=== PATIENT | female | born 1930 | race Caucasian/White ===

== ENCOUNTER 2018-09-28 07:40 | Inpatient (IN) | payer MEDICARE, BC ==
[~2018-09-28] VITALS: Ht 167.6 cm; Wt 51.9 kg
[2018-09-28] VITALS (9 sets, daily range): BP systolic 104–143; BP diastolic 53–68
[2018-09-28] MEDS ORDERED: NALOXONE INJ 0.4 MG/1 ML VIAL (J2310) As Ordered ONE (07:44)
[2018-09-28] MEDS ORDERED: NALOXONE INJ 0.4 MG/1 ML VIAL (J2310) IV STA (07:45)
[2018-09-28] MEDS ORDERED: NS 500 ML IV ONE (08:00)
[2018-09-28] MEDS ORDERED: ATEN25TA PO (08:06)
[2018-09-28 08:34] LABS: BASO % 0.1 % (0.0-1.0); HEMATOCRIT 30.7 % (36.0-47.0); HEMOGLOBIN 10.1 g/dl (12.0-15.5); LYMPH # 0.9 10^3/uL (1.5-4.5); LYMPH % 5.8 % (24.0-44.0); MEAN CORPUSCULAR HGB CONC 32.9 g/dl (32.0-36.5); MEAN CORPUSCULAR VOLUME 88.2 fl (80.0-96.0); MONO # 0.9 10^3/uL (0.0-0.8); MONO % 5.6 % (0.0-5.0); NEUTROPHILS # 13.5 10^3/uL (1.8-7.7); PLATELET COUNT, AUTOMATED 253 10^3/uL (150-450); RED BLOOD COUNT 3.48 10^6/uL (4.00-5.40); WHITE BLOOD COUNT 15.3 10^3/uL (4.0-10.0)
[2018-09-28 08:47] LABS: INR 1.01; PARTIAL THROMBOPLASTIN TIME 32.5 SECONDS (25.4-37.6); PROTHROMBIN TIME 13.4 SECONDS (12.1-14.4)
[2018-09-28 09:02] LABS: BLOOD UREA NITROGEN 14 MG/DL (7-18); CALCIUM LEVEL 8.8 MG/DL (8.8-10.2); CARBON DIOXIDE LEVEL 25 MEQ/L (21-32); CHLORIDE LEVEL 105 MEQ/L (98-107); CPK CREATINE PHOSPHOKINASE 506 U/L (26-192); CREATININE FOR GFR 0.68 MG/DL (0.55-1.30); GLOMERULAR FILTRATION RATE > 60.0 (>32); GLUCOSE, FASTING 151 MG/DL (70-100); MB/CK RELATIVE INDEX 0.83 (< OR =4); POTASSIUM SERUM 3.8 MEQ/L (3.5-5.1); SODIUM LEVEL 139 MEQ/L (136-145); TROPONIN I < 0.02 NG/ML (< 0.10)
[2018-09-28] MEDS ORDERED: DORZ2SOL5 OU (09:22)
[2018-09-28] MEDS ORDERED: ALEV220T22 PO (09:22)
[2018-09-28] MEDS ORDERED: DIPH25CA PO (09:22)
[2018-09-28] MEDS ORDERED: EPIN1DRO OU (09:22)
[2018-09-28] MEDS ORDERED: ADVI200T26 PO (09:22)
[2018-09-28] MEDS ORDERED: ASPI1TAB PO (09:22)
--- NOTE | 2018-09-28 09:37 | REP ---
Pelvis right hip: Three views. History: Trauma. Findings: There is a comminuted intertrochanteric fracture of the right hip in varus with some override. Vascular calcification and diffuse osteoporosis are noted. No pelvic fracture is appreciated. No sacral fracture is seen. There are degenerative changes in the lumbosacral junction. A vaginal pessary appears to be present and there is moderate stool. Impression: Comminuted intertrochanteric fracture of the right hip with override and varus deformity. Osteoporosis. Electronically Signed by Chidi Hernandez MD 09/28/2018 08:36 A
--- NOTE | 2018-09-28 09:37 | REP ---
Chest x-ray: Single view. History: Preop. Comparison chest x-ray October 22, 2009. Findings: EKG monitoring electrodes overlie the chest. Lungs are hyperinflated but clear. Pleural angles are sharp. Heart is not felt to be enlarged and is unchanged. The aorta is calcific and somewhat tortuous. There is diffuse osteopenia. Impression: No acute disease. Electronically Signed by Chidi Hernandez MD 09/28/2018 08:36 A
--- NOTE | 2018-09-28 09:42 | REP ---
Right femur: Two views. History: Request of orthopedic surgeon. Trauma. Right hip radiographs demonstrate an intertrochanteric fracture. Findings: AP and lateral views of the mid and distal femur show no additional fracture. There is diffuse osteoporosis. Medial knee compartment osteoarthritis is seen. Vascular calcification is noted. The lateral radiograph is somewhat overexposed which precludes visualization of the anterior surface of the patella and tibia on the lateral radiograph. Impression: No additional fracture seen. Electronically Signed by Chidi Hernandez MD 09/28/2018 09:22 A
[2018-09-28] MEDS ORDERED: ONDANSETRON 4MG/2ML VIAL (J2405) IV PRN (09:45)
[2018-09-28] MEDS ORDERED: BISACODYL 10 MG SUPP PR PRN (09:45)
--- NOTE | 2018-09-28 10:05 | REP ---
Emergency noncontrast brain CT: History: Trauma. Findings: Preliminary digital marina porter radiograph is unremarkable. Bone window settings demonstrate an intact bony calvarium. There is moderate vascular calcification in the distal vertebral and carotid arteries. Visualized paranasal sinuses are clear. No skull fracture is seen. No significant scalp hematoma is appreciated. On soft tissue window settings, there is moderate diffuse cerebral atrophy. Periventricular white matter changes are seen consistent with small vessel microvascular changes. There is no evidence of intracranial hemorrhage. No extra-axial fluid collection is seen. No mass, edema, acute infarction or midline shift is observed. Physiologic calcification is noted in the basal ganglia. Impression: Diffuse atrophy, small vessel changes, vascular calcification. No acute intracranial abnormality. Electronically Signed by Chidi Hernandez MD 09/28/2018 12:26 P
--- NOTE | 2018-09-28 11:15 | REP ---
CT right hip without contrast: History: Rule out lytic lesion. Right hip fracture. Findings: A comminuted intertrochanteric fracture is seen as noted radiographically. Alignment is improved. The edge of the fracture at the base of the femoral neck on the right shows a sclerotic margin and a portion of the fracture line on the femoral shaft side shows sclerosis as well. There is a mottled pattern of increased density in the medullary canal at the edge of the fracture in the proximal femoral fragment. These findings suggest a mixed density partially sclerotic intertrochanteric lesion. Most of the lesion appears to be within the diastatic comminuted fracture fragments. Its proximal margin is visible in the medullary canal of the femoral shaft fragment and matrix from the lesion is seen across the diastatic fracture line. There is some of the lesion extending into the comminuted greater trochanter. However, the lesion does not appear to have eroded through or remodeled the cortical margin of the femur at any level. These features render it difficult to evaluate but benign lesion such as fibrous dysplasia is a possibility as is a mixed lytic and sclerotic hematogenous metastasis such as from breast primary. Impression: Comminuted intertrochanteric fracture through a mixed density somewhat sclerotic intertrochanteric medullary cavity lesion. The lesion is difficult to characterize. Fibrous dysplasia and mixed lytic and sclerotic malignant lesions are possibilities. There does not appear to have been cortical erosion. Electronically Signed by Chidi Hernandez MD 09/28/2018 12:30 P
[2018-09-28] MEDS: D5W/0.45% SODIUM CHLORIDE 1,000 ML IV SCH ×2 (11:28→21:15)
[2018-09-28] MEDS ORDERED: DEXTROSE 50% 50 ML SYRINGE IV PRN ×2 (11:30→12:15)
[2018-09-28] MEDS ORDERED: GLUCAGON FOR INJ 1 MG VIAL (J1610) SC PRN ×2 (11:30→12:15)
[2018-09-28] MEDS ORDERED: GLUCOSE 4 GM CHEW TABLET PO PRN ×2 (11:30→12:15)
--- NOTE | 2018-09-28 11:39 | CR ---
DATE OF CONSULTATION: 09/28/2018 PROVIDER REQUESTING CONSULTATION: Dr. Curry Cooley PROVIDER CONSULTED: Dr. Esau Stratton, [facility] CHIEF COMPLAINT: Right hip pain status post fall. HISTORY: The patient is an 87-year-old female with advanced dementia, presenting to the emergency room via EMS status post fall. The patient was last known well on 09/27/2018 at 1900 hours. She was found this morning on the ground with her right leg internally rotated. When EMS arrived, she was alert, complaining of right hip pain. Morphine and Zofran were administered. Upon arrival to the emergency room the patient was lethargic and not responsive to sternal rub, so she was given Narcan and immediately became responsive and able to answer questions. She was quite confused at baseline. The patient was unable to recall the circumstances surrounding the fall. Last oral intake is unknown but was prior to 0700 hours this morning. At the emergency room, the patient had x-rays and CT scan notable for a closed comminuted overriding intertrochanteric femur fracture on the right. [facility] was consulted. CHRONIC MEDICAL CONDITIONS: The patient is a poor historian, however she does have history of dementia, hypertension, allergies. CURRENT MEDICATIONS: - atenolol 25 mg daily - aspirin 81 mg daily - Aleve 220 mg every morning - Advil 400 mg every evening - Benadryl 25 mg daily as needed - dorzolamide/timolol eye drops - epinastine eye drops ALLERGIES: There are no known drug allergies. PREVIOUS SURGICAL HISTORY: Unknown. SOCIAL HISTORY: No current tobacco or alcohol use. REVIEW OF SYSTEMS: The patient denies fevers, chills, vomiting or diarrhea. No chest pain, shortness of breath or headaches. PHYSICAL EXAMINATION: GENERAL: The patient does appear to be resting comfortably in exam room. She is a poor historian due to her dementia. Right lower extremity is in an internally rotated position. VITAL SIGNS: Blood pressure 135/53, heart rate 64, temperature 97.3, pulse oximetry 100%, respirations 16. NECK: Supple without lymphadenopathy. CARDIOVASCULAR: Radial and dorsalis pedis pulses are 1+ and equal bilaterally. PULMONARY: Breathing is regular and nonlabored. ABDOMEN: Soft, nontender to palpation. MUSCULOSKELETAL: Inspection of the right hip reveals no gross abnormalities with the exception of a slightly internally rotated position. There is tenderness to palpation at the lateral hip and groin. Extremity is warm and well perfused. Her skin at the hip is intact; however, she does have a small abrasion to the great toe at the medial metatarsal phalangeal joint that appears benign. Bilateral lower extremity sensation is intact. The patient is able to move all of her toes bilaterally without difficulty. IMAGING STUDIES: Right hip AP lateral to include pelvis revealed a comminuted intertrochanteric fracture of the right hip with override and varus deformity. Osteoporosis. CT scan reveals the same. IMPRESSION: Comminuted intertrochanteric femur fracture on the right with override and varus deformity in a patient with advanced dementia. PLAN: Patient is pending medical clearance at this time. Pending medical clearance, the patient will remain nothing by mouth. [facility] international accounting manager provider will be in to evaluate the patient to discuss surgical versus nonsurgical options pending clearance. Please see medical record for additional details. WILLD
[2018-09-28] MEDS ORDERED: MORPHINE 4 MG/ML 1ML VIAL/SYRINGE (J2270) IV PRN (12:15)
--- NOTE | 2018-09-28 12:24 | HPEPDOC ---
[facility] Medical History & Physical Date of Admission Sep 28, 2018 Primary Care Physician: Latoya Mendoza Attending Physician: YUNI TERRELL MD History and Physical CHIEF COMPLAINT: Fall , right hip fracture HISTORY OF PRESENT ILLNESS: 87 year old DO NOT RESUSCITATE, DO NOT INTUBATE, female with chronic Dementia, who lives at home with her grandson and usually walks with a walker, and has been increasing demented unable to perform ADLs without assistance sustained a fall at home without prodromal symptoms of chest pain, pressure,tightness, dizziness, lightheadedness, nausea, vomiting, diaphoresis of sense of impending doom, without any past medical history of coronary artery disease, UT, CHF, arrhythmias, or CVA. In the Emergency room, she was found to have a closed intertrochanteric fracture of the right hip. CT extremity 09/28/18: mixed lytic lesions from possible malignancy and osteoporosis. Orthopedic surgery, Dr. Stratton, has been consulted by both Dr. Ruslan Cooley, ER physician, and Hospitalist, Dr. Terrell for management. According to the grandson, pt has been in her usual state of health without fever, chills, diarrhea, headache, constipation, dysuria, urgency, frequency and often suffers from chronic back pain and vertigo. Her fall was unwitnessed, and despite the patient saying that she did not hit her head, pt's daughter says, that the patient is an unreliable historian. She was found on the floor covered in urine and may have been there since last night. Per daughter, no prior history of malignancy. PAST MEDICAL HISTORY: Vertigo, Chronic Dementia, Chronic back pain, Hypertension, hypercholesterolemia, glaucoma PAST SURGICAL HISTORY: Cataract surgery b/l, teeth extraction, tonsillectomy, adenoidectomy, HOME MEDICATIONS: PLS SEE BELOW ALLERGY: Azithromycin hives SOCIAL HISTORY: refused colonoscopy in the past, 2014 category 2 benign breast nodules mammogram per Dr. Seay's office. lives with grandsonKirill. HCP are Radhika Mata, daughter and lives in [place], and Kirill, grandson. no ETOH, cig, drug use. retired FAMILY HISTORY: unknown REVIEW OF SYSTEMS: right hip pain, other tsang negative 12 points systems review. HOME MEDICATIONS: Please see below. PHYSICAL EXAMINATION: VITAL SIGNS:pls see below GENERAL APPEARANCE: AAOx1 person only. pleasantly confused HEENT: anicteric sclear, no jaundice. no respiratory distress. no facial asymmetry. no JVD no thyromegaly CARDIOVASCULAR: S1S2 RRR LUNGS: CTAB no wheezing, rales ABDOMEN: (+) bowel sounds soft NT ND no rebound or guarding MUSCULOSKELETAL: right hip tenderness. shortened right LE externally rotated. NEUROLOGIC: demented, disoriented to place and time. AAO x1 person only LABORATORY DATA: See below. IMAGING: See below 09/28/18 Hip XRay: Comminuted intertrochanteric fracture of the right hip with override and varus deformity. Osteoporosis. 09/28/18 CT Head: Diffuse atrophy, small vessel changes, vascular calcification. No acute intracranial abnormality. 09/28/18 CXR: no acute disease 09/28/18 CT Extremity: A comminuted intertrochanteric fracture is seen as noted radiographically. Alignment is improved. The edge of the fracture at the base of the femoral neck on the right shows a sclerotic margin and a portion of the fracture line on the femoral shaft side shows sclerosis as well. There is a mottled pattern of increased density in the medullary canal at the edge of the fracture in the proximal femoral fragment. These findings suggest a mixed density partially sclerotic intertrochanteric lesion. Most of the lesion appears to be within the diastatic comminuted fracture fragments. Its proximal margin is visible in the medullary canal of the femoral shaft fragment and matrix from the lesion is seen across the diastatic fracture line. There is some of the lesion extending into the comminuted greater trochanter. However, the lesion does not appear to have eroded through or remodeled the cortical margin of the femur at any level. These features render it difficult to evaluate but benign lesion such as fibrous dysplasia is a possibility as is a mixed lytic and sclerotic hematogenous metastasis such as from breast primary. ASSESSMENT AND PLAN: 87 year old DO NOT RESUSCITATE, DO NOT INTUBATE, female with chronic Dementia, who lives at home with her grandson and usually walks with a walker, and has been increasing demented unable to perform ADLs without assistance sustained a fall at home without prodromal symptoms of chest pain, pressure,tightness, dizziness, lightheadedness, nausea, vomiting, diaphoresis of sense of impending doom, without any past medical history of coronary artery disease, UT, CHF, arrhythmias, or CVA. In the Emergency room, she was found to have a closed intertrochanteric fracture of the right hip. CT extremity 09/28/18: mixed lytic lesions from possible malignancy and osteoporosis. Orthopedic surgery, Dr. Stratton, has been consulted by both Dr. Ruslan Cooley, ER physician, and Hospitalist, Dr. Terrell for management. According to the grandson, pt has been in her usual state of health without fever, chills, diarrhea, headache, constipation, dysuria, urgency, frequency and often suffers from chronic back pain and vertigo. Her fall was unwitnessed, and despite the patient saying that she did not hit her head, pt's daughter says, that the patient is an unreliable historian. She was found on the floor covered in urine and may have been there since last night. Per daughter, no prior history of malignancy. Preooperative medical clearance: pt is at intermediate risk of surgery, but has been optimized to proceed to surgery. Her ASA has been withheld, and she is continued on beta blockers with holding parameters. no prior history of CAD, UT, CHF, smoking, COPD, or QUINTIN. Fall at home: bedrest with macias for now until surgical repair. Pt lives with grandson and usually walks with a walker. Comminuted intertrochanteric fracture of the right hip with override and varus deformity, secondary to a fall at home and longstanding history of osteoporosis. npo for now, ivfluids, surgical consult for repair. consent obtained from HCF and daughter. hypoglycemic protocol and fingersticks q6hrs while NPO. Osteoporosis: postop vitamin D and calcium supplementation. Hypertension: controlled. on beta marianela with holding parameters Glaucoma: will resume home meds postop Hypercholesterolemia: not on meds Chronic Vertigo: pt has advanced dementia and could not provide history regarding her recent fall at home. Chronic advanced Dementia: worsening according to the family. has a grandson living with her . requires help with ADLs. Abnormal EKG: continue Telemetry. Lytic bone lesions: abnormal mammogram, refused colonoscopy in the past. Code status: DO NOT RESUSCITATE, DO NOT INTUBATE Diet: NPO D51/2NS while NPO with hypoglycemic protocol and fingersticks q6hrs. DVT Prophylaxis: compression stockings. Vital Signs Vital Signs Date Time Temp Pulse Resp B/P (MAP) Pulse Ox O2 Delivery O2 Flow Rate FiO2 09/28/18 11:00 98.1 70 20 140/65 (90) 95 Room Air Laboratory Data Labs 24H Laboratory Tests 2 09/28/18 08:20: Immature Granulocyte % (Auto) 0.5, White Blood Count 15.3H, Red Blood Count 3.48L, Hemoglobin 10.1L, Hematocrit 30.7L, Mean Corpuscular Volume 88.2, Mean Corpuscular Hemoglobin 29.0, Mean Corpuscular Hemoglobin Concent 32.9, Red Cell Distribution Width 13.6, Platelet Count 253, Neutrophils (%) (Auto) 88.0H, Lymphocytes (%) (Auto) 5.8L, Monocytes (%) (Auto) 5.6H, Eosinophils (%) (Auto) 0.0, Basophils (%) (Auto) 0.1, Neutrophils # (Auto) 13.5H, Lymphocytes # (Auto) 0.9L, Monocytes # (Auto) 0.9H, Eosinophils # (Auto) 0.0, Basophils # (Auto) 0.0, Nucleated Red Blood Cells % (auto) 0.0, Prothrombin Time 13.4, Prothromb Time International Ratio 1.01, Activated Partial Thromboplast Time 32.5, Urine Color YELLOW, Urine Appearance CLOUDYH, Urine pH 6.0, Urine Specific [place] 1.014, Urine Protein 1+H, Urine Glucose (UA) NEGATIVE, Urine Ketones TRACEH, Urine Blood 1+H, Urine Nitrite NEGATIVE, Urine Bilirubin NEGATIVE, Urine Urobilinogen 0.2, Urine Leukocyte Esterase TRACEH, Urine WBC (Auto) 6H, Urine RBC (Auto) 19H, Urine Hyaline Casts (Auto) 5, Urine Bacteria (Auto) NEGATIVE, Urine Squamous E pithelial Cells 2, Urine Amorphous Sediment SMALLH, Urine Mucus (Auto) SMALL, Urine Sperm (Auto) , Anion Gap 9, Glomerular Filtration Rate > 60.0, Blood Urea Nitrogen 14, Creatinine 0.68, Sodium Level 139, Potassium Level 3.8, Chloride Level 105, Carbon Dioxide Level 25, Calcium Level 8.8, Total Creatine Kinase 506H, Creatine Kinase MB 4.0H, Creatine Kinase MB Relative Index 0.83, Troponin I < 0.02 CBC/BMP Laboratory Tests 09/28/18 08:20 Red Blood Count 3.48 L, Mean Corpuscular Volume 88.2, Mean Corpuscular Hemoglobin 29.0, Mean Corpuscular Hemoglobin Concent 32.9, Red Cell Distribution Width 13.6, Neutrophils (%) (Auto) 88.0 H, Lymphocytes (%) (Auto) 5.8 L, Monocytes (%) (Auto) 5.6 H, Eosinophils (%) (Auto) 0.0, Basophils (%) (Auto) 0.1, Neutrophils # (Auto) 13.5 H, Lymphocytes # (Auto) 0.9 L, Monocytes # (Auto) 0.9 H, Eosinophils # (Auto) 0.0, Basophils # (Auto) 0.0, Calcium Level 8.8, Total Creatine Kinase 506 H Microbiology Microbiology 09/28/18 Urine Culture, Received Pending Home Medications Scheduled (Epinastine HCl) 0.05 % Brett, 1 DROP OU BID (Dorzolamide HCl/Timolol M 22.3-6.8 mg/ml) 1 Cirilo Cirilo, 1 CIRILO OU BID (Aleve Arthritis) 220 Mg Tab, 220 MG PO DAILY (Advil Pm 200-38 mg) 1 Tab Tab, 2 TAB PO QHS Aspirin (Aspirin 81) 81 Mg Tab, 81 MG PO DAILY Atenolol (Atenolol) 25 Mg Tab, 25 MG PO DAILY Diphenhydramine HCl (Diphenhydramine HCl) 25 Mg Cap, 25 MG PO DAILY Allergies Coded Allergies: No Known Allergies (Unverified , 09/28/18) YUNI TERRELL MD Sep 28, 2018 12:01
--- NOTE | 2018-09-28 13:21 | ECGEPIP ---
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
[2018-09-28] MEDS ORDERED: LIDOCAINE 1% MDV 20ML VIAL As Ordered ONE (15:32)
--- NOTE | 2018-09-28 17:08 | REP ---
CT-GUIDED LEFT HIP BONE BIOPSY The procedure was performed under the direct supervision of Dr. monge. Patient has a history of a mixed density, somewhat sclerotic intertrochanteric medullary cavity lesion seen on a previous CT scan performed earlier today. The risks and benefits of the procedure were explained and informed consent was obtained by the health care proxy. The right hip lesion was localized using CT guidance. The skin was prepped and draped in a sterile fashion. 1% lidocaine was used as a local anesthetic. Using CT guidance a 17/18 gauge coaxial needle biopsy system was inserted and advanced into the lesion. Eight core biopsy samples were obtained and sent to lab. The patient tolerated the procedure well and there were no immediate complications. Reviewed by HOUSTON Cordon 09/28/2018 04:53 P Electronically Signed by Usama Monge MD 09/28/2018 04:59 P
[2018-09-28] MEDS: ACETAMINOPHEN TAB 650MG DOSE (2X325MG) PO PRN (18:24)
[2018-09-28] MEDS: CARVedilol 3.125 MG TAB PO SCH (19:42)
[2018-09-28] MEDS: PERCOCET 5MG/325MG TAB PO PRN (19:45)
[2018-09-29] VITALS (10 sets, daily range): BP systolic 100–161; BP diastolic 53–78
[2018-09-29] MEDS: PERCOCET 5MG/325MG TAB PO PRN ×2 (03:49→12:43)
[2018-09-29 05:48] LABS: HEMATOCRIT 23.1 % (36.0-47.0); MEAN CORPUSCULAR HEMOGLOBIN 29.3 pg (27.0-33.0); MEAN CORPUSCULAR HGB CONC 32.9 g/dl (32.0-36.5); MEAN CORPUSCULAR VOLUME 89.2 fl (80.0-96.0); PLATELET COUNT, AUTOMATED 197 10^3/uL (150-450); RED BLOOD COUNT 2.59 10^6/uL (4.00-5.40); WHITE BLOOD COUNT 11.1 10^3/uL (4.0-10.0)
[2018-09-29 05:53] LABS: HEMOGLOBIN 7.6 g/dl (12.0-15.5)
[2018-09-29 06:19] LABS: BLOOD UREA NITROGEN 12 MG/DL (7-18); CALCIUM LEVEL 7.8 MG/DL (8.8-10.2); CARBON DIOXIDE LEVEL 26 MEQ/L (21-32); CHLORIDE LEVEL 106 MEQ/L (98-107); GLOMERULAR FILTRATION RATE > 60.0 (>32); GLUCOSE, FASTING 128 MG/DL (70-100); POTASSIUM SERUM 3.9 MEQ/L (3.5-5.1); SODIUM LEVEL 139 MEQ/L (136-145)
[2018-09-29] MEDS: D5W/0.45% SODIUM CHLORIDE 1,000 ML IV SCH (06:22)
[2018-09-29] MEDS ORDERED: ACETAMINOPHEN TAB 650MG DOSE (2X325MG) PO ONE (08:00)
[2018-09-29] MEDS ORDERED: ENOXAPARIN 30 MG/0.3 ML SYR (J1650) SC ONE (08:00)
[2018-09-29] MEDS: CARVedilol 3.125 MG TAB PO SCH ×2 (08:38→22:08)
[2018-09-29] MEDS: MIRALAX *UNIT DOSE* 17GM PACKET PO SCH (09:00)
[2018-09-29] MEDS: SENOKOT S TAB PO SCH ×2 (09:00→22:08)
[2018-09-29 12:19] LABS: HEMOGLOBIN 9.4 g/dl (12.0-15.5)
--- NOTE | 2018-09-29 14:34 | IPNPDOC ---
Date Seen The patient was seen on 09/29/18. Progress Note SUBJECTIVE: Pt continues to be restless and wanting to go home. s/p biopsy of right femur 09/28/18: awaiting results if lytic lesion due to metastatic cancer of unknown primary. Per Daughter, Radhika, HCP in [place], the paitent would not want prolonged hospitalization, and if the pathology report confirms malignancy, family requests: no surgery, discharge home with hospice and comfort measures only. If pt becomes agitated, low dose sedative per daughter's request, and 'NOT TO BE TIED DOWN." PHYSICAL EXAMINATION: VITAL SIGNS:pls see below GENERAL APPEARANCE: AAOx1 person only. pleasantly confused HEENT: anicteric sclear, no jaundice. no respiratory distress. no facial asymmetry. no JVD no thyromegaly CARDIOVASCULAR: S1S2 RRR LUNGS: CTAB no wheezing, rales ABDOMEN: (+) bowel sounds soft NT ND no rebound or guarding MUSCULOSKELETAL: right hip tenderness. shortened right LE externally rotated. hematoma along right thigh. NEUROLOGIC: demented, disoriented to place and time. AAO x1 person only LABORATORY DATA: See below. IMAGING: See below 09/28/18 Hip XRay: Comminuted intertrochanteric fracture of the right hip with override and varus deformity. Osteoporosis. 09/28/18 CT Head: Diffuse atrophy, small vessel changes, vascular calcification. No acute intracranial abnormality. 09/28/18 CXR: no acute disease 09/28/18 CT Extremity: A comminuted intertrochanteric fracture is seen as noted radiographically. Alignment is improved. The edge of the fracture at the base of the femoral neck on the right shows a sclerotic margin and a portion of the fracture line on the femoral shaft side shows sclerosis as well. There is a mottled pattern of increased density in the medullary canal at the edge of the fracture in the proximal femoral fragment. These findings suggest a mixed density partially sclerotic intertrochanteric lesion. Most of the lesion appears to be within the diastatic comminuted fracture fragments. Its proximal margin is visible in the medullary canal of the femoral shaft fragment and matrix from the lesion is seen across the diastatic fracture line. There is some of the lesion extending into the comminuted greater trochanter. However, the lesion does not appear to have eroded through or remodeled the cortical margin of the femur at any level. These features render it difficult to evaluate but benign lesion such as fibrous dysplasia is a possibility as is a mixed lytic and sclerotic hematogenous metastasis such as from breast primary. ASSESSMENT AND PLAN: 87 year old DO NOT RESUSCITATE, DO NOT INTUBATE, female with chronic Dementia, who lives at home with her grandson and usually walks with a walker, and has been increasing demented unable to perform ADLs without assistance sustained a fall at home without prodromal symptoms of chest pain, pressure,tightness, dizziness, lightheadedness, nausea, vomiting, diaphoresis of sense of impending doom, without any past medical history of coronary artery disease, [place], CHF, arrhythmias, or CVA. In the Emergency room, she was found to have a closed intertrochanteric fracture of the right hip. CT extremity 09/28/18: mixed lytic lesions from possible malignancy and osteoporo sis. Orthopedic surgery, Dr. Stratton, has been consulted by both Dr. Ruslan Cooley, ER physician, and Hospitalist, Dr. Terrell for management. According to the grandson, pt has been in her usual state of health without fever, chills, diarrhea, headache, constipation, dysuria, urgency, frequency and often suffers from chronic back pain and vertigo. Her fall was unwitnessed, and despite the patient saying that she did not hit her head, pt's daughter says, that the patient is an unreliable historian. She was found on the floor covered in urine and may have been there since last night. Per daughter, no prior history of malignancy. Preooperative medical clearance: pt is at intermediate risk of surgery, but has been optimized to proceed to surgery. Her ASA has been withheld, and she is co ntinued on beta blockers with holding parameters. no prior history of CAD, [place], CHF, smoking, COPD, or QUINTIN. Per family,should the pathology show metastasis, no surgery, but claim trainee and discharge home with 24/7 care. Fall at home: bedrest with macias for now until surgical repair. Pt lives with grandson and usually walks with a walker. Comminuted intertrochanteric fracture of the right hip with override and varus deformity, secondary to a fall at home and longstanding history of osteoporosis and possible lytic lesions from unknown primary malignancy. s/prit hip biopsy 09/28/18. Per family,should the pathology show metastasis, no surgery, but claim trainee and discharge home with 24/7 care. Right thigh Hematoma: secondary to right hip fracture s/p fall. no signs of compartment syndrome. s/p 1 unit rbc transfusion. Acute blood loss anemia: secondary to right thigh hematoma and longstanding history of LGI bleed refusing colonoscopy. s/p 1 unit rbc transfusion 09/29/18. Per daughter, pt has refused colonosocpy. bowel regimen. check stool for blood. Bone lytic lesions: s/pright hip biopsy 09/28/18. Per family,should the pathology show metastasis, no surgery, but claim trainee and discharge home with 24/7 care.abnormal mammogram, refused colonoscopy in the past. Osteoporosis: postop vitamin D and calcium supplementation. Hypertension: controlled. on beta marianela with holding parameters Glaucoma: will resume home meds postop Hypercholesterolemia: not on meds Chronic Vertigo: pt has advanced dementia and could not provide history regarding her recent fall at home. Chronic advanced Dementia: worsening according to the family. has a grandson living with her . requires help with ADLs. Abnormal EKG: continue Telemetry. Code status: DO NOT RESUSCITATE, DO NOT INTUBATE DVT Prophylaxis: compression stockings. VS, I&O, [facility] Vital Signs/I&O Vital Signs Date Time Temp Pulse Resp B/P (MAP) Pulse Ox O2 Delivery O2 Flow Rate FiO2 09/29/18 13:13 17 Room Air 09/29/18 11:00 99.3 81 115/57 (76) 97 I&O- Last 24 Hours up to 6 AM 09/29/18 06:00 Intake Total 1220 ml Output Total 675 ml Balance 545 ml Laboratory Data 24H LABS Laboratory Tests 2 09/29/18 05:20: Nucleated Red Blood Cells % (auto) 0.0, Anion Gap 7L, Glomerular Filtration Rate > 60.0, Blood Urea Nitrogen 12, Creatinine 0.70, Sodium Level 139, Potassium Level 3.9, Chloride Level 106, Carbon Dioxide Level 26, Calcium Level 7.8L CBC/BMP Laboratory Tests 09/29/18 05:20 Red Blood Count 2.59 L, Mean Corpuscular Volume 89.2, Mean Corpuscular Hemoglobin 29.3, Mean Corpuscular Hemoglobin Concent 32.9, Red Cell Distribution Width 14.0, Calcium Level 7.8 L 09/29/18 12:08 Microbiology Microbiology 09/28/18 Urine Culture, Received Pending YUNI TERRELL MD Sep 29, 2018 14:34
[2018-09-29] MEDS: HALOPERIDOL 0.25MG PER 1/2 TABLET PO PRN (16:29)
[2018-09-29 23:29] LABS: HEMATOCRIT 28.6 % (36.0-47.0); HEMOGLOBIN 9.7 g/dl (12.0-15.5)
[2018-09-30 06:00] VITALS: BP 131/66
[2018-09-30 06:20] LABS: HEMATOCRIT 27.8 % (36.0-47.0); HEMOGLOBIN 9.2 g/dl (12.0-15.5); MEAN CORPUSCULAR HEMOGLOBIN 28.8 pg (27.0-33.0); MEAN CORPUSCULAR HGB CONC 33.1 g/dl (32.0-36.5); MEAN CORPUSCULAR VOLUME 87.1 fl (80.0-96.0); PLATELET COUNT, AUTOMATED 202 10^3/uL (150-450); RED BLOOD COUNT 3.19 10^6/uL (4.00-5.40); WHITE BLOOD COUNT 11.7 10^3/uL (4.0-10.0)
[2018-09-30] MEDS: PERCOCET 5MG/325MG TAB PO PRN ×3 (06:20→20:23)
[2018-09-30 06:43] LABS: BLOOD UREA NITROGEN 10 MG/DL (7-18); CALCIUM LEVEL 8.1 MG/DL (8.8-10.2); CARBON DIOXIDE LEVEL 25 MEQ/L (21-32); CHLORIDE LEVEL 105 MEQ/L (98-107); CREATININE FOR GFR 0.59 MG/DL (0.55-1.30); GLOMERULAR FILTRATION RATE > 60.0 (>32); GLUCOSE, FASTING 102 MG/DL (70-100); POTASSIUM SERUM 3.8 MEQ/L (3.5-5.1); SODIUM LEVEL 137 MEQ/L (136-145)
[2018-09-30] MEDS: CARVedilol 3.125 MG TAB PO SCH ×2 (08:06→20:24)
[2018-09-30] MEDS: SENOKOT S TAB PO SCH ×2 (08:06→20:23)
[2018-09-30] MEDS: MIRALAX *UNIT DOSE* 17GM PACKET PO SCH (08:06)
[2018-09-30] MEDS: ACETAMINOPHEN TAB 650MG DOSE (2X325MG) PO PRN (08:09)
[2018-09-30] MEDS ORDERED: ENOXAPARIN 30 MG/0.3 ML SYR (J1650) SC SCH (09:00)
--- NOTE | 2018-09-30 09:47 | IPNPDOC ---
Date Seen The patient was seen on 09/30/18. Progress Note SUBJECTIVE: Pt's hematoma is expanding in the right thigh, but no signs of compartment syndrome. Ortho is aware and monitoring.Pt continues to be restless requiring a sitter and wanting to go home. s/p biopsy of right femur 09/28/18: awaiting results if lytic lesion due to metastatic cancer of unknown primary. Per Daughter, Radhika, HCP in [place], the paitent would not want prolonged hospitalization, and if the pathology report confirms malignancy, family requests: no surgery, discharge home with hospice and comfort measures only. If pt becomes agitated, low dose sedative per daughter's request, and 'NOT TO BE TIED DOWN." PHYSICAL EXAMINATION: VITAL SIGNS:pls see below GENERAL APPEARANCE: AAOx1 person only. pleasantly confused HEENT: anicteric sclear, no jaundice. no respiratory distress. no facial asymmetry. no JVD no thyromegaly CARDIOVASCULAR: S1S2 RRR LUNGS: CTAB no wheezing, rales ABDOMEN: (+) bowel sounds soft NT ND no rebound or guarding MUSCULOSKELETAL: right hip tenderness. shortened right LE externally rotated. hematoma along right thigh. NEUROLOGIC: demented, disoriented to place and time. AAO x1 person only LABORATORY DATA: See below. IMAGING: See below 09/28/18 Hip XRay: Comminuted intertrochanteric fracture of the right hip with override and varus deformity. Osteoporosis. 09/28/18 CT Head: Diffuse atrophy, small vessel changes, vascular calcification. No acute intracranial abnormality. 09/28/18 CXR: no acute disease 09/28/18 CT Extremity: A comminuted intertrochanteric fracture is seen as noted radiographically. Alignment is improved. The edge of the fracture at the base of the femoral neck on the right shows a sclerotic margin and a portion of the fracture line on the femoral shaft side shows sclerosis as well. There is a mottled pattern of increased density in the medullary canal at the edge of the fracture in the proximal femoral fragment. These findings suggest a mixed density partially sclerotic intertrochanteric lesion. Most of the lesion appears to be within the diastatic comminuted fracture fragments. Its proximal margin is visible in the medullary canal of the femoral shaft fragment and matrix from the lesion is seen across the diastatic fracture line. There is some of the lesion extending into the comminuted greater trochanter. However, the lesion does not appear to have eroded through or remodeled the cortical margin of the femur at any level. These features render it difficult to evaluate but benign lesion such as fibrous dysplasia is a possibility as is a mixed lytic and sclerotic hematogenous metastasis such as from breast primary. ASSESSMENT AND PLAN: 87 year old DO NOT RESUSCITATE, DO NOT INTUBATE, female with chronic Dementia, who lives at home with her grandson and usually walks with a walker, and has been increasing demented unable to perform ADLs without assistance sustained a fall at home without prodromal symptoms of chest pain, pressure,tightness, dizziness, lightheadedness, nausea, vomiting, diaphoresis of sense of impending doom, without any past medical history of co ronary artery disease, [place], CHF, arrhythmias, or CVA. In the Emergency room, she was found to have a closed intertrochanteric fracture of the right hip. CT extremity 09/28/18: mixed lytic lesions from possible malignancy and osteoporosis. Orthopedic surgery, Dr. Stratton, has been consulted by both Dr. Ruslan Cooley, ER physician, and Hospitalist, Dr. Terrell for management. According to the grandson, pt has been in her usual state of health without fever, chills, diarrhea, headache, constipation, dysuria, urgency, frequency and often suffers from chronic back pain and vertigo. Her fall was unwitnessed, and despite the patient saying that she did not hit her head, pt's daughter says, that the patient is an unreliable historian. She was found on the floor covered in urine and may have been there since last night. Per daughter, no prior history of malignancy. Preooperative medical clearance: pt is at intermediate risk of surgery, but has been optimized to proceed to surgery. Her ASA has been withheld, and she is continued on beta blockers with holding parameters. no prior history of CAD, [place], CHF, smoking, COPD, or QUINTIN. 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 Fall at home: bedrest with macias for now until surgical repair. Pt lives with grandson and usually walks with a walker. Comminuted intertrochanteric fracture of the right hip with override and varus deformity, secondary to a fall at home and longstanding history of osteoporosis and possible lytic lesions from unknown primary malignancy. s/pright hip biopsy 09/28/18. 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 Right thigh Hematoma: secondary to right hip fracture s/p fall. no signs of compartment syndrome. s/p 1 unit rbc transfusion. Acute blood loss anemia: secondary to right thigh hematoma and longstanding history of LGI bleed refusing colonoscopy. s/p 1 unit rbc transfusion 09/29/18. Per daughter, pt has refused colonosocpy. bowel regimen. check stool for blood. Bone lytic lesions: s/pright hip biopsy 09/28/18. 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 Osteoporosis: postop vitamin D and calcium supplementation. Hypertension: controlled. on beta marianela with holding parameters Glaucoma: will resume home meds postop Hypercholesterolemia: not on meds Chronic Vertigo: pt has advanced dementia and could not provide history regarding her recent fall at home. Chronic advanced Dementia: worsening according to the family. has a grandson living with her . requires help with ADLs. Abnormal EKG: continue Telemetry. Code status: DO NOT RESUSCITATE, DO NOT INTUBATE DVT Prophylaxis: compression stockings. VS, I&O, 24H, Fishbone Vital Signs/I&O Vital Signs Date Time Temp Pulse Resp B/P (MAP) Pulse Ox O2 Delivery O2 Flow Rate FiO2 09/29/18 22:08 91 157/79 09/29/18 22:00 99.2 20 96 Room Air I&O- Last 24 Hours up to 6 AM 09/30/18 06:00 Intake Total 1740 ml Output Total 800 ml Balance 940 ml Laboratory Data CBC/BMP Laboratory Tests 09/29/18 12:08 09/29/18 23:22 Microbiology Microbiology 09/28/18 Urine Culture - Final, Complete Staph.aureus Methicillin Resis YUNI TERRELL MD Sep 30, 2018 05:34
[2018-09-30 14:00] VITALS: BP 143/67
[2018-09-30 22:00] VITALS: BP 151/71
[2018-10-01] MEDS: PERCOCET 5MG/325MG TAB PO PRN ×5 (00:44→20:37)
[2018-10-01 06:00] VITALS: BP 167/83
[2018-10-01 06:09] LABS: MEAN CORPUSCULAR HEMOGLOBIN 29.3 pg (27.0-33.0); MEAN CORPUSCULAR HGB CONC 33.3 g/dl (32.0-36.5); MEAN CORPUSCULAR VOLUME 87.9 fl (80.0-96.0); PLATELET COUNT, AUTOMATED 201 10^3/uL (150-450); RED BLOOD COUNT 3.07 10^6/uL (4.00-5.40); WHITE BLOOD COUNT 11.5 10^3/uL (4.0-10.0)
[2018-10-01 06:33] LABS: BLOOD UREA NITROGEN 14 MG/DL (7-18); CALCIUM LEVEL 8.3 MG/DL (8.8-10.2); CARBON DIOXIDE LEVEL 25 MEQ/L (21-32); CHLORIDE LEVEL 104 MEQ/L (98-107); GLOMERULAR FILTRATION RATE > 60.0 (>32); GLUCOSE, FASTING 101 MG/DL (70-100); POTASSIUM SERUM 3.5 MEQ/L (3.5-5.1); SODIUM LEVEL 137 MEQ/L (136-145)
[2018-10-01] MEDS: SENOKOT S TAB PO SCH ×2 (08:18→20:35)
[2018-10-01] MEDS: MIRALAX *UNIT DOSE* 17GM PACKET PO SCH (08:18)
[2018-10-01] MEDS: CARVedilol 3.125 MG TAB PO SCH ×2 (08:18→20:36)
--- NOTE | 2018-10-01 09:11 | IPNPDOC ---
Date Seen The patient was seen on 10/01/18. Progress Note SUBJECTIVE: Per Dr. Burt, pathologists, a single lesion is unlikely to be a malignancy, but will have to wait until 10/02/18 for prelim report. Daughter Radhika from [place] is arriving today to further discuss her mother's care. Pt's hematoma is expanding in the right thigh, but no signs of compartment syndrome. Ortho is aware and monitoring.Pt continues to be restless requiring a sitter and wanting to go home. s/p biopsy of right femur 09/28/18: awaiting results if lytic lesion due to metastatic cancer of unknown primary. Per Daughter, Radhika, HCP in [place], the paitent would not want prolonged hospitalization, and if the pathology report confirms malignancy, family requests: no surgery, discharge home with hospice and comfort measures only. If pt becomes agitated, low dose sedative per daughter's request, and 'NOT TO BE TIED DOWN." PHYSICAL EXAMINATION: VITAL SIGNS:pls see below GENERAL APPEARANCE: AAOx1 person only. pleasantly confused HEENT: anicteric sclear, no jaundice. no respiratory distress. no facial asymmetry. no JVD no thyromegaly CARDIOVASCULAR: S1S2 RRR LUNGS: CTAB no wheezing, rales ABDOMEN: (+) bowel sounds soft NT ND no rebound or guarding MUSCULOSKELETAL: right hip tenderness. shortened right LE externally rotated. hematoma along right thigh. NEUROLOGIC: demented, disoriented to place and time. AAO x1 person only LABORATORY DATA: See below. IMAGING: See below 09/28/18 Hip XRay: Comminuted intertrochanteric fracture of the right hip with override and varus deformity. Osteoporosis. 09/28/18 CT Head: Diffuse atrophy, small vessel changes, vascular calcification. No acute intracranial abnormality. 09/28/18 CXR: no acute disease 09/28/18 CT Extremity: A comminuted intertrochanteric fracture is seen as noted radiographically. Alignment is improved. The edge of the fracture at the base of the femoral neck on the right shows a sclerotic margin and a portion of the fracture line on the femoral shaft side shows sclerosis as well. There is a mottled pattern of increased density in the medullary canal at the edge of the fracture in the proximal femoral fragment. These findings suggest a mixed density partially sclerotic intertrochanteric lesion. Most of the lesion appears to be within the diastatic comminuted fracture fragments. Its proximal margin is visible in the medullary canal of the femoral shaft fragment and matrix from the lesion is seen across the diastatic fracture line. There is some of the lesion extending into the comminuted greater trochanter. However, the lesion does not appear to have eroded through or remodeled the cortical margin of the femur at any level. These features render it difficult to evaluate but benign lesion such as fibrous dysplasia is a possibility as is a mixed lytic and sclerotic hematogenous metastasis such as from breast primary. ASSESSMENT AND PLAN: 87 year old DO NOT RESUSCITATE, DO NOT INTUBATE, female with chronic Dementia, who lives at home with her grandson and usually walks with a walker, and has been increasing demented unable to perform ADLs without assistance sustained a fall at home without prodromal symptoms of chest pain, pressure,tightness, dizziness, lightheadedness, nausea, vomiting, diaphoresis of sense of impending doom, without any past medical history of coronary artery disease, [place], CHF, arrhythmias, or CVA. In the Emergency room, she was found to have a closed intertrochanteric fracture of the right hip. CT extremity 09/28/18: mixed lytic lesions from possible malignancy and osteoporosis. Orthopedic surgery, Dr. Stratton, has been consulted by both Dr. Ruslan Cooley, ER physician, and Hospitalist, Dr. Terrell for management. A ccording to the grandson, pt has been in her usual state of health without fever, chills, diarrhea, headache, constipation, dysuria, urgency, frequency and often suffers from chronic back pain and vertigo. Her fall was unwitnessed, and despite the patient saying that she did not hit her head, pt's daughter says, that the patient is an unreliable historian. She was found on the floor covered in urine and may have been there since last night. Per daughter, no prior history of malignancy. Preooperative medical clearance: pt is at intermediate risk of surgery, but has been optimized to proceed to surgery. Her ASA has been withheld, and she is continued on beta blockers with holding parameters. no prior history of CAD, [place], CHF, smoking, COPD, or QUINTIN. 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 Fall at home: bedrest with macias for now until surgical repair. Pt lives with grandson and usually walks with a walker. Comminuted intertrochanteric fracture of the right hip with override and varus deformity, secondary to a fall at home and longstanding history of osteoporosis and possible lytic lesions from unknown primary malignancy. s/pright hip biopsy 09/28/18. 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 Right thigh Hematoma: secondary to right hip fracture s/p fall. no signs of compartment syndrome. s/p 1 unit rbc transfusion. Acute blood loss anemia: secondary to right thigh hematoma and longstanding history of LGI bleed refusing colonoscopy. s/p 1 unit rbc transfusion 09/29/18. Per daughter, pt has refused colonosocpy. bowel regimen. check stool for blood. Bone lytic lesions: s/pright hip biopsy 09/28/18. 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 Burt, pathologists, a single lesion is unlikely to be a malignancy, but will have to wait until 10/02/18 for prelim report. Daughter Radhika from [place] is arriving today to further discuss her mother's care. Osteoporosis: postop vitamin D and calcium supplementation. Hypertension: controlled. on beta marianela with holding parameters Glaucoma: will resume home meds postop Hypercholesterolemia: not on meds Chronic Vertigo: pt has advanced dementia and could not provide history regarding her recent fall at home. Chronic advanced Dementia: worsening according to the family. has a grandson living with her . requires help with ADLs. Abnormal EKG: continue Telemetry. Code status: DO NOT RESUSCITATE, DO NOT INTUBATE DVT Prophylaxis: compression stockings. VS, I&O, 24H, Fishbone Vital Signs/I&O Vital Signs Date Time Temp Pulse Resp B/P (MAP) Pulse Ox O2 Delivery O2 Flow Rate FiO2 10/01/18 06:15 15 10/01/18 06:00 99.5 73 167/83 (111) 96 Room Air I&O- Last 24 Hours up to 6 AM 10/01/18 05:59 Intake Total 580 ml Output Total 1700 ml Balance -1120 ml Laboratory Data 24H LABS Laboratory Tests 2 10/01/18 05:35: Nucleated Red Blood Cells % (auto) 0.0, Anion Gap 8, Glomerular Filtration Rate > 60.0, Blood Urea Nitrogen 14, Creatinine 0.50L, Sodium Level 137, Potassium Level 3.5, Chloride Level 104, Carbon Dioxide Level 25, Calcium Level 8.3L CBC/BMP Laboratory Tests 10/01/18 05:35 Red Blood Count 3.07 L, Mean Corpuscular Volume 87.9, Mean Corpuscular Hemoglo bin 29.3, Mean Corpuscular Hemoglobin Concent 33.3, Red Cell Distribution Width 13.9, Calcium Level 8.3 L Microbiology Microbiology 09/28/18 Urine Culture - Final, Complete Staph.aureus Methicillin Resis YUNI TERRELL MD Oct 01, 2018 08:05
[2018-10-01 14:00] VITALS: BP 136/65
[2018-10-01] MEDS: HALOPERIDOL 0.25MG PER 1/2 TABLET PO PRN (16:19)
[2018-10-01 22:00] VITALS: BP 143/69
[2018-10-02] MEDS: PERCOCET 5MG/325MG TAB PO PRN (01:15)
[2018-10-02 06:00] VITALS: BP 131/78
[2018-10-02] MEDS ORDERED: traMADol 50 MG TAB PO PRN (06:45)
[2018-10-02 06:56] LABS: HEMATOCRIT 30.7 % (36.0-47.0); HEMOGLOBIN 10.3 g/dl (12.0-15.5); MEAN CORPUSCULAR HEMOGLOBIN 29.1 pg (27.0-33.0); MEAN CORPUSCULAR HGB CONC 33.6 g/dl (32.0-36.5); MEAN CORPUSCULAR VOLUME 86.7 fl (80.0-96.0); PLATELET COUNT, AUTOMATED 300 10^3/uL (150-450); RED BLOOD COUNT 3.54 10^6/uL (4.00-5.40); WHITE BLOOD COUNT 14.9 10^3/uL (4.0-10.0)
[2018-10-02 07:24] LABS: BLOOD UREA NITROGEN 13 MG/DL (7-18); CALCIUM LEVEL 8.6 MG/DL (8.8-10.2); CARBON DIOXIDE LEVEL 26 MEQ/L (21-32); CHLORIDE LEVEL 101 MEQ/L (98-107); CREATININE FOR GFR 0.57 MG/DL (0.55-1.30); GLOMERULAR FILTRATION RATE > 60.0 (>32); GLUCOSE, FASTING 126 MG/DL (70-100); POTASSIUM SERUM 3.6 MEQ/L (3.5-5.1); SODIUM LEVEL 135 MEQ/L (136-145)
[2018-10-02] MEDS: SENOKOT S TAB PO SCH (08:53)
[2018-10-02] MEDS: MIRALAX *UNIT DOSE* 17GM PACKET PO SCH (08:54)
[2018-10-02] MEDS: HALOPERIDOL 0.25MG PER 1/2 TABLET PO PRN ×2 (08:56→17:33)
[2018-10-02] MEDS: CARVedilol 3.125 MG TAB PO SCH (08:59)
[2018-10-02 14:00] VITALS: BP 133/76
[2018-10-02] MEDS ORDERED: ceFAZolin 1GM INJ (J0690 PER 500MG) As Ordered ONE (19:02)
[2018-10-02] MEDS ORDERED: PROPOFOL 200 MG/20 ML VIAL As Ordered ONE (19:07)
[2018-10-02] MEDS ORDERED: dexameTHASONE 4 MG/ML 1ML VIAL (J1100) As Ordered ONE (19:07)
[2018-10-02] MEDS ORDERED: LIDOCAINE 2% INJ 100 MG/5 ML SDV (FOR ANES.) As Ordered ONE (19:07)
[2018-10-02] MEDS ORDERED: ONDANSETRON 4MG/2ML VIAL (J2405) As Ordered ONE (19:07)
[2018-10-02] MEDS ORDERED: fentaNYL 100 MCG/2 ML INJECTION (J3010) As Ordered ONE (19:08)
[2018-10-02] MEDS ORDERED: MIDAZOLAM INJ 2 MG/2 ML VIAL (J2250) As Ordered ONE (19:08)
[2018-10-02] MEDS ORDERED: ceFAZolin 2 GM/D5W 50 ML IV BAG (J0690 PER 500MG) As Ordered ONE (20:47)
[2018-10-02] MEDS ORDERED: PHENYLephrine HCL 500 MCG/5 ML (100MCG/ML) SYRINGE (J2370) As Ordered ONE (21:02)
[2018-10-02] MEDS ORDERED: ePHEDrine SULFATE 25 MG/5 ML(5MG/ML) SYRINGE As Ordered ONE (21:02)
[2018-10-02] MEDS ORDERED: PHENYLEPHRINE INJ 10MG/ML VIAL (J2370) As Ordered ONE (21:31)
[2018-10-02] MEDS ORDERED: LR 1,000 ML IV SCH (22:30)
[2018-10-02] MEDS ORDERED: PERCOCET 5MG/325MG TAB PO PRN (22:30)
[2018-10-02] MEDS ORDERED: ACETAMINOPHEN TAB 650MG DOSE (2X325MG) PO PRN (22:30)
[2018-10-02] MEDS ORDERED: HYDROMORPHONE HCL 0.5 MG/ 0.5 ML SYRINGE (J1170 PER 1) IV PRN (22:30)
[2018-10-02] MEDS ORDERED: ONDANSETRON 4MG/2ML VIAL (J2405) IV PRN (22:30)
[2018-10-02] MEDS ORDERED: fentaNYL 100 MCG/2 ML INJECTION (J3010) IV PRN (22:30)
[2018-10-02 23:45] VITALS: BP 118/68
[2018-10-03] VITALS (7 sets, daily range): BP systolic 105–125; BP diastolic 56–67
[2018-10-03] MEDS: SENOKOT S TAB PO SCH ×3 (00:02→22:59)
[2018-10-03] MEDS: CARVedilol 3.125 MG TAB PO SCH ×3 (00:03→22:59)
--- NOTE | 2018-10-03 00:21 | IPNPDOC ---
Text Note Date of Service The patient was seen on 10/02/18. NOTE SUBJECTIVE: Patient very restless all night tossing and turning in bed and t rying to climb out of bed. Pathology of bone biopsy was negative for malignancy. Patient is planned for surgery this PM around 5:30. Spoke with daughter Radhika about the biospy result. Patient calmed down later during the day after receiving haldol PHYSICAL EXAMINATION: VITAL SIGNS:pls see below GENERAL APPEARANCE: AAOx1 person only. pleasantly confused HEENT: anicteric sclear, no jaundice. no respiratory distress. no facial asymmetry. no JVD no thyromegaly CARDIOVASCULAR: S1S2 RRR, systolic murmur heard all over the chest best at the base of the heart LUNGS: CTAB no wheezing, rales ABDOMEN: (+) bowel sounds soft NT ND no rebound or guarding MUSCULOSKELETAL: right hip tenderness. shortened right LE externally rotated. hematoma along right thigh. NEUROLOGIC: demented, disoriented to place and time. AAO x1 person only LABORATORY DATA: See below. IMAGING: See below ASSESSMENT AND PLAN: 87 year old DO NOT RESUSCITATE, DO NOT INTUBATE, female with chronic Dementia, who lives at home with her grandson and usually walks with a walker, and has been increasing demented unable to perform ADLs without assistance sustained a fall at home without prodromal symptoms of chest pain, pressure,tightness, dizziness, lightheadedness, nausea, vomiting, diaphoresis of sense of impending doom, without any past medical history of coronary artery disease, [place], CHF, arrhythmias, or CVA. In the Emergency room, she was found to have a closed intertrochanteric fracture of the right hip. CT extremity 09/28/18: mixed lytic lesions from possible malignancy and osteoporosis. Orthopedic surgery, Dr. Stratton, has been consulted by both Dr. Ruslan Cooley, ER physician, and Hospitalist, Dr. Tovar for management. According to the grandson, pt has been in her usual state of health without f ever, chills, diarrhea, headache, constipation, dysuria, urgency, frequency and often suffers from chronic back pain and vertigo. Her fall was unwitnessed, and despite the patient saying that she did not hit her head, pt's daughter says, that the patient is an unreliable historian. She was found on the floor covered in urine and may have been there since last night. Per daughter, no prior history of malignancy. Comminuted intertrochanteric fracture of the right femur with override and varus deformity secondary to a fall at home and longstanding history of osteoporosis and possible lytic lesions from unknown primary malignancy. s/p right hip biopsy 09/28/18 was negative for malignancy. Right thigh Hematoma: secondary to right hip fracture s/p fall. no signs of compartment syndrome. s/p 1 unit rbc transfusion. Acute blood loss anemia: secondary to right thigh hematoma and longstanding history of LGI bleed refusing colonoscopy. s/p 1 unit rbc transfusion 09/29/18. Per daughter, pt has refused colonosocpy. bowel regimen. Bone lytic lesions: s/p right hip biopsy 09/28/18. neg biopsy Osteoporosis: postop vitamin D and calcium supplementation. Hypertension: controlled. on beta marianela with holding parameters Glaucoma: will resume home meds postop Hypercholesterolemia: not on meds Chronic Vertigo: pt has advanced dementia and could not provide history regarding her recent fall at home. Advanced Dementia: worsening according to the family. has a grandson living with her . requires help with ADLs. Code status: DO NOT RESUSCITATE, DO NOT INTUBATE DVT Prophylaxis: compression stockings. VS,Fishbone, I+O VS, Fishbone, I+O Laboratory Tests 10/02/18 06:40 Red Blood Count 3.54 L, Mean Corpuscular Volume 86.7, Mean Corpuscular Hemoglobin 29.1, Mean Corpuscular Hemoglobin Concent 33.6, Red Cell Distribution Width 13.5, Calcium Level 8.6 L Vital Signs Date Time Temp Pulse Resp B/P (MAP) Pulse Ox O2 Delivery O2 Flow Rate FiO2 10/02/18 09:26 18 Room Air 10/02/18 08:59 94 140/79 10/02/18 06:00 99.2 97 I&O- Last 24 Hours up to 6 AM 10/02/18 05:59 Intake Total 720 ml Output Total 1825 ml Balance -1105 ml SUJIT JONES MD Oct 02, 2018 14:21
[2018-10-03] MEDS: HALOPERIDOL 0.25MG PER 1/2 TABLET PO PRN (01:36)
[2018-10-03] MEDS: traMADol 50 MG TAB PO PRN ×4 (01:39→22:58)
[2018-10-03 06:18] LABS: HEMATOCRIT 26.4 % (36.0-47.0); HEMOGLOBIN 8.8 g/dl (12.0-15.5); MEAN CORPUSCULAR HEMOGLOBIN 28.9 pg (27.0-33.0); MEAN CORPUSCULAR HGB CONC 33.3 g/dl (32.0-36.5); MEAN CORPUSCULAR VOLUME 86.8 fl (80.0-96.0); PLATELET COUNT, AUTOMATED 284 10^3/uL (150-450); RED BLOOD COUNT 3.04 10^6/uL (4.00-5.40); WHITE BLOOD COUNT 10.1 10^3/uL (4.0-10.0)
[2018-10-03 06:49] LABS: BLOOD UREA NITROGEN 13 MG/DL (7-18); CALCIUM LEVEL 8.1 MG/DL (8.8-10.2); CARBON DIOXIDE LEVEL 26 MEQ/L (21-32); CHLORIDE LEVEL 102 MEQ/L (98-107); CREATININE FOR GFR 0.51 MG/DL (0.55-1.30); GLOMERULAR FILTRATION RATE > 60.0 (>32); GLUCOSE, FASTING 114 MG/DL (70-100); POTASSIUM SERUM 4.2 MEQ/L (3.5-5.1); SODIUM LEVEL 136 MEQ/L (136-145)
[2018-10-03] MEDS: MIRALAX *UNIT DOSE* 17GM PACKET PO SCH (08:23)
[2018-10-03] MEDS: ceFAZolin SOD 1 GM in D5W MINI-BAG PLUS 50 ML IV SCH ×2 (08:23→16:49)
--- NOTE | 2018-10-03 08:34 | REP ---
Right femur series: Three views. History: Open reduction internal fixation. Findings: Three views of the right femur demonstrate an internal medullary lyssa in place. The comminuted intertrochanteric fracture has been fixed in good alignment. A femoral neck pin is in place. Periarticular soft tissue swelling and emphysema is seen. Lateral skin felix are noted. Impression: Status post open reduction internal fixation right intertrochanteric femur fracture. Electronically Signed by Chidi Hernandez MD 10/03/2018 08:26 P
--- NOTE | 2018-10-03 09:26 | REP ---
Right hip: 14 views intraoperative: History: Status post ORIF. 3 minutes 2 seconds of fluoroscopy time is reported. Findings: A sequence of 14 last image hold fluoroscopically obtained intraprocedural spot radiographs document open reduction internal fixation of an intertrochanteric femur fracture. Electronically Signed by Chidi Hernandez MD 10/03/2018 08:28 P
--- NOTE | 2018-10-03 13:02 | RO ---
DATE OF PROCEDURE: 10/02/2018 PREOPERATIVE DIAGNOSIS: Right proximal femur fracture. POSTOPERATIVE DIAGNOSIS: Right proximal femur fracture. PROCEDURE PERFORMED: Right hip open reduction and cephalomedullary nail fixation. SURGEON: Thaddeus Castro DIRECTOR OF PHYSICIAN PRACTICES: Fernando Watson ANESTHESIA: Single shot spinal anesthesia. IMPLANTS USED: Synthes TFN advanced 11 mm x 360 mm nail with 95 mm helical blade and 2 distal interlocking screws measuring 40 mm and 46 mm in length. ANTIBIOTICS: 2 grams Ancef given within 1 hour of incision. ESTIMATED BLOOD LOSS: 200 mL. MATERIALS SENT TO LAB: None. COMPLICATIONS: None. INDICATIONS FOR PROCEDURE: Zoila Carter is an 87-year-old female who sustained a fall from standing height last week on Monday. She had what appeared to be a pathologic fracture of the femur. She underwent a bone biopsy which showed only findings consistent with the fracture and no evidence of malignancy or benign bone pathology. She was medically optimized by the internal medicine service and after biopsy results were finalized we proceeded to the operating room for closed versus open reduction internal fixation of the right proximal femur. The patient and family were counseled on the risks, benefits, indications, and alternatives of operative versus nonoperative management. She has a healthcare proxy that provided informed consent. I counseled the patient and family that I will be her operating surgeon. Her followup care will be conducted by [facility] and they expressed understanding of this arrangement. INTRAOPERATIVE FINDINGS: The patient had an unstable intertrochanteric femur fracture that was near anatomically reduced after fixation. DESCRIPTION OF OPERATION: The patient was positively identified in the preop holding where the surgical site was marked. She was then brought to the operating room where she was given single shot spinal anesthesia for intraoperative pain control. She was then positioned supine on the fracture table with all bony prominences appropriately padded. Sequential compression device (SCD) was placed on the nonoperative extremity for deep vein thrombosis (DVT) prophylaxis. I obtained provisional reduction using the fracture table. I was able to restore length and rotation, but there was some significant posterior sag of the distal fragment and flexion of the proximal fragment. After the patient was prepped and draped in the usual sterile fashion, a final time-out was performed. I made accessory lateral incision on the lateral aspect of the proximal femur and lateral femoral neck and introduced a bone hook and a periosteal elevator to elevate the sag obtain reduction of the calcar. After anatomic reduction was obtained, I then made a 3 cm incision about three fingerbreadths proximal and posterior to the tip of the greater trochanter. I dissected skin and subcutaneous tissue. I introduced the 3.2 mm guidewire and introduced it centered on the greater trochanter on the AP and lateral fluoroscopic imaging to an appropriate depth. Then while maintaining reduction, introduced the opening reamer, followed by placement of the ball-tip guidewire to the level of the superior pole of patella centered on AP and lateral fluoroscopic imaging of the knee. Then measured the depth of the nail and elected to place a 360 mm nail. I passed a 12.5 mm end cutting reamer one time, followed by placement of the nail to an appropriate depth. The accessory incision that was used for reduction was also suitable for introduction of the guide for the helical blade. The 3.2 mm guidewire for the helical blade was inserted centered on the femoral neck on AP and lateral fluoroscopic imaging. Then measured, reamed and placed the helical blade in standard fashion, all while maintaining anatomic reduction of the proximal femur. At this point, I then placed two distal interlocking screws using standard perfect [place] technique. After this was completed, I obtained final fluoroscopic images of the hip and knee confirming near anatomic reduction of the proximal femur and adequate placement of all hardware. The wounds were thoroughly irrigated with normal saline and closed in layers. The stab incisions for the distal locking screws were closed with felix. The proximal two incisions were closed with buried #2-0 Vicryl sutures in an interrupted fashion and felix for the skin. Sterile dressings were applied and this ended the procedure. I was present and scrubbed in for all critical portions of the case. POSTOPERATIVE PLAN: The patient will return to the hospital floor. She will be weightbearing as tolerated. She will undergo physical therapy and be discharged when criteria are met. QUITA
--- NOTE | 2018-10-03 14:13 | IPNPDOC ---
Text Note Date of Service The patient was seen on 10/03/18. NOTE SUBJECTIVE: Patient had OR yesterday , No issues over night . Has been calm this am . No complaints, Says had a banana for breakfast. PHYSICAL EXAMINATION: VITAL SIGNS:pls see below GENERAL APPEARANCE: AAOx1 person only. pleasantly confused HEENT: anicteric sclear, no jaundice. no respiratory distress. no facial asymmetry. no JVD no thyromegaly CARDIOVASCULAR: S1S2 RRR, systolic murmur heard all over the chest best at the base of the heart LUNGS: CTAB no wheezing, rales ABDOMEN: (+) bowel sounds soft NT ND no rebound or guarding MUSCULOSKELETAL: right hip tenderness. shortened right LE externally rotated. hematoma along right thigh. NEUROLOGIC: demented, disoriented to place and time. AAO x1 person only LABORATORY DATA: See below. IMAGING: See below ASSESSMENT AND PLAN: 87 year old DO NOT RESUSCITATE, DO NOT INTUBATE, female with chronic Dementia, who lives at home with her grandson and usually walks with a walker, and has been increasing demented unable to perform ADLs without assistance sustained a fall at home without prodromal symptoms of chest pain, pressure,tightness, dizziness, lightheadedness, nausea, vomiting, diaphoresis of sense of impending doom, without any past medical history of coronary artery disease, [place], CHF, arrhythmias, or CVA. In the Emergency room, she was found to have a closed intertrochanteric fracture of the right hip. CT extremity 09/28/18: mixed lytic lesions from possible malignancy and osteoporosis. Orthopedic surgery, Dr. Stratton, has been consulted by both Dr. Ruslan Cooley, ER physician, and Hospitalist, Dr. Tovar for management. According to the grandson, pt has been in her usual state of health without fever, chills, diarrhea, headache, constipation, dysuria, urgency, frequency and often suffers from chronic back pain and vertigo. Her fall was unwitnessed, and despite the patient saying that she did not hit her head, pt's daughter says, that the patient is an unreliable historian. She was found on the floor covered in urine and may have been there since last night. Per daughter, no prior history of malignancy. Comminuted intertrochanteric fracture of the right femur with override and varus deformity secondary to a fall at home and longstanding history of osteoporosis and possibl e lytic lesions from unknown primary malignancy. s/p right hip biopsy 09/28/18 was negative for malignancy. S/p ORIF on 10/02/18 Right thigh Hematoma: secondary to right hip fracture s/p fall. no signs of compartment syndrome. s/p 1 unit rbc transfusion. Acute blood loss anemia: secondary to right thigh hematoma and longstanding history of LGI bleed refusing colonoscopy. s/p 1 unit rbc transfusion 09/29/18. Per daughter, pt has refused colonoscopy. bowel regimen. Bone lytic lesions: s/p right hip biopsy 09/28/18. neg biopsy for malignancy. Osteoporosis: postop vitamin D and calcium supplementation. Hypertension: controlled. on beta marianela with holding parameters Glaucoma: will resume home meds postop Hypercholesterolemia: not on meds Chronic Vertigo: pt has advanced dementia and could not provide history regarding her recent fall at home. Advanced Dementia: worsening according to the family. has a grandson living with her . requires help with ADLs. Code status: DO NOT RESUSCITATE, DO NOT INTUBATE DVT Prophylaxis: compression stockings. VS,Fishbone, I+O VS, Fishbone, I+O Laboratory Tests 10/03/18 05:42 Red Blood Count 3.04 L, Mean Corpuscular Volume 86.8, Mean Corpuscular Hemoglobin 28.9, Mean Corpuscular Hemoglobin Concent 33.3, Red Cell Distribution Width 13.6, Calcium Level 8.1 L Vital Signs Date Time Temp Pulse Resp B/P (MAP) Pulse Ox O2 Delivery O2 Flow Rate FiO2 10/03/18 10:00 97.8 88 18 125/59 (81) 100 Nasal Cannula 2.0 I&O- Last 24 Hours up to 6 AM 10/03/18 06:00 Intake Total 1490 ml Output Total 1050 ml Balance 440 ml SUJIT JONSE MD Oct 03, 2018 14:13
[2018-10-03] MEDS ORDERED: RIVAROXABAN 10 MG TAB (XARELTO) PO SCH (18:00)
[2018-10-04 06:00] VITALS: BP 120/57
[2018-10-04 06:21] LABS: HEMATOCRIT 25.6 % (36.0-47.0); HEMOGLOBIN 8.2 g/dl (12.0-15.5); MEAN CORPUSCULAR HEMOGLOBIN 28.4 pg (27.0-33.0); MEAN CORPUSCULAR VOLUME 88.6 fl (80.0-96.0); PLATELET COUNT, AUTOMATED 266 10^3/uL (150-450); RED BLOOD COUNT 2.89 10^6/uL (4.00-5.40); WHITE BLOOD COUNT 9.9 10^3/uL (4.0-10.0)
[2018-10-04 06:44] LABS: BLOOD UREA NITROGEN 22 MG/DL (7-18); CALCIUM LEVEL 8.3 MG/DL (8.8-10.2); CARBON DIOXIDE LEVEL 29 MEQ/L (21-32); CHLORIDE LEVEL 100 MEQ/L (98-107); CREATININE FOR GFR 0.58 MG/DL (0.55-1.30); GLOMERULAR FILTRATION RATE > 60.0 (>32); GLUCOSE, FASTING 100 MG/DL (70-100); POTASSIUM SERUM 4.4 MEQ/L (3.5-5.1); SODIUM LEVEL 135 MEQ/L (136-145)
[2018-10-04 08:42] VITALS: BP 120/57
[2018-10-04] MEDS: MIRALAX *UNIT DOSE* 17GM PACKET PO SCH (08:42)
[2018-10-04] MEDS: CARVedilol 3.125 MG TAB PO SCH (08:42)
[2018-10-04] MEDS: SENOKOT S TAB PO SCH (08:43)
[2018-10-04] MEDS: traMADol 50 MG TAB PO PRN (08:44)
--- NOTE | 2018-10-04 12:54 | IPNPDOC ---
Text Note Date of Service The patient was seen on 10/04/18. NOTE SUBJECTIVE: No issues over night . Has been calm . No complaints smiling and seems in a good mood. PHYSICAL EXAMINATION: VITAL SIGNS:pls see below GENERAL APPEARANCE: AAOx1 person only. pleasantly confused HEENT: anicteric sclear, no jaundice. no respiratory distress. no facial asymmetry. no JVD no thyromegaly CARDIOVASCULAR: S1S2 RRR, systolic murmur heard all over the chest best at the base of the heart LUNGS: CTAB no wheezing, rales ABDOMEN: (+) bowel sounds soft NT ND no rebound or guarding MUSCULOSKELETAL: right hip tenderness. shortened right LE externally rotated. hematoma along right thigh. NEUROLOGIC: demented, disoriented to place and time. AAO x1 person only LABORATORY DATA: See below. IMAGING: See below ASSESSMENT AND PLAN: 87 year old DO NOT RESUSCITATE, DO NOT INTUBATE, female with chronic Dementia, who lives at home with her grandson and usually walks with a walker, and has been increasing demented unable to perform ADLs without assistance sustained a fall at home without prodromal symptoms of chest pain, pressure,tightness, dizziness, lightheadedness, nausea, vomiting, diaphoresis of sense of impending doom, without any past medical history of coronary artery disease, [place], CHF, arrhythmias, or CVA. In the Emergency room, s he was found to have a closed intertrochanteric fracture of the right hip. CT extremity 09/28/18: mixed lytic lesions from possible malignancy and osteoporosis. Orthopedic surgery, Dr. Stratton, has been consulted by both Dr. Ruslan Cooley, ER physician, and Hospitalist, Dr. Tovar for management. According to the grandson, pt has been in her usual state of health without fever, chills, diarrhea, headache, constipation, dysuria, urgency, frequency and often suffers from chronic back pain and vertigo. Her fall was unwitnessed, and despite the patient saying that she did not hit her head, pt's daughter says, that the patient is an unreliable historian. She was found on the floor covered in urine and may have been there since last night. Per daughter, no prior history of malignancy. Comminuted intertrochanteric fracture of the right femur with override and varus deformity secondary to a fall at home and longstanding history of osteoporosis and possible lytic lesions from unknown primary malignancy. s/p right hip biopsy 09/28/18 was negative for malignancy. S/p ORIF on 10/02/18 Right thigh Hematoma: secondary to right hip fracture s/p fall. no signs of compartment syndrome. s/p 1 unit rbc transfusion. Acute blood loss anemia: secondary to right thigh hematoma and longstanding history of LGI bleed refusing colonoscopy. s/p 1 unit rbc transfusion 09/29/18. Per daughter, pt has refused colonoscopy. bowel regimen. Bone lytic lesions: s/p right hip biopsy 09/28/18. neg biopsy for malignancy. Osteoporosis: postop vitamin D and calcium supplementation. Hypertension: controlled. on beta marianela with holding parameters Glaucoma: will resume home meds postop Hypercholesterolemia: not on meds Chronic Vertigo: pt has advanced dementia and could not provide history regard ing her recent fall at home. Advanced Dementia: worsening according to the family. has a grandson living with her . requires help with ADLs. Code status: DO NOT RESUSCITATE, DO NOT INTUBATE DVT Prophylaxis: compression stockings. VS,Fishbone, I+O VS, Fishbone, I+O Laboratory Tests 10/04/18 05:51 Red Blood Count 2.89 L, Mean Corpuscular Volume 88.6, Mean Corpuscular Hemoglobin 28.4, Mean Corpuscular Hemoglobin Concent 32.0, Red Cell Distribution Width 13.9, Calcium Level 8.3 L Vital Signs Date Time Temp Pulse Resp B/P (MAP) Pulse Ox O2 Delivery O2 Flow Rate FiO2 10/04/18 09:24 18 96 Room Air 10/04/18 08:42 66 120/57 10/04/18 06:00 100.1 2.0 I&O- Last 24 Hours up to 6 AM 10/04/18 06:00 Intake Total 450 ml Output Total 100 ml Balance 350 ml SUJIT JONES MD Oct 04, 2018 12:54
[2018-10-04 14:00] VITALS: BP 130/63
[2018-10-04] MEDS ORDERED: TRAM50TA2 PO (14:48)
[2018-10-04] MEDS ORDERED: XARE10TA PO (14:48)
[2018-10-04] MEDS ORDERED: CARV3.12 PO (14:48)
[2018-10-04] MEDS ORDERED: HALO0.5H PO (14:48)
[2018-10-04] MEDS ORDERED: Docusate Sod/Senna PO (14:48)
[2018-10-04] MEDS ORDERED: PEG1POW PO (14:48)
--- NOTE | 2018-10-05 05:22 | DS.PDOC ---
Discharge Summary General Date of Admission Sep 28, 2018 at 09:39 Date of Discharge 10/04/18 Attending Physician: SUJIT JONES MD Discharge Summary PROCEDURES PERFORMED DURING STAY: ORIF of right Hip DISCHARGE DIAGNOSES: comminuted intertrochanteric fracture of right femur s/p ORIF Advanced dementia acute blood loss anemia Right thigh hematoma hypertension vertigo osteoporosis glaucoma hyperlipidemia Single lytic lesion of bone s/p biopsy no malignancy detected. Osteoporosis COMPLICATIONS/CHIEF COMPLAINT: Closed Intertrochanteric Fracture Of Rt Hip. HISTORY OF PRESENT ILLNESS: see history and physical HOSPITAL COURSE: 87 year old DO NOT RESUSCITATE, DO NOT INTUBATE, female with chronic Dementia, who lives at home with her grandson and usually walks with a walker, and has been increasing demented unable to perform ADLs without assistance sustained a fall at home without prodromal symptoms of chest pain, pressure,tightness, dizziness, lightheadedness, nausea, vomiting, diaphoresis of sense of impending doom, without any past medical history of coronary artery disease, [place], CHF, arrhythmias, or CVA. In the Emergency room, she was found to have a closed intertrochanteric fracture of the right hip. CT extremity 09/28/18: mixed lytic lesions from possible malignancy and osteoporosis. Orthopedic surgery, Dr. Stratton, has been consulted by both Dr. Ruslan Cooley, ER physician, and Hospitalist, Dr. Tovar for management. According to the grandson, pt has been in her usual state of health without fever, chills, diarrhea, headache, constipation, dysuria, urgency, frequency and often suffers from chronic back pain and vertigo. Her fall was unwitnessed, and despite the patient saying that she did not hit her head, pt's daughter says, that the patient is an unreliable historian. She was found on the floor covered in urine and may have been there since last night. Per daughter, no prior history of malignancy. Comminuted intertrochanteric fracture of the right femur with override and varus deformity secondary to a fall at home and longstanding history of osteoporosis and possible lytic lesions from unknown primary malignancy. s/p right hip biopsy 09/28/18 was negative for malignancy. S/p ORIF on 10/02/18 Right thigh Hematoma: secondary to right hip fracture s/p fall. no signs of compartment syndrome. s/p 1 unit rbc transfusion. Acute blood loss anemia: secondary to right thigh hematoma and longstanding history of LGI bleed refusing colonoscopy. s/p 1 unit rbc transfusion 09/29/18. Per daughter, pt has refused colonoscopy. bowel regimen. Bone lytic lesions: s/p right hip biopsy 09/28/18. neg biopsy for malignancy. Osteoporosis: postop vitamin D and calcium supplementation. Hypertension: controlled. on beta marianela with holding parameters Glaucoma: will resume home meds postop Hypercholesterolemia: not on meds Chronic Vertigo: pt has advanced dementia and could not provide history regarding her recent fall at home. Advanced Dementia: worsening according to the family. has a grandson living with her . requires help with ADLs. Code status: DO NOT RESUSCITATE, DO NOT INTUBATE DISCHARGE MEDICATIONS: Please see below. ALLERGIES: Please see below. PHYSICAL EXAMINATION ON DISCHARGE: VITAL SIGNS: Please see below. GENERAL APPEARANCE: AAOx1 person only. pleasantly confused HEENT: anicteric sclear, no jaundice. no respiratory distress. no facial asymmetry. no JVD no thyromegaly CARDIOVASCULAR: S1S2 RRR, systolic murmur heard all over the chest best at the base of the heart and mitral area LUNGS: CTAB no wheezing, rales ABDOMEN: (+) bowel sounds soft NT ND no rebound or guarding MUSCULOSKELETAL: right hip tenderness. shortened right LE externally rotated. hematoma along right thigh. NEUROLOGIC: demented, disoriented to place and time. AAO x1 person only LABORATORY DATA: Please see below. RADIOLOGY: CT Extremity: Comminuted intertrochanteric fracture through a mixed density somewhat sclerotic intertrochanteric medullary cavity lesion. The lesion is difficult to characterize. Fibrous dysplasia and mixed lytic and sclerotic malignant lesions are possibilities. There does not appear to have been cortical erosion. ACTIVITY: [As tolerated]. DIET: DASH DISPOSITION: 70 Xfer Other. DISCHARGE INSTRUCTIONS: Follow up with orthopedics DISCHARGE CONDITION: [Stable]. TIME SPENT ON DISCHARGE: Greater than 30 minutes. Vital Signs/I&Os Vital Signs Date Time Temp Pulse Resp B/P (MAP) Pulse Ox O2 Delivery O2 Flow Rate FiO2 10/04/18 14:00 99.3 81 18 130/63 (85) 97 Room Air 10/04/18 06:00 2.0 I&O- Last 24 Hours up to 6 AM 10/05/18 06:00 Intake Total 600 ml Balance 600 ml Laboratory Data Labs 24H Laboratory Tests 2 10/04/18 05:51: Nucleated Red Blood Cells % (auto) 0.0, Anion Gap 6L, Glomerular Filtration Rate > 60.0, Blood Urea Nitrogen 22#H, Creatinine 0.58, Sodium Level 135L, Potassium Level 4.4, Chloride Level 100, Carbon Dioxide Level 29, Calcium Level 8.3L CBC/BMP Laboratory Tests 10/04/18 05:51 Red Blood Count 2.89 L, Mean Corpuscular Volume 88.6, Mean Corpuscular Hemoglobin 28.4, Mean Corpuscular Hemoglobin Concent 32.0, Red Cell Distribution Width 13.9, Calcium Level 8.3 L Microbiology Microbiology 09/28/18 Urine Culture - Final, Complete Staph.aureus Methicillin Resis Discharge Medications Scheduled (Epinastine HCl) 0.05 % Brett, 1 DROP OU BID, (Reported) (Dorzolamide HCl/Timolol M 22.3-6.8 mg/ml) 1 Cirilo Cirilo, 1 CIRILO OU BID, (Reported) Carvedilol (Carvedilol) 3.125 Mg Tab, 3.125 MG PO BID Polyethylene Glycol (Peg 3350) 1 Pkt Pow, 1 PKT PO DAILY Rivaroxaban (Xarelto) 10 Mg Tab, 10 MG PO DAILY@18 [Docusate Sod/Senna] 1 TAB TAB, 2 TAB PO BID Scheduled PRN Haloperidol (Haloperidol) 0.5 Mg Tab, 0.25 MG PO Q8HP PRN for agitation Tramadol HCl (Tramadol HCl) 50 Mg Tab, 1-2 TAB PO Q6HP PRN for PAIN Allergies Coded Allergies: No Known Allergies (Unverified , 09/28/18) SUJIT JONES MD Oct 05, 2018 05:22
== END 2018-10-04 16:00 | disposition other institution (70) | DRG 478 ==
LOC: EDBD → M ED 07:40 → EEVIPCON 09:39 → M ED INP 09:39 → M ICU 10:53 → M MS5PR 09-29 10:55
PROVIDERS: ADMIT General Practice; ATTEND General Practice
PROC: 0QB63ZX Excision of Right Upper Femur, Percutaneous Approach, Diagnostic (ICD-10-PCS; principal; 2018-09-28)
PROC: 0QS606Z Reposition Right Upper Femur with Intramedullary Internal Fixation Device, Open Approach (ICD-10-PCS; 2018-10-02)
DX: S72.141A Displaced intertrochanteric fracture of right femur, initial encounter for closed fracture (principal); D62 Acute posthemorrhagic anemia; Z66 Do not resuscitate; F03.90 Unspecified dementia, unspecified severity, without behavioral disturbance, psychotic disturbance, mood disturbance, and anxiety; I10 Essential (primary) hypertension; M81.0 Age-related osteoporosis without current pathological fracture; E78.5 Hyperlipidemia, unspecified; R42 Dizziness and giddiness; W18.30XA Fall on same level, unspecified, initial encounter; Y92.009 Unspecified place in unspecified non-institutional (private) residence as the place of occurrence of the external cause; E78.00 Pure hypercholesterolemia, unspecified; Z88.8 Allergy status to other drugs, medicaments and biological substances; Z79.899 Other long term (current) drug therapy; Z79.82 Long term (current) use of aspirin; H40.9 Unspecified glaucoma; E55.9 Vitamin D deficiency, unspecified

== ENCOUNTER 2018-10-04 16:10 | Inpatient (IN) | payer MEDICARE, BC ==
[~2018-10-04] VITALS: Ht 167.6 cm; Wt 45.6 kg
[2018-10-04 16:05] VITALS: BP 152/79
[~2018-10-04 16:10] MED LIST: ADVI200T26 PO; ALEV220T22 PO; ASPI1TAB PO; ATEN25TA PO; CARV3.12 PO; DIPH25CA PO; DORZ2SOL5 OU; Docusate Sod/Senna PO; EPIN1DRO OU; HALO0.5H PO; PEG1POW PO; TRAM50TA2 PO; XARE10TA PO
[2018-10-04] MEDS ORDERED: BISACODYL 10 MG SUPP PR PRN (16:45)
[2018-10-04] MEDS ORDERED: FLEET ENEMA PR PRN (16:45)
[2018-10-04] MEDS ORDERED: traZODone 25MG PER 1/2 TABLET PO PRN (16:45)
[2018-10-04] MEDS ORDERED: MOM 30ML SUSPENSION UDC PO PRN (16:45)
[2018-10-04] MEDS: RIVAROXABAN 10 MG TAB (XARELTO) PO SCH (17:43)
[2018-10-04 21:04] LABS: APPEARANCE, URINE HAZY (CLEAR); BACTERIA, URINE AUTO NEGATIVE (NEGATIVE); BILIRUBIN, URINE AUTO NEGATIVE (NEGATIVE); BLOOD, URINE BLOOD NEGATIVE (NEGATIVE); COLOR, URINE AMBER (YELLOW); GLUCOSE, URINE (UA) AUTO NEGATIVE (NEGATIVE); KETONE, URINE AUTO NEGATIVE (NEGATIVE); LEUKOCYTE ESTERASE, URINE AUTO 3+ (NEGATIVE); NITRITE, URINE AUTO NEGATIVE (NEGATIVE); PROTEIN, URINE AUTO NEGATIVE (NEGATIVE); RBC, URINE AUTO 6 /HPF (0-3); SQUAMOUS EPITHELIAL CELL UR AU 1 /HPF (0-6); WBC, URINE AUTO 74 /HPF (0-3)
[2018-10-04] MEDS: SENOKOT S TAB PO SCH (21:27)
[2018-10-04] MEDS: GABAPENTIN 100 MG CAP PO SCH (21:27)
[2018-10-04] MEDS: COSOPT OCUMETER PLUS 10ML (DORZOLAMIDE/TIMOLOL) OU SCH (21:27)
[2018-10-04] MEDS: CARVedilol 3.125 MG TAB PO SCH (21:27)
[2018-10-04] MEDS: ACETAMINOPHEN 500 MG TAB PO PRN (21:32)
[2018-10-04 22:00] VITALS: BP 130/66
[2018-10-05] MEDS: ACETAMINOPHEN 500 MG TAB PO PRN ×2 (05:55→16:32)
[2018-10-05 06:01] VITALS: BP 156/68
[2018-10-05 06:22] LABS: BASO % 0.1 % (0.0-1.0); EOS # 0.1 10^3/uL (0.0-0.50); EOS % 0.8 % (0.0-3.0); HEMATOCRIT 24.5 % (36.0-47.0); HEMOGLOBIN 8.2 g/dl (12.0-15.5); LYMPH # 1.4 10^3/uL (1.5-4.5); LYMPH % 13.2 % (24.0-44.0); MEAN CORPUSCULAR HEMOGLOBIN 29.5 pg (27.0-33.0); MEAN CORPUSCULAR HGB CONC 33.5 g/dl (32.0-36.5); MEAN CORPUSCULAR VOLUME 88.1 fl (80.0-96.0); MONO # 1.1 10^3/uL (0.0-0.8); MONO % 9.9 % (0.0-5.0); NEUTROPHILS # 8.1 10^3/uL (1.8-7.7); NEUTROPHILS % 75.4 % (36.0-66.0); PLATELET COUNT, AUTOMATED 291 10^3/uL (150-450); RED BLOOD COUNT 2.78 10^6/uL (4.00-5.40); WHITE BLOOD COUNT 10.8 10^3/uL (4.0-10.0)
[2018-10-05 06:45] LABS: ALBUMIN 2.3 GM/DL (3.2-5.2); ALT/SGPT 25 U/L (12-78); BLOOD UREA NITROGEN 20 MG/DL (7-18); CALCIUM LEVEL 8.2 MG/DL (8.8-10.2); CARBON DIOXIDE LEVEL 29 MEQ/L (21-32); CHLORIDE LEVEL 98 MEQ/L (98-107); CREATININE FOR GFR 0.49 MG/DL (0.55-1.30); GLOMERULAR FILTRATION RATE > 60.0 (>32); GLUCOSE, FASTING 109 MG/DL (70-100); POTASSIUM SERUM 4.3 MEQ/L (3.5-5.1); SODIUM LEVEL 134 MEQ/L (136-145); TOTAL PROTEIN 5.2 GM/DL (6.4-8.2)
[2018-10-05] MEDS: BOUDREAUX'S BUTT PASTE 4OZ TOP SCH ×3 (09:00→21:40)
[2018-10-05] MEDS: PANTOPRAZOLE 40MG TAB (PROTONIX) PO SCH (09:04)
[2018-10-05] MEDS: GABAPENTIN 100 MG CAP PO SCH ×2 (09:04→21:39)
[2018-10-05] MEDS: SENOKOT S TAB PO SCH ×2 (09:05→20:12)
[2018-10-05] MEDS: COSOPT OCUMETER PLUS 10ML (DORZOLAMIDE/TIMOLOL) OU SCH ×2 (09:05→21:00)
[2018-10-05] MEDS: CARVedilol 3.125 MG TAB PO SCH ×2 (09:05→21:40)
[2018-10-05] MEDS ORDERED: NS 1,000 ML IV ONE (11:00)
[2018-10-05 11:34] LABS: FREE T4 1.23 NG/DL (0.76-1.46); THYROID STIMULATING HORMONE 1.88 uIU/ML (0.358-3.740)
--- NOTE | 2018-10-05 12:20 | IPNPDOC ---
Date Seen The patient was seen on 10/05/18. Progress Note ATTENDING: Dr. Medardo Lund PCP: Dr Latoya Mendoza HPI: 87 year old female with chronic Dementia, who lives at home with her grandson and usually walks with a walker, unable to perform ADLs without assistance sustained a fall at home without prodromal symptoms. According to the grandson, pt has been in her usual state of health without fever, chills, diarrhea, headache, constipation, dysuria, urgency, frequency and often suffers from chronic back pain and vertigo. She was found on the floor covered in urine and may have been there since last night. Per daughter, no prior history of malignancy. Her fall was unwitnessed, and despite the patient saying that she did not hit her head, pt's daughter says, that the patient is an unreliable historian In the Emergency room, she was found to have a closed intertrochanteric fracture of the right hip. CT extremity 09/28/18: mixed lytic lesions from possible malignancy and osteoporosis. Orthopedic surgery, Dr. Stratton, has been cons ulted for management. S/P right hip biopsy 09/28/18 was negative for malignancy. S/p ORIF on 10/02/18. The pt was transferred to ARU, to Dr Thompson Escalona, 10/04/18. The pt is OOB to chair, denies pain. Pt does not c/o any fevers, chills, weakness, fatigue, Headache, Chest Pain, Shortness of breath, cough, palpitations, abdominal pain, N/V/D or changes in bowel or bladder habits. PMHx: Advanced dementia acute blood loss anemia Right thigh hematoma hypertension vertigo osteoporosis glaucoma hyperlipidemia Single lytic lesion of bone s/p biopsy no malignancy detected. Osteoporosis PSHX: Cataract surgery b/l, teeth extraction, tonsillectomy, adenoidectomy, comminuted intertrochanteric fracture of right femur s/p ORIF PE: GEN: 87yoF, appears stated age. No acute distress. Alert and responsive to question, pleasantly confused. HEENT: Normocephalic, atraumatic. Sclera are nonicteric. Conjunctiva without injection. Nose midline. No facial asymmetry. Moist mucous membranes. Neck supple, trachea midline. No lymphadenopathy or thyromegaly appreciated. CHEST: Regular rate and rhythm, +S1, +S2 LUNGS: Clear to auscultation bilaterally. No wheezes, rales, or rhonchi. ABD: Round, soft, non-tender, non-distended. +Bowel sounds throughout. EXT: No lower extremity edema appreciated. SKIN: [place], dry, warm. No rashes. NEURO: No focal deficits appreciated. UC 09/28/18 REFLEX URINE CULTURE Final Organism 1 STAPH.AUREUS METHICILLIN RESIS COLONY COUNT 2,000 CFU/ml UC 10/04/18 pending. Right hip bone lesion, biopsy: Minute fragments of bone admixed with blood clot. No malignancy is identified. 10/02/18 - 1221 CTH Diffuse atrophy, small vessel changes, vascular calcification. No acute intracranial abnormality. Electronically Signed by Chidi Hernandez MD 09/28/2018 12:26 P A&P: 87 year old female with chronic Dementia, who lives at home with her grandson and usually walks with a walker, unable to perform ADLs without assistance sustained a fall at home without prodromal symptoms. According to the grandson, pt has been in her usual state of health without fever, chills, cielo rrhea, headache, constipation, dysuria, urgency, frequency and often suffers from chronic back pain and vertigo. She was found on the floor covered in urine and may have been there since last night. Per daughter, no prior history of malignancy. Her fall was unwitnessed, and despite the patient saying that she did not hit her head, pt's daughter says, that the patient is an unreliable historian In the Emergency room, she was found to have a closed intertrochanteric fracture of the right hip. CT extremity 09/28/18: mixed lytic lesions from possible malignancy and osteoporosis. Orthopedic surgery, Dr. Stratton, has been consulted for management. S/P right hip biopsy 09/28/18 was negative for malignancy. S/p ORIF on 10/02/18. The pt was transferred to ARU, to Dr Thompson Escalona, 10/04/18. Comminuted intertrochanteric fracture of the right femur secondary to a fall at home and longstanding history of osteoporosis and possible lytic lesions from unknown primary malignancy. s/p right hip biopsy 09/28/18 was negative for malignancy. S/p ORIF on 10/02/18 as per Orthopedic surgery. management as per Orthopedics. PT/OT/ST as per ARU. Pain control as per ARU. Bowel care as per ARU. DVT prophylaxis Xarelto as per Orthopedics. Right thigh Hematoma: secondary to right hip fracture s/p fall. no signs of compartment syndrome. s/p 1 unit rbc transfusion 09/29/18. Pt on Fe supplement. Monitor trend and need for transfusion. Acute blood loss anemia: secondary to right thigh hematoma and longstanding history of LGI bleed refusing colonoscopy. s/p 1 unit rbc transfusion 09/29/18. Per daughter, pt has refused colonoscopy. Hgb 8.2, stable. CBC in AM. Bone lytic lesions: s/p right hip biopsy 09/28/18. neg biopsy for malignancy. Hypertension: controlled. on beta marianela with holding parameters Glaucoma: Continue home meds Hypercholesterolemia: not on meds Chronic Vertigo: pt has advanced dementia and could not provide history regarding her recent fall at home. Advanced Dementia: worsening according to the family. has a grandson living with her . requires help with ADLs. Aricept/Prozac. Possible UTI. 09/28/18 2,000 CFU MRSA. 10/04/18 pending. Bactrim po added as per ARU. BMP in AM. MOLST scanned in chart. DNR. VS, I&O, 24H, Fishbone Vital Signs/I&O Vital Signs Date Time Temp Pulse Resp B/P (MAP) Pulse Ox O2 Delivery O2 Flow Rate FiO2 10/05/18 09:05 84 137/65 10/05/18 06:01 98.9 18 99 Room Air I&O- Last 24 Hours up to 6 AM 10/05/18 05:59 Intake Total 750 ml Output Total 950 ml Balance -200 ml Laboratory Data 24H LABS Laboratory Tests 2 10/04/18 20:50: Urine Appearance HAZY, Urine Color TASHA, Urine pH 5.0, Urine Specific [place] 1.020, Urine Protein NEGATIVE, Urine Glucose (UA) NEGATIVE, Urine Ketones NEGATIVE, Urine Urobilinogen 2.0H, Urine Bilirubin NEGATIVE, Urine Leukocyte Esterase 3+H, Urine Blood NEGATIVE, Urine Nitrite NEGATIVE, Urine WBC (Auto) 74H, Urine RBC (Auto) 6H, Urine Hyaline Casts (Auto) 0, Urine Bacteria (Auto) NEGATIVE, Urine Squamous Epithelial Cells 1, Urine Sperm (Auto) 10/05/18 06:01: Immature Granulocyte % (Auto) 0.6, White Blood Count 10.8H, Red Blood Count 2.78L, Hemoglobin 8.2L, Hematocrit 24.5L, Mean Corpuscular Volume 88.1, Mean Corpuscular Hemoglobin 29.5, Mean Corpuscular Hemoglobin Concent 33.5, Red Cell Distribution Width 13.7, Platelet Count 291, Neutrophils (%) (Auto) 75.4H, Lymphocytes (%) (Auto) 13.2L, Monocytes (%) (Auto) 9.9H, Eosinophils (%) (Auto) 0.8, Basophils (%) (Auto) 0.1, Neutrophils # (Auto) 8.1H, Lymphocytes # (Auto) 1.4L, Monocytes # (Auto) 1.1H, Eosinophils # (Auto) 0.1, Basophils # (Auto) 0.0, Nucleated Red Blood Cells % (auto) 0.0, Anion Gap 7L, Glomerular Filtration Rate > 60.0, Blood Urea Nitrogen 20H, Creatinine 0.49L, Sodium Level 134L, Potassium Level 4.3, Chloride Level 98, Carbon Dioxide Level 29, Calcium Level 8.2L, Aspartate Amino Transf (AST/SGOT) 38H, Alanine Aminotransferase (ALT/SGPT) 25, Alkaline Phosphatase 81, Total Bilirubin 1.0, Total Protein 5.2L, Albumin 2.3L, Albumin/Globulin Ratio 0.79L 10/05/18 10:37: Thyroid Stimulating Hormone (TSH) 1.880, Free Thyroxine 1.23 CBC/BMP Laboratory Tests 10/05/18 06:01 Red Blood Count 2.78 L, Mean Corpuscular Volume 88.1, Mean Corpuscular Hemoglobin 29.5, Mean Corpuscular Hemoglobin Concent 33.5, Red Cell Distribution Width 13.7, Neutrophils (%) (Auto) 75.4 H, Lymphocytes (%) (Auto) 13.2 L, Monocytes (%) (Auto) 9.9 H, Eosinophils (%) (Auto) 0.8, Basophils (%) (Auto) 0.1, Neutrophils # (Auto) 8.1 H, Lymphocytes # (Auto) 1.4 L, Monocytes # (Auto) 1.1 H, Eosinophils # (Auto) 0.1, Basophils # (Auto) 0.0, Calcium Level 8.2 L, Aspartate Amino Transf (AST/SGOT) 38 H, Alanine Aminotransferase (ALT/SGPT) 25, Alkaline Phosphatase 81, Total Bilirubin 1.0, Total Protein 5.2 L, Albumin 2.3 L Microbiology Microbiology 10/04/18 Urine Culture, Received Pending Cora Johnson Oct 05, 2018 12:20
[2018-10-05] MEDS: FERROUS SULFATE 325MG TAB PO SCH ×2 (12:23→21:39)
[2018-10-05] MEDS: BACTRIM 160MG/800MG DS TAB PO SCH ×2 (12:23→21:39)
[2018-10-05] MEDS: THIAMINE 100 MG TAB PO SCH (12:23)
[2018-10-05] MEDS: DONEPEZIL 5 MG TAB PO SCH (12:24)
[2018-10-05] MEDS: FLUoxetine 20 MG CAP PO SCH (12:24)
[2018-10-05] MEDS: OMEGA-3 1000MG CAPSULE PO SCH ×2 (12:24→21:39)
--- NOTE | 2018-10-05 13:25 | HPEPDOC ---
[employer] Note DATE OF ADMISSION: Oct 04, 2018 at 16:10 SOURCE OF ADMISSION INFORMATION: [facility] records and patient family CHIEF COMPLAINT:right hip fracture HISTORY OF PRESENT ILLNESS: 87F pmh severe dementia and HTN who fell at home, unwitnessed on 09-27-18 and found by a family member and brought to [facility] ED on 09-28-18 complaining of right hip pain. She was given morphine by EMS which led to her being unresponsive upon arrival to ED where she was given Narcan and became more alert. She was found to have on hip xray an, Right hip AP lateral to include pelvis revealed a comminuted intertrochanteric fracture of the right hip with override and varus deformity. Osteoporosis, for which orthopedics was consulted. She was cleared for surgery and underwent a right hip open reduction and cephalomedullary nail fixation on 10-02-18, made WBAT with follow-up X-rays showing, The comminuted intertrochanteric fracture has been fixed in good alignment. A femoral neck pin is in place. Periarticular soft tissue swelling and emphysema is seen. CT of the hip of the hip on 09-28-18 was concerning for malignancy with report stating, Fibrous dysplasia and mixed lytic and sclerotic malignant lesions are possibilities. There does not appear to have been cortical erosion, however bone biopsy was negative for malignancy. She had blood loss anemia secondary to her surgery, mild hyponatremia, and deemed medically appropriate for discharge to ARU [id number]. REVIEW OF SYSTEMS: The following is a completed review of systems and has been reviewed. Difficult to fully assess the below as patient with only yes and no responses and confused PAIN: Patient self reports no pain CARDIOVASCULAR: denies chest pain PULMONARY: Negative. Denies shortness of breath GASTROINTESTINAL: +constipation GENITOURINARY: +UTI MUSCULOSKELETAL: +right hip ORIF HEMATOLOGICAL: +blood loss anemia SKIN: + right hip incision PSYCHIATRIC: +dementia All other review of systems found to be negative. PAST MEDICAL HISTORY: dementia, HTN PAST SURGICAL HISTORY: none ALLERGIES: Please see below. MEDICATIONS: Please see below. SOCIAL HISTORY: Lives with grandson, no ETOH or smoking or illicit drug use DIET: Regular PHYSICAL EXAMINATION: VITAL SIGNS: Please see below. GENERAL: Pleasant and cooperative. No acute distress. HEENT: PERRL. Extraocular movements intact. Clear conjunctiva CARDIOVASCULAR: Regular rate and rhythm. +systolic murmurs, no rubs, or gallops. LUNGS: Clear to auscultation bilaterally. No wheezes. No rhonchi ABDOMEN: Soft, nontender, nondistended. Positive bowel sounds. Normal active bowel sounds NEUROLOGICAL:Not oriented to person, place, or time, able to follow 2-step commands inconsistently Cranial nerves II through XII grossly intact. Sensation grossly intact EXTREMITIES: 5\5 strength bilateral upper extremities. 5\5 strength right lower extremity, except limited hip flexion and knee extension due to pain (>4/5). 5/5 strength in left lower extremity. SKIN: right hip incision, mild edema and ecchymosis, no induration or erythema IMAGING: Imaging documentation personally reviewed by record FUNCTIONAL STATUS: Premorbid: Independent with mobility, able to walk many miles/day without AD, dependent on grandson for most ADLs On admission: Moderate assist for functional transfers and ambulation with RW, able to walk 15 feet. GOALS: ASSESSMENT: 87-year-old F with past medical history of dementia who presents status post fall with right hip ORIF. PLAN: 1. rehab: PT/OT, assess for DME needs 2. Neuro: severe dementia, will start work-up for organic causes 3. Ortho: s/p ORIF 10-02-18, WBAt, ortho consult 4. HTN: continue home meds and adjust, medicien consult 5. : +MRSA Ucx on prior admision, will treat with Bactrim, monitor PVRs 6. Heme: blood loss anemia, will start iron and monitor 7. DVT ppx:Xarelto 8. GI ppx: Protonix 9. Pain: Tylenol, avoid opioids, will start low dose gabapentin 10. Dispo: TBD to home with grandson 11. DNR/DNI POST ADMISSION PHYSICIAN EVALUATION: Medical and functional status: Description of medical status, medical assessment: As above. Rehabilitation diagnosis and current and prior cold morbid medical conditions as above. Risk of complications and plans to mitigate them as above. Description of functional status current status is as above. Prior status as above. Status compared to preadmission: There are no clinically significant differences between the patient's current status and the information described on the preadmission screening document. Treatment plan anticipated: Treatment plan is as described above. Required disciplines including physical therapy, occupational therapy, others as noted above. Intensity of services: 3 hours a day, 6 days a week. Special considerations: There are no specific special or safety considerations that would likely preclude immediate implementation of an intensive rehabilitation program or subsequently influence the plan of care. ATTESTATION: Considering all the information above, it is my best judgment that this patient requires intensive rehabilitation therapy as described above and an inpatient hospital environment due to the complexity of nursing, medical, and rehabilitation needs required by the patient. Furthermore, this patient can reasonably be expected to participate in an benefit from an inpatient rehabilitation stay with an interdisciplinary team approach to the delivery of rehabilitation care under the direction and supervision of rehabilitation physician. PROGNOSIS: fair ESTIMATED LENGTH OF STAY:10-14 days. PROJECTED DISCHARGE DESTINATION: Home with family support and any durable medical equipment required to increase functional safety and mobility TIME SPENT COUNSELING AND COORDINATING INITIAL CARE: Greater than 70 minutes. Vital Signs Vital Sign - Last 24 Hours 10/04/18 10/04/18 10/04/18 10/04/18 16:05 21:27 22:00 22:25 Temp 98.1 100.6 99.0 Pulse 86 104 104 Resp 18 20 B/P (MAP) 152/79 (103) 130/66 130/66 (87) Pulse Ox 98 94 O2 Delivery Room Air Room Air 10/05/18 10/05/18 06:01 09:05 Temp 98.9 Pulse 82 84 Resp 18 B/P (MAP) 156/68 (97) 137/65 Pulse Ox 99 O2 Delivery Room Air Laboratory Data CBC/BMP Laboratory Tests 10/05/18 06:01 Red Blood Count 2.78 L, Mean Corpuscular Volume 88.1, Mean Corpuscular Hemoglobin 29.5, Mean Corpuscular Hemoglobin Concent 33.5, Red Cell Distribution Width 13.7, Neutrophils (%) (Auto) 75.4 H, Lymphocytes (%) (Auto) 13.2 L, Monocytes (%) (Auto) 9.9 H, Eosinophils (%) (Auto) 0.8, Basophils (%) (Auto) 0.1, Neutrophils # (Auto) 8.1 H, Lymphocytes # (Auto) 1.4 L, Monocytes # (Auto) 1.1 H, Eosinophils # (Auto) 0.1, Basophils # (Auto) 0.0, Calcium Level 8.2 L, Aspartate Amino Transf (AST/SGOT) 38 H, Alanine Aminotransferase (ALT/SGPT) 25, Alkaline Phosphatase 81, Total Bilirubin 1.0, Total Protein 5.2 L, Albumin 2.3 L Labs 24H Laboratory Tests 2 10/04/18 20:50: Urine Appearance HAZY, Urine Color TASHA, Urine pH 5.0, Urine Specific [place] 1.020, Urine Protein NEGATIVE, Urine Glucose (UA) NEGATIVE, Urine Ketones NEGATIVE, Urine Urobilinogen 2.0H, Urine Bilirubin NEGATIVE, Urine Leukocyte Esterase 3+H, Urine Blood NEGATIVE, Urine Nitrite NEGATIVE, Urine WBC (Auto) 74H, Urine RBC (Auto) 6H, Urine Hyaline Casts (Auto) 0, Urine Bacteria (Auto) NEGATIVE, Urine Squamous Epithelial Cells 1, Urine Sperm (Auto) 10/05/18 06:01: Immature Granulocyte % (Auto) 0.6, White Blood Count 10.8H, Red Blood Count 2.78L, Hemoglobin 8.2L, Hematocrit 24.5L, Mean Corpuscular Volume 88.1, Mean Corpuscular Hemoglobin 29.5, Mean Corpuscular Hemoglobin Concent 33.5, Red Cell Distribution Width 13.7, Platelet Count 291, Neutrophils (%) (Auto) 75.4H, Lymphocytes (%) (Auto) 13.2L, Monocytes (%) (Auto) 9.9H, Eosinophils (%) (Auto) 0.8, Basophils (%) (Auto) 0.1, Neutrophils # (Auto) 8.1H, Lymphocytes # (Auto) 1.4L, Monocytes # (Auto) 1.1H, Eosinophils # (Auto) 0.1, Basophils # (Auto) 0.0, Nucleated Red Blood Cells % (auto) 0.0, Anion Gap 7L, Glomerular Filtration Rate > 60.0, Blood Urea Nitrogen 20H, Creatinine 0.49L, Sodium Level 134L, Potassium Level 4.3, Chloride Level 98, Carbon Dioxide Level 29, Calcium Level 8.2L, A spartate Amino Transf (AST/SGOT) 38H, Alanine Aminotransferase (ALT/SGPT) 25, Alkaline Phosphatase 81, Total Bilirubin 1.0, Total Protein 5.2L, Albumin 2.3L, Albumin/Globulin Ratio 0.79L 10/05/18 10:37: Thyroid Stimulating Hormone (TSH) 1.880, Free Thyroxine 1.23 Microbiology Microbiology 10/04/18 Urine Culture - Final, Complete Home Medications Scheduled (Epinastine HCl) 0.05 % Brett, 1 DROP OU BID, (Reported) (Dorzolamide HCl/Timolol M 22.3-6.8 mg/ml) 1 Cirilo Cirilo, 1 CIRILO OU BID, (Reported) Carvedilol (Carvedilol) 3.125 Mg Tab, 3.125 MG PO BID Polyethylene Glycol (Peg 3350) 1 Pkt Pow, 1 PKT PO DAILY Rivaroxaban (Xarelto) 10 Mg Tab, 10 MG PO DAILY@18 [Docusate Sod/Senna] 1 TAB TAB, 2 TAB PO BID Scheduled PRN Haloperidol (Haloperidol) 0.5 Mg Tab, 0.25 MG PO Q8HP PRN for agitation Tramadol HCl (Tramadol HCl) 50 Mg Tab, 1-2 TAB PO Q6HP PRN for PAIN Allergies Coded Allergies: No Known Allergies (Unverified , 09/28/18) LIZZETTE LOUIS MD Oct 05, 2018 13:25
--- NOTE | 2018-10-05 13:28 | IPNPDOC ---
PM&R Progress Note DATE OF SERVICE: Oct 05, 2018 Flight Coordinator Progress Note SUbjective: Patient reports she feels fine, unable to fully converse, but appeared comfortable and able to participate well in therapy. REVIEW OF SYSTEMS: The following is a completed review of systems and has been reviewed. Difficult to fully assess the below as patient with only yes and no responses and confused PAIN: Patient self reports no pain CARDIOVASCULAR: denies chest pain PULMONARY: Negative. Denies shortness of breath GASTROINTESTINAL: +constipation GENITOURINARY: +UTI MUSCULOSKELETAL: +right hip ORIF HEMATOLOGICAL: +blood loss anemia SKIN: + right hip incision PSYCHIATRIC: +dementia All other review of systems found to be negative. PHYSICAL EXAMINATION: VITAL SIGNS: Please see below. GENERAL: Pleasant and cooperative. No acute distress. HEENT: PERRL. Extraocular movements intact. Clear conjunctiva CARDIOVASCULAR: Regular rate and rhythm. +systolic murmurs, no rubs, or gallops. LUNGS: Clear to auscultation bilaterally. No wheezes. No rhonchi ABDOMEN: Soft, nontender, nondistended. Positive bowel sounds. Normal active bowel sounds NEUROLOGICAL:Not oriented to person, place, or time, able to follow 2-step commands inconsistently Cranial nerves II through XII grossly intact. Sensation grossly intact EXTREMITIES: 5\5 strength bilateral upper extremities. 5\5 strength right lower extremity, except limited hip flexion and knee extension due to pain (>4/5). 5/5 strength in left lower extremity. SKIN: right hip incision, mild edema and ecchymosis, no induration or erythema GOALS: ASSESSMENT: 87-year-old F with past medical history of dementia who presents status post fall with right hip ORIF. PLAN: 1. rehab: PT/OT, assess for DME needs, ambulating with RW 2. 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 Ortho: s/p ORIF 10-02-18, [facility], ortho consult 4. HTN: continue home meds and adjust, medicine consult, recs appreciated 5. : +MRSA Ucx on prior admission, will treat with Bactrim x5 days, monitor PVRs 6. Heme: blood loss anemia, will start iron and monitor, stable at 8 7. DVT ppx:Xarelto 8. GI ppx: Protonix 9. Pain: Tylenol, avoid opioids, continue low dose gabapentin 10. Dispo: TBD to home with grandson 11. DNR/DNI Allergies Coded Allergies: No Known Allergies (Unverified , 09/28/18) Vital Signs Vital Signs Date Time Temp Pulse Resp B/P (MAP) Pulse Ox O2 Delivery O2 Flow Rate FiO2 10/05/18 09:05 84 137/65 10/05/18 06:01 98.9 18 99 Room Air Laboratory Data CBC/BMP Laboratory Tests 10/05/18 06:01 Red Blood Count 2.78 L, Mean Corpuscular Volume 88.1, Mean Corpuscular Hemoglobin 29.5, Mean Corpuscular Hemoglobin Concent 33.5, Red Cell Distribution Width 13.7, Neutrophils (%) (Auto) 75.4 H, Lymphocytes (%) (Auto) 13.2 L, Monocytes (%) (Auto) 9.9 H, Eosinophils (%) (Auto) 0.8, Basophils (%) (Auto) 0.1, Neutrophils # (Auto) 8.1 H, Lymphocytes # (Auto) 1.4 L, Monocytes # (Auto) 1.1 H, Eosinophils # (Auto) 0.1, Basophils # (Auto) 0.0, Calcium Level 8.2 L, Aspartate Amino Transf (AST/SGOT) 38 H, Alanine Aminotransferase (ALT/SGPT) 25, Alkaline Phosphatase 81, Total Bilirubin 1.0, Total Protein 5.2 L, Albumin 2.3 L Labs 24H Laboratory Tests 2 10/04/18 20:50: Urine Appearance HAZY, Urine Color TASHA, Urine pH 5.0, Urine Specific [place] 1.020, Urine Protein NEGATIVE, Urine Glucose (UA) NEGATIVE, Urine Ketones NEGATIVE, Urine Urobilinogen 2.0H, Urine Bilirubin NEGATIVE, Urine Leukocyte Est erase 3+H, Urine Blood NEGATIVE, Urine Nitrite NEGATIVE, Urine WBC (Auto) 74H, Urine RBC (Auto) 6H, Urine Hyaline Casts (Auto) 0, Urine Bacteria (Auto) NEGATIVE, Urine Squamous Epithelial Cells 1, Urine Sperm (Auto) 10/05/18 06:01: Immature Granulocyte % (Auto) 0.6, White Blood Count 10.8H, Red Blood Count 2.78L, Hemoglobin 8.2L, Hematocrit 24.5L, Mean Corpuscular Volume 88.1, Mean Corpuscular Hemoglobin 29.5, Mean Corpuscular Hemoglobin Concent 33.5, Red Cell Distribution Width 13.7, Platelet Count 291, Neutrophils (%) (Auto) 75.4H, Lymphocytes (%) (Auto) 13.2L, Monocytes (%) (Auto) 9.9H, Eosinophils (%) (Auto) 0.8, Basophils (%) (Auto) 0.1, Neutrophils # (Auto) 8.1H, Lymphocytes # (Auto) 1.4L, Monocytes # (Auto) 1.1H, Eosinophils # (Auto) 0.1, Basophils # (Auto) 0.0, Nucleated Red Blood Cells % (auto) 0.0, Anion Gap 7L, Glomerular Filtration Rate > 60.0, Blood Urea Nitrogen 20H, Creatinine 0.49L, Sodium Level 134L, Potassium Level 4.3, Chloride Level 98, Carbon Dioxide Level 29, Calcium Level 8.2L, Aspartate Amino Transf (AST/SGOT) 38H, Alanine Aminotransferase (ALT/SGPT) 25, Alkaline Phosphatase 81, Total Bilirubin 1.0, Total Protein 5.2L, Albumin 2.3L, Albumin/Globulin Ratio 0.79L 10/05/18 10:37: Thyroid Stimulating Hormone (TSH) 1.880, Free Thyroxine 1.23 Microbiology Microbiology 10/04/18 Urine Culture - Final, Complete Current Medications Current Medications Current Medications Acetaminophen (Tylenol Tab) 1,000 mg Q6HP PRN PO MILD PAIN (PS 1-8) Last administered on 10/05/18at 05:55; Start 10/04/18 at 16:45 Bisacodyl (Dulcolax Suppository) 10 mg DAILYPRN PRN [place] CONSTIPATION; Start 10/04/18 at 16:45 Carvedilol (COReg) 3.125 mg BID PO Last administered on 10/05/18at 09:05; Start 10/04/18 at 21:00 Donepezil HCl (AriCEPT) 5 mg DAILY PO Last administered on 10/05/18at 12:24; Start 10/05/18 at 09:00 Dorzolamide/ Timolol (Cosopt Ocumeter Plus) 1 drop BID OU Last administered on 10/05/18at 09:05; Start 10/04/18 at 21:00 Ferrous Sulfate (Ferrous Sulfate) 325 mg BID PO Last administered on 10/05/18at 12:23; Start 10/05/18 at 09:00 Fish Oil (Proctor-3 (1000mg)) 1 cap BID PO Last administered on 10/05/18at 12:24; Start 10/05/18 at 09:00 Fluoxetine HCl (PROzac) 20 mg DAILY PO Last administered on 10/05/18at 12:24; Start 10/05/18 at 09:00 Gabapentin (Neurontin) 100 mg BID PO Last administered on 10/05/18at 09:04; Start 10/04/18 at 21:00 Home Med (Med Rec Complete!) ASDIRECTED XX ; Start 10/04/18 at 20:00; Stop 10/04/18 at 20:00; Status DC Magnesium Hydroxide (Milk Of Magnesia) 30 ml DAILYPRN PRN PO CONSTIPATION; Start 10/04/18 at 16:45 Miscellaneous (Unresolved Patient Own Med Order) SEE LABEL COMMENTS DAILY XX ; Start 10/04/18 at 09:00 Pantoprazole Sodium (Protonix) 40 mg DAILY PO Last administered on 10/05/18at 09:04; Start 10/05/18 at 09:00 Patient Own Medication (Patient'S Own Med) 1 ea BID OU ; Start 10/04/18 at 21:00; Status UNV Rivaroxaban (Xarelto) 10 mg DAILY@1800 PO Last administered on 10/04/18at 17:43; Start 10/04/18 at 18:00; Stop 11/06/18 at 23:55 Senna/Docusate Sodium (Senokot S) 1 tab BID PO Last administered on 10/05/18at 09:05; Start 10/04/18 at 21:00 Sodium Biphosphate/ Sodium Phosphate (Fleet Enema) 1 ea DAILYPRN PRN [place] CONSTIPATION; Start 10/04/18 at 16:45 Thiamine HCl (Thiamine HCl) 100 mg DAILY PO Last administered on 10/05/18at 12:23; Start 10/05/18 at 09:00 Trazodone HCl (Desyrel) 25 mg Q6HP PRN PO AGITATION; Start 10/04/18 at 16:45 Trazodone HCl (Desyrel) 25 mg QHSP PRN PO INSOMNIA; Start 10/04/18 at 16:45 Trimethoprim/ Sulfamethoxazole (Bactrim Ds, Septra Ds 160mg/ 800mg) 1 tab BID PO Last administered on 10/05/18at 12:23; Start 10/05/18 at 09:00; Stop 10/09/18 at 21:01 Zinc Oxide (Boudreauxs Butt Paste) apply to sacrum TID TOP ; Start 10/05/18 at 09:00 LIZZETTE LOUIS MD Oct 05, 2018 13:28
[2018-10-05 14:00] VITALS: BP 116/65
[2018-10-05] MEDS: RIVAROXABAN 10 MG TAB (XARELTO) PO SCH (17:40)
[2018-10-05 21:38] VITALS: BP 126/61
[2018-10-05] MEDS: traZODone 25MG PER 1/2 TABLET PO PRN (21:39)
[2018-10-06 06:00] VITALS: BP 139/62
[2018-10-06] MEDS: ACETAMINOPHEN 500 MG TAB PO PRN ×2 (06:25→21:46)
[2018-10-06 07:05] LABS: BASO % 0.3 % (0.0-1.0); EOS # 0.1 10^3/uL (0.0-0.50); EOS % 1.1 % (0.0-3.0); HEMOGLOBIN 7.5 g/dl (12.0-15.5); LYMPH # 0.6 10^3/uL (1.5-4.5); LYMPH % 7.9 % (24.0-44.0); MEAN CORPUSCULAR HEMOGLOBIN 29.5 pg (27.0-33.0); MEAN CORPUSCULAR HGB CONC 32.6 g/dl (32.0-36.5); MEAN CORPUSCULAR VOLUME 90.6 fl (80.0-96.0); MONO # 0.9 10^3/uL (0.0-0.8); MONO % 11.7 % (0.0-5.0); NEUTROPHILS % 78.2 % (36.0-66.0); PLATELET COUNT, AUTOMATED 289 10^3/uL (150-450); RED BLOOD COUNT 2.54 10^6/uL (4.00-5.40); WHITE BLOOD COUNT 7.6 10^3/uL (4.0-10.0)
[2018-10-06 07:29] LABS: BLOOD UREA NITROGEN 13 MG/DL (7-18); CALCIUM LEVEL 8.1 MG/DL (8.8-10.2); CARBON DIOXIDE LEVEL 26 MEQ/L (21-32); CHLORIDE LEVEL 102 MEQ/L (98-107); CREATININE FOR GFR 0.53 MG/DL (0.55-1.30); GLOMERULAR FILTRATION RATE > 60.0 (>32); GLUCOSE, FASTING 89 MG/DL (70-100); POTASSIUM SERUM 4.2 MEQ/L (3.5-5.1); SODIUM LEVEL 135 MEQ/L (136-145)
[2018-10-06] MEDS: SENOKOT S TAB PO SCH ×2 (08:10→21:00)
[2018-10-06] MEDS: PANTOPRAZOLE 40MG TAB (PROTONIX) PO SCH (08:10)
[2018-10-06] MEDS: CARVedilol 3.125 MG TAB PO SCH ×2 (08:10→21:45)
[2018-10-06] MEDS: FERROUS SULFATE 325MG TAB PO SCH ×2 (08:10→21:46)
[2018-10-06] MEDS: GABAPENTIN 100 MG CAP PO SCH ×2 (08:10→21:46)
[2018-10-06] MEDS: BACTRIM 160MG/800MG DS TAB PO SCH ×2 (08:10→21:45)
[2018-10-06] MEDS: FLUoxetine 20 MG CAP PO SCH (08:10)
[2018-10-06] MEDS: DONEPEZIL 5 MG TAB PO SCH (08:10)
[2018-10-06] MEDS: OMEGA-3 1000MG CAPSULE PO SCH ×2 (08:10→21:45)
[2018-10-06] MEDS: THIAMINE 100 MG TAB PO SCH (08:10)
[2018-10-06] MEDS: COSOPT OCUMETER PLUS 10ML (DORZOLAMIDE/TIMOLOL) OU SCH ×2 (08:11→21:46)
[2018-10-06] MEDS: BOUDREAUX'S BUTT PASTE 4OZ TOP SCH ×3 (08:11→21:47)
[2018-10-06 14:00] VITALS: BP_SYST 138; BP_SYST 99; BP_DIAS 55; BP_DIAS 63
[2018-10-06] MEDS: RIVAROXABAN 10 MG TAB (XARELTO) PO SCH (17:12)
[2018-10-06 20:00] VITALS: BP 133/64
[2018-10-06] MEDS: traZODone 25MG PER 1/2 TABLET PO PRN (21:45)
[2018-10-07 06:00] VITALS: BP 131/64
[2018-10-07] MEDS: ACETAMINOPHEN 500 MG TAB PO PRN ×3 (07:03→21:26)
[2018-10-07 08:02] LABS: BASO % 0.3 % (0.0-1.0); EOS # 0.1 10^3/uL (0.0-0.50); EOS % 1.8 % (0.0-3.0); HEMATOCRIT 23.4 % (36.0-47.0); HEMOGLOBIN 7.7 g/dl (12.0-15.5); LYMPH # 0.9 10^3/uL (1.5-4.5); LYMPH % 13.3 % (24.0-44.0); MEAN CORPUSCULAR HEMOGLOBIN 29.2 pg (27.0-33.0); MEAN CORPUSCULAR HGB CONC 32.9 g/dl (32.0-36.5); MEAN CORPUSCULAR VOLUME 88.6 fl (80.0-96.0); MONO # 0.7 10^3/uL (0.0-0.8); NEUTROPHILS # 4.8 10^3/uL (1.8-7.7); NEUTROPHILS % 72.8 % (36.0-66.0); PLATELET COUNT, AUTOMATED 323 10^3/uL (150-450); RED BLOOD COUNT 2.64 10^6/uL (4.00-5.40); WHITE BLOOD COUNT 6.6 10^3/uL (4.0-10.0)
[2018-10-07] MEDS: BACTRIM 160MG/800MG DS TAB PO SCH ×2 (08:29→21:27)
[2018-10-07] MEDS: DONEPEZIL 5 MG TAB PO SCH (08:29)
[2018-10-07] MEDS: FLUoxetine 20 MG CAP PO SCH (08:29)
[2018-10-07] MEDS: OMEGA-3 1000MG CAPSULE PO SCH ×2 (08:29→21:27)
[2018-10-07] MEDS: PANTOPRAZOLE 40MG TAB (PROTONIX) PO SCH (08:30)
[2018-10-07] MEDS: THIAMINE 100 MG TAB PO SCH (08:30)
[2018-10-07] MEDS: COSOPT OCUMETER PLUS 10ML (DORZOLAMIDE/TIMOLOL) OU SCH ×2 (08:30→21:27)
[2018-10-07] MEDS: BOUDREAUX'S BUTT PASTE 4OZ TOP SCH ×3 (08:30→21:00)
[2018-10-07] MEDS: CARVedilol 3.125 MG TAB PO SCH ×2 (08:30→21:00)
[2018-10-07] MEDS: GABAPENTIN 100 MG CAP PO SCH ×2 (08:30→21:26)
[2018-10-07] MEDS: FERROUS SULFATE 325MG TAB PO SCH ×2 (08:30→21:26)
[2018-10-07] MEDS: SENOKOT S TAB PO SCH ×2 (09:00→21:00)
[2018-10-07 14:00] VITALS: BP 138/64
[2018-10-07] MEDS: RIVAROXABAN 10 MG TAB (XARELTO) PO SCH (17:04)
[2018-10-07 20:00] VITALS: BP 100/52
[2018-10-07] MEDS ORDERED: EPINASTINE 0.05% OU SCH (21:00)
[2018-10-07] MEDS: traZODone 25MG PER 1/2 TABLET PO PRN (21:30)
[2018-10-08 06:00] VITALS: BP 128/63
[2018-10-08] MEDS: FERROUS SULFATE 325MG TAB PO SCH ×2 (10:31→21:16)
[2018-10-08] MEDS: PANTOPRAZOLE 40MG TAB (PROTONIX) PO SCH (10:32)
[2018-10-08] MEDS: FLUoxetine 20 MG CAP PO SCH (10:32)
[2018-10-08] MEDS: THIAMINE 100 MG TAB PO SCH (10:32)
[2018-10-08] MEDS: BACTRIM 160MG/800MG DS TAB PO SCH ×2 (10:32→21:16)
[2018-10-08] MEDS: OMEGA-3 1000MG CAPSULE PO SCH ×2 (10:32→21:15)
[2018-10-08] MEDS: SENOKOT S TAB PO SCH ×2 (10:32→21:16)
[2018-10-08] MEDS: DONEPEZIL 5 MG TAB PO SCH (10:32)
[2018-10-08] MEDS: GABAPENTIN 100 MG CAP PO SCH ×2 (10:32→21:16)
[2018-10-08] MEDS: CARVedilol 3.125 MG TAB PO SCH ×2 (10:33→21:00)
[2018-10-08] MEDS: COSOPT OCUMETER PLUS 10ML (DORZOLAMIDE/TIMOLOL) OU SCH ×2 (10:34→21:17)
[2018-10-08] MEDS: BOUDREAUX'S BUTT PASTE 4OZ TOP SCH ×3 (10:34→21:17)
[2018-10-08] MEDS ORDERED: FUROSEMIDE 20 MG/2 ML VIAL (J1940) IV ONE (12:00)
[2018-10-08] MEDS ORDERED: diphenhydrAMINE INJ 50MG/ML VIAL (J1200) IM ONE (12:00)
[2018-10-08] MEDS ORDERED: ACETAMINOPHEN TAB 650MG DOSE (2X325MG) PO ONE (12:00)
[2018-10-08] MEDS: ACETAMINOPHEN 500 MG TAB PO PRN (13:43)
[2018-10-08 14:00] VITALS: BP 123/65
[2018-10-08] MEDS: RIVAROXABAN 10 MG TAB (XARELTO) PO SCH (18:37)
[2018-10-08 20:00] VITALS: BP 136/68
[2018-10-09] MEDS: ACETAMINOPHEN 500 MG TAB PO PRN ×3 (03:45→20:48)
[2018-10-09 06:00] VITALS: BP 109/57
[2018-10-09 06:35] LABS: BASO % 0.3 % (0.0-1.0); EOS % 0.5 % (0.0-3.0); HEMATOCRIT 31.2 % (36.0-47.0); LYMPH # 0.9 10^3/uL (1.5-4.5); LYMPH % 14.4 % (24.0-44.0); MEAN CORPUSCULAR HEMOGLOBIN 29.4 pg (27.0-33.0); MEAN CORPUSCULAR HGB CONC 33.3 g/dl (32.0-36.5); MEAN CORPUSCULAR VOLUME 88.1 fl (80.0-96.0); MONO # 0.6 10^3/uL (0.0-0.8); MONO % 9.8 % (0.0-5.0); NEUTROPHILS # 4.7 10^3/uL (1.8-7.7); NEUTROPHILS % 74.4 % (36.0-66.0); PLATELET COUNT, AUTOMATED 319 10^3/uL (150-450); RED BLOOD COUNT 3.54 10^6/uL (4.00-5.40); WHITE BLOOD COUNT 6.3 10^3/uL (4.0-10.0)
[2018-10-09 06:54] LABS: HEMOGLOBIN 10.4 g/dl (12.0-15.5)
[2018-10-09 09:00] VITALS: BP 128/64
[2018-10-09] MEDS: SENOKOT S TAB PO SCH ×2 (09:00→20:49)
[2018-10-09] MEDS: BOUDREAUX'S BUTT PASTE 4OZ TOP SCH ×3 (09:00→20:49)
[2018-10-09] MEDS: DONEPEZIL 5 MG TAB PO SCH (09:21)
[2018-10-09] MEDS: FLUoxetine 20 MG CAP PO SCH (09:21)
[2018-10-09] MEDS: GABAPENTIN 100 MG CAP PO SCH ×2 (09:22→20:48)
[2018-10-09] MEDS: PANTOPRAZOLE 40MG TAB (PROTONIX) PO SCH (09:22)
[2018-10-09] MEDS: FERROUS SULFATE 325MG TAB PO SCH ×2 (09:22→20:48)
[2018-10-09] MEDS: CARVedilol 3.125 MG TAB PO SCH ×2 (09:22→20:51)
[2018-10-09] MEDS: OMEGA-3 1000MG CAPSULE PO SCH ×2 (09:22→20:48)
[2018-10-09] MEDS: BACTRIM 160MG/800MG DS TAB PO SCH ×2 (09:22→20:47)
[2018-10-09] MEDS: THIAMINE 100 MG TAB PO SCH (09:22)
[2018-10-09] MEDS: COSOPT OCUMETER PLUS 10ML (DORZOLAMIDE/TIMOLOL) OU SCH ×2 (09:23→20:49)
[2018-10-09 14:00] VITALS: BP 115/60
[2018-10-09] MEDS: RIVAROXABAN 10 MG TAB (XARELTO) PO SCH (17:02)
[2018-10-09 20:00] VITALS: BP 128/62
[2018-10-09] MEDS: traZODone 25MG PER 1/2 TABLET PO PRN (23:47)
[2018-10-10 05:00] VITALS: BP 140/67
[2018-10-10] MEDS: ACETAMINOPHEN 500 MG TAB PO PRN ×3 (05:25→20:14)
[2018-10-10] MEDS: CARVedilol 3.125 MG TAB PO SCH ×2 (09:00→20:14)
[2018-10-10] MEDS: BOUDREAUX'S BUTT PASTE 4OZ TOP SCH ×3 (09:00→20:15)
[2018-10-10] MEDS: SENOKOT S TAB PO SCH ×2 (09:00→20:15)
[2018-10-10 09:15] VITALS: BP 99/56
[2018-10-10] MEDS: DONEPEZIL 5 MG TAB PO SCH (09:16)
[2018-10-10] MEDS: PANTOPRAZOLE 40MG TAB (PROTONIX) PO SCH (09:16)
[2018-10-10] MEDS: OMEGA-3 1000MG CAPSULE PO SCH ×2 (09:16→20:13)
[2018-10-10] MEDS: FERROUS SULFATE 325MG TAB PO SCH ×2 (09:16→20:13)
[2018-10-10] MEDS: COSOPT OCUMETER PLUS 10ML (DORZOLAMIDE/TIMOLOL) OU SCH ×2 (09:16→20:14)
[2018-10-10] MEDS: GABAPENTIN 100 MG CAP PO SCH ×2 (09:16→20:13)
[2018-10-10] MEDS: FLUoxetine 20 MG CAP PO SCH (09:16)
[2018-10-10] MEDS: THIAMINE 100 MG TAB PO SCH (09:17)
[2018-10-10 14:05] VITALS: BP 120/66
--- NOTE | 2018-10-10 16:42 | IPNPDOC ---
PM&R Progress Note DATE OF SERVICE: Oct 10, 2018 Caretaker Progress Note SUbjective: Patient reports she feels better today and was able to converse better. She was able to say she was not sure if she would go home and was worried about it. REVIEW OF SYSTEMS: The following is a completed review of systems and has been reviewed. Difficult to fully assess the below as patient with only yes and no responses and confused PAIN: Patient self reports no pain CARDIOVASCULAR: denies chest pain PULMONARY: Negative. Denies shortness of breath GASTROINTESTINAL: +constipation GENITOURINARY: +UTI MUSCULOSKELETAL: +right hip ORIF HEMATOLOGICAL: +blood loss anemia-stable SKIN: + right hip incision PSYCHIATRIC: +dementia All other review of systems found to be negative. PHYSICAL EXAMINATION: VITAL SIGNS: Please see below. GENERAL: Pleasant and cooperative. No acute distress. HEENT: PERRL. Extraocular movements intact. Clear conjunctiva CARDIOVASCULAR: Regular rate and rhythm. +systolic murmurs, no rubs, or gallops. LUNGS: Clear to auscultation bilaterally. No wheezes. No rhonchi ABDOMEN: Soft, nontender, nondistended. Positive bowel sounds. Normal active bowel sounds NEUROLOGICAL:Not oriented to person, place, or time, able to follow 2-step commands inconsistently Cranial nerves II through XII grossly intact. Sensation grossly intact EXTREMITIES: 5\5 strength bilateral upper extremities. 5\5 strength right lower extremity, except limited hip flexion and knee extension due to pain (>4/5). 5/5 strength in left lower extremity. SKIN: right hip incision, mild edema and ecchymosis, no induration or erythema GOALS: ASSESSMENT: 87-year-old F with past medical history of dementia who presents status post fall with right hip ORIF. PLAN: 1. rehab: PT/OT, assess for DME needs, ambulating further with RW 2. 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 Ortho: s/p ORIF 10-02-18, WBAT, ortho consult 4. HTN: continue home meds and adjust, medicine consult, recs appreciated 5. : +MRSA Ucx on prior admission, will treat with Bactrim x5 days, monitor PVRs 6. Heme: blood loss anemia, will start iron and monitor s/p 2 units of prbs, now around 10 7. DVT ppx:Xarelto 8. GI ppx: Protonix 9. Pain: Tylenol, avoid opioids, continue low dose gabapentin 10. Dispo: 10-20-18 to home with ashlie VALENCIA, progressing towards goals 11. DNR/DNI Allergies Coded Allergies: No Known Allergies (Unverified , 09/28/18) Vital Signs Vital Signs Date Time Temp Pulse Resp B/P (MAP) Pulse Ox O2 Delivery O2 Flow Rate FiO2 10/10/18 14:05 98.0 61 18 120/66 (84) 97 10/10/18 05:00 Room Air 10/06/18 14:00 Microbiology Microbiology 10/04/18 Urine Culture - Final, Complete Current Medications Current Medications Current Medications Acetaminophen (Tylenol Tab) 1,000 mg Q6HP PRN PO MILD PAIN (PS 1-8) Last administered on 10/10/18at 11:42; Start 10/04/18 at 16:45 Bisacodyl (Dulcolax Suppository) 10 mg DAILYPRN PRN [place] CONSTIPATION; Start 10/04/18 at 16:45 Carvedilol (COReg) 3.125 mg BID PO Last administered on 10/09/18at 09:22; Start 10/04/18 at 21:00 Donepezil HCl (AriCEPT) 5 mg DAILY PO Last administered on 10/10/18at 09:16; Start 10/05/18 at 09:00 Dorzolamide/ Timolol (Cosopt Ocumeter Plus) 1 drop BID OU Last administered on 10/10/18at 09:16; Start 10/04/18 at 21:00 Ferrous Sulfate (Ferrous Sulfate) 325 mg BID PO Last administered on 10/10/18 09:16; Start 10/05/18 at 09:00 Fish Oil (Closter-3 (1000mg)) 1 cap BID PO Last administered on 10/10/18at 09:16; Start 10/05/18 at 09:00 Fluoxetine HCl (PROzac) 20 mg DAILY PO Last administered on 10/10/18 09:16; Start 10/05/18 at 09:00 Gabapentin (Neurontin) 100 mg BID PO Last administered on 12/26/18at 09:16; Start 10/04/18 at 21:00 Home Med (Med Rec Complete!) ASDIRECTED XX ; Start 10/04/18 at 20:00; Stop 10/04/18 at 20:00; Status DC Magnesium Hydroxide (Milk Of Magnesia) 30 ml DAILYPRN PRN PO CONSTIPATION; Start 10/04/18 at 16:45 Miscellaneous (Unresolved Patient Own Med Order) SEE LABEL COMMENTS DAILY XX ; Start 10/04/18 at 09:00 Pantoprazole Sodium (Protonix) 40 mg DAILY PO Last administered on 10/10/18at 09:16; Start 10/05/18 at 09:00 Patient Own Medication (Patient'S Own Med) Epinastine HCl 0.05% -1 drop BID OU ; Start 10/07/18 at 21:00; Status Future Hold Rivaroxaban (Xarelto) 10 mg DAILY@1800 PO Last administered on 10/09/18at 17:02; Start 10/04/18 at 18:00; Stop 11/06/18 at 23:55 Senna/Docusate Sodium (Senokot S) 1 tab BID PO Last administered on 10/08/18at 21:16; Start 10/04/18 at 21:00 Sodium Biphosphate/ Sodium Phosphate (Fleet Enema) 1 ea DAILYPRN PRN [place] CONSTIPATION; Start 10/04/18 at 16:45 Thiamine HCl (Thiamine HCl) 100 mg DAILY PO Last administered on 10/10/18at 09:17; Start 10/05/18 at 09:00 Trazodone HCl (Desyrel) 25 mg Q6HP PRN PO AGITATION; Start 10/04/18 at 16:45 Trazodone HCl (Desyrel) 25 mg QHSP PRN PO INSOMNIA Last administered on 10/09/18at 23:47; Start 10/04/18 at 16:45 Trimethoprim/ Sulfamethoxazole (Bactrim Ds, Septra Ds 160mg/ 800mg) 1 tab BID PO Last administered on 10/09/18at 20:47; Start 10/05/18 at 09:00; Stop 10/09/18 at 21:01; Status DC Zinc Oxide (Boudreauxs Butt Paste) apply to sacrum TID TOP Last administered on 10/10/18at 09:00; Start 10/05/18 at 09:00 LIZZETTE LOUIS MD Oct 10, 2018 16:42
[2018-10-10] MEDS: RIVAROXABAN 10 MG TAB (XARELTO) PO SCH (16:51)
[2018-10-10 20:00] VITALS: BP 113/68
[2018-10-11 05:44] VITALS: BP 140/68
[2018-10-11 06:59] LABS: BASO % 0.4 % (0.0-1.0); EOS # 0.1 10^3/uL (0.0-0.50); EOS % 1.7 % (0.0-3.0); HEMATOCRIT 32.9 % (36.0-47.0); HEMOGLOBIN 10.8 g/dl (12.0-15.5); LYMPH # 1.2 10^3/uL (1.5-4.5); LYMPH % 25.6 % (24.0-44.0); MEAN CORPUSCULAR HEMOGLOBIN 29.3 pg (27.0-33.0); MEAN CORPUSCULAR HGB CONC 32.8 g/dl (32.0-36.5); MEAN CORPUSCULAR VOLUME 89.2 fl (80.0-96.0); MONO # 0.5 10^3/uL (0.0-0.8); NEUTROPHILS # 2.9 10^3/uL (1.8-7.7); NEUTROPHILS % 60.9 % (36.0-66.0); PLATELET COUNT, AUTOMATED 328 10^3/uL (150-450); RED BLOOD COUNT 3.69 10^6/uL (4.00-5.40); WHITE BLOOD COUNT 4.8 10^3/uL (4.0-10.0)
[2018-10-11 07:29] LABS: BLOOD UREA NITROGEN 15 MG/DL (7-18); CALCIUM LEVEL 8.2 MG/DL (8.8-10.2); CARBON DIOXIDE LEVEL 25 MEQ/L (21-32); CHLORIDE LEVEL 101 MEQ/L (98-107); CREATININE FOR GFR 0.61 MG/DL (0.55-1.30); GLOMERULAR FILTRATION RATE > 60.0 (>32); GLUCOSE, FASTING 83 MG/DL (70-100); POTASSIUM SERUM 4.2 MEQ/L (3.5-5.1); SODIUM LEVEL 135 MEQ/L (136-145)
[2018-10-11 08:06] LABS: Methylmalonic Acid 155 nmol/L (0-378)
[2018-10-11] MEDS: OMEGA-3 1000MG CAPSULE PO SCH ×2 (09:17→21:24)
[2018-10-11] MEDS: CARVedilol 3.125 MG TAB PO SCH ×2 (09:17→21:00)
[2018-10-11] MEDS: PANTOPRAZOLE 40MG TAB (PROTONIX) PO SCH (09:17)
[2018-10-11] MEDS: DONEPEZIL 5 MG TAB PO SCH (09:17)
[2018-10-11] MEDS: FERROUS SULFATE 325MG TAB PO SCH ×2 (09:18→21:25)
[2018-10-11] MEDS: ACETAMINOPHEN 500 MG TAB PO PRN ×2 (09:18→21:25)
[2018-10-11] MEDS: GABAPENTIN 100 MG CAP PO SCH ×2 (09:18→21:25)
[2018-10-11] MEDS: FLUoxetine 20 MG CAP PO SCH (09:18)
[2018-10-11] MEDS: THIAMINE 100 MG TAB PO SCH (09:18)
[2018-10-11] MEDS: COSOPT OCUMETER PLUS 10ML (DORZOLAMIDE/TIMOLOL) OU SCH ×2 (09:19→21:26)
[2018-10-11] MEDS: SENOKOT S TAB PO SCH ×2 (09:19→21:00)
[2018-10-11] MEDS: BOUDREAUX'S BUTT PASTE 4OZ TOP SCH ×3 (09:19→21:00)
[2018-10-11 14:00] VITALS: BP 112/56
--- NOTE | 2018-10-11 14:48 | IPNPDOC ---
Date Seen The patient was seen on 10/11/18. Progress Note ATTENDING: Dr. Medardo Lund PCP: Dr Latoya Mendoza HPI: 87 year old female with chronic Dementia, who lives at home with her grandson and usually walks with a walker, unable to perform ADLs without assistance sustained a fall at home without prodromal symptoms. According to the grandson, pt has been in her usual state of health without fever, chills, diarrhea, headache, constipation, dysuria, urgency, frequency and often suffers from chronic back pain and vertigo. She was found on the floor covered in urine and may have been there since last night. Per daughter, no prior history of m alignancy. Her fall was unwitnessed, and despite the patient saying that she did not hit her head, pt's daughter says, that the patient is an unreliable historian In the Emergency room, she was found to have a closed intertrochanteric fracture of the right hip. CT extremity 09/28/18: mixed lytic lesions from possible malignancy and osteoporosis. Orthopedic surgery, Dr. Stratton, has been consu lted for management. S/P right hip biopsy 09/28/18 was negative for malignancy. S/p ORIF on 10/02/18. The pt was transferred to ARU, to Dr Thompson Escalona, 10/04/18. The pt is resting in bed, denies pain. Pt does not c/o any fevers, chills, weakness, fatigue, Headache, Chest Pain, Shortness of breath, cough, palpitations, abdominal pain, N/V/D or changes in bowel or bladder habits. PMHx: Advanced dementia acute blood loss anemia Right thigh hematoma hypertension vertigo osteoporosis glaucoma hyperlipidemia Single lytic lesion of bone s/p biopsy no malignancy detected. Osteoporosis PSHX: Cataract surgery b/l, teeth extraction, tonsillectomy, adenoidectomy, comminuted intertrochanteric fracture of right femur s/p ORIF PE: GEN: 87yoF, appears stated age. No acute distress. Alert and responsive to question, pleasantly confused. HEENT: Normocephalic, atraumatic. Sclera are nonicteric. Conjunctiva without injection. Nose midline. No facial asymmetry. Moist mucous membranes. Neck supple, trachea midline. CHEST: Regular rate and rhythm, +S1, +S2 LUNGS: Clear to auscultation bilaterally. No wheezes, rales, or rhonchi. ABD: Round, soft, non-tender, non-distended. +Bowel sounds throughout. EXT: No lower extremity edema appreciated. SKIN: [place], dry, warm. No rashes. NEURO: No focal deficits appreciated. 09/28/18 REFLEX URINE CULTURE Final Organism 1 STAPH.AUREUS METHICILLIN RESIS COLONY COUNT 2,000 CFU/ml 10/04/18 neg. Right hip bone lesion, biopsy: Minute fragments of bone admixed with blood clot. No malignancy is identified. 10/02/18 - 1221 CTH Diffuse atrophy, small vessel changes, vascular calcification. No acute intracranial abnormality. Electronically Signed by Chidi Hernandez MD 09/28/2018 12:26 P A&P: 87 year old female with chronic Dementia, who lives at home with her grandson and usually walks with a walker, unable to perform ADLs without assistance sustained a fall at home without prodromal symptoms. According to the grandson, pt has been in her usual state of health without fever, chills, diarrhea, headache, constipation, dysuria, urgency, frequency and often suffers from chronic back pain and vertigo. She was found on the floor covered in urine and may have been there since last night. Per daughter, no prior history of malignancy. Her fall was unwitnessed, and despite the patient saying that she did not hit her head, pt's daughter says, that the patient is an unreliable historian In the Emergency room, she was found to have a closed intertrochanteric fracture of the right hip. CT extremity 09/28/18: mixed lytic lesions from possible malignancy and osteoporosis. Orthopedic surgery, Dr. Stratton, has been consulted for management. S/P right hip biopsy 09/28/18 was negative for malignancy. S/p ORIF on 10/02/18. The pt was transferred to ARU, to Dr Thompson Escalona, 10/04/18. Comminuted intertrochanteric fracture of the right femur secondary to a fall at home and longstanding history of osteoporosis and possible lytic lesions from unknown primary malignancy. s/p right hip biopsy 09/28/18 was negative for malignancy. S/p ORIF on 10/02/18 as per Orthopedic surgery. management as per Orthopedics. PT/OT/ST as per ARU. Pain control as per ARU. Bowel care as per ARU. DVT prophylaxis Xarelto as per Orthopedics. Right thigh Hematoma: secondary to right hip fracture s/p fall. no signs of compartment syndrome. s/p 1 unit rbc transfusion 09/29/18. Pt on Fe supplement. Monitor trend and need for transfusion. Acute blood loss anemia: secondary to right thigh hematoma and longstanding history of LGI bleed refusing colonoscopy. s/p 1 unit rbc transfusion 09/29/18. Per daughter, pt has refused colonoscopy. Hgb 10.8, trend improved. Monitor CBC. Bone lytic lesions: s/p right hip biopsy 09/28/18. neg biopsy for malignancy. Hypertension: controlled. Coreg 3.125mg BID with holding parameters Glaucoma: Continue home meds Hypercholesterolemia: not on meds Chronic Vertigo: pt has advanced dementia and could not provide history regarding her recent fall at home. Advanced Dementia: worsening according to the family. Has a grandson living with her, requires help with ADLs. Aricept/Prozac. MOLST scanned in chart. DNR. VS, I&O, 24H, [place] Vital Signs/I&O Vital Signs Date Time Temp Pulse Resp B/P (MAP) Pulse Ox O2 Delivery O2 Flow Rate FiO2 10/11/18 09:17 63 140/68 10/11/18 05:44 98.4 16 98 Room Air 10/06/18 14:00 I&O- Last 24 Hours up to 6 AM 10/11/18 06:00 Intake Total 960 ml Output Total 0 ml Balance 960 ml Laboratory Data 24H LABS Laboratory Tests 2 10/11/18 06:39: Immature Granulocyte % (Auto) 0.4, White Blood Count 4.8, Red Blood Count 3.69L, Hemoglobin 10.8L, Hematocrit 32.9L, Mean Corpuscular Volume 89.2, Mean Corpuscular Hemoglobin 29.3, Mean Corpuscular Hemoglobin Concent 32.8, Red Cell Distribution Width 15.4H, Platelet Count 328, Neutrophils (%) (Auto) 60.9, Lymphocytes (%) (Auto) 25.6, Monocytes (%) (Auto) 11.0H, Eosinophils (%) (Auto) 1.7, Basophils (%) (Auto) 0.4, Neutrophils # (Auto) 2.9, Lymphocytes # (Auto) 1.2L, Monocytes # (Auto) 0.5, Eosinophils # (Auto) 0.1, Basophils # (Auto) 0.0, Nucleated Red Blood Cells % (auto) 0.0, Anion Gap 9, Glomerular Filtration Rate > 60.0, Blood Urea Nitrogen 15, Creatinine 0.61, Sodium Level 135L, Potassium Level 4.2, Chloride Level 101, Carbon Dioxide Level 25, Calcium Level 8.2L CBC/BMP Laboratory Tests 10/11/18 06:39 Red Blood Count 3.69 L, Mean Corpuscular Volume 89.2, Mean Corpuscular Hemoglobin 29.3, Mean Corpuscular Hemoglobin Concent 32.8, Red Cell Distribution Width 15.4 H, Neutrophils (%) (Auto) 60.9, Lymphocytes (%) (Auto) 25.6, Monocytes (%) (Auto) 11.0 H, Eosinophils (%) (Auto) 1.7, Basophils (%) (Auto) 0.4, Neutrophils # (Auto) 2.9, Lymphocytes # (Auto) 1.2 L, Monocytes # (Auto) 0.5, Eosinophils # (Auto) 0.1, Basophils # (Auto) 0.0, Calcium Level 8.2 L Microbiology Microbiology 10/04/18 Urine Culture - Final, Complete Cora Johnson Oct 11, 2018 14:48
--- NOTE | 2018-10-11 16:27 | IPNPDOC ---
PM&R Progress Note DATE OF SERVICE: Oct 11, 2018 [employer] Progress Note Subjective: Patient seen in her room, states she is not sure if she can go home with grandson and wanted to know what her children thought. She participated in coloring activities. REVIEW OF SYSTEMS: The following is a completed review of systems and has been reviewed. Difficult to fully assess the below as patient with only yes and no responses and confused PAIN: Patient self reports no pain CARDIOVASCULAR: denies chest pain PULMONARY: Negative. Denies shortness of breath GASTROINTESTINAL: +constipation GENITOURINARY: +UTI MUSCULOSKELETAL: +right hip ORIF HEMATOLOGICAL: +blood loss anemia-stable SKIN: + right hip incision PSYCHIATRIC: +dementia All other review of systems found to be negative. PHYSICAL EXAMINATION: VITAL SIGNS: Please see below. GENERAL: Pleasant and cooperative. No acute distress. HEENT: PERRL. Extraocular movements intact. Clear conjunctiva CARDIOVASCULAR: Regular rate and rhythm. +systolic murmurs, no rubs, or gallops. LUNGS: Clear to auscultation bilaterally. No wheezes. No rhonchi ABDOMEN: Soft, nontender, nondistended. Positive bowel sounds. Normal active bowel sounds NEUROLOGICAL:Not oriented to person, place, or time, able to follow 2-step commands inconsistently Cranial nerves II through XII grossly intact. Sensation grossly intact EXTREMITIES: 5\5 strength bilateral upper extremities. 5\5 strength right lower extremity, except limited hip flexion and knee extension due to pain (>4/5). 5/5 strength in left lower extremity. SKIN: right hip incision, mild edema and ecchymosis, no induration or erythema GOALS: ASSESSMENT: 87-year-old F with past medical history of dementia who presents status post fall with right hip ORIF. PLAN: 1. rehab: PT/OT, assess for DME needs, ambulating further with RW 2. Neuro: severe dementia has not been worked up per family- ordered TSH/FT4-WNL MMA for B12 deficiency -continue Donepezil for cognition, and Prozac for possible pseudodementia- improved cognition today 3. Ortho: s/p ORIF 10-02-18, WBAT, ortho consult 4. HTN: continue home meds and adjust, medicine consult, recs appreciated 5. : +MRSA Ucx on prior admission, will treat with Bactrim x5 days, monitor P VRs 6. Heme: blood loss anemia, will start iron and monitor s/p 2 units of prbs, now around 10-stable 7. DVT ppx: Xarelto 8. GI ppx: Protonix 9. Pain: Tylenol, avoid opioids, continue low dose gabapentin 10. Dispo: 10-20-18 to home with ashlie VALENCIA, progressing towards goals 11. DNR/DNI Allergies Coded Allergies: No Known Allergies (Unverified , 09/28/18) Vital Signs Vital Signs Date Time Temp Pulse Resp B/P (MAP) Pulse Ox O2 Delivery O2 Flow Rate FiO2 10/11/18 14:00 99.4 62 18 112/56 (74) 99 Room Air 10/06/18 14:00 Laboratory Data CBC/BMP Laboratory Tests 10/11/18 06:39 Red Blood Count 3.69 L, Mean Corpuscular Volume 89.2, Mean Corpuscular Hemoglobin 29.3, Mean Corpuscular Hemoglobin Concent 32.8, Red Cell Distribution Width 15.4 H, Neutrophils (%) (Auto) 60.9, Lymphocytes (%) (Auto) 25.6, Monocytes (%) (Auto) 11.0 H, Eosinophils (%) (Auto) 1.7, Basophils (%) (Auto) 0.4, Neutrophils # (Auto) 2.9, Lymphocytes # (Auto) 1.2 L, Monocytes # (Auto) 0 .5, Eosinophils # (Auto) 0.1, Basophils # (Auto) 0.0, Calcium Level 8.2 L Labs 24H Laboratory Tests 2 10/11/18 06:39: Immature Granulocyte % (Auto) 0.4, White Blood Count 4.8, Red Blood Count 3.69L, Hemoglobin 10.8L, Hematocrit 32.9L, Mean Corpuscular Volume 89.2, Mean Corpuscular Hemoglobin 29.3, Mean Corpuscular Hemoglobin Concent 32.8, Red Cell Distribution Width 15.4H, Platelet Count 328, Neutrophils (%) (Auto) 60.9, Lymphocytes (%) (Auto) 25.6, Monocytes (%) (Auto) 11.0H, Eosinophils (%) (Auto) 1.7, Basophils (%) (Auto) 0.4, Neutrophils # (Auto) 2.9, Lymphocytes # (Auto) 1.2L, Monocytes # (Auto) 0.5, Eosinophils # (Auto) 0.1, Basophils # (Auto) 0.0, Nucleated Red Blood Cells % (auto) 0.0, Anion Gap 9, Glomerular Filtration Rate > 60.0, Blood Urea Nitrogen 15, Creatinine 0.61, Sodium Level 135L, Potassium Level 4.2, Chloride Level 101, Carbon Dioxide Level 25, Calcium Level 8.2L Microbiology Microbiology 10/04/18 Urine Culture - Final, Complete Current Medications Current Medications Current Medications Acetaminophen (Tylenol Tab) 1,000 mg Q6HP PRN PO MILD PAIN (PS 1-8) Last administered on 10/11/18 09:18; Start 10/04/18 at 16:45 Bisacodyl (Dulcolax Suppository) 10 mg DAILYPRN PRN [place] CONSTIPATION; Start 10/04/18 at 16:45 Carvedilol (COReg) 3.125 mg BID PO Last administered on 10/11/18 09:17; Start 10/04/18 at 21:00 Donepezil HCl (AriCEPT) 5 mg DAILY PO Last administered on 10/11/18 09:17; Start 10/05/18 at 09:00 Dorzolamide/ Timolol (Cosopt Ocumeter Plus) 1 drop BID OU Last administered on 10/11/18 09:19; Start 10/04/18 at 21:00 Ferrous Sulfate (Ferrous Sulfate) 325 mg BID PO Last administered on 10/11/18 09:18; Start 10/05/18 at 09:00 Fish Oil ([place]-3 (1000mg)) 1 cap BID PO Last administered on 10/11/18at 09:17; Start 10/05/18 at 09:00 Fluoxetine HCl (PROzac) 20 mg DAILY PO Last administered on 10/11/18at 09:18; Start 10/05/18 at 09:00 Gabapentin (Neurontin) 100 mg BID PO Last administered on 10/11/18at 09:18; Start 10/04/18 at 21:00 Home Med (Med Rec Complete!) ASDIRECTED XX ; Start 10/04/18 at 20:00; Stop 10/04/18 at 20:00; Status DC Magnesium Hydroxide (Milk Of Magnesia) 30 ml DAILYPRN PRN PO CONSTIPATION; Start 10/04/18 at 16:45 Miscellaneous (Unresolved Clarification Entry) SEE LABEL COMMENTS UNRESOLVED XX ; Start 10/12/18 at 00:01; Stop 10/12/18 at 00:01; Status DC Miscellaneous (Unresolved Patient Own Med Order) SEE LABEL COMMENTS DAILY XX ; Start 10/04/18 at 09:00; Stop 10/11/18 at 09:42; Status DC Miscellaneous (Unresolved Patient Own Med Order) SEE LABEL COMMENTS DAILY XX ; Start 10/11/18 at 09:00 Pantoprazole Sodium (Protonix) 40 mg DAILY PO Last administered on 10/11/18at 09:17; Start 10/05/18 at 09:00 Patient Own Medication (Patient'S Own Med) Epinastine HCl 0.05% -1 drop BID OU ; Start 10/07/18 at 21:00; Status Future Hold Rivaroxaban (Xarelto) 10 mg DAILY@1800 PO Last administered on 10/10/18at 16:51; Start 10/04/18 at 18:00; Stop 11/06/18 at 23:55 Senna/Docusate Sodium (Senokot S) 1 tab BID PO Last administered on 10/11/18at 09:19; Start 10/04/18 at 21:00 Sodium Biphosphate/ Sodium Phosphate (Fleet Enema) 1 ea DAILYPRN PRN [place] CONS TIPATION; Start 10/04/18 at 16:45 Thiamine HCl (Thiamine HCl) 100 mg DAILY PO Last administered on 10/11/18at 09:18; Start 10/05/18 at 09:00 Trazodone HCl (Desyrel) 25 mg Q6HP PRN PO AGITATION; Start 10/04/18 at 16:45 Trazodone HCl (Desyrel) 25 mg QHSP PRN PO INSOMNIA Last administered on 09/16 03/02at 23:47; Start 10/04/18 at 16:45 Trimethoprim/ Sulfamethoxazole (Bactrim Ds, Septra Ds 160mg/ 800mg) 1 tab BID PO Last administered on 10/09/18at 20:47; Start 10/05/18 at 09:00; Stop 10/09/18 at 21:01; Status DC Zinc Oxide (Boudreauxs Butt Paste) apply to sacrum TID TOP Last administered on 10/11/18at 09:19; Start 10/05/18 at 09:00 LIZZETTE LOUIS MD Oct 11, 2018 16:27
[2018-10-11] MEDS: RIVAROXABAN 10 MG TAB (XARELTO) PO SCH (18:07)
[2018-10-11 20:00] VITALS: BP 147/70
[2018-10-12] MEDS ORDERED: UNRESOLVED CLARIFICATION ENTRY XX SCH (00:01)
[2018-10-12 06:00] VITALS: BP 148/72
[2018-10-12] MEDS: COSOPT OCUMETER PLUS 10ML (DORZOLAMIDE/TIMOLOL) OU SCH ×2 (09:00→20:54)
[2018-10-12] MEDS: BOUDREAUX'S BUTT PASTE 4OZ TOP SCH ×3 (09:00→20:54)
[2018-10-12] MEDS: SENOKOT S TAB PO SCH ×2 (09:00→20:53)
[2018-10-12] MEDS: PANTOPRAZOLE 40MG TAB (PROTONIX) PO SCH (09:23)
[2018-10-12] MEDS: THIAMINE 100 MG TAB PO SCH (09:23)
[2018-10-12] MEDS: DONEPEZIL 5 MG TAB PO SCH (09:23)
[2018-10-12] MEDS: FERROUS SULFATE 325MG TAB PO SCH ×2 (09:23→20:53)
[2018-10-12] MEDS: GABAPENTIN 100 MG CAP PO SCH ×2 (09:23→20:53)
[2018-10-12] MEDS: FLUoxetine 20 MG CAP PO SCH (09:23)
[2018-10-12] MEDS: OMEGA-3 1000MG CAPSULE PO SCH ×2 (09:23→20:53)
[2018-10-12] MEDS: CARVedilol 3.125 MG TAB PO SCH ×2 (09:24→20:52)
[2018-10-12] MEDS: ACETAMINOPHEN 500 MG TAB PO PRN ×2 (09:24→20:54)
--- NOTE | 2018-10-12 13:10 | IPNPDOC ---
Date Seen The patient was seen on 10/12/18. Progress Note ATTENDING: Dr. Medardo Lund PCP: Dr Latoya Mendoza HPI: 87 year old female with chronic Dementia, who lives at home with her grandson and usually walks with a walker, unable to perform ADLs without assistance sustained a fall at home without prodromal symptoms. According to the grandson, pt has been in her usual state of health without fever, chills, diarrhea, headache, constipation, dysuria, urgency, frequency and often suffers from chronic back pain and vertigo. She was found on the floor covered in urine and may have been there since last night. Per daughter, no prior history of malignancy. Her fall was unwitnessed, and despite the patient saying that she did not hit her head, pt's daughter says, that the patient is an unreliable historian In the Emergency room, she was found to have a closed intertrochanteric fracture of the right hip. CT extremity 09/28/18: mixed lytic lesions from possible mal ignancy and osteoporosis. Orthopedic surgery, Dr. Stratton, has been consulted for management. S/P right hip biopsy 09/28/18 was negative for malignancy. S/p ORIF on 10/02/18. The pt was transferred to ARU, to Dr Thompson Escalona, 10/04/18. The pt is resting in bed, denies pain. Pt does not c/o any fevers, chills, weakness, fatigue, Headache, Chest Pain, Shortness of breath, cough, palpitations, abdominal pain, N/V/D or changes in bowel or bladder habits. PMHx: Advanced dementia acute blood loss anemia Right thigh hematoma hypertension vertigo osteoporosis glaucoma hyperlipidemia Single lytic lesion of bone s/p biopsy no malignancy detected. Osteoporosis PSHX: Cataract surgery b/l, teeth extraction, tonsillectomy, adenoidectomy, comminuted intertrochanteric fracture of right femur s/p ORIF PE: GEN: 87yoF, appears stated age. No acute distress. Alert and responsive to question, pleasantly confused. HEENT: Normocephalic, atraumatic. Sclera are nonicteric. Conjunctiva without injection. Nose midline. No facial asymmetry. Moist mucous membranes. Neck supple, trachea midline. CHEST: Regular rate and rhythm, +S1, +S2 LUNGS: Clear to auscultation bilaterally. No wheezes, rales, or rhonchi. ABD: Round, soft, non-tender, non-distended. +Bowel sounds throughout. EXT: No lower extremity edema appreciated. SKIN: [place], dry, warm. No rashes. NEURO: No focal deficits appreciated. 09/28/18 REFLEX URINE CULTURE Final Organism 1 STAPH.AUREUS METHICILLIN RESIS COLONY COUNT 2,000 CFU/ml UC 10/04/18 neg. Right hip bone lesion, biopsy: Minute fragments of bone admixed with blood clot. No malignancy is identified. 10/02/18 - 1221 CTH Diffuse atrophy, small vessel changes, vascular calcification. No acute intracranial abnormality. Electronically Signed by Chidi Hernandez MD 09/28/2018 12:26 P A&P: 87 year old female with chronic Dementia, who lives at home with her grandson and usually walks with a walker, unable to perform ADLs without assistance sustained a fall at home without prodromal symptoms. According to the grandson, pt has been in her usual state of health without fever, chills, diarrhea, headache, constipation, dysuria, urgency, frequency and often suffers from chronic back pain and vertigo. She was found on the floor covered in urine and may have been there since last night. Per daughter, no prior history of malignancy. Her fall was unwitnessed, and despite the patient saying that she did not hit her head, pt's daughter says, that the patient is an unreliable historian In the Emergency room, she was found to have a closed intertrochanteric fracture of the right hip. CT extremity 09/28/18: mixed lytic lesions from possible malignancy and osteoporosis. Orthopedic surgery, Dr. Stratton, has been consulted for management. S/P right hip biopsy 09/28/18 was negative for malignancy. S/p ORIF on 10/02/18. The pt was transferred to ARU, to Dr Thompson Escalona, 10/04/18. Comminuted intertrochanteric fracture of the right femur secondary to a fall at home and longstanding history of osteoporosis and possible lytic lesions from unknown primary malignancy. s/p right hip biopsy 09/28/18 was negative for malignancy. S/p ORIF on 10/02/18 as per Orthopedic surgery. management as per Orthopedics. PT/OT/ST as per ARU. Pain control as per ARU. Bowel care as per ARU. DVT prophylaxis Xarelto as per Orthopedics. Right thigh Hematoma: secondary to right hip fracture s/p fall. no signs of compartment syndrome. s/p 3 unit rbc transfusion 09/29,10/07,10/08/18. Pt on Fe supplement. Monitor trend and need for transfusion. Acute blood loss anemia: secondary to right thigh hematoma and longstanding history of LGI bleed refusing colonoscopy. s/p 1 unit rbc transfusion 09/29/18. Per daughter, pt has refused colonoscopy. Hgb 10.8, trend improved. Monitor CBC. Bone lytic lesions: s/p right hip biopsy 09/28/18. neg biopsy for malignancy. Hypertension: controlled. Coreg 3.125mg BID with holding parameters Glaucoma: Continue home meds Hypercholesterolemia: not on meds Chronic Vertigo: pt has advanced dementia and could not provide history regarding her recent fall at home. Advanced Dementia: worsening according to the family. Has a grandson living with her, requires help with ADLs. Aricept/Prozac. MOLST scanned in chart. DNR. VS, I&O, 24H, Fishbone Vital Signs/I&O Vital Signs Date Time Temp Pulse Resp B/P (MAP) Pulse Ox O2 Delivery O2 Flow Rate FiO2 10/12/18 09:24 73 148/72 10/12/18 06:00 98.1 18 97 Room Air 10/06/18 14:00 I&O- Last 24 Hours up to 6 AM 10/12/18 06:00 Intake Total 360 ml Balance 360 ml Laboratory Data Microbiology Microbiology 10/04/18 Urine Culture - Final, Complete Cora Johnson Oct 12, 2018 13:10
[2018-10-12 14:00] VITALS: BP 148/67
[2018-10-12] MEDS: RIVAROXABAN 10 MG TAB (XARELTO) PO SCH (17:13)
--- NOTE | 2018-10-12 17:28 | IPNPDOC ---
PM&R Progress Note DATE OF SERVICE: Oct 12, 2018 [employer] Progress Note Subjective: Patient seen in her room smiling an asking for popcorn. REVIEW OF SYSTEMS: The following is a completed review of systems and has been reviewed. Difficult to fully assess the below as patient with only yes and no responses and confused PAIN: Patient self reports no pain CARDIOVASCULAR: denies chest pain PULMONARY: Negative. Denies shortness of breath GASTROINTESTINAL:no constipation or diarrhea GENITOURINARY: +UTI MUSCULOSKELETAL: +right hip ORIF HEMATOLOGICAL: +blood loss anemia-stable SKIN: + right hip incision PSYCHIATRIC: +dementia All other review of systems found to be negative. PHYSICAL EXAMINATION: VITAL SIGNS: Please see below. GENERAL: Pleasant and cooperative. No acute distress. HEENT: PERRL. Extraocular movements intact. Clear conjunctiva CARDIOVASCULAR: Regular rate and rhythm. +systolic murmurs, no rubs, or gallops. LUNGS: Clear to auscultation bilaterally. No wheezes. No rhonchi ABDOMEN: Soft, nontender, nondistended. Positive bowel sounds. Normal active bowel sounds NEUROLOGICAL:Not oriented to person, place, or time, able to follow 2-step commands inconsistently Cranial nerves II through XII grossly intact. Sensation grossly intact EXTREMITIES: 5\5 strength bilateral upper extremities. 5\5 strength right lower extremity, except limited hip flexion and knee extension due to pain (>4/5). 5/5 strength in left lower extremity. SKIN: right hip incision, mild edema and ecchymosis, no induration or erythema GOALS: ASSESSMENT: 87-year-old F with past medical history of dementia who presents status post fall with right hip ORIF. PLAN: 1. rehab: PT/OT, assess for DME needs, ambulating further with RW 2. Neuro: severe dementia has not been worked up per family- ordered TSH/FT4-WNL -MMA for B12 deficiency -continue Donepezil for cognition, and Prozac for possible pseudodementia- continued improvement in cognition 3. Ortho: s/p ORIF 10-02-18, WBAT, ortho consult 4. HTN: continue home meds and adjust, medicine consult, recs appreciated 5. : +MRSA Ucx on prior admission, will treat with Bactrim x5 days, monitor PVRs 6. Heme: blood loss anemia, will start iron and monitor s/p 2 units of prbs, now around 10-stable 7. DVT ppx: Xarelto 8. GI ppx: Protonix 9. Pain: Tylenol, avoid opioids, continue low dose gabapentin 10. Dispo: 10-20-18 to home with ashlie VALENCIA, progressing towards goals 11. DNR/DNI Allergies Coded Allergies: No Known Allergies (Unverified , 09/28/18) Vital Signs Vital Signs Date Time Temp Pulse Resp B/P (MAP) Pulse Ox O2 Delivery O2 Flow Rate FiO2 10/12/18 14:00 98.4 86 19 148/67 (94) 100 Room Air 10/06/18 14:00 Microbiology Microbiology 10/04/18 Urine Culture - Final, Complete Current Medications Current Medications Current Medications Acetaminophen (Tylenol Tab) 1,000 mg Q6HP PRN PO MILD PAIN (PS 1-8) Last administered on 10/12/18 09:24; Start 10/04/18 at 16:45 Bisacodyl (Dulcolax Suppository) 10 mg DAILYPRN PRN [place] CONSTIPATION; Start 10/04/18 at 16:45 Carvedilol (COReg) 3.125 mg BID PO Last administered on 10/12/18 09:24; Start 10/04/18 at 21:00 Donepezil HCl (AriCEPT) 5 mg DAILY PO Last administered on 10/12/18 09:23; Start 10/05/18 at 09:00 Dorzolamide/ Timolol (Cosopt Ocumeter Plus) 1 drop BID OU Last administered on 10/12/18 09:00; Start 10/04/18 at 21:00 Ferrous Sulfate (Ferrous Sulfate) 325 mg BID PO Last administered on 10/12/18 09:23; Start 10/05/18 at 09:00 Fish Oil ([place]-3 (1000mg)) 1 cap BID PO Last administered on 10/12/18 09:23; Start 10/05/18 at 09:00 Fluoxetine HCl (PROzac) 20 mg DAILY PO Last administered on 10/12/18 09:23; Start 10/05/18 at 09:00 Gabapentin (Neurontin) 100 mg BID PO Last administered on 10/12/18 09:23; Start 10/04/18 at 21:00 Home Med (Med Rec Complete!) ASDIRECTED XX ; Start 10/04/18 at 20:00; Stop 10/04/18 at 20:00; Status DC Magnesium Hydroxide (Milk Of Magnesia) 30 ml DAILYPRN PRN PO CONSTIPATION; Start 10/04/18 at 16:45 Miscellaneous (Unresolved Clarification Entry) SEE LABEL COMMENTS UNRESOLVED XX ; Start 10/12/18 at 00:01; Stop 10/12/18 at 00:01; Status DC Miscellaneous (Unresolved Patient Own Med Order) SEE LABEL COMMENTS DAILY XX ; Start 10/04/18 at 09:00; Stop 10/11/18 at 09:42; Status DC Miscellaneous (Unresolved Patient Own Med Order) SEE LABEL COMMENTS DAILY XX Last administered on 10/12/18at 09:00; Start 10/11/18 at 09:00 Pantoprazole Sodium (Protonix) 40 mg DAILY PO Last administered on 10/12/18at 09:23; Start 10/05/18 at 09:00 Patient Own Medication (Patient'S Own Med) Epinastine HCl 0.05% -1 drop BID OU ; Start 10/07/18 at 21:00; Status Future Hold Rivaroxaban (Xarelto) 10 mg DAILY@1800 PO Last administered on 10/12/18at 17:13; Start 10/04/18 at 18:00; Stop 11/06/18 at 23:55 Senna/Docusate Sodium (Senokot S) 1 tab BID PO Last administered on 10/11/18at 09:19; Start 10/04/18 at 21:00 Sodium Biphosphate/ Sodium Phosphate (Fleet Enema) 1 ea DAILYPRN PRN [place] CONSTIPATION; Start 10/04/18 at 16:45 Thiamine HCl (Thiamine HCl) 100 mg DAILY PO Last administered on 10/12/18at 09:23; Start 10/05/18 at 09:00 Trazodone HCl (Desyrel) 25 mg Q6HP PRN PO AGITATION; Start 10/04/18 at 16:45 Trazodone HCl (Desyrel) 25 mg QHSP PRN PO INSOMNIA Last administered on 10/09/18at 23:47; Start 10/04/18 at 16:45 Trimethoprim/ Sulfamethoxazole (Bactrim Ds, Septra Ds 160mg/ 800mg) 1 tab BID PO Last administered on 10/09/18at 20:47; Start 10/05/18 at 09:00; Stop 10/09/18 at 21:01; Status DC Zinc Oxide (Boudreauxs Butt Paste) apply to sacrum TID TOP Last administered on 10/11/18at 21:00; Start 10/05/18 at 09:00 LIZZETTE LOUIS MD Oct 12, 2018 17:28
[2018-10-12 20:00] VITALS: BP 143/75
[2018-10-13] MEDS: ACETAMINOPHEN 500 MG TAB PO PRN ×2 (02:29→20:47)
[2018-10-13 06:00] VITALS: BP 145/82
[2018-10-13] MEDS: FERROUS SULFATE 325MG TAB PO SCH ×2 (08:09→20:47)
[2018-10-13] MEDS: PANTOPRAZOLE 40MG TAB (PROTONIX) PO SCH (08:09)
[2018-10-13] MEDS: CARVedilol 3.125 MG TAB PO SCH ×2 (08:09→20:48)
[2018-10-13] MEDS: COSOPT OCUMETER PLUS 10ML (DORZOLAMIDE/TIMOLOL) OU SCH ×2 (08:09→20:49)
[2018-10-13] MEDS: OMEGA-3 1000MG CAPSULE PO SCH ×2 (08:09→20:47)
[2018-10-13] MEDS: FLUoxetine 20 MG CAP PO SCH (08:09)
[2018-10-13] MEDS: THIAMINE 100 MG TAB PO SCH (08:09)
[2018-10-13] MEDS: GABAPENTIN 100 MG CAP PO SCH ×2 (08:09→20:47)
[2018-10-13] MEDS: SENOKOT S TAB PO SCH ×2 (08:09→20:48)
[2018-10-13] MEDS: DONEPEZIL 5 MG TAB PO SCH (08:09)
[2018-10-13] MEDS: BOUDREAUX'S BUTT PASTE 4OZ TOP SCH ×3 (08:10→20:49)
[2018-10-13 13:31] LABS: HEMATOCRIT 37.4 % (36.0-47.0); HEMOGLOBIN 12.1 g/dl (12.0-15.5); MEAN CORPUSCULAR HEMOGLOBIN 28.6 pg (27.0-33.0); MEAN CORPUSCULAR HGB CONC 32.4 g/dl (32.0-36.5); MEAN CORPUSCULAR VOLUME 88.4 fl (80.0-96.0); PLATELET COUNT, AUTOMATED 413 10^3/uL (150-450); RED BLOOD COUNT 4.23 10^6/uL (4.00-5.40); WHITE BLOOD COUNT 5.7 10^3/uL (4.0-10.0)
[2018-10-13 13:48] LABS: BLOOD UREA NITROGEN 13 MG/DL (7-18); CALCIUM LEVEL 8.6 MG/DL (8.8-10.2); CARBON DIOXIDE LEVEL 24 MEQ/L (21-32); CHLORIDE LEVEL 100 MEQ/L (98-107); CREATININE FOR GFR 0.52 MG/DL (0.55-1.30); GLOMERULAR FILTRATION RATE > 60.0 (>32); GLUCOSE, FASTING 92 MG/DL (70-100); POTASSIUM SERUM 3.8 MEQ/L (3.5-5.1); SODIUM LEVEL 132 MEQ/L (136-145)
[2018-10-13 14:00] VITALS: BP 137/86
[2018-10-13] MEDS: RIVAROXABAN 10 MG TAB (XARELTO) PO SCH (17:21)
[2018-10-13 20:00] VITALS: BP 139/67
[2018-10-14 06:00] VITALS: BP 166/80
[2018-10-14] MEDS: FERROUS SULFATE 325MG TAB PO SCH ×2 (08:26→20:31)
[2018-10-14] MEDS: PANTOPRAZOLE 40MG TAB (PROTONIX) PO SCH (08:26)
[2018-10-14] MEDS: OMEGA-3 1000MG CAPSULE PO SCH ×2 (08:26→20:31)
[2018-10-14] MEDS: THIAMINE 100 MG TAB PO SCH (08:26)
[2018-10-14] MEDS: GABAPENTIN 100 MG CAP PO SCH ×2 (08:26→20:31)
[2018-10-14] MEDS: DONEPEZIL 5 MG TAB PO SCH (08:26)
[2018-10-14] MEDS: FLUoxetine 20 MG CAP PO SCH (08:26)
[2018-10-14] MEDS: CARVedilol 3.125 MG TAB PO SCH ×2 (08:27→20:21)
[2018-10-14] MEDS: SENOKOT S TAB PO SCH ×2 (08:27→20:22)
[2018-10-14] MEDS: BOUDREAUX'S BUTT PASTE 4OZ TOP SCH ×3 (08:28→20:31)
[2018-10-14] MEDS: COSOPT OCUMETER PLUS 10ML (DORZOLAMIDE/TIMOLOL) OU SCH ×2 (08:28→20:31)
[2018-10-14] MEDS: ACETAMINOPHEN 500 MG TAB PO PRN ×2 (10:48→17:23)
[2018-10-14 14:00] VITALS: BP 134/66
[2018-10-14 14:08] LABS: BLOOD UREA NITROGEN 12 MG/DL (7-18); CALCIUM LEVEL 8.2 MG/DL (8.8-10.2); CARBON DIOXIDE LEVEL 25 MEQ/L (21-32); CHLORIDE LEVEL 100 MEQ/L (98-107); CREATININE FOR GFR 0.51 MG/DL (0.55-1.30); GLOMERULAR FILTRATION RATE > 60.0 (>32); GLUCOSE, FASTING 137 MG/DL (70-100); POTASSIUM SERUM 3.8 MEQ/L (3.5-5.1); SODIUM LEVEL 132 MEQ/L (136-145)
[2018-10-14] MEDS: RIVAROXABAN 10 MG TAB (XARELTO) PO SCH (17:24)
[2018-10-14 20:30] VITALS: BP 138/77
[2018-10-14] MEDS: traZODone 25MG PER 1/2 TABLET PO PRN (20:31)
[2018-10-15] MEDS: ACETAMINOPHEN 500 MG TAB PO PRN ×3 (04:04→22:06)
[2018-10-15 06:00] VITALS: BP 128/62
[2018-10-15 06:15] LABS: BASO % 0.1 % (0.0-1.0); EOS # 0.1 10^3/uL (0.0-0.50); EOS % 1.3 % (0.0-3.0); HEMATOCRIT 35.4 % (36.0-47.0); HEMOGLOBIN 11.6 g/dl (12.0-15.5); LYMPH # 1.3 10^3/uL (1.5-4.5); LYMPH % 19.6 % (24.0-44.0); MEAN CORPUSCULAR HEMOGLOBIN 28.6 pg (27.0-33.0); MEAN CORPUSCULAR HGB CONC 32.8 g/dl (32.0-36.5); MEAN CORPUSCULAR VOLUME 87.4 fl (80.0-96.0); MONO # 0.6 10^3/uL (0.0-0.8); MONO % 8.7 % (0.0-5.0); NEUTROPHILS # 4.7 10^3/uL (1.8-7.7); NEUTROPHILS % 69.9 % (36.0-66.0); PLATELET COUNT, AUTOMATED 381 10^3/uL (150-450); RED BLOOD COUNT 4.05 10^6/uL (4.00-5.40); WHITE BLOOD COUNT 6.8 10^3/uL (4.0-10.0)
[2018-10-15 06:52] LABS: BLOOD UREA NITROGEN 11 MG/DL (7-18); CALCIUM LEVEL 8.7 MG/DL (8.8-10.2); CARBON DIOXIDE LEVEL 26 MEQ/L (21-32); CHLORIDE LEVEL 102 MEQ/L (98-107); CREATININE FOR GFR 0.54 MG/DL (0.55-1.30); GLOMERULAR FILTRATION RATE > 60.0 (>32); GLUCOSE, FASTING 87 MG/DL (70-100); POTASSIUM SERUM 3.9 MEQ/L (3.5-5.1); SODIUM LEVEL 134 MEQ/L (136-145)
[2018-10-15 09:00] VITALS: BP 114/73
[2018-10-15] MEDS: GABAPENTIN 100 MG CAP PO SCH ×2 (09:48→22:05)
[2018-10-15] MEDS: OMEGA-3 1000MG CAPSULE PO SCH ×2 (09:48→22:05)
[2018-10-15] MEDS: DONEPEZIL 5 MG TAB PO SCH (09:48)
[2018-10-15] MEDS: FERROUS SULFATE 325MG TAB PO SCH ×2 (09:49→22:05)
[2018-10-15] MEDS: PANTOPRAZOLE 40MG TAB (PROTONIX) PO SCH (09:49)
[2018-10-15] MEDS: SENOKOT S TAB PO SCH ×2 (09:49→22:06)
[2018-10-15] MEDS: FLUoxetine 20 MG CAP PO SCH (09:49)
[2018-10-15] MEDS: THIAMINE 100 MG TAB PO SCH (09:49)
[2018-10-15] MEDS: CARVedilol 3.125 MG TAB PO SCH ×2 (09:50→22:06)
[2018-10-15] MEDS: COSOPT OCUMETER PLUS 10ML (DORZOLAMIDE/TIMOLOL) OU SCH ×2 (09:51→22:06)
[2018-10-15] MEDS: BOUDREAUX'S BUTT PASTE 4OZ TOP SCH ×3 (09:52→22:06)
[2018-10-15 14:00] VITALS: BP 104/61
[2018-10-15] MEDS: RIVAROXABAN 10 MG TAB (XARELTO) PO SCH (18:34)
[2018-10-15 20:00] VITALS: BP 117/61
[2018-10-15] MEDS ORDERED: ENTER DRUG NAME HERE (PATIENT'S OWN MED) OU SCH (21:00)
[2018-10-15] MEDS: traZODone 25MG PER 1/2 TABLET PO PRN (22:06)
[2018-10-16 06:00] VITALS: BP 156/73
[2018-10-16] MEDS: FERROUS SULFATE 325MG TAB PO SCH ×2 (08:22→20:32)
[2018-10-16] MEDS: GABAPENTIN 100 MG CAP PO SCH ×2 (08:22→20:32)
[2018-10-16] MEDS: THIAMINE 100 MG TAB PO SCH (08:22)
[2018-10-16] MEDS: OMEGA-3 1000MG CAPSULE PO SCH ×2 (08:22→20:32)
[2018-10-16] MEDS: CARVedilol 3.125 MG TAB PO SCH ×2 (08:22→20:32)
[2018-10-16] MEDS: DONEPEZIL 5 MG TAB PO SCH (08:22)
[2018-10-16] MEDS: PANTOPRAZOLE 40MG TAB (PROTONIX) PO SCH (08:22)
[2018-10-16] MEDS: FLUoxetine 20 MG CAP PO SCH (08:22)
[2018-10-16] MEDS: COSOPT OCUMETER PLUS 10ML (DORZOLAMIDE/TIMOLOL) OU SCH ×2 (08:23→20:32)
[2018-10-16] MEDS: BOUDREAUX'S BUTT PASTE 4OZ TOP SCH ×3 (08:23→20:32)
[2018-10-16] MEDS: SENOKOT S TAB PO SCH ×2 (08:23→20:31)
[2018-10-16 10:24] LABS: BASO % 0.3 % (0.0-1.0); EOS # 0.1 10^3/uL (0.0-0.50); EOS % 0.6 % (0.0-3.0); HEMATOCRIT 37.7 % (36.0-47.0); HEMOGLOBIN 12.2 g/dl (12.0-15.5); LYMPH # 1.4 10^3/uL (1.5-4.5); LYMPH % 15.7 % (24.0-44.0); MEAN CORPUSCULAR HEMOGLOBIN 28.8 pg (27.0-33.0); MEAN CORPUSCULAR HGB CONC 32.4 g/dl (32.0-36.5); MEAN CORPUSCULAR VOLUME 89.1 fl (80.0-96.0); MONO # 0.6 10^3/uL (0.0-0.8); MONO % 6.3 % (0.0-5.0); NEUTROPHILS # 6.8 10^3/uL (1.8-7.7); NEUTROPHILS % 76.7 % (36.0-66.0); PLATELET COUNT, AUTOMATED 464 10^3/uL (150-450); RED BLOOD COUNT 4.23 10^6/uL (4.00-5.40); WHITE BLOOD COUNT 8.9 10^3/uL (4.0-10.0)
[2018-10-16] MEDS: ACETAMINOPHEN 500 MG TAB PO PRN ×2 (10:32→16:25)
[2018-10-16 10:48] LABS: BLOOD UREA NITROGEN 15 MG/DL (7-18); CALCIUM LEVEL 8.8 MG/DL (8.8-10.2); CARBON DIOXIDE LEVEL 25 MEQ/L (21-32); CHLORIDE LEVEL 102 MEQ/L (98-107); CREATININE FOR GFR 0.71 MG/DL (0.55-1.30); GLOMERULAR FILTRATION RATE > 60.0 (>32); GLUCOSE, FASTING 139 MG/DL (70-100); POTASSIUM SERUM 3.5 MEQ/L (3.5-5.1); SODIUM LEVEL 134 MEQ/L (136-145)
[2018-10-16 14:00] VITALS: BP 108/59
[2018-10-16] MEDS ORDERED: CEFDINIR 300 MG CAP (OMNICEF) PO ONE (17:00)
[2018-10-16] MEDS: RIVAROXABAN 10 MG TAB (XARELTO) PO SCH (17:29)
--- NOTE | 2018-10-16 18:36 | IPNPDOC ---
PM&R Progress Note DATE OF SERVICE: Oct 15, 2018 Criminal Psychologist Progress Note Subjective: Patient seen in her room smiling reports she feels well and her pain is well controlled. REVIEW OF SYSTEMS: The following is a completed review of systems and has been reviewed. Difficult to fully assess the below as patient with only yes and no responses and confused PAIN: Patient self reports no pain CARDIOVASCULAR: denies chest pain PULMONARY: Negative. Denies shortness of breath GASTROINTESTINAL:no constipation or diarrhea GENITOURINARY: +UTI MUSCULOSKELETAL: +right hip ORIF HEMATOLOGICAL: +blood loss anemia-stable SKIN: + right hip incision PSYCHIATRIC: +dementia All other review of systems found to be negative. PHYSICAL EXAMINATION: VITAL SIGNS: Please see below. GENERAL: Pleasant and cooperative. No acute distress. HEENT: PERRL. Extraocular movements intact. Clear conjunctiva CARDIOVASCULAR: Regular rate and rhythm. +systolic murmurs, no rubs, or gallops. LUNGS: Clear to auscultation bilaterally. No wheezes. No rhonchi ABDOMEN: Soft, nontender, nondistended. Positive bowel sounds. Normal active bowel sounds NEUROLOGICAL:Not oriented to person, place, or time, able to follow 2-step commands inconsistently Cranial nerves II through XII grossly intact. Sensation grossly intact EXTREMITIES: 5\5 strength bilateral upper extremities. 5\5 strength right lower extremity, except limited hip flexion and knee extension due to pain (>4/5). 5/5 strength in left lower extremity. SKIN: right hip incision, mild edema and ecchymosis, no induration or erythema GOALS: ASSESSMENT: 87-year-old F with past medical history of dementia who presents status post fall with right hip ORIF. PLAN: 1. rehab: PT/OT, assess for DME needs, ambulating further with RW 2. 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 Ortho: s/p ORIF 10-02-18, WBAT, ortho consult 4. HTN: continue home meds and adjust, medicine consult, recs appreciated 5. : +MRSA Ucx on prior admission, will treat with Bactrim x5 days, monitor PVRs- preat UA positive for E coli will treat with 3 dy course of Levaquin 6. Heme: blood loss anemia, will start iron and monitor s/p 2 units of prbs, now around 10-stable 7. DVT ppx: Xarelto 8. GI ppx: Protonix 9. Pain: Tylenol, avoid opioids, continue low dose gabapentin 10. Dispo: 10-19-18 to home with grandson vs ERIK, progressing towards goals 11. DNR/DNI Allergies Coded Allergies: No Known Allergies (Unverified , 09/28/18) Vital Signs Vital Signs Date Time Temp Pulse Resp B/P (MAP) Pulse Ox O2 Delivery O2 Flow Rate FiO2 10/16/18 14:00 98.5 87 18 108/59 (75) 98 Room Air Laboratory Data CBC/BMP Laboratory Tests 10/16/18 10:08 Red Blood Count 4.23, Mean Corpuscular Volume 89.1, Mean Corpuscular Hemoglobin 28.8, Mean Corpuscular Hemoglobin Concent 32.4, Red Cell Distribution Width 15.0 H, Neutrophils (%) (Auto) 76.7 H, Lymphocytes (%) (Auto) 15.7 L, Monocytes (%) (Auto) 6.3 H, Eosinophils (%) (Auto) 0.6, Basophils (%) (Auto) 0.3, Neutrophils # (Auto) 6.8, Lymphocytes # (Auto) 1.4 L, Monocytes # (Auto) 0.6, Eosinophils # (Auto) 0.1, Basophils # (Auto) 0.0, Calcium Level 8.8 Labs 24H Laboratory Tests 2 10/16/18 10:08: Immature Granulocyte % (Auto) 0.4, White Blood Count 8.9, Red Blood Count 4.23, Hemoglobin 12.2, Hematocrit 37.7, Mean Corpuscular Volume 89.1, Mean Corpuscular Hemoglobin 28.8, Mean Corpuscular Hemoglobin Concent 32.4, Red Cell Distribution Width 15.0H, Platelet Count 464H, Neutrophils (%) (Auto) 76.7H, Lymphocytes (%) (Auto) 15.7L, Monocytes (%) (Auto) 6.3H, Eosinophils (%) (Auto) 0.6, Basophils (%) (Auto) 0.3, Neutrophils # (Auto) 6.8, Lymphocytes # (Auto) 1.4L, Monocytes # (Auto) 0.6, Eosinophils # (Auto) 0.1, Basophils # (Auto) 0.0, Nucleated Red Blood Cells % (auto) 0.0, Anion Gap 7L, Glomerular Filtration Rate > 60.0, Blood Urea Nitrogen 15, Creatinine 0.71, Sodium Level 134L, Potassium Level 3.5, Chloride Level 102, Carbon Dioxide Level 25, Calcium Level 8.8, Magnesium Level 2.0 Microbiology Microbiology 10/13/18 Urine Culture - Final, Complete Escherichia Coli Current Medications Current Medications Current Medications Acetaminophen (Tylenol Tab) 1,000 mg Q6HP PRN PO MILD PAIN (PS 1-8) Last administered on 10/16/18 16:25; Start 10/04/18 at 16:45 Bisacodyl (Dulcolax Suppository) 10 mg DAILYPRN PRN [place] CONSTIPATION; Start 10/04/18 at 16:45 Carvedilol (COReg) 3.125 mg BID PO Last administered on 10/16/18 08:22; Start 10/04/18 at 21:00 Cefdinir (Omnicef) 300 mg BID PO ; Start 10/17/18 at 09:00; Stop 10/17/18 at 09 :00; Status DC Donepezil HCl (AriCEPT) 5 mg DAILY PO Last administered on 10/16/18 08:22; Start 10/05/18 at 09:00 Dorzolamide/ Timolol (Cosopt Ocumeter Plus) 1 drop BID OU Last administered on 10/16/18 08:23; Start 10/04/18 at 21:00 Ferrous Sulfate (Ferrous Sulfate) 325 mg BID PO Last administered on 10/16/18 08:22; Start 10/05/18 at 09:00 Fish Oil ([place]-3 (1000mg)) 1 cap BID PO Last administered on 10/16/18 08:22; Start 10/05/18 at 09:00 Fluoxetine HCl (PROzac) 20 mg DAILY PO Last administered on 10/16/18 08:22; Start 10/05/18 at 09:00 Gabapentin (Neurontin) 100 mg BID PO Last administered on 10/16/18 08:22; Start 10/04/18 at 21:00 Home Med (Med Rec Complete!) ASDIRECTED XX ; Start 10/04/18 at 20:00; Stop 10/04/18 at 20:00; Status DC Levofloxacin (Levaquin) 250 mg DAILY@06 PO ; Start 10/17/18 at 06:00; Stop 10/19/18 at 06:01 Magnesium Hydroxide (Milk Of Magnesia) 30 ml DAILYPRN PRN PO CONSTIPATION; Start 10/04/18 at 16:45 Miscellaneous (Unresolved Clarification Entry) SEE LABEL COMMENTS UNRESOLVED XX ; Start 10/12/18 at 00:01; Stop 10/12/18 at 00:01; Status DC Miscellaneous (Unresolved Patient Own Med Order) SEE LABEL COMMENTS DAILY XX ; Start 10/04/18 at 09:00; Stop 10/11/18 at 09:42; Status DC Miscellaneous (Unresolved Patient Own Med Order) SEE LABEL COMMENTS DAILY XX Last administered on 10/12/18at 09:00; Start 10/11/18 at 09:00 Pantoprazole Sodium (Protonix) 40 mg DAILY PO Last administered on 10/16/18at 08:22; Start 10/05/18 at 09:00 Patient Own Medication (Patient'S Own Med) 1 ea BID OU ; Start 10/15/18 at 21:00; Status UNV Patient Own Medication (Patient'S Own Med) Epinastine HCl 0.05% -1 drop BID OU ; Start 10/07/18 at 21:00; Status Future Hold Rivaroxaban (Xarelto) 10 mg DAILY@1800 PO Last administered on 10/16/18at 17:29; Start 10/04/18 at 18:00; Stop 11/06/18 at 23:55 Senna/Docusate Sodium (Senokot S) 1 tab BID PO Last administered on 10/15/18at 22:06; Start 10/04/18 at 21:00 Sodium Biphosphate/ Sodium Phosphate (Fleet Enema) 1 ea DAILYPRN PRN [place] CONSTIPATION; Start 10/04/18 at 16:45 Thiamine HCl (Thiamine HCl) 100 mg DAILY PO Last administered on 10/16/18at 08:22; Start 10/05/18 at 09:00 Trazodone HCl (Desyrel) 25 mg Q6HP PRN PO AGITATION; Start 10/04/18 at 16:45 Trazodone HCl (Desyrel) 25 mg QHSP PRN PO INSOMNIA Last administered on 10/15/18at 22:06; Start 10/04/18 at 16:45 Trimethoprim/ Sulfamethoxazole (Bactrim Ds, Septra Ds 160mg/ 800mg) 1 tab BID PO Last administered on 10/09/18at 20:47; Start 10/05/18 at 09:00; Stop 10/09/18 at 21:01; Status DC Zinc Oxide (Boudreauxs Butt Paste) apply to sacrum TID TOP Last administered on 10/16/18at 17:29; Start 10/05/18 at 09:00 LIZZETTE LOUIS MD Oct 16, 2018 18:36
[2018-10-16 20:00] VITALS: BP 127/67
[2018-10-16] MEDS: traZODone 25MG PER 1/2 TABLET PO PRN (20:32)
[2018-10-17] MEDS: LevoFLOXacin 250 MG TABLET PO SCH (05:18)
[2018-10-17 06:09] VITALS: BP 128/71
[2018-10-17] MEDS ORDERED: XARE10TA PO (06:30)
[2018-10-17] MEDS: DONEPEZIL 5 MG TAB PO SCH (08:29)
[2018-10-17] MEDS: FLUoxetine 20 MG CAP PO SCH (08:29)
[2018-10-17] MEDS: SENOKOT S TAB PO SCH ×2 (08:29→20:01)
[2018-10-17] MEDS: COSOPT OCUMETER PLUS 10ML (DORZOLAMIDE/TIMOLOL) OU SCH ×2 (08:30→20:00)
[2018-10-17] MEDS: OMEGA-3 1000MG CAPSULE PO SCH ×2 (08:30→20:00)
[2018-10-17] MEDS: FERROUS SULFATE 325MG TAB PO SCH ×2 (08:30→20:00)
[2018-10-17] MEDS: CARVedilol 3.125 MG TAB PO SCH ×2 (08:30→20:00)
[2018-10-17] MEDS: GABAPENTIN 100 MG CAP PO SCH ×2 (08:30→20:00)
[2018-10-17] MEDS: THIAMINE 100 MG TAB PO SCH (08:30)
[2018-10-17] MEDS: PANTOPRAZOLE 40MG TAB (PROTONIX) PO SCH (08:31)
[2018-10-17] MEDS: BOUDREAUX'S BUTT PASTE 4OZ TOP SCH ×3 (08:31→20:02)
[2018-10-17] MEDS: ACETAMINOPHEN 500 MG TAB PO PRN ×3 (08:56→22:16)
[2018-10-17] MEDS ORDERED: CEFDINIR 300 MG CAP (OMNICEF) PO SCH (09:00)
[2018-10-17] MEDS: EPINASTINE 0.05% OU SCH ×2 (10:33→20:01)
[2018-10-17] MEDS: guaiFENesin ER 600 MG TAB PO SCH ×2 (11:16→20:00)
--- NOTE | 2018-10-17 13:21 | IPNPDOC ---
Date Seen The patient was seen on 10/17/18. Progress Note ATTENDING: Dr. Medardo Lund PCP: Dr Latoya Mendoza HPI: 87 year old female with chronic Dementia, who lives at home with her grandson and usually walks with a walker, unable to perform ADLs without assistance sustained a fall at home without prodromal symptoms. According to the grandson, pt has been in her usual state of health without fever, chills, diarrhea, headache, constipation, dysuria, urgency, frequency and often suffers from chronic back pain and vertigo. She was found on the floor covered in urine and may have been there since last night. Per daughter, no prior history of malignancy. Her fall was unwitnessed, and despite the patient saying that she did not hit her head, pt's daughter says, that the patient is an unreliable historian In the Emergency room, she was found to have a closed intertrochanteric fracture of the right hip. CT extremity 09/28/18: mixed lytic lesions from possible malignancy and osteoporosis. Orthopedic surgery, Dr. Stratton, has been consulted for management. S/P right hip biopsy 09/28/18 was negative for malignancy. S/p ORIF on 10/02/18. The pt was transferred to ARU, to Dr Thompson Escalona, 10/04/18. The pt is OOB to chair, son at bedside. No concerns voiced at this time. Pt does not c/o any fevers, chills, weakness, fatigue, Headache, Chest Pain, Shortness of breath, cough, palpitations, abdominal pain, N/V/D or changes in bowel or bladder habits. PMHx: Advanced dementia acute blood loss anemia Right thigh hematoma hypertension vertigo osteoporosis glaucoma hyperlipidemia Single lytic lesion of bone s/p biopsy no malignancy detected. Osteoporosis PSHX: Cataract surgery b/l, teeth extraction, tonsillectomy, adenoidectomy, comminuted intertrochanteric fracture of right femur s/p ORIF PE: GEN: 87yoF, appears stated age. Alert and responsive to question, pleasantly confused. HEENT: Normocephalic, atraumatic. Sclera are nonicteric. Conjunctiva without injection. Nose midline. No facial asymmetry. Moist mucous membranes. Neck supple, trachea midline. CHEST: Regular rate and rhythm, +S1, +S2 LUNGS: Clear to auscultation bilaterally. No wheezes, rales, or rhonchi. ABD: Round, soft, non-tender, non-distended. +Bowel sounds throughout. EXT: No lower extremity edema appreciated. SKIN: [place], dry, warm. No rashes. NEURO: No focal deficits appreciated. 09/28/18 REFLEX URINE CULTURE Final Organism 1 STAPH.AUREUS METHICILLIN RESIS COLONY COUNT 2,000 CFU/ml 10/04/18 neg. 10/13/18 Organism 1 ESCHERICHIA COLI COLONY COUNT 100,000 CFU/ml Right hip bone lesion, biopsy: Minute fragments of bone admixed with blood clot. No malignancy is identified. 10/02/18 - 1221 CTH Diffuse atrophy, small vessel changes, vascular calcification. No acute intracranial abnormality. Electronically Signed by Chidi Hernandez MD 09/28/2018 12:26 P A&P: 87 year old female with chronic Dementia, who lives at home with her grandson and usually walks with a walker, unable to perform ADLs without assistance sustained a fall at home without prodromal symptoms. According to the grandson, pt has been in her usual state of health without fever, chills, diarrhea, headache, constipation, dysuria, urgency, frequency and often suffers from chronic back pain and vertigo. She was found on the floor covered in urine and may have been there since last night. Per daughter, no prior history of malignancy. Her fall was unwitnessed, and despite the patient saying that she did not hit her head, pt's daughter says, that the patient is an unreliable historian In the Emergency room, she was found to have a closed intertrochanteric fracture of the right hip. CT extremity 09/28/18: mixed lytic lesions from possible malignancy and osteoporosis. Orthopedic surgery, Dr. Stratton, has been consulted for management. S/P right hip biopsy 09/28/18 was negative for malignancy. S/p ORIF on 10/02/18. The pt was transferred to ARU, to Dr Thompson Escalona, 10/04/18. Comminuted intertrochanteric fracture of the right femur secondary to a fall at home and longstanding history of osteoporosis and possible lytic lesions from unknown primary malignancy. s/p right hip biopsy 09/28/18 was negative for malignancy. S/p ORIF on 10/02/18 as per Orthopedic surgery. management as per Orthopedics. PT/OT/ST as per ARU. Pain control as per ARU. Bowel care as per ARU. DVT prophylaxis Xarelto as per Orthopedics. Right thigh Hematoma: secondary to right hip fracture s/p fall. no signs of compartment syndrome. s/p 3 unit rbc transfusion 09/29,10/07,10/08/18. Pt on Fe supplement. Monitor trend and need for transfusion. Acute blood loss anemia: secondary to right thigh hematoma and longstanding history of LGI bleed refusing colonoscopy. s/p 1 unit rbc transfusion 09/29/18. Per daughter, pt has refused colonoscopy. Hgb 12.2, improved. Monitor CBC. Bone lytic lesions: s/p right hip biopsy 09/28/18. neg biopsy for malignancy. Hypertension: controlled. Coreg 3.125mg BID with holding parameters Glaucoma: Continue home meds Hypercholesterolemia: not on meds Chronic Vertigo: pt has advanced dementia and could not provide history regarding her recent fall at home. Advanced Dementia: worsening according to the family. Has a grandson living with her, requires help with ADLs. Aricept/Prozac. UTI. E Coli UC 10/13/18. Levaquin po 250 mg x 3 doses started 10/17/18. Monitor. MOLST scanned in chart. DNR. VS, I&O, 24H, Fishbone Vital Signs/I&O Vital Signs Date Time Temp Pulse Resp B/P (MAP) Pulse Ox O2 Delivery O2 Flow Rate FiO2 10/17/18 08:30 85 128/71 10/17/18 06:09 98.5 16 96 Room Air I&O- Last 24 Hours up to 6 AM 10/17/18 06:00 Intake Total 960 ml Output Total 0 ml Balance 960 ml Laboratory Data Microbiology Microbiology 10/13/18 Urine Culture - Final, Complete Escherichia Coli Cora Johnson Oct 17, 2018 13:21
[2018-10-17 14:11] VITALS: BP 115/65
--- NOTE | 2018-10-17 14:56 | IPNPDOC ---
PM&R Progress Note DATE OF SERVICE: Oct 17, 2018 [employer] Progress Note Subjective: Patient seen in her room smiling stating she was too full to eat lunch, but was able to take a few bites of a turnkey sandwich. REVIEW OF SYSTEMS: The following is a completed review of systems and has been reviewed. Difficult to fully assess the below as patient with only yes and no responses and confused PAIN: Patient self reports no pain CARDIOVASCULAR: denies chest pain PULMONARY: Negative. Denies shortness of breath, no cough GASTROINTESTINAL:no constipation or diarrhea GENITOURINARY: +UTI MUSCULOSKELETAL: +right hip ORIF HEMATOLOGICAL: +blood loss anemia-stable SKIN: + right hip incision PSYCHIATRIC: +dementia All other review of systems found to be negative. PHYSICAL EXAMINATION: VITAL SIGNS: Please see below. GENERAL: Pleasant and cooperative. No acute distress. HEENT: PERRL. Extraocular movements intact. Clear conjunctiva CARDIOVASCULAR: Regular rate and rhythm. +systolic murmurs, no rubs, or gallops. LUNGS: Clear to auscultation bilaterally. No wheezes. No rhonchi ABDOMEN: Soft, nontender, nondistended. Positive bowel sounds. Normal active bowel sounds NEUROLOGICAL:Not oriented to person, place, or time, able to follow 2-step commands inconsistently Cranial nerves II through XII grossly intact. Sensation grossly intact EXTREMITIES: 5\5 strength bilateral upper extremities. 5\5 strength right lower extremity, except limited hip flexion and knee extension due to pain (>4/5). 5/5 strength in left lower extremity. SKIN: right hip incision, mild edema and ecchymosis, no induration or erythema GOALS: ASSESSMENT: 87-year-old F with past medical history of dementia who presents status post fall with right hip ORIF. PLAN: 1. rehab: PT/OT, assess for DME needs, ambulating further with RW, she is SBA for all ADLs and ambulation, grandson to come in for family training 2. 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 Ortho: s/p ORIF 10-02-18, WBAT, ortho consult 4. HTN: continue home meds and adjust, medicine consult, recs appreciated 5. : +MRSA Ucx on prior admission, will treat with Bactrim x5 days, monitor PVRs- repeat UA positive for E coli will treat with 3 day course of Levaquin 6. Heme: blood loss anemia, will start iron and monitor s/p 2 units of prbs- stable 7. DVT ppx: Xarelto 8. GI ppx: Protonix 9. Pain: Tylenol, avoid opioids, continue low dose gabapentin 10. Dispo: 10-19-18 to home with ashlie VALENCIA, progressing towards goals 11. DNR/DNI Allergies Coded Allergies: No Known Allergies (Unverified , 09/28/18) Vital Signs Vital Signs Date Time Temp Pulse Resp B/P (MAP) Pulse Ox O2 Delivery O2 Flow Rate FiO2 10/17/18 14:11 98.4 71 18 115/65 (82) 97 Room Air Microbiology Microbiology 10/13/18 Urine Culture - Final, Complete Escherichia Coli Current Medications Current Medications Current Medications Acetaminophen (Tylenol Tab) 1,000 mg Q6HP PRN PO MILD PAIN (PS 1-8) Last administered on 10/17/18 08:56; Start 10/04/18 at 16:45 Bisacodyl (Dulcolax Suppository) 10 mg DAILYPRN PRN [place] CONSTIPATION; Start 10/04/18 at 16:45 Carvedilol (COReg) 3.125 mg BID PO Last administered on 10/17/18 08:30; Start 10/04/18 at 21:00 Cefdinir (Omnicef) 300 mg BID PO ; Start 10/17/18 at 09:00; Stop 10/17/18 at 09:00; Status DC Donepezil HCl (AriCEPT) 5 mg DAILY PO Last administered on 10/17/18 08:29; Start 10/05/18 at 09:00; Stop 10/17/18 at 10:52; Status DC Donepezil HCl (AriCEPT) 10 mg DAILY PO ; Start 10/18/18 at 09:00 Dorzolamide/ Timolol (Cosopt Ocumeter Plus) 1 drop BID OU Last administered on 10/17/18 08:30; Start 10/04/18 at 21:00 Ferrous Sulfate (Ferrous Sulfate) 325 mg BID PO Last administered on 10/17/18 08:30; Start 10/05/18 at 09:00 Fish Oil ([place]-3 (1000mg)) 1 cap BID PO Last administered on 10/17/18 08:30; Start 10/05/18 at 09:00 Fluoxetine HCl (PROzac) 20 mg DAILY PO Last administered on 10/17/18 08:29; Start 10/05/18 at 09:00; Stop 10/17/18 at 10:52; Status DC Fluoxetine HCl (PROzac) 30 mg DAILY PO ; Start 10/18/18 at 09:00 Gabapentin (Neurontin) 100 mg BID PO Last administered on 10/17/18 08:30; Start 10/04/18 at 21:00 Guaifenesin (Mucinex Tab Er) 600 mg BID PO Last administered on 10/17/18 11:16; Start 10/17/18 at 09:00 Home Med (Med Rec Complete!) ASDIRECTED XX ; Start 10/04/18 at 20:00; Stop 10/04/18 at 20:00; Status DC Levofloxacin (Levaquin) 250 mg DAILY@06 PO Last administered on 10/17/18 05:18; Start 10/17/18 at 06:00; Stop 10/19/18 at 06:01 Magnesium Hydroxide (Milk Of Magnesia) 30 ml DAILYPRN PRN PO CONSTIPATION; Start 10/04/18 at 16:45 Miscellaneous (Unresolved Clarification Entry) SEE LABEL COMMENTS UNRESOLVED XX ; Start 10/12/18 at 00:01; Stop 10/12/18 at 00:01; Status DC Miscellaneous (Unresolved Patient Own Med Order) SEE LABEL COMMENTS DAILY XX ; Start 10/04/18 at 09:00; Stop 10/11/18 at 09:42; Status DC Miscellaneous (Unresolved Patient Own Med Order) SEE LABEL COMMENTS DAILY XX Last administered on 10/12/18at 09:00; Start 10/11/18 at 09:00; Stop 10/17/18 at 08:33; Status DC Pantoprazole Sodium (Protonix) 40 mg DAILY PO Last administered on 10/17/18 08:31; Start 10/05/18 at 09:00 Patient Own Medication (Patient'S Own Med) 1 ea BID OU ; Start 10/15/18 at 2 1:00; Status UNV Patient Own Medication (Patient'S Own Med) Epinastine HCl 0.05% -1 drop BID OU ; Start 10/17/18 at 09:00 Patient Own Medication (Patient'S Own Med) Epinastine HCl 0.05% -1 drop BID OU ; Start 10/07/18 at 21:00; Stop 10/17/18 at 09:14; Status DC Rivaroxaban (Xarelto) 10 mg DAILY@1800 PO Last administered on 10/16/18 17:29; Start 10/04/18 at 18:00; Stop 11/06/18 at 23:55 Senna/Docusate Sodium (Senokot S) 1 tab BID PO Last administered on 10/17/18 08:29; Start 10/04/18 at 21:00 Sodium Biphosphate/ Sodium Phosphate (Fleet Enema) 1 ea DAILYPRN PRN [place] CONSTIPATION; Start 10/04/18 at 16:45 Thiamine HCl (Thiamine HCl) 100 mg DAILY PO Last administered on 10/17/18 08:30; Start 10/05/18 at 09:00 Trazodone HCl (Desyrel) 25 mg Q6HP PRN PO AGITATION; Start 10/04/18 at 16:45 Trazodone HCl (Desyrel) 25 mg QHSP PRN PO INSOMNIA Last administered on 10/16/18 20:32; Start 10/04/18 at 16:45 Trimethoprim/ Sulfamethoxazole (Bactrim Ds, Septra Ds 160mg/ 800mg) 1 tab BID PO Last administered on 10/09/18at 20:47; Start 10/05/18 at 09:00; Stop 10/09/18 at 21:01; Status DC Zinc Oxide (Boudreauxs Butt Paste) apply to sacrum TID TOP Last administered on 10/17/18 08:31; Start 10/05/18 at 09:00 LIZZETTE LOUIS MD Oct 17, 2018 14:56
[2018-10-17] MEDS: RIVAROXABAN 10 MG TAB (XARELTO) PO SCH (18:01)
[2018-10-17 20:00] VITALS: BP 126/59
[2018-10-18] MEDS: LevoFLOXacin 250 MG TABLET PO SCH (05:02)
[2018-10-18 06:00] VITALS: BP 122/62
[2018-10-18 06:41] LABS: BASO % 0.3 % (0.0-1.0); EOS # 0.1 10^3/uL (0.0-0.50); HEMATOCRIT 36.5 % (36.0-47.0); HEMOGLOBIN 11.8 g/dl (12.0-15.5); LYMPH # 1.4 10^3/uL (1.5-4.5); LYMPH % 19.4 % (24.0-44.0); MEAN CORPUSCULAR HEMOGLOBIN 29.1 pg (27.0-33.0); MEAN CORPUSCULAR HGB CONC 32.3 g/dl (32.0-36.5); MEAN CORPUSCULAR VOLUME 89.9 fl (80.0-96.0); MONO # 0.7 10^3/uL (0.0-0.8); MONO % 9.3 % (0.0-5.0); NEUTROPHILS % 69.6 % (36.0-66.0); PLATELET COUNT, AUTOMATED 427 10^3/uL (150-450); RED BLOOD COUNT 4.06 10^6/uL (4.00-5.40); WHITE BLOOD COUNT 7.1 10^3/uL (4.0-10.0)
[2018-10-18 07:05] LABS: BLOOD UREA NITROGEN 13 MG/DL (7-18); CALCIUM LEVEL 8.7 MG/DL (8.8-10.2); CARBON DIOXIDE LEVEL 27 MEQ/L (21-32); CHLORIDE LEVEL 102 MEQ/L (98-107); CREATININE FOR GFR 0.57 MG/DL (0.55-1.30); GLOMERULAR FILTRATION RATE > 60.0 (>32); GLUCOSE, FASTING 90 MG/DL (70-100); POTASSIUM SERUM 4.1 MEQ/L (3.5-5.1); SODIUM LEVEL 135 MEQ/L (136-145)
[2018-10-18] MEDS: THIAMINE 100 MG TAB PO SCH (08:54)
[2018-10-18] MEDS: DONEPEZIL 5 MG TAB PO SCH (08:54)
[2018-10-18] MEDS: OMEGA-3 1000MG CAPSULE PO SCH ×2 (08:54→21:02)
[2018-10-18] MEDS: FLUoxetine 10 MG CAP PO SCH (08:54)
[2018-10-18] MEDS: FERROUS SULFATE 325MG TAB PO SCH ×2 (08:55→21:03)
[2018-10-18] MEDS: guaiFENesin ER 600 MG TAB PO SCH ×2 (08:55→21:03)
[2018-10-18] MEDS: SENOKOT S TAB PO SCH ×2 (08:55→21:00)
[2018-10-18] MEDS: GABAPENTIN 100 MG CAP PO SCH ×2 (08:55→21:03)
[2018-10-18] MEDS: PANTOPRAZOLE 40MG TAB (PROTONIX) PO SCH (08:55)
[2018-10-18] MEDS: COSOPT OCUMETER PLUS 10ML (DORZOLAMIDE/TIMOLOL) OU SCH ×2 (08:56→21:03)
[2018-10-18] MEDS: BOUDREAUX'S BUTT PASTE 4OZ TOP SCH ×3 (08:56→21:04)
[2018-10-18] MEDS: EPINASTINE 0.05% OU SCH ×2 (08:56→21:03)
[2018-10-18] MEDS: CARVedilol 3.125 MG TAB PO SCH ×2 (09:11→21:00)
[2018-10-18] MEDS: ACETAMINOPHEN 500 MG TAB PO PRN ×2 (12:06→21:03)
[2018-10-18 14:00] VITALS: BP 116/64
[2018-10-18] MEDS: RIVAROXABAN 10 MG TAB (XARELTO) PO SCH (17:04)
[2018-10-18 20:00] VITALS: BP 143/72
--- NOTE | 2018-10-18 20:11 | IPNPDOC ---
PM&R Progress Note DATE OF SERVICE: Oct 18, 2018 Statistical Financial Analyst Progress Note Subjective: Patient seen in her room sleeping in the afternoon. She denies pain, reports her cough is better, and no dysuria. REVIEW OF SYSTEMS: The following is a completed review of systems and has been reviewed. PAIN: Patient self reports no pain CARDIOVASCULAR: denies chest pain PULMONARY: Negative. Denies shortness of breath, no cough GASTROINTESTINAL:no constipation or diarrhea GENITOURINARY: +UTI MUSCULOSKELETAL: +right hip ORIF HEMATOLOGICAL: +blood loss anemia-stable SKIN: + right hip incision PSYCHIATRIC: +dementia All other review of systems found to be negative. PHYSICAL EXAMINATION: VITAL SIGNS: Please see below. GENERAL: Pleasant and cooperative. No acute distress. HEENT: PERRL. Extraocular movements intact. Clear conjunctiva CARDIOVASCULAR: Regular rate and rhythm. +systolic murmurs, no rubs, or gallops. LUNGS: Clear to auscultation bilaterally. No wheezes. No rhonchi ABDOMEN: Soft, nontender, nondistended. Positive bowel sounds. Normal active bowel sounds NEUROLOGICAL:Not oriented to person, place, or time, able to follow 2-step c ommands inconsistently Cranial nerves II through XII grossly intact. Sensation grossly intact EXTREMITIES: 5\5 strength bilateral upper extremities. 5\5 strength right lower extremity, except limited hip flexion and knee extension due to pain (>4/5). 5/5 strength in left lower extremity. SKIN: right hip incision, mild edema and ecchymosis, no induration or erythema GOALS: ASSESSMENT: 87-year-old F with past medical history of dementia who presents status post fall with right hip ORIF. PLAN: 1. rehab: PT/OT, assess for DME needs, ambulating further with RW, she is SBA for all ADLs and ambulation, grandson to come in for family training 2. 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 Ortho: s/p ORIF 10-02-18, WBAT, ortho consult 4. HTN: continue home meds and adjust, medicine consult, recs appreciated 5. : +MRSA Ucx on prior admission, will treat with Bactrim x5 days, monitor PVRs- repeat UA positive for E coli will treat s/p 3 day course of Levaquin, will recollect Urine 6. Heme: blood loss anemia, will start iron and monitor s/p 2 units of prbs- stable 7. DVT ppx: Xarelto 8. GI ppx: Protonix 9. Pain: Tylenol, avoid opioids, continue low dose gabapentin 10. Dispo: grandson and daughter heather like to take her home, but have had the flu, family meeting scheduled for early next week, patient fuctionally Mod-I, however cognitively not safe to be discahrged at this time without safe dispo 11. DNR/DNI Allergies Coded Allergies: No Known Allergies (Unverified , 09/28/18) Vital Signs Vital Signs Date Time Temp Pulse Resp B/P (MAP) Pulse Ox O2 Delivery O2 Flow Rate FiO2 10/18/18 14:00 98.2 63 18 116/64 (81) 100 Room Air Laboratory Data CBC/BMP Laboratory Tests 10/18/18 06:26 Red Blood Count 4.06, Mean Corpuscular Volume 89.9, Mean Corpuscular Hemoglobin 29.1, Mean Corpuscular Hemoglobin Concent 32.3, Red Cell Distribution Width 15.1 H, Neutrophils (%) (Auto) 69.6 H, Lymphocytes (%) (Auto) 19.4 L, Monocytes (%) (Auto) 9.3 H, Eosinophils (%) (Auto) 1.0, Basophils (%) (Auto) 0.3, Neutrophils # (Auto) 5.0, Lymphocytes # (Auto) 1.4 L, Monocytes # (Auto) 0.7, Eosinophils # (Auto) 0.1, Basophils # (Auto) 0.0, Calcium Level 8.7 L Labs 24H Laboratory Tests 2 10/18/18 06:26: Immature Granulocyte % (Auto) 0.4, White Blood Count 7.1, Red Blood Count 4.06, Hemoglobin 11.8L, Hematocrit 36.5, Mean Corpuscular Volume 89.9, Mean Corpusc ular Hemoglobin 29.1, Mean Corpuscular Hemoglobin Concent 32.3, Red Cell Distribution Width 15.1H, Platelet Count 427, Neutrophils (%) (Auto) 69.6H, Lymphocytes (%) (Auto) 19.4L, Monocytes (%) (Auto) 9.3H, Eosinophils (%) (Auto) 1.0, Basophils (%) (Auto) 0.3, Neutrophils # (Auto) 5.0, Lymphocytes # (Auto) 1.4L, Monocytes # (Auto) 0.7, Eosinophils # (Auto) 0.1, Basophils # (Auto) 0.0, Nucleated Red Blood Cells % (auto) 0.0, Anion Gap 6L, Glomerular Filtration Rate > 60.0, Blood Urea Nitrogen 13, Creatinine 0.57, Sodium Level 135L, Potassium Level 4.1, Chloride Level 102, Carbon Dioxide Level 27, Calcium Level 8.7L Microbiology Microbiology 10/13/18 Urine Culture - Final, Complete Escherichia Coli Current Medications Current Medications Current Medications Acetaminophen (Tylenol Tab) 1,000 mg Q6HP PRN PO MILD PAIN (PS 1-8) Last administered on 10/18/18 12:06; Start 10/04/18 at 16:45 Bisacodyl (Dulcolax Suppository) 10 mg DAILYPRN PRN ME CONSTIPATION; Start 10/04/18 at 16:45 Carvedilol (COReg) 3.125 mg BID PO Last administered on 10/18/18 09:11; Start 10/04/18 at 21:00 Cefdinir (Omnicef) 300 mg BID PO ; Start 10/17/18 at 09:00; Stop 10/17/18 at 09:00; Status DC Donepezil HCl (AriCEPT) 5 mg DAILY PO Last administered on 10/17/18 08:29; Start 10/05/18 at 09:00; Stop 10/17/18 at 10:52; Status DC Donepezil HCl (AriCEPT) 10 mg DAILY PO Last administered on 10/18/18 08:54; Start 10/18/18 at 09:00 Dorzolamide/ Timolol (Cosopt Ocumeter Plus) 1 drop BID OU Last administered on 10/18/18 08:56; Start 10/04/18 at 21:00 Ferrous Sulfate (Ferrous Sulfate) 325 mg BID PO Last administered on 10/18/18 08:55; Start 10/05/18 at 09:00 Fish Oil ([place]-3 (1000mg)) 1 cap BID PO Last administered on 10/18/18 08:54; Start 10/05/18 at 09:00 Fluoxetine HCl (PROzac) 20 mg DAILY PO Last administered on 10/17/18 08:29; Start 10/05/18 at 09:00; Stop 10/17/18 at 10:52; Status DC Fluoxetine HCl (PROzac) 30 mg DAILY PO Last administered on 10/18/18 08:54; Start 10/18/18 at 09:00 Gabapentin (Neurontin) 100 mg BID PO Last administered on 10/18/18 08:55; Start 10/04/18 at 21:00 Guaifenesin (Mucinex Tab Er) 600 mg BID PO Last administered on 10/18/18 08:55; Start 10/17/18 at 09:00 Home Med (Med Rec Complete!) ASDIRECTED XX ; Start 10/04/18 at 20:00; Stop 10/04/18 at 20:00; Status DC Levofloxacin (Levaquin) 250 mg DAILY@06 PO Last administered on 10/18/18 05:02; Start 10/17/18 at 06:00; Stop 10/19/18 at 06:01 Magnesium Hydroxide (Milk Of Magnesia) 30 ml DAILYPRN PRN PO CONSTIPATION; Start 10/04/18 at 16:45 Miscellaneous (Unresolved Clarification Entry) SEE LABEL COMMENTS UNRESOLVED XX ; Start 10/12/18 at 00:01; Stop 10/12/18 at 00:01; Status DC Miscellaneous (Unresolved Patient Own Med Order) SEE LABEL COMMENTS DAILY XX ; Start 10/04/18 at 09:00; Stop 10/11/18 at 09:42; Status DC Miscellaneous (Unresolved Patient Own Med Order) SEE LABEL COMMENTS DAILY XX Last administered on 10/12/18at 09:00; Start 10/11/18 at 09:00; Stop 10/17/18 at 08:33; Status DC Pantoprazole Sodium (Protonix) 40 mg DAILY PO Last administered on 10/18/18 08:55; Start 10/05/18 at 09:00 Patient Own Medication (Patient'S Own Med) 1 ea BID OU ; Start 10/15/18 at 21:00; Status UNV Patient Own Medication (Patient'S Own Med) Epinastine HCl 0.05% -1 drop BID OU Last administered on 10/18/18 08:56; Start 10/17/18 at 09:00 Patient Own Medication (Patient'S Own Med) Epinastine HCl 0.05% -1 drop BID OU ; Start 10/07/18 at 21:00; Stop 10/17/18 at 09:14; Status DC Rivaroxaban (Xarelto) 10 mg DAILY@1800 PO Last administered on 10/18/18 17:04; Start 10/04/18 at 18:00; Stop 11/06/18 at 23:55 Senna/Docusate Sodium (Senokot S) 1 tab BID PO Last administered on 10/17/18 08:29; Start 10/04/18 at 21:00 Sodium Biphosphate/ Sodium Phosphate (Fleet Enema) 1 ea DAILYPRN PRN ME CONSTIPATION; Start 10/04/18 at 16:45 Thiamine HCl (Thiamine HCl) 100 mg DAILY PO Last administered on 10/18/18 08:54; Start 10/05/18 at 09:00 Trazodone HCl (Desyrel) 25 mg Q6HP PRN PO AGITATION; Start 10/04/18 at 16:45 Trazodone HCl (Desyrel) 25 mg QHSP PRN PO INSOMNIA Last administered on 20:32; Start 10/04/18 at 16:45 Trimethoprim/ Sulfamethoxazole (Bactrim Ds, Septra Ds 160mg/ 800mg) 1 tab BID PO Last administered on 10/09/18at 20:47; Start 10/05/18 at 09:00; Stop 10/09/18 at 21:01; Status DC Zinc Oxide (Boudreauxs Butt Paste) apply to sacrum TID TOP Last administered on 10/18/18 16:00; Start 10/05/18 at 09:00 LIZZETTE LOUIS MD Oct 18, 2018 20:11
[2018-10-19] MEDS: LevoFLOXacin 250 MG TABLET PO SCH (05:33)
[2018-10-19 06:00] VITALS: BP 152/72
[2018-10-19] MEDS: FERROUS SULFATE 325MG TAB PO SCH ×2 (08:19→21:20)
[2018-10-19] MEDS: PANTOPRAZOLE 40MG TAB (PROTONIX) PO SCH (08:19)
[2018-10-19] MEDS: guaiFENesin ER 600 MG TAB PO SCH ×2 (08:19→21:21)
[2018-10-19] MEDS: FLUoxetine 10 MG CAP PO SCH (08:19)
[2018-10-19] MEDS: DONEPEZIL 5 MG TAB PO SCH (08:19)
[2018-10-19] MEDS: THIAMINE 100 MG TAB PO SCH (08:20)
[2018-10-19] MEDS: CARVedilol 3.125 MG TAB PO SCH ×2 (08:20→21:21)
[2018-10-19] MEDS: GABAPENTIN 100 MG CAP PO SCH ×2 (08:20→21:21)
[2018-10-19] MEDS: OMEGA-3 1000MG CAPSULE PO SCH ×2 (08:20→21:21)
[2018-10-19] MEDS: ACETAMINOPHEN 500 MG TAB PO PRN ×2 (08:21→21:21)
[2018-10-19] MEDS: SENOKOT S TAB PO SCH ×2 (08:21→21:20)
[2018-10-19] MEDS: COSOPT OCUMETER PLUS 10ML (DORZOLAMIDE/TIMOLOL) OU SCH ×2 (08:21→21:21)
[2018-10-19] MEDS: BOUDREAUX'S BUTT PASTE 4OZ TOP SCH ×3 (09:00→21:22)
[2018-10-19] MEDS: EPINASTINE 0.05% OU SCH ×2 (09:00→21:22)
[2018-10-19 14:00] VITALS: BP 116/68
--- NOTE | 2018-10-19 15:15 | IPNPDOC ---
PM&R Progress Note DATE OF SERVICE: Oct 19, 2018 Food Demonstrator Progress Note Subjective: Patient seen walking in therapy, overall no complaints, more energetic today. REVIEW OF SYSTEMS: The following is a completed review of systems and has been reviewed. PAIN: Patient self reports no pain CARDIOVASCULAR: denies chest pain PULMONARY: Negative. Denies shortness of breath, no cough GASTROINTESTINAL:no constipation or diarrhea GENITOURINARY: +UTI MUSCULOSKELETAL: +right hip ORIF HEMATOLOGICAL: +blood loss anemia-stable SKIN: + right hip incision PSYCHIATRIC: +dementia All other review of systems found to be negative. PHYSICAL EXAMINATION: VITAL SIGNS: Please see below. GENERAL: Pleasant and cooperative. No acute distress. HEENT: PERRL. Extraocular movements intact. Clear conjunctiva CARDIOVASCULAR: Regular rate and rhythm. +systolic murmurs, no rubs, or gallops. LUNGS: Clear to auscultation bilaterally. No wheezes. No rhonchi ABDOMEN: Soft, nontender, nondistended. Positive bowel sounds. Normal active bowel sounds NEUROLOGICAL:Not oriented to person, place, or time, able to follow 2-step commands inconsistently Cranial nerves II through XII grossly intact. Sensation grossly intact EXTREMITIES: 5\5 strength bilateral upper extremities. 5\5 strength right lower extremity, except limited hip flexion and knee extension due to pain (>4/5). 5/5 strength in left lower extremity. SKIN: right hip incision, mild edema and ecchymosis, no induration or erythema GOALS: ASSESSMENT: 87-year-old F with past medical history of dementia who presents status post fall with right hip ORIF. PLAN: 1. rehab: PT/OT, assess for DME needs, ambulating further with RW, she is SBA for all ADLs and ambulation, grandson to come in for family training 2. 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 Ortho: s/p ORIF 10-02-18, WBAT, ortho consult 4. HTN: continue home meds and adjust, medicine consult, recs appreciated 5. : +MRSA Ucx on prior admission, will treat with Bactrim x5 days, monitor PVRs- repeat UA positive for E coli will treat s/p 3 day course of Levaquin, will recollect Urine 6. Heme: blood loss anemia, will start iron and monitor s/p 2 units of prbs- stable 7. DVT ppx: Xarelto 8. GI ppx: Protonix 9. Pain: Tylenol, avoid opioids, continue low dose gabapentin 10. Dispo: grandson and daughter heather like to take her home, but have had the flu, family meeting scheduled for early next week, patient fuctionally Mod-I, however cognitively not safe to be discharged at this time without safe dispo 11. DNR/DNI Allergies Coded Allergies: No Known Allergies (Unverified , 09/28/18) Vital Signs Vital Signs Date Time Temp Pulse Resp B/P (MAP) Pulse Ox O2 Delivery O2 Flow Rate FiO2 10/19/18 14:00 98.4 68 18 116/68 (84) 100 Room Air Microbiology Microbiology 10/13/18 Urine Culture - Final, Complete Escherichia Coli Current Medications Current Medications Current Medications Acetaminophen (Tylenol Tab) 1,000 mg Q6HP PRN PO MILD PAIN (PS 1-8) Last administered on 10/19/18 08:21; Start 10/04/18 at 16:45 Bisacodyl (Dulcolax Suppository) 10 mg DAILYPRN PRN [place] CONSTIPATION; Start 10/04/18 at 16:45 Carvedilol (COReg) 3.125 mg BID PO Last administered on 10/19/18 08:20; Start 10/04/18 at 21:00 Cefdinir (Omnicef) 300 mg BID PO ; Start 10/17/18 at 09:00; Stop 10/17/18 at 09:00; Status DC Donepezil HCl (AriCEPT) 5 mg DAILY PO Last administered on 10/17/18 08:29; Start 10/05/18 at 09:00; Stop 10/17/18 at 10:52; Status DC Donepezil HCl (AriCEPT) 10 mg DAILY PO Last administered on 10/19/18 08:19; Start 10/18/18 at 09:00 Dorzolamide/ Timolol (Cosopt Ocumeter Plus) 1 drop BID OU Last administered on 10/19/18 08:21; Start 10/04/18 at 21:00 Ferrous Sulfate (Ferrous Sulfate) 325 mg BID PO Last administered on 10/19/18 08:19; Start 10/05/18 at 09:00 Fish Oil ([place]-3 (1000mg)) 1 cap BID PO Last administered on 10/19/18 08:20; Start 10/05/18 at 09:00 Fluoxetine HCl (PROzac) 20 mg DAILY PO Last administered on 10/17/18 08:29; Start 10/05/18 at 09:00; Stop 10/17/18 at 10:52; Status DC Fluoxetine HCl (PROzac) 30 mg DAILY PO Last administered on 10/19/18 08:19; Start 10/18/18 at 09:00 Gabapentin (Neurontin) 100 mg BID PO Last administered on 10/19/18 08:20; Start 10/04/18 at 21:00 Guaifenesin (Mucinex Tab Er) 600 mg BID PO Last administered on 10/19/18 08:19; Start 10/17/18 at 09:00 Home Med (Med Rec Complete!) ASDIRECTED XX ; Start 10/04/18 at 20:00; Stop 10/04/18 at 20:00; Status DC Levofloxacin (Levaquin) 250 mg DAILY@06 PO Last administered on 10/19/18at 05:33; Start 10/17/18 at 06:00; Stop 10/19/18 at 06:01; Status DC Magnesium Hydroxide (Milk Of Magnesia) 30 ml DAILYPRN PRN PO CONSTIPATION; Start 10/04/18 at 16:45 Miscellaneous (Unresolved Clarification Entry) SEE LABEL COMMENTS UNRESOLVED XX ; Start 10/12/18 at 00:01; Stop 10/12/18 at 00:01; Status DC Miscellaneous (Unresolved Patient Own Med Order) SEE LABEL COMMENTS DAILY XX ; Start 10/04/18 at 09:00; Stop 10/11/18 at 09:42; Status DC Miscellaneous (Unresolved Patient Own Med Order) SEE LABEL COMMENTS DAILY XX Last administered on 10/12/18at 09:00; Start 10/11/18 at 09:00; Stop 10/17/18 at 08:33; Status DC Pantoprazole Sodium (Protonix) 40 mg DAILY PO Last administered on 10/19/18 08:19; Start 12/21/18 at 09:00 Patient Own Medication (Patient'S Own Med) 1 ea BID OU ; Start 10/15/18 at 21:0 0; Status UNV Patient Own Medication (Patient'S Own Med) Epinastine HCl 0.05% -1 drop BID OU Last administered on 10/18/18 21:03; Start 10/17/18 at 09:00 Patient Own Medication (Patient'S Own Med) Epinastine HCl 0.05% -1 drop BID OU ; Start 10/07/18 at 21:00; Stop 10/17/18 at 09:14; Status DC Rivaroxaban (Xarelto) 10 mg DAILY@1800 PO Last administered on 10/18/18 17:04; Start 10/04/18 at 18:00; Stop 11/06/18 at 23:55 Senna/Docusate Sodium (Senokot S) 1 tab BID PO Last administered on 10/19/18 08:21; Start 10/04/18 at 21:00 Sodium Biphosphate/ Sodium Phosphate (Fleet Enema) 1 ea DAILYPRN PRN [place] CONSTIPATION; Start 10/04/18 at 16:45 Thiamine HCl (Thiamine HCl) 100 mg DAILY PO Last administered on 10/19/18 08:20; Start 10/05/18 at 09:00 Trazodone HCl (Desyrel) 25 mg Q6HP PRN PO AGITATION; Start 10/04/18 at 16:45 Trazodone HCl (Desyrel) 25 mg QHSP PRN PO INSOMNIA Last administered on 10/16/18 20:32; Start 10/04/18 at 16:45 Trimethoprim/ Sulfamethoxazole (Bactrim Ds, Septra Ds 160mg/ 800mg) 1 tab BID PO Last administered on 10/09/18at 20:47; Start 10/05/18 at 09:00; Stop 10/09/18 at 21:01; Status DC Zinc Oxide (Boudreauxs Butt Paste) apply to sacrum TID TOP Last administered on 10/18/18 21:04; Start 10/05/18 at 09:00 LIZZETTE LOUIS MD Oct 19, 2018 15:15
[2018-10-19] MEDS: RIVAROXABAN 10 MG TAB (XARELTO) PO SCH (17:19)
[2018-10-19 20:00] VITALS: BP 131/62
[2018-10-20] MEDS: ACETAMINOPHEN 500 MG TAB PO PRN ×2 (05:38→20:09)
[2018-10-20 06:00] VITALS: BP 112/60
[2018-10-20] MEDS: CARVedilol 3.125 MG TAB PO SCH ×2 (08:02→20:10)
[2018-10-20] MEDS: BOUDREAUX'S BUTT PASTE 4OZ TOP SCH ×3 (09:00→20:10)
[2018-10-20] MEDS: guaiFENesin ER 600 MG TAB PO SCH ×2 (09:03→20:09)
[2018-10-20] MEDS: SENOKOT S TAB PO SCH ×2 (09:03→20:09)
[2018-10-20] MEDS: GABAPENTIN 100 MG CAP PO SCH ×2 (09:03→20:09)
[2018-10-20] MEDS: DONEPEZIL 5 MG TAB PO SCH (09:03)
[2018-10-20] MEDS: OMEGA-3 1000MG CAPSULE PO SCH ×2 (09:03→20:09)
[2018-10-20] MEDS: PANTOPRAZOLE 40MG TAB (PROTONIX) PO SCH (09:03)
[2018-10-20] MEDS: FERROUS SULFATE 325MG TAB PO SCH ×2 (09:03→20:09)
[2018-10-20] MEDS: EPINASTINE 0.05% OU SCH ×2 (09:04→20:10)
[2018-10-20] MEDS: FLUoxetine 10 MG CAP PO SCH (09:04)
[2018-10-20] MEDS: COSOPT OCUMETER PLUS 10ML (DORZOLAMIDE/TIMOLOL) OU SCH ×2 (09:04→20:09)
[2018-10-20] MEDS: THIAMINE 100 MG TAB PO SCH (09:04)
[2018-10-20 14:00] VITALS: BP 110/61
[2018-10-20] MEDS: RIVAROXABAN 10 MG TAB (XARELTO) PO SCH (17:14)
[2018-10-20] MEDS: LevoFLOXacin 750 MG TABLET PO SCH (17:15)
[2018-10-20 20:00] VITALS: BP 130/65
[2018-10-20] MEDS: traZODone 25MG PER 1/2 TABLET PO PRN (22:19)
[2018-10-21 06:00] VITALS: BP 131/64
[2018-10-21] MEDS: LevoFLOXacin 750 MG TABLET PO SCH (06:30)
[2018-10-21] MEDS: CARVedilol 3.125 MG TAB PO SCH ×2 (08:33→20:25)
[2018-10-21] MEDS: COSOPT OCUMETER PLUS 10ML (DORZOLAMIDE/TIMOLOL) OU SCH ×2 (09:00→20:25)
[2018-10-21] MEDS: BOUDREAUX'S BUTT PASTE 4OZ TOP SCH ×3 (09:00→20:25)
[2018-10-21] MEDS: EPINASTINE 0.05% OU SCH ×2 (09:00→20:25)
[2018-10-21] MEDS: THIAMINE 100 MG TAB PO SCH (09:21)
[2018-10-21] MEDS: FERROUS SULFATE 325MG TAB PO SCH ×2 (09:21→20:24)
[2018-10-21] MEDS: DONEPEZIL 5 MG TAB PO SCH (09:21)
[2018-10-21] MEDS: OMEGA-3 1000MG CAPSULE PO SCH ×2 (09:22→20:24)
[2018-10-21] MEDS: ACETAMINOPHEN 500 MG TAB PO PRN ×2 (09:22→20:25)
[2018-10-21] MEDS: SENOKOT S TAB PO SCH ×2 (09:22→20:24)
[2018-10-21] MEDS: GABAPENTIN 100 MG CAP PO SCH ×2 (09:22→20:24)
[2018-10-21] MEDS: PANTOPRAZOLE 40MG TAB (PROTONIX) PO SCH (09:22)
[2018-10-21] MEDS: guaiFENesin ER 600 MG TAB PO SCH ×2 (09:23→20:24)
[2018-10-21] MEDS: FLUoxetine 10 MG CAP PO SCH (09:23)
[2018-10-21 14:00] VITALS: BP 105/58
[2018-10-21] MEDS: RIVAROXABAN 10 MG TAB (XARELTO) PO SCH (17:41)
[2018-10-21 20:00] VITALS: BP 123/70
[2018-10-21] MEDS: traZODone 25MG PER 1/2 TABLET PO PRN (20:24)
[2018-10-22] MEDS: LevoFLOXacin 750 MG TABLET PO SCH (06:10)
[2018-10-22 06:32] VITALS: BP 135/68
[2018-10-22 06:52] LABS: HEMATOCRIT 35.5 % (36.0-47.0); HEMOGLOBIN 11.5 g/dl (12.0-15.5); MEAN CORPUSCULAR HEMOGLOBIN 29.5 pg (27.0-33.0); MEAN CORPUSCULAR HGB CONC 32.4 g/dl (32.0-36.5); PLATELET COUNT, AUTOMATED 345 10^3/uL (150-450); WHITE BLOOD COUNT 8.2 10^3/uL (4.0-10.0)
[2018-10-22 07:13] LABS: BLOOD UREA NITROGEN 12 MG/DL (7-18); CALCIUM LEVEL 8.9 MG/DL (8.8-10.2); CARBON DIOXIDE LEVEL 26 MEQ/L (21-32); CHLORIDE LEVEL 101 MEQ/L (98-107); CREATININE FOR GFR 0.63 MG/DL (0.55-1.30); GLOMERULAR FILTRATION RATE > 60.0 (>32); GLUCOSE, FASTING 93 MG/DL (70-100); MAGNESIUM LEVEL 2.2 MG/DL (1.8-2.4); POTASSIUM SERUM 3.5 MEQ/L (3.5-5.1); SODIUM LEVEL 135 MEQ/L (136-145)
[2018-10-22] MEDS: FERROUS SULFATE 325MG TAB PO SCH ×2 (08:54→21:23)
[2018-10-22] MEDS: GABAPENTIN 100 MG CAP PO SCH (08:54)
[2018-10-22] MEDS: SENOKOT S TAB PO SCH ×2 (08:55→21:00)
[2018-10-22] MEDS: ACETAMINOPHEN 500 MG TAB PO PRN ×2 (08:55→21:24)
[2018-10-22] MEDS: THIAMINE 100 MG TAB PO SCH (08:55)
[2018-10-22] MEDS: OMEGA-3 1000MG CAPSULE PO SCH ×2 (08:55→21:23)
[2018-10-22] MEDS: FLUoxetine 10 MG CAP PO SCH (08:55)
[2018-10-22] MEDS: DONEPEZIL 5 MG TAB PO SCH (08:55)
[2018-10-22] MEDS: PANTOPRAZOLE 40MG TAB (PROTONIX) PO SCH (08:56)
[2018-10-22] MEDS: COSOPT OCUMETER PLUS 10ML (DORZOLAMIDE/TIMOLOL) OU SCH ×2 (08:56→21:26)
[2018-10-22] MEDS: EPINASTINE 0.05% OU SCH ×2 (08:56→21:26)
[2018-10-22] MEDS: guaiFENesin ER 600 MG TAB PO SCH ×2 (08:56→21:00)
[2018-10-22] MEDS: CARVedilol 3.125 MG TAB PO SCH ×2 (08:56→21:00)
[2018-10-22] MEDS: BOUDREAUX'S BUTT PASTE 4OZ TOP SCH ×3 (08:58→21:27)
[2018-10-22 10:30] VITALS: BP 121/75
[2018-10-22] MEDS ORDERED: NS 1,000 ML IV ONE (11:30)
[2018-10-22 14:00] VITALS: BP 141/69
--- NOTE | 2018-10-22 16:55 | IPNPDOC ---
PM&R Progress Note DATE OF SERVICE: Oct 22, 2018 Administrative Services Officer Progress Note Subjective: Patient had episode of dizzy spell and near syncope this morning with vitals all within normal limits. She reported being very hot right beforehand, and per her daughter panda had dizzy spells in the past and has been more tired over the weekend. REVIEW OF SYSTEMS: The following is a completed review of systems and has been reviewed. PAIN: Patient self reports no pain CARDIOVASCULAR: denies chest pain PULMONARY: Negative. Denies shortness of breath, +cough GASTROINTESTINAL:no constipation or diarrhea GENITOURINARY: +UTI MUSCULOSKELETAL: +right hip ORIF HEMATOLOGICAL: +blood loss anemia-stable SKIN: + right hip incision PSYCHIATRIC: +dementia All other review of systems found to be negative. PHYSICAL EXAMINATION: VITAL SIGNS: Please see below. GENERAL: Pleasant and cooperative. No acute distress. HEENT: PERRL. Extraocular movements intact. Clear conjunctiva CARDIOVASCULAR: Regular rate and rhythm. +systolic murmurs, no rubs, or gallops. LUNGS: Clear to auscultation bilaterally. No wheezes. No rhonchi ABDOMEN: Soft, nontender, nondistended. Positive bowel sounds. Normal active bowel sounds NEUROLOGICAL:Not oriented to person, place, or time, able to follow 2-step commands inconsistently Cranial nerves II through XII grossly intact. Sensation grossly intact EXTREMITIES: 5\5 strength bilateral upper extremities. 5\5 strength right lower extremity, except limited hip flexion and knee extension due to pain (>4/5). 5/5 strength in left lower extremity. SKIN: right hip incision, mild edema and ecchymosis, no induration or erythema GOALS: ASSESSMENT: 87-year-old F with past medical history of dementia who presents status post fall with right hip ORIF. PLAN: 1. rehab: PT/OT, assess for DME needs, ambulating further with RW, she is SBA for all ADLs and ambulation, grandson to come in for family training 2. 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 Ortho: s/p ORIF 10-02-18, WBAT, ortho consult 4. HTN: continue home meds and adjust, medicine consult, recs appreciated 5. : +MRSA Ucx on prior admission, s/pBactrim x5 days, monitor PVRs- repeat UA positive for E coli s/p treat s/p 3 day course of Levaquin at 250mg , and another 3 day course at 750mg, however recent Ucx negative -will start prophylactic Tamiflu given recent syncopal episode and having been around family members recovering from the flu - 1L NS given today for near syncopal episode 6. Heme: blood loss anemia, continue iron and monitor s/p 2 units of prbcs- stable 7. DVT ppx: Xarelto 8. GI ppx: Protonix 9. Pain: Tylenol, avoid opioids, will d/c gabapentin 11. DNR/DNI 12. Dispo, paperwork in process for [place], progressing towards goals Allergies Coded Allergies: No Known Allergies (Unverified , 09/28/18) Vital Signs Vital Signs Date Time Temp Pulse Resp B/P (MAP) Pulse Ox O2 Delivery O2 Flow Rate FiO2 10/22/18 14:00 97.9 68 17 141/69 (93) 98 Room Air Laboratory Data CBC/BMP Laboratory Tests 10/22/18 06:33 Red Blood Count 3.90 L, Mean Corpuscular Volume 91.0, Mean Corpuscular Hemoglobin 29.5, Mean Corpuscular Hemoglobin Concent 32.4, Red Cell Distribution Width 15.4 H, Calcium Level 8.9 Labs 24H Laboratory Tests 2 10/22/18 06:33: Nucleated Red Blood Cells % (auto) 0.0, Anion Gap 8, Glomerular Filtration Rate > 60.0, Blood Urea Nitrogen 12, Creatinine 0.63, Sodium Level 135L, Potassium Level 3.5, Chloride Level 101, Carbon Dioxide Level 26, Calcium Level 8.9, Magnesium Level 2.2 10/22/18 10:30: Bedside Glucose (Misc Panel) 114H Microbiology Microbiology 10/20/18 Urine Culture - Final, Complete 10/13/18 Urine Culture - Final, Complete Escherichia Coli Current Medications Current Medications Current Medications Acetaminophen (Tylenol Tab) 1,000 mg Q6HP PRN PO MILD PAIN (PS 1-8) Last administered on 10/22/18at 08:55; Start 10/04/18 at 16:45 Bisacodyl (Dulcolax Suppository) 10 mg DAILYPRN PRN IN CONSTIPATION; Start 10/04/18 at 16:45 Carvedilol (COReg) 3.125 mg BID PO Last administered on 10/19/18 21:21; Start 10/04/18 at 21:00 Cefdinir (Omnicef) 300 mg BID PO ; Start 10/17/18 at 09:00; Stop 10/17/18 at 09:00; Status DC Donepezil HCl (AriCEPT) 5 mg DAILY PO Last administered on 10/17/18 08:29; Start 10/05/18 at 09:00; Stop 10/17/18 at 10:52; Status DC Donepezil HCl (AriCEPT) 10 mg DAILY PO Last administered on 10/22/18 08:55; Start 10/18/18 at 09:00 Dorzolamide/ Timolol (Cosopt Ocumeter Plus) 1 drop BID OU Last administered on 10/22/18 08:56; Start 10/04/18 at 21:00 Ferrous Sulfate (Ferrous Sulfate) 325 mg BID PO Last administered on 10/22/18 08:54; Start 10/05/18 at 09:00 Fish Oil ([place]-3 (1000mg)) 1 cap BID PO Last administered on 10/22/18 08:55; Start 10/05/18 at 09:00 Fluoxetine HCl (PROzac) 20 mg DAILY PO Last administered on 10/17/18 08:29; Start 10/05/18 at 09:00; Stop 10/17/18 at 10:52; Status DC Fluoxetine HCl (PROzac) 30 mg DAILY PO Last administered on 10/22/18 08:55; Start 10/18/18 at 09:00 Gabapentin (Neurontin) 100 mg BID PO Last administered on 10/22/18 08:54; Start 10/04/18 at 21:00; Stop 10/22/18 at 10:39; Status DC Guaifenesin (Mucinex Tab Er) 600 mg BID PO Last administered on 10/22/18 08:56; Start 10/17/18 at 09:00 Home Med (Med Rec Complete!) ASDIRECTED XX ; Start 10/04/18 at 20:00; Stop 10/04/18 at 20:00; Status DC Levofloxacin (Levaquin) 250 mg DAILY@06 PO Last administered on 10/19/18at 05:33; Start 10/17/18 at 06:00; Stop 10/19/18 at 06:01; Status DC Levofloxacin (Levaquin) 750 mg DAILY@06 PO Last administered on 10/22/18at 06:10; Start 10/20/18 at 17:00; Stop 10/22/18 at 10:32; Status DC Magnesium Hydroxide (Milk Of Magnesia) 30 ml DAILYPRN PRN PO CONSTIPATION; Start 10/04/18 at 16:45 Miscellaneous (Unresolved Clarification Entry) SEE LABEL COMMENTS UNRESOLVED XX ; Start 10/12/18 at 00:01; Stop 10/12/18 at 00:01; Status DC Miscellaneous (Unresolved Patient Own Med Order) SEE LABEL COMMENTS DAILY XX ; Start 10/04/18 at 09:00; Stop 10/11/18 at 09:42; Status DC Miscellaneous (Unresolved Patient Own Med Order) SEE LABEL COMMENTS DAILY XX Last administered on 10/12/18at 09:00; Start 10/11/18 at 09:00; Stop 10/17/18 at 08:33; Status DC Oseltamivir Phosphate (Tamiflu) 75 mg BID PO ; Start 10/22/18 at 21:00; Status UNV Pantoprazole Sodium (Protonix) 40 mg DAILY PO Last administered on 10/22/18at 08:56; Start 10/05/18 at 09:00 Patient Own Medication (Patient'S Own Med) 1 ea BID OU ; Start 10/15/18 at 21:00; Status UNV Patient Own Medication (Patient'S Own Med) Epinastine HCl 0.05% -1 drop BID OU Last administered on 10/22/18at 08:56; Start 10/17/18 at 09:00 Patient Own Medication (Patient'S Own Med) Epinastine HCl 0.05% -1 drop BID OU ; Start 10/07/18 at 21:00; Stop 10/17/18 at 09:14; Status DC Rivaroxaban (Xarelto) 10 mg DAILY@1800 PO Last administered on 10/21/18at 17:41; Start 10/04/18 at 18:00; Stop 11/06/18 at 23:55 Senna/Docusate Sodium (Senokot S) 1 tab BID PO Last administered on 10/22/18 08:55; Start 10/04/18 at 21:00 Sodium Biphosphate/ Sodium Phosphate (Fleet Enema) 1 ea DAILYPRN PRN IN CONSTIPATION; Start 10/04/18 at 16:45 Thiamine HCl (Thiamine HCl) 100 mg DAILY PO Last administered on 10/22/18 08:55; Start 10/05/18 at 09:00 Trazodone HCl (Desyrel) 25 mg Q6HP PRN PO AGITATION; Start 10/04/18 at 16:45; Stop 10/22/18 at 12:02; Status DC Trazodone HCl (Desyrel) 25 mg QHSP PRN PO INSOMNIA Last administered on 10/21/18 20:24; Start 10/04/18 at 16:45; Stop 10/22/18 at 12:02; Status DC Trimethoprim/ Sulfamethoxazole (Bactrim Ds, Septra Ds 160mg/ 800mg) 1 tab BID PO Last administered on 10/09/18at 20:47; Start 10/05/18 at 09:00; Stop 10/09/18 at 21:01; Status DC Zinc Oxide (Boudreauxs Butt Paste) apply to sacrum TID TOP Last administered on 10/22/18 08:58; Start 10/05/18 at 09:00 LIZZETTE LOUIS MD Oct 22, 2018 16:55
[2018-10-22] MEDS ORDERED: OSELTAMIVIR PHOSPHATE 75 MG CAP (TAMIFLU) PO ONE (17:00)
[2018-10-22] MEDS: RIVAROXABAN 10 MG TAB (XARELTO) PO SCH (18:06)
[2018-10-22 20:00] VITALS: BP 132/67
[2018-10-22] MEDS: IPRATROPIUM 0.5MG/ALBUTEROL 2.5MG INH SOL UD 3ML (DUONEB)(J7620) NEB SCH (23:30)
[2018-10-23 06:00] VITALS: BP 146/75
[2018-10-23 07:06] LABS: BASO % 0.3 % (0.0-1.0); EOS % 0.6 % (0.0-3.0); HEMATOCRIT 31.9 % (36.0-47.0); HEMOGLOBIN 10.4 g/dl (12.0-15.5); LYMPH # 1.1 10^3/uL (1.5-4.5); LYMPH % 16.4 % (24.0-44.0); MEAN CORPUSCULAR HEMOGLOBIN 29.2 pg (27.0-33.0); MEAN CORPUSCULAR HGB CONC 32.6 g/dl (32.0-36.5); MEAN CORPUSCULAR VOLUME 89.6 fl (80.0-96.0); MONO # 0.8 10^3/uL (0.0-0.8); MONO % 11.4 % (0.0-5.0); NEUTROPHILS # 4.9 10^3/uL (1.8-7.7); PLATELET COUNT, AUTOMATED 303 10^3/uL (150-450); RED BLOOD COUNT 3.56 10^6/uL (4.00-5.40)
[2018-10-23 07:19] LABS: BLOOD UREA NITROGEN 12 MG/DL (7-18); CALCIUM LEVEL 8.6 MG/DL (8.8-10.2); CARBON DIOXIDE LEVEL 23 MEQ/L (21-32); CHLORIDE LEVEL 105 MEQ/L (98-107); GLOMERULAR FILTRATION RATE > 60.0 (>32); GLUCOSE, FASTING 90 MG/DL (70-100); POTASSIUM SERUM 3.5 MEQ/L (3.5-5.1); SODIUM LEVEL 135 MEQ/L (136-145)
[2018-10-23] MEDS: IPRATROPIUM 0.5MG/ALBUTEROL 2.5MG INH SOL UD 3ML (DUONEB)(J7620) NEB SCH ×2 (07:33→13:35)
[2018-10-23] MEDS ORDERED: XARE10TA PO (08:40)
[2018-10-23] MEDS: FLUoxetine 10 MG CAP PO SCH (09:09)
[2018-10-23] MEDS: OMEGA-3 1000MG CAPSULE PO SCH ×2 (09:09→21:52)
[2018-10-23] MEDS: THIAMINE 100 MG TAB PO SCH (09:10)
[2018-10-23] MEDS: SENOKOT S TAB PO SCH ×2 (09:10→21:00)
[2018-10-23] MEDS: PANTOPRAZOLE 40MG TAB (PROTONIX) PO SCH (09:10)
[2018-10-23] MEDS: FERROUS SULFATE 325MG TAB PO SCH ×2 (09:10→21:52)
[2018-10-23] MEDS: OSELTAMIVIR PHOSPHATE 30MG CAPSULE PO SCH (09:10)
[2018-10-23] MEDS: guaiFENesin ER 600 MG TAB PO SCH ×3 (09:10→21:00)
[2018-10-23] MEDS: DONEPEZIL 5 MG TAB PO SCH (09:10)
[2018-10-23] MEDS: COSOPT OCUMETER PLUS 10ML (DORZOLAMIDE/TIMOLOL) OU SCH ×2 (09:11→21:52)
[2018-10-23] MEDS: CARVedilol 3.125 MG TAB PO SCH ×2 (09:11→21:00)
[2018-10-23] MEDS: BOUDREAUX'S BUTT PASTE 4OZ TOP SCH ×3 (09:12→21:00)
[2018-10-23] MEDS: EPINASTINE 0.05% OU SCH ×2 (09:12→21:52)
[2018-10-23 10:00] VITALS: BP 112/59
[2018-10-23] MEDS: ACETAMINOPHEN 500 MG TAB PO PRN ×2 (12:49→21:52)
[2018-10-23] MEDS ORDERED: D5W/0.9% SODIUM CHLORIDE 1,000 ML IV ONE (13:00)
--- NOTE | 2018-10-23 13:38 | IPNPDOC ---
Date Seen The patient was seen on 10/23/18. Progress Note ATTENDING: Dr. Medardo Lund PCP: Dr Latoya Mendoza HPI: 87 year old female with chronic Dementia, who lives at home with her grandson and usually walks with a walker, unable to perform ADLs without assistance sustained a fall at home without prodromal symptoms. According to the grandson, pt has been in her usual state of health without fever, chills, diarrhea, headache, constipation, dysuria, urgency, frequency and often suffers from chronic back pain and vertigo. She was found on the floor covered in urine and may have been there since last night. Per daughter, no prior history of rajan gnancy. Her fall was unwitnessed, and despite the patient saying that she did not hit her head, pt's daughter says, that the patient is an unreliable historian In the Emergency room, she was found to have a closed intertrochanteric fracture of the right hip. CT extremity 09/28/18: mixed lytic lesions from possible malignancy and osteoporosis. Orthopedic surgery, Dr. Stratton, has been consulted for management. S/P right hip biopsy 09/28/18 was negative for malignancy. S/p ORIF on 10/02/18. The pt was transferred to ARU, to Dr Thompson Escalona, 10/04/18. The pt had an episode of dizziness and presyncope yesterday am, VSS. The pt received IVF x 1 liter yesterday and has not had a recurrent episode. The pt provides very little history related to dementia. Pt does not c/o any fevers, chills, weakness, fatigue, Headache, Chest Pain, Shortness of breath, cough, palpitations, abdominal pain, N/V/D or changes in bowel or bladder habits. PMHx: Advanced dementia acute blood loss anemia Right thigh hematoma hypertension vertigo osteoporosis glaucoma hyperlipidemia Single lytic lesion of bone s/p biopsy no malignancy detected. Osteoporosis PSHX: Cataract surgery b/l, teeth extraction, tonsillectomy, adenoidectomy, comminuted intertrochanteric fracture of right femur s/p ORIF PE: GEN: 87yoF, appears stated age. Alert and responsive to question, pleasantly confused. HEENT: Normocephalic, atraumatic. Sclera are nonicteric. Conjunctiva without injection. Nose midline. No facial asymmetry. Moist mucous membranes. Neck supple, trachea midline. CHEST: Regular rate and rhythm, +S1, +S2 LUNGS: Clear to auscultation bilaterally. No wheezes, rales, or rhonchi. ABD: Round, soft, non-tender, non-distended. +Bowel sounds throughout. EXT: No lower extremity edema appreciated. SKIN: [place], dry, warm. No rashes. NEURO: No focal deficits appreciated. UC 10/20/18 neg Resp panel 10/22 neg. FOB 10/23/18 neg CTH Diffuse atrophy, small vessel changes, vascular calcification. No acute intracranial abnormality. Electronically Signed by Chidi Hernandez MD 09/28/2018 12:26 P A&P: 87 year old female with chronic Dementia, who lives at home with her grandson and usually walks with a walker, unable to perform ADLs without assistance sustained a fall at home without prodromal symptoms. According to the grandson, pt has been in her usual state of health without fever, chills, diarrhea, headache, constipation, dysuria, urgency, frequency and often suffers from chronic back pain and vertigo. She was found on the floor covered in urine and may have been there since last night. Per daughter, no prior history of malignancy. Her fall was unwitnessed, and despite the patient saying that she did not hit her head, pt's daughter says, that the patient is an unreliable historian In the Emergency room, she was found to have a closed intertrochanteric fracture of the right hip. CT extremity 09/28/18: mixed lytic lesions from possible malignancy and osteoporosis. Orthopedic surgery, Dr. Stratton, has been consulted for management. S/P right hip biopsy 09/28/18 was negative for malignancy. S/p ORIF on 10/02/18. The pt was transferred to ARU, to Dr Thompson Escalona, 10/04/18. Comminuted intertrochanteric fracture of the right femur secondary to a fall at home and longstanding history of osteoporosis and possible lytic lesions from unknown primary malignancy. s/p right hip biopsy 09/28/18 was negative for malignancy. S/p ORIF on 10/02/18 as per Orthopedic surgery. management as per Orthopedics. PT/OT/ST as per ARU. Pain control as per ARU. Bowel care as per ARU. DVT prophylaxis Xarelto as per Orthopedics. Right thigh Hematoma: secondary to right hip fracture s/p fall. s/p 3 unit rbc transfusion 09/29,10/07,10/08/18. Pt on Fe supplement. FOB 10/23/18 neg. Monitor trend Acute blood loss anemia: secondary to right thigh hematoma and longstanding history of LGI bleed refusing colonoscopy. s/p 1 unit rbc transfusion 09/29/18. Per daughter, pt has refused colonoscopy. Hgb 10.4, improved. FOB 10/23/18 neg. Monitor CBC. Bone lytic lesions: s/p right hip biopsy 09/28/18. neg biopsy for malignancy. Hypertension: controlled. Coreg 3.125mg BID with holding parameters Glaucoma: Continue home meds Hypercholesterolemia: not on meds Chronic Vertigo: pt has advanced dementia and could not provide history regarding her recent fall at home. Dtr states she uses meclizine as needed. Advanced Dementia: worsening according to the family. Has a grandson living with her, requires help with ADLs. Aricept/Prozac. UTI. E Coli 10/13/18. S /PLevaquin po. 10/20/18 neg. Monitor. MOLST scanned in chart. DNR. VS, I&O, 24H, Fishbone Vital Signs/I&O Vital Signs Date Time Temp Pulse Resp B/P (MAP) Pulse Ox O2 Delivery O2 Flow Rate FiO2 10/23/18 10:00 65 18 112/59 (76) 99 Room Air 10/23/18 06:00 98.6 I&O- Last 24 Hours up to 6 AM 10/23/18 05:59 Intake Total 1445 ml Output Total 150 ml Balance 1295 ml Laboratory Data 24H LABS Laboratory Tests 2 10/23/18 06:43: Immature Granulocyte % (Auto) 0.3, White Blood Count 7.0, Red Blood Count 3.56L, Hemoglobin 10.4L, Hematocrit 31.9L, Mean Corpuscular Volume 89.6, Mean Corpuscular Hemoglobin 29.2, Mean Corpuscular Hemoglobin Concent 32.6, Red Cell Distribution Width 14.8H, Platelet Count 303, Neutrophils (%) (Auto) 71.0H, Lymphocytes (%) (Auto) 16.4L, Monocytes (%) (Auto) 11.4H, Eosinophils (%) (Auto) 0.6, Basophils (%) (Auto) 0.3, Neutrophils # (Auto) 4.9, Lymphocytes # (Auto) 1.1L, Monocytes # (Auto) 0.8, Eosinophils # (Auto) 0.0, Basophils # (Auto) 0.0, Nucleated Red Blood Cells % (auto) 0.0, Anion Gap 7L, Glomerular Filtration Rate > 60.0, Blood Urea Nitrogen 12, Creatinine 0.40L, Sodium Level 135L, Potassium Level 3.5, Chloride Level 105, Carbon Dioxide Level 23, Calcium Level 8.6L CBC/BMP Laboratory Tests 10/23/18 06:43 Red Blood Count 3.56 L, Mean Corpuscular Volume 89.6, Mean Corpuscular Hemoglobin 29.2, Mean Corpuscular Hemoglobin Concent 32.6, Red Cell Distribution Width 14.8 H, Neutrophils (%) (Auto) 71.0 H, Lymphocytes (%) (Auto) 16.4 L, Monocytes (%) (Auto) 11.4 H, Eosinophils (%) (Auto) 0.6, Basophils (%) (Auto) 0.3, Neutrophils # (Auto) 4.9, Lymphocytes # (Auto) 1.1 L, Monocytes # (Auto) 0.8, Eosinophils # (Auto) 0.0, Basophils # (Auto) 0.0, Calcium Level 8.6 L Microbiology Microbiology 10/23/18 Stool Occult Blood (SHANELLE) - Final, Complete 10/22/18 Respiratory Virus Panel (PCR) (SHANELLE) - Final, Complete 10/20/18 Urine Culture - Final, Complete 10/13/18 Urine Culture - Final, Complete Escherichia Coli Cora Johnson Oct 23, 2018 13:38
[2018-10-23 14:00] VITALS: BP 105/57
--- NOTE | 2018-10-23 16:59 | IPNPDOC ---
PM&R Progress Note DATE OF SERVICE: Oct 23, 2018 [facility] Progress Note Subjective: Patient had similar episode of feeling faint this morning after therapy and had loose stools complaining of abdominal pain. SHe was started on IV fluids, C. diff assay ordered, and therapy held. REVIEW OF SYSTEMS: The following is a completed review of systems and has been reviewed. PAIN: Patient self reports no pain CARDIOVASCULAR: denies chest pain PULMONARY: Negative. Denies shortness of breath, +cough GASTROINTESTINAL:no constipation or diarrhea GENITOURINARY: +UTI (resolved) MUSCULOSKELETAL: +right hip ORIF HEMATOLOGICAL: +blood loss anemia-stable SKIN: + right hip incision PSYCHIATRIC: +dementia All other review of systems found to be negative. PHYSICAL EXAMINATION: VITAL SIGNS: Please see below. GENERAL: Pleasant and cooperative. No acute distress. lethargic, pale HEENT: PERRL. Extraocular movements intact. Clear conjunctiva CARDIOVASCULAR: Regular rate and rhythm. +systolic murmurs, no rubs, or gallops. LUNGS: Clear to auscultation bilaterally. No wheezes. No rhonchi ABDOMEN: Soft, nontender, hyperactive bowel sounds and mild distension NEUROLOGICAL:Not oriented to person, place, or time, able to follow 2-step commands inconsistently Cranial nerves II through XII grossly intact. Sensation grossly intact EXTREMITIES: 5\5 strength bilateral upper extremities. 5\5 strength right lower extremity, except limited hip flexion and knee extension due to pain (>4/5). 5/5 strength in left lower extremity. SKIN: right hip incision, mild edema and ecchymosis, no induration or erythema GOALS: ASSESSMENT: 87-year-old F with past medical history of dementia who presents status post fall with right hip ORIF. PLAN: 1. rehab: PT/OT, assess for DME needs, ambulating further with RW, she is SBA for all ADLs and ambulation, but having difficulty participating 2. 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 Ortho: s/p ORIF 10-02-18, WBAT, ortho consult 4. HTN: continue home meds and adjust, medicine consult, recs appreciated 5. : +MRSA Ucx on prior admission, s/pBactrim x5 days, monitor PVRs- repeat UA positive for E coli s/p treat s/p 3 day course of Levaquin at 250mg , and another 3 day course at 750mg, however most recent Ucx negative -started prophylactic Tamiflu given recent syncopal episode and having been around family members recovering from the flu, however respiratory panel is negative - 1L NS given yesterday for near syncopal episode 6. Heme: blood loss anemia, continue iron and monitor s/p 2 units of prbcs-FOBT negative 10-23-18 7. ID: patient has appeared pale and lethargic since the weekend, no leukocytosis, mild cough, with epsiode of diarrhea today and complaining of upset stomach- will order C diff assay given recent antibiotic use and D5NS x1L 7. DVT ppx: Xarelto 8. GI ppx: Protonix 9. Pain: Tylenol, avoid opioids, will d/c gabapentin 11. DNR/DNI 12. Dispo, paperwork in process for [facility], was progressing towards goals however on medical hold again today as needed IVF again and unable to participate in therapy Allergies Coded Allergies: No Known Allergies (Unverified , 09/28/18) Vital Signs Vital Signs Date Time Temp Pulse Resp B/P (MAP) Pulse Ox O2 Delivery O2 Flow Rate FiO2 10/23/18 14:00 98.6 50 17 105/57 (73) 100 Room Air Laboratory Data CBC/BMP Laboratory Tests 10/23/18 06:43 Red Blood Count 3.56 L, Mean Corpuscular Volume 89.6, Mean Corpuscular Hemoglobin 29.2, Mean Corpuscular Hemoglobin Concent 32.6, Red Cell Distribution Width 14.8 H, Neutrophils (%) (Auto) 71.0 H, Lymphocytes (%) (Auto) 16.4 L, Monocytes (%) (Auto) 11.4 H, Eosinophils (%) (Auto) 0.6, Basophils (%) (Auto) 0.3, Neutrophils # (Auto) 4.9, Lymphocytes # (Auto) 1.1 L, Monocytes # (Auto) 0.8, Eosinophils # (Auto) 0.0, Basophils # (Auto) 0.0, Calcium Level 8.6 L Labs 24H Laboratory Tests 2 10/23/18 06:43: Immature Granulocyte % (Auto) 0.3, White Blood Count 7.0, Red Blood Count 3.56L, Hemoglobin 10.4L, Hematocrit 31.9L, Mean Corpuscular Volume 89.6, Mean Cor puscular Hemoglobin 29.2, Mean Corpuscular Hemoglobin Concent 32.6, Red Cell Distribution Width 14.8H, Platelet Count 303, Neutrophils (%) (Auto) 71.0H, Lymphocytes (%) (Auto) 16.4L, Monocytes (%) (Auto) 11.4H, Eosinophils (%) (Auto) 0.6, Basophils (%) (Auto) 0.3, Neutrophils # (Auto) 4.9, Lymphocytes # (Auto) 1.1L, Monocytes # (Auto) 0.8, Eosinophils # (Auto) 0.0, Basophils # (Auto) 0.0, Nucleated Red Blood Cells % (auto) 0.0, Anion Gap 7L, Glomerular Filtration Rate > 60.0, Blood Urea Nitrogen 12, Creatinine 0.40L, Sodium Level 135L, Potassium Level 3.5, Chloride Level 105, Carbon Dioxide Level 23, Calcium Level 8.6L Microbiology Microbiology 10/23/18 Stool Occult Blood (SHANELLE) - Final, Complete 10/22/18 Respiratory Virus Panel (PCR) (SHANELLE) - Final, Complete 10/20/18 Urine Culture - Final, Complete 10/13/18 Urine Culture - Final, Complete Escherichia Coli Current Medications Current Medications Current Medications Acetaminophen (Tylenol Tab) 1,000 mg Q6HP PRN PO MILD PAIN (PS 1-8) Last administered on 10/23/18at 12:49; Start 10/04/18 at 16:45 Albuterol/ Ipratropium (Duoneb (Ipr 0.5mg/Alb 2.5mg)) 3 ml RTID NEB Last administered on 10/23/18at 13:35; Start 10/22/18 at 19:15 Bisacodyl (Dulcolax Suppository) 10 mg DAILYPRN PRN MD CONSTIPATION; Start at 16:45 Carvedilol (COReg) 3.125 mg BID PO Last administered on 10/23/18at 09:11; Start 10/04/18 at 21:00 Cefdinir (Omnicef) 300 mg BID PO ; Start 10/17/18 at 09:00; Stop 10/17/18 at 09:00; Status DC Donepezil HCl (AriCEPT) 5 mg DAILY PO Last administered on 10/17/18 08:29; Start 10/05/18 at 09:00; Stop 10/17/18 at 10:52; Status DC Donepezil HCl (AriCEPT) 10 mg DAILY PO Last administered on 10/23/18 09:10; Start 10/18/18 at 09:00 Dorzolamide/ Timolol (Cosopt Ocumeter Plus) 1 drop BID OU Last administered on 10/23/18 09:11; Start 10/04/18 at 21:00 Ferrous Sulfate (Ferrous Sulfate) 325 mg BID PO Last administered on 10/23/18 09:10; Start 10/05/18 at 09:00 Fish Oil ([place]-3 (1000mg)) 1 cap BID PO Last administered on 10/23/18 09:09; Start 10/05/18 at 09:00 Fluoxetine HCl (PROzac) 20 mg DAILY PO Last administered on 10/17/18 08:29; Start 10/05/18 at 09:00; Stop 10/17/18 at 10:52; Status DC Fluoxetine HCl (PROzac) 30 mg DAILY PO Last administered on 10/23/18 09:09; Start 10/18/18 at 09:00 Gabapentin (Neurontin) 100 mg BID PO Last administered on 10/22/18 08:54; Start 10/04/18 at 21:00; Stop 10/22/18 at 10:39; Status DC Guaifenesin (Mucinex Tab Er) 600 mg BID PO Last administered on 10/22/18 08:56; Start 10/17/18 at 09:00; Stop 10/22/18 at 19:16; Status DC Guaifenesin (Mucinex Tab Er) 600 mg TID PO Last administered on 10/23/18 15:33; Start 10/22/18 at 21:00 Home Med (Med Rec Complete!) ASDIRECTED XX ; Start 10/04/18 at 20:00; Stop 10/04/18 at 20:00; Status DC Levofloxacin (Levaquin) 250 mg DAILY@06 PO Last administered on 10/19/18 05:33; Start 10/17/18 at 06:00; Stop 10/19/18 at 06:01; Status DC Levofloxacin (Levaquin) 750 mg DAILY@06 PO Last administered on 10/22/18at 06:10; Start 10/20/18 at 17:00; Stop 10/22/18 at 10:32; Status DC Magnesium Hydroxide (Milk Of Magnesia) 30 ml DAILYPRN PRN PO CONSTIPATION; Start 10/04/18 at 16:45 Miscellaneous (Unresolved Clarification Entry) SEE LABEL COMMENTS UNRESOLVED XX ; Start 10/12/18 at 00:01; Stop 10/12/18 at 00:01; Status DC Miscellaneous (Unresolved Patient Own Med Order) SEE LABEL COMMENTS DAILY XX ; Start 10/04/18 at 09:00; Stop 10/11/18 at 09:42; Status DC Miscellaneous (Unresolved Patient Own Med Order) SEE LABEL COMMENTS DAILY XX Last administered on 10/12/18at 09:00; Start 10/11/18 at 09:00; Stop 10/17/18 at 08:33; Status DC Oseltamivir Phosphate (Tamiflu) 30 mg DAILY PO Last administered on 10/23/18at 09:10; Start 10/23/18 at 09:00; Stop 11/01/18 at 09:01 Pantoprazole Sodium (Protonix) 40 mg DAILY PO Last administered on 10/23/18 09:10; Start 10/05/18 at 09:00 Patient Own Medication (Patient'S Own Med) 1 ea BID OU ; Start 10/15/18 at 21:00; Status UNV Patient Own Medication (Patient'S Own Med) Epinastine HCl 0.05% -1 drop BID OU Last administered on 10/23/18at 09:12; Start 10/17/18 at 09:00 Patient Own Medication (Patient'S Own Med) Epinastine HCl 0.05% -1 drop BID OU ; Start 10/07/18 at 21:00; Stop 10/17/18 at 09:14; Status DC Rivaroxaban (Xarelto) 10 mg DAILY@1800 PO Last administered on 10/22/18at 18:06; Start 10/04/18 at 18:00; Stop 11/06/18 at 23:55 Senna/Docusate Sodium (Senokot S) 1 tab BID PO Last administered on 10/23/18 09:10; Start 10/04/18 at 21:00 Sodium Biphosphate/ Sodium Phosphate (Fleet Enema) 1 ea DAILYPRN PRN MD CONSTIPATION; Start 10/04/18 at 16:45 Thiamine HCl (Thiamine HCl) 100 mg DAILY PO Last administered on 10/23/18 09:10; Start 10/05/18 at 09:00 Trazodone HCl (Desyrel) 25 mg Q6HP PRN PO AGITATION; Start 10/04/18 at 16:45; Stop 10/22/18 at 12:02; Status DC Trazodone HCl (Desyrel) 25 mg QHSP PRN PO INSOMNIA Last administered on 10/21/18 20:24; Start 10/04/18 at 16:45; Stop 10/22/18 at 12:02; Status DC Trimethoprim/ Sulfamethoxazole (Bactrim Ds, Septra Ds 160mg/ 800mg) 1 tab BID PO Last administered on 10/09/18at 20:47; Start 10/05/18 at 09:00; Stop 10/09/18 at 21:01; Status DC Zinc Oxide ([place] Butt Paste) apply to sacrum TID TOP Last administered on 10/23/18 15:34; Start 10/05/18 at 09:00 LIZZETTE LOUIS MD Oct 23, 2018 16:59
[2018-10-23] MEDS: RIVAROXABAN 10 MG TAB (XARELTO) PO SCH (18:36)
[2018-10-23 20:00] VITALS: BP 113/61
[2018-10-24] MEDS: IPRATROPIUM 0.5MG/ALBUTEROL 2.5MG INH SOL UD 3ML (DUONEB)(J7620) NEB SCH ×4 (03:49→20:00)
[2018-10-24 06:05] VITALS: BP 113/58
[2018-10-24 07:07] LABS: BASO % 0.3 % (0.0-1.0); EOS # 0.1 10^3/uL (0.0-0.50); EOS % 0.9 % (0.0-3.0); HEMATOCRIT 31.3 % (36.0-47.0); HEMOGLOBIN 10.1 g/dl (12.0-15.5); LYMPH % 13.5 % (24.0-44.0); MEAN CORPUSCULAR HEMOGLOBIN 28.6 pg (27.0-33.0); MEAN CORPUSCULAR HGB CONC 32.3 g/dl (32.0-36.5); MEAN CORPUSCULAR VOLUME 88.7 fl (80.0-96.0); MONO # 0.9 10^3/uL (0.0-0.8); MONO % 11.6 % (0.0-5.0); NEUTROPHILS # 5.5 10^3/uL (1.8-7.7); NEUTROPHILS % 73.4 % (36.0-66.0); PLATELET COUNT, AUTOMATED 310 10^3/uL (150-450); RED BLOOD COUNT 3.53 10^6/uL (4.00-5.40); WHITE BLOOD COUNT 7.5 10^3/uL (4.0-10.0)
[2018-10-24 07:28] LABS: BLOOD UREA NITROGEN 11 MG/DL (7-18); CALCIUM LEVEL 8.6 MG/DL (8.8-10.2); CARBON DIOXIDE LEVEL 23 MEQ/L (21-32); CHLORIDE LEVEL 107 MEQ/L (98-107); CREATININE FOR GFR 0.47 MG/DL (0.55-1.30); GLOMERULAR FILTRATION RATE > 60.0 (>32); GLUCOSE, FASTING 102 MG/DL (70-100); POTASSIUM SERUM 3.1 MEQ/L (3.5-5.1); SODIUM LEVEL 137 MEQ/L (136-145)
[2018-10-24] MEDS: OMEGA-3 1000MG CAPSULE PO SCH ×2 (08:57→20:20)
[2018-10-24] MEDS: SENOKOT S TAB PO SCH ×2 (08:57→20:21)
[2018-10-24] MEDS: OSELTAMIVIR PHOSPHATE 30MG CAPSULE PO SCH (08:57)
[2018-10-24] MEDS: DONEPEZIL 5 MG TAB PO SCH (08:58)
[2018-10-24] MEDS: FERROUS SULFATE 325MG TAB PO SCH ×2 (08:58→20:19)
[2018-10-24] MEDS: THIAMINE 100 MG TAB PO SCH (08:58)
[2018-10-24] MEDS: FLUoxetine 10 MG CAP PO SCH (08:58)
[2018-10-24] MEDS: guaiFENesin ER 600 MG TAB PO SCH ×3 (08:58→20:19)
[2018-10-24] MEDS: PANTOPRAZOLE 40MG TAB (PROTONIX) PO SCH (08:58)
[2018-10-24] MEDS: CARVedilol 3.125 MG TAB PO SCH ×2 (08:59→20:20)
[2018-10-24] MEDS: BOUDREAUX'S BUTT PASTE 4OZ TOP SCH ×3 (09:00→20:21)
[2018-10-24] MEDS: COSOPT OCUMETER PLUS 10ML (DORZOLAMIDE/TIMOLOL) OU SCH ×2 (09:00→20:20)
[2018-10-24] MEDS: EPINASTINE 0.05% OU SCH ×2 (09:00→20:21)
[2018-10-24] MEDS: POTASSIUM CHLORIDE 10 MEQ SR TABLET PO SCH (13:12)
[2018-10-24 14:00] VITALS: BP 139/65
--- NOTE | 2018-10-24 14:43 | IPNPDOC ---
PM&R Progress Note DATE OF SERVICE: Oct 24, 2018 Rfid Strategist Progress Note Subjective: Patient feeling better today, however still fatigued, but no more diarrhea and able to participate in therapy. REVIEW OF SYSTEMS: The following is a completed review of systems and has been reviewed. PAIN: Patient self reports no pain CARDIOVASCULAR: denies chest pain PULMONARY: Negative. Denies shortness of breath GASTROINTESTINAL:no constipation or diarrhea GENITOURINARY: +UTI (resolved) MUSCULOSKELETAL: +right hip ORIF HEMATOLOGICAL: +blood loss anemia-stable SKIN: + right hip incision PSYCHIATRIC: +dementia All other review of systems found to be negative. PHYSICAL EXAMINATION: VITAL SIGNS: Please see below. GENERAL: Pleasant and cooperative. No acute distress. lethargic, pale HEENT: PERRL. Extraocular movements intact. Clear conjunctiva CARDIOVASCULAR: Regular rate and rhythm. +systolic murmurs, no rubs, or gallops. LUNGS: Clear to auscultation bilaterally. No wheezes. No rhonchi ABDOMEN: Soft, nontender, normoactive bowel sounds and non-distended NEUROLOGICAL:Not oriented to person, place, or time, able to follow 2-step commands inconsistently Cranial nerves II through XII grossly intact. Sensation grossly intact EXTREMITIES: 5\5 strength bilateral upper extremities. 5\5 strength right lower extremity, except limited hip flexion and knee extension due to pain (>4/5). 5/5 strength in left lower extremity. SKIN: right hip incision, mild edema and ecchymosis, no induration or erythema GOALS: ASSESSMENT: 87-year-old F with past medical history of dementia who presents status post fall with right hip ORIF. PLAN: 1. rehab: PT/OT, assess for DME needs, ambulating further with RW, she is SBA for all ADLs and ambulation 2. 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 Ortho: s/p ORIF 10-02-18, WBAT, ortho consult 4. HTN: continue home meds and adjust, medicine consult, recs appreciated 5. : +MRSA Ucx on prior admission, s/pBactrim x5 days, monitor PVRs- repeat UA positive for E coli s/p treat s/p 3 day course of Levaquin at 250mg , and another 3 day course at 750mg, however most recent Ucx negative -started prophylactic Tamiflu given recent syncopal episode and having been around family members recovering from the flu, however respiratory panel is negative - 1L NS given yesterday for near syncopal episode 6. Heme: blood loss anemia, continue iron and monitor s/p 2 units of prbcs-FOBT negative 10-23-18 7. ID: patient has appeared pale and lethargic since the weekend, no leukocytosis, mild cough, with epsiode of diarrhea today and complaining of upset stomach- improving today, negative C diff assay s/p IVF 7. DVT ppx: Xarelto 8. GI ppx: Protonix 9. Pain: Tylenol, avoid opioids, will d/c gabapentin 11. DNR/DNI 12. Dispo, paperwork in process for [facility], was progressing towards goals Allergies Coded Allergies: No Known Allergies (Unverified , 09/28/18) Vital Signs Vital Signs Date Time Temp Pulse Resp B/P (MAP) Pulse Ox O2 Delivery O2 Flow Rate FiO2 10/24/18 08:59 61 113/58 10/24/18 06:05 98.4 20 98 Room Air Laboratory Data CBC/BMP Laboratory Tests 10/24/18 06:37 Red Blood Count 3.53 L, Mean Corpuscular Volume 88.7, Mean Corpuscular Hemoglobin 28.6, Mean Corpuscular Hemoglobin Concent 32.3, Red Cell Distribution Width 15.1 H, Neutrophils (%) (Auto) 73.4 H, Lymphocytes (%) (Auto) 13.5 L, Monocytes (%) (Auto) 11.6 H, Eosinophils (%) (Auto) 0.9, Basophils (%) (Auto) 0.3, Neutrophils # (Auto) 5.5, Lymphocytes # (Auto) 1.0 L, Monocytes # (Auto) 0.9 H, Eosinophils # (Auto) 0.1, Basophils # (Auto) 0.0, Calcium Level 8.6 L Labs 24H Laboratory Tests 2 10/24/18 06:37: Immature Granulocyte % (Auto) 0.3, White Blood Count 7.5, Red Blood Count 3.53L, Hemoglobin 10.1L, Hematocrit 31.3L, Mean Corpuscular Volume 88.7, Mean Corpuscular Hemoglobin 28.6, Mean Corpuscular Hemoglobin Concent 32.3, Red Cell Distribution Width 15.1H, Platelet Count 310, Neutrophils (%) (Auto) 73.4H, Lymphocytes (%) (Auto) 13.5L, Monocytes (%) (Auto) 11.6H, Eosinophils (%) (Auto) 0.9, Basophils (%) (Auto) 0.3, Neutrophils # (Auto) 5.5, Lymphocytes # (Auto) 1.0L, Monocytes # (Auto) 0.9H, Eosinophils # (Auto) 0.1, Basophils # (Auto) 0.0, Nucleated Red Blood Cells % (auto) 0.0, Anion Gap 7L, Glomerular Filtration Rate > 60.0, Blood Urea Nitrogen 11, Creatinine 0.47L, Sodium Level 137, Potassium Level 3.1L, Chloride Level 107, Carbon Dioxide Level 23, Calcium Level 8.6L Microbiology Microbiology 10/24/18 Clostridium difficile (PCR) - Final, Complete 10/24/18 Stool Occult Blood (SHANELLE) - Final, Complete 10/23/18 Stool Occult Blood (SHANELLE) - Final, Complete 10/22/18 Respiratory Virus Panel (PCR) (SHANELLE) - Final, Complete 10/20/18 Urine Culture - Final, Complete Current Medications Current Medications Current Medications Acetaminophen (Tylenol Tab) 1,000 mg Q6HP PRN PO MILD PAIN (PS 1-8) Last administered on 10/23/18at 21:52; Start 10/04/18 at 16:45 Albuterol/ Ipratropium (Duoneb (Ipr 0.5mg/Alb 2.5mg)) 3 ml RTID NEB Last administered on 10/24/18at 14:38; Start 10/22/18 at 19:15 Bisacodyl (Dulcolax Suppository) 10 mg DAILYPRN PRN [place] CONSTIPATION; Start 10/04/18 at 16:45 Carvedilol (COReg) 3.125 mg BID PO Last administered on 10/23/18at 09:11; Start 10/04/18 at 21:00 Cefdinir (Omnicef) 300 mg BID PO ; Start 10/17/18 at 09:00; Stop 10/17/18 at 09:00; Status DC Donepezil HCl (AriCEPT) 5 mg DAILY PO Last administered on 10/17/18 08:29; Start 10/05/18 at 09:00; Stop 10/17/18 at 10:52; Status DC Donepezil HCl (AriCEPT) 10 mg DAILY PO Last administered on 10/24/18 08:58; Start 10/18/18 at 09:00 Dorzolamide/ Timolol (Cosopt Ocumeter Plus) 1 drop BID OU Last administered on 10/24/18 09:00; Start 10/04/18 at 21:00 Ferrous Sulfate (Ferrous Sulfate) 325 mg BID PO Last administered on 10/24/18 08:58; Start 10/05/18 at 09:00 Fish Oil (Vaiden-3 (1000mg)) 1 cap BID PO Last administered on 10/24/18 08:57; Start 10/05/18 at 09:00 Fluoxetine HCl (PROzac) 20 mg DAILY PO Last administered on 10/17/18 08:29; Start 10/05/18 at 09:00; Stop 10/17/18 at 10:52; Status DC Fluoxetine HCl (PROzac) 30 mg DAILY PO Last administered on 10/24/18 08:58; Start 10/18/18 at 09:00 Gabapentin (Neurontin) 100 mg BID PO Last administered on 10/22/18 08:54; Start 10/04/18 at 21:00; Stop 10/22/18 at 10:39; Status DC Guaifenesin (Mucinex Tab Er) 600 mg BID PO Last administered on 10/22/18 08:56; Start 10/17/18 at 09:00; Stop 10/22/18 at 19:16; Status DC Guaifenesin (Mucinex Tab Er) 600 mg TID PO Last administered on 10/24/18 08:58; Start 10/22/18 at 21:00 Home Med (Med Rec Complete!) ASDIRECTED XX ; Start 10/04/18 at 20:00; Stop 10/04/18 at 20:00; Status DC Levofloxacin (Levaquin) 250 mg DAILY@06 PO Last administered on 10/19/18 05:33; Start 10/17/18 at 06:00; Stop 10/19/18 at 06:01; Status DC Levofloxacin (Levaquin) 750 mg DAILY@06 PO Last administered on 10/22/18at 06:10; Start 10/20/18 at 17:00; Stop 10/22/18 at 10:32; Status DC Magnesium Hydroxide (Milk Of Magnesia) 30 ml DAILYPRN PRN PO CONSTIPATION; Start 10/04/18 at 16:45 Miscellaneous (Unresolved Clarification Entry) SEE LABEL COMMENTS UNRESOLVED XX ; Start 10/12/18 at 00:01; Stop 10/12/18 at 00:01; Status DC Miscellaneous (Unresolved Patient Own Med Order) SEE LABEL COMMENTS DAILY XX ; Start 10/04/18 at 09:00; Stop 10/11/18 at 09:42; Status DC Miscellaneous (Unresolved Patient Own Med Order) SEE LABEL COMMENTS DAILY XX Last administered on 10/12/18at 09:00; Start 10/11/18 at 09:00; Stop 10/17/18 at 08:33; Status DC Oseltamivir Phosphate (Tamiflu) 30 mg DAILY PO Last administered on 10/24/18at 08:57; Start 10/23/18 at 09:00; Stop 11/01/18 at 09:01 Pantoprazole Sodium (Protonix) 40 mg DAILY PO Last administered on 10/24/18at 08:58; Start 10/05/18 at 09:00 Patient Own Medication (Patient'S Own Med) 1 ea BID OU ; Start 10/15/18 at 21:00; Status UNV Patient Own Medication (Patient'S Own Med) Epinastine HCl 0.05% -1 drop BID OU Last administered on 10/24/18at 09:00; Start 10/17/18 at 09:00 Patient Own Medication (Patient'S Own Med) Epinastine HCl 0.05% -1 drop BID OU ; Start 10/07/18 at 21:00; Stop 10/17/18 at 09:14; Status DC Potassium Chloride (Micro-K Extencaps) 40 meq DAILY PO Last administered on 10/24/18at 13:12; Start 10/24/18 at 12:15; Stop 10/25/18 at 09:01 Rivaroxaban (Xarelto) 10 mg DAILY@1800 PO Last administered on 10/23/18at 18:36; Start 10/04/18 at 18:00; Stop 11/06/18 at 23:55 Senna/Docusate Sodium (Senokot S) 1 tab BID PO Last administered on 10/24/18at 08:57; Start 10/04/18 at 21:00 Sodium Biphosphate/ Sodium Phosphate (Fleet Enema) 1 ea DAILYPRN PRN [place] CONSTIPATION; Start 10/04/18 at 16:45 Thiamine HCl (Thiamine HCl) 100 mg DAILY PO Last administered on 10/24/18at 08:58; Start 10/05/18 at 09:00 Trazodone HCl (Desyrel) 25 mg Q6HP PRN PO AGITATION; Start 10/04/18 at 16:45; Stop 10/22/18 at 12:02; Status DC Trazodone HCl (Desyrel) 25 mg QHSP PRN PO INSOMNIA Last administered on 10/21/18at 20:24; Start 10/04/18 at 16:45; Stop 10/22/18 at 12:02; Status DC Trimethoprim/ Sulfamethoxazole (Bactrim Ds, Septra Ds 160mg/ 800mg) 1 tab BID PO Last administered on 10/09/18at 20:47; Start 10/05/18 at 09:00; Stop 10/09/18 at 21:01; Status DC Zinc Oxide (Boudreauxs Butt Paste) apply to sacrum TID TOP Last administered on 10/24/18at 09:00; Start 10/05/18 at 09:00 LIZZETTE LOUIS MD Oct 24, 2018 14:42
[2018-10-24] MEDS: RIVAROXABAN 10 MG TAB (XARELTO) PO SCH (17:27)
[2018-10-24 20:00] VITALS: BP 141/97
[2018-10-24] MEDS: ACETAMINOPHEN 500 MG TAB PO PRN (20:20)
[2018-10-24] MEDS: DRONABINOL 2.5 MG CAP (MARINOL) PO SCH (22:17)
[2018-10-25 06:00] VITALS: BP 133/64
[2018-10-25] MEDS: IPRATROPIUM 0.5MG/ALBUTEROL 2.5MG INH SOL UD 3ML (DUONEB)(J7620) NEB SCH ×3 (07:35→20:36)
[2018-10-25] MEDS: BOUDREAUX'S BUTT PASTE 4OZ TOP SCH ×3 (09:00→20:52)
[2018-10-25] MEDS: SENOKOT S TAB PO SCH ×2 (09:00→20:53)
[2018-10-25 09:28] VITALS: BP 142/67
[2018-10-25] MEDS: POTASSIUM CHLORIDE 10 MEQ SR TABLET PO SCH (09:29)
[2018-10-25] MEDS: FERROUS SULFATE 325MG TAB PO SCH ×2 (09:29→20:51)
[2018-10-25] MEDS: OMEGA-3 1000MG CAPSULE PO SCH ×2 (09:29→20:51)
[2018-10-25] MEDS: ACETAMINOPHEN 500 MG TAB PO PRN ×2 (09:29→20:53)
[2018-10-25] MEDS: DONEPEZIL 5 MG TAB PO SCH (09:30)
[2018-10-25] MEDS: CARVedilol 3.125 MG TAB PO SCH ×2 (09:30→20:52)
[2018-10-25] MEDS: OSELTAMIVIR PHOSPHATE 30MG CAPSULE PO SCH (09:31)
[2018-10-25] MEDS: FLUoxetine 10 MG CAP PO SCH (09:31)
[2018-10-25] MEDS: PANTOPRAZOLE 40MG TAB (PROTONIX) PO SCH (09:31)
[2018-10-25] MEDS: guaiFENesin ER 600 MG TAB PO SCH ×3 (09:32→20:51)
[2018-10-25] MEDS: EPINASTINE 0.05% OU SCH ×2 (09:32→20:53)
[2018-10-25] MEDS: COSOPT OCUMETER PLUS 10ML (DORZOLAMIDE/TIMOLOL) OU SCH ×2 (09:32→20:52)
[2018-10-25] MEDS: THIAMINE 100 MG TAB PO SCH (09:32)
[2018-10-25 14:00] VITALS: BP 125/62
[2018-10-25] MEDS: RIVAROXABAN 10 MG TAB (XARELTO) PO SCH (17:31)
[2018-10-25 20:00] VITALS: BP_SYST 145; BP_SYST 152; BP_SYST 169; BP_DIAS 63; BP_DIAS 70; BP_DIAS 75
[2018-10-25] MEDS: DRONABINOL 2.5 MG CAP (MARINOL) PO SCH (20:51)
[2018-10-26 06:00] VITALS: BP 155/65
[2018-10-26] MEDS: IPRATROPIUM 0.5MG/ALBUTEROL 2.5MG INH SOL UD 3ML (DUONEB)(J7620) NEB SCH ×3 (07:26→19:44)
[2018-10-26 07:35] LABS: BLOOD UREA NITROGEN 8 MG/DL (7-18); CALCIUM LEVEL 8.6 MG/DL (8.8-10.2); CARBON DIOXIDE LEVEL 26 MEQ/L (21-32); CHLORIDE LEVEL 102 MEQ/L (98-107); GLOMERULAR FILTRATION RATE > 60.0 (>32); GLUCOSE, FASTING 83 MG/DL (70-100); POTASSIUM SERUM 3.9 MEQ/L (3.5-5.1); SODIUM LEVEL 135 MEQ/L (136-145)
[2018-10-26] MEDS: CARVedilol 3.125 MG TAB PO SCH ×2 (09:00→21:00)
[2018-10-26] MEDS: SENOKOT S TAB PO SCH ×2 (09:00→21:00)
[2018-10-26] MEDS: THIAMINE 100 MG TAB PO SCH (09:10)
[2018-10-26] MEDS: FLUoxetine 10 MG CAP PO SCH (09:10)
[2018-10-26] MEDS: FERROUS SULFATE 325MG TAB PO SCH ×2 (09:10→21:15)
[2018-10-26] MEDS: DONEPEZIL 5 MG TAB PO SCH (09:10)
[2018-10-26] MEDS: OMEGA-3 1000MG CAPSULE PO SCH ×2 (09:10→21:14)
[2018-10-26] MEDS: OSELTAMIVIR PHOSPHATE 30MG CAPSULE PO SCH (09:11)
[2018-10-26] MEDS: BOUDREAUX'S BUTT PASTE 4OZ TOP SCH ×3 (09:11→21:20)
[2018-10-26] MEDS: EPINASTINE 0.05% OU SCH ×2 (09:11→21:19)
[2018-10-26] MEDS: COSOPT OCUMETER PLUS 10ML (DORZOLAMIDE/TIMOLOL) OU SCH ×2 (09:11→21:18)
[2018-10-26] MEDS: guaiFENesin ER 600 MG TAB PO SCH ×3 (09:11→21:00)
[2018-10-26] MEDS: PANTOPRAZOLE 40MG TAB (PROTONIX) PO SCH (09:11)
--- NOTE | 2018-10-26 12:04 | IPNPDOC ---
Date Seen The patient was seen on 10/26/18. Progress Note ATTENDING: Dr. Medardo Lund PCP: Dr Latoya Mendoza HPI: 87 year old female with chronic Dementia, who lives at home with her grandson and usually walks with a walker, unable to perform ADLs without assistance sustained a fall at home without prodromal symptoms. According to the grandson, pt has been in her usual state of health without fever, chills, diarrhea, headache, constipation, dysuria, urgency, frequency and often suffers from chronic back pain and vertigo. She was found on the floor covered in urine and may have been there since last night. Per daughter, no prior history of mal ignancy. Her fall was unwitnessed, and despite the patient saying that she did not hit her head, pt's daughter says, that the patient is an unreliable historian In the Emergency room, she was found to have a closed intertrochanteric fracture of the right hip. CT extremity 09/28/18: mixed lytic lesions from possible malignancy and osteoporosis. Orthopedic surgery, Dr. Stratton, has been consult ed for management. S/P right hip biopsy 09/28/18 was negative for malignancy. S/p ORIF on 10/02/18. The pt was transferred to ARU, to Dr Thompson Escalona, 10/04/18. The pt provides very little history related to dementia. She is currently in bed and states she feels well. She reports no pain or concerns at this time. She denies any dizziness or lightheadedness. Pt does not c/o any fevers, chills, weakness, fatigue, Headache, Chest Pain, Shortness of breath, cough, palpitations, abdominal pain, N/V/D or changes in bowel or bladder habits. PMHx: Advanced dementia acute blood loss anemia Right thigh hematoma hypertension vertigo osteoporosis glaucoma hyperlipidemia Single lytic lesion of bone s/p biopsy no malignancy detected. Osteoporosis PSHX: Cataract surgery b/l, teeth extraction, tonsillectomy, adenoidectomy, comminuted intertrochanteric fracture of right femur s/p ORIF PE: GEN: 87yoF, appears stated age. Alert and responsive to question, pleasantly confused. HEENT: Normocephalic, atraumatic. Sclera are nonicteric. Conjunctiva without injection. Nose midline. No facial asymmetry. Moist mucous membranes. Neck supple, trachea midline. CHEST: Regular rate and rhythm, +S1, +S2 LUNGS: Clear to auscultation bilaterally. No wheezes, rales, or rhonchi. ABD: Round, soft, non-tender, non-distended. +Bowel sounds throughout. EXT: No lower extremity edema appreciated. SKIN: [place], dry, warm. No rashes. NEURO: No focal deficits appreciated. UC 10/20/18 neg Resp panel 10/22 neg. FOB 10/23/18 neg CTH Diffuse atrophy, small vessel changes, vascular calcification. No acute intracranial abnormality. Electronically Signed by Chidi Hernandez MD 09/28/2018 12:26 P A&P: 87 year old female with chronic Dementia, who lives at home with her gran dson and usually walks with a walker, unable to perform ADLs without assistance sustained a fall at home without prodromal symptoms. According to the grandson, pt has been in her usual state of health without fever, chills, diarrhea, headache, constipation, dysuria, urgency, frequency and often suffers from chronic back pain and vertigo. She was found on the floor covered in urine and may have been there since last night. Per daughter, no prior history of malignancy. Her fall was unwitnessed, and despite the patient saying that she did not hit her head, pt's daughter says, that the patient is an unreliable historian In the Emergency room, she was found to have a closed intertrochanteric fracture of the right hip. CT extremity 09/28/18: mixed lytic lesions from possible malignancy and osteoporosis. Orthopedic surgery, Dr. Stratton, has been consulted for management. S/P right hip biopsy 09/28/18 was negative for malignancy. S/p ORIF on 10/02/18. The pt was transferred to ARU, to Dr Thompson Escalona, 10/04/18. Comminuted intertrochanteric fracture of the right femur secondary to a fall at home and longstanding history of osteoporosis and possible lytic lesions from unknown primary malignancy. s/p right hip biopsy 09/28/18 was negative for malignancy. S/p ORIF on 10/02/18 as per Orthopedic surgery. management as per Orthopedics. PT/OT/ST as per ARU. Pain control as per ARU. Bowel care as per ARU. DVT prophylaxis Xarelto as per Orthopedics. Right thigh Hematoma: secondary to right hip fracture s/p fall. s/p 3 unit rbc transfusion 09/29,10/07,10/08/18. Pt on Fe supplement. FOB 10/23/18 neg. Monitor trend. Hgb 10.1 10/24/18. Acute blood loss anemia: secondary to right thigh hematoma and longstanding history of LGI bleed refusing colonoscopy. s/p 1 unit rbc transfusion 09/29/18. Per daughter, pt has refused colonoscopy. Hgb stable. FOB 10/23/18 neg. Monitor CBC. Bone lytic lesions: s/p right hip biopsy 09/28/18. neg biopsy for malignancy. Hypertension: controlled. Coreg 3.125mg BID with holding parameters Glaucoma: Continue home meds Hypercholesterolemia: not on meds Chronic Vertigo: pt has advanced dementia and could not provide history regarding her recent fall at home. Dtr states she uses meclizine as needed. Advanced Dementia: worsening according to the family. Has a grandson living with her, requires help with ADLs. Aricept/Prozac. UTI. E Coli UC 10/13/18. S /P Levaquin po. UC 10/20/18 neg. Monitor. Hypokalemia. Resolved s/p po supplement. MOLST scanned in chart. DNR. VS, I&O, 24H, Fishbone Vital Signs/I&O Vital Signs Date Time Temp Pulse Resp B/P (MAP) Pulse Ox O2 Delivery O2 Flow Rate FiO2 10/26/18 09:00 68 10/26/18 06:00 98.5 18 155/65 (95) 96 Room Air I&O- Last 24 Hours up to 6 AM 10/26/18 06:00 Intake Total 660 ml Output Total 0 ml Balance 660 ml Laboratory Data 24H LABS Laboratory Tests 2 10/26/18 06:20: Anion Gap 7L, Glomerular Filtration Rate > 60.0, Blood Urea Nitrogen 8, Creatinine 0.40L, Sodium Level 135L, Potassium Level 3.9#, Chloride Level 102, Carbon Dioxide Level 26, Calcium Level 8.6L CBC/BMP Laboratory Tests 10/26/18 06:20 Calcium Level 8.6 L Microbiology Microbiology 10/24/18 Clostridium difficile (PCR) - Final, Complete 10/24/18 Stool Occult Blood (SHANELLE) - Final, Complete 10/23/18 Stool Occult Blood (SHANELLE) - Final, Complete 10/22/18 Respiratory Virus Panel (PCR) (SHANELLE) - Final, Complete 10/20/18 Urine Culture - Final, Complete Cora Johnson Oct 26, 2018 12:04
--- NOTE | 2018-10-26 12:51 | IPNPDOC ---
PM&R Progress Note DATE OF SERVICE: Oct 25, 2018 Data Base Administrator Progress Note DSubjective: Patient feeling better today, still with poor appetite, but able to participate in therapy. REVIEW OF SYSTEMS: The following is a completed review of systems and has been reviewed. PAIN: Patient self reports no pain CARDIOVASCULAR: denies chest pain PULMONARY: Negative. Denies shortness of breath GASTROINTESTINAL:no constipation or diarrhea GENITOURINARY: +UTI (resolved) MUSCULOSKELETAL: +right hip ORIF HEMATOLOGICAL: +blood loss anemia-stable SKIN: + right hip incision PSYCHIATRIC: +dementia All other review of systems found to be negative. PHYSICAL EXAMINATION: VITAL SIGNS: Please see below. GENERAL: Pleasant and cooperative. No acute distress. lethargic, pale HEENT: PERRL. Extraocular movements intact. Clear conjunctiva CARDIOVASCULAR: Regular rate and rhythm. +systolic murmurs, no rubs, or gallops. LUNGS: Clear to auscultation bilaterally. No wheezes. No rhonchi ABDOMEN: Soft, nontender, normoactive bowel sounds and non-distended NEUROLOGICAL:Not oriented to person, place, or time, able to follow 2-step commands inconsistently Cranial nerves II through XII grossly intact. Sensation grossly intact EXTREMITIES: 5\5 strength bilateral upper extremities. 5\5 strength right lower extremity, except limited hip flexion and knee extension due to pain (>4/5). 5/5 strength in left lower extremity. SKIN: right hip incision, mild edema and ecchymosis, no induration or erythema GOALS: ASSESSMENT: 87-year-old F with past medical history of dementia who presents status post fall with right hip ORIF. PLAN: 1. rehab: PT/OT, assess for DME needs, ambulating further with RW, she is SBA for all ADLs and ambulation 2. 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 Ortho: s/p ORIF 10-02-18, WBAT, ortho consult 4. HTN: continue home meds and adjust, medicine consult, recs appreciated 5. : +MRSA Ucx on prior admission, s/pBactrim x5 days, monitor PVRs- repeat UA positive for E coli s/p treat s/p 3 day course of Levaquin at 250mg , and another 3 day course at 750mg, however most recent Ucx negative -started prophylactic Tamiflu given recent syncopal episode and having been around family members recovering from the flu, however respiratory panel is negative-improving 6. Heme: blood loss anemia, continue iron and monitor s/p 2 units of prbcs-FOBT negative 10-23-18 7. ID: patient has appeared pale and lethargic since the weekend, no leukocytosis, mild cough, with epsiode of diarrhea today and complaining of upset stomach- continuesto improve today, negative C diff assay s/p IVF 7. DVT ppx: Xarelto, started Marinol for poor appetite, will encourage po intake 8. GI ppx: Protonix 9. Pain: Tylenol, avoid opioids, off gabapentin 11. DNR/DNI 12. Dispo, paperwork in process for [place], was progressing towards goals, awaiting bed Allergies Coded Allergies: No Known Allergies (Unverified , 09/28/18) Vital Signs Vital Signs Date Time Temp Pulse Resp B/P (MAP) Pulse Ox O2 Delivery O2 Flow Rate FiO2 10/26/18 09:00 68 10/26/18 06:00 98.5 18 155/65 (95) 96 Room Air Laboratory Data CBC/BMP Laboratory Tests 10/26/18 06:20 Calcium Level 8.6 L Labs 24H Laboratory Tests 2 10/26/18 06:20: Anion Gap 7L, Glomerular Filtration Rate > 60.0, Blood Urea Nitrogen 8, Creatinine 0.40L, Sodium Level 135L, Potassium Level 3.9#, Chloride Level 102, Carbon Dioxide Level 26, Calcium Level 8.6L Microbiology Microbiology 10/24/18 Clostridium difficile (PCR) - Final, Complete 10/24/18 Stool Occult Blood (SHANELLE) - Final, Complete 10/23/18 Stool Occult Blood (SHANELLE) - Final, Complete 10/22/18 Respiratory Virus Panel (PCR) (SHANELLE) - Final, Complete 10/20/18 Urine Culture - Final, Complete Current Medications Current Medications Current Medications Acetaminophen (Tylenol Tab) 1,000 mg Q6HP PRN PO MILD PAIN (PS 1-8) Last administered on 10/25/18at 20:53; Start 10/04/18 at 16:45 Albuterol/ Ipratropium (Duoneb (Ipr 0.5mg/Alb 2.5mg)) 3 ml RTID NEB Last administered on 10/26/18 07:26; Start 10/22/18 at 19:15 Bisacodyl (Dulcolax Suppository) 10 mg DAILYPRN PRN [place] CONSTIPATION; Start 10/04/18 at 16:45 Carvedilol (COReg) 3.125 mg BID PO Last administered on 10/25/18 20:52; Start 10/04/18 at 21:00 Cefdinir (Omnicef) 300 mg BID PO ; Start 10/17/18 at 09:00; Stop 10/17/18 at 09:00; Status DC Donepezil HCl (AriCEPT) 5 mg DAILY PO Last administered on 10/17/18 08:29; Start 10/05/18 at 09:00; Stop 10/17/18 at 10:52; Status DC Donepezil HCl (AriCEPT) 10 mg DAILY PO Last administered on 10/26/18 09:10; Start 10/18/18 at 09:00 Dorzolamide/ Timolol (Cosopt Ocumeter Plus) 1 drop BID OU Last administered on 10/26/18 09:11; Start 10/04/18 at 21:00 Dronabinol (Marinol) 2.5 mg QHS PO Last administered on 10/25/18 20:51; Start 10/24/18 at 21:00 Ferrous Sulfate (Ferrous Sulfate) 325 mg BID PO Last administered on 10/26/18 09:10; Start 10/05/18 at 09:00 Fish Oil ([place]-3 (1000mg)) 1 cap BID PO Last administered on 10/26/18 09:10; Start 10/05/18 at 09:00 Fluoxetine HCl (PROzac) 20 mg DAILY PO Last administered on 10/17/18 08:29; Start 10/05/18 at 09:00; Stop 10/17/18 at 10:52; Status DC Fluoxetine HCl (PROzac) 30 mg DAILY PO Last administered on 10/26/18 09:10; Start 10/18/18 at 09:00 Gabapentin (Neurontin) 100 mg BID PO Last administered on 1/7/19at 08:54; Start 10/04/18 at 21:00; Stop 10/22/18 at 10:39; Status DC Guaifenesin (Mucinex Tab Er) 600 mg BID PO Last administered on 10/22/18at 08:56; Start 10/17/18 at 09:00; Stop 10/22/18 at 19:16; Status DC Guaifenesin (Mucinex Tab Er) 600 mg TID PO Last administered on 10/26/18at 09:11 ; Start 10/22/18 at 21:00 Home Med (Med Rec Complete!) ASDIRECTED XX ; Start 10/04/18 at 20:00; Stop 10/04/18 at 20:00; Status DC Levofloxacin (Levaquin) 250 mg DAILY@06 PO Last administered on 10/19/18at 05:33; Start 10/17/18 at 06:00; Stop 10/19/18 at 06:01; Status DC Levofloxacin (Levaquin) 750 mg DAILY@06 PO Last administered on 10/22/18at 06:10; Start 10/20/18 at 17:00; Stop 10/22/18 at 10:32; Status DC Magnesium Hydroxide (Milk Of Magnesia) 30 ml DAILYPRN PRN PO CONSTIPATION; Start 10/04/18 at 16:45 Miscellaneous (Unresolved Clarification Entry) SEE LABEL COMMENTS UNRESOLVED XX ; Start 10/12/18 at 00:01; Stop 10/12/18 at 00:01; Status DC Miscellaneous (Unresolved Patient Own Med Order) SEE LABEL COMMENTS DAILY XX ; Start 10/04/18 at 09:00; Stop 10/11/18 at 09:42; Status DC Miscellaneous (Unresolved Patient Own Med Order) SEE LABEL COMMENTS DAILY XX Last administered on 10/12/18at 09:00; Start 10/11/18 at 09:00; Stop 10/17/18 at 08:33; Status DC Oseltamivir Phosphate (Tamiflu) 30 mg DAILY PO Last administered on 10/26/18at 09:11; Start 10/23/18 at 09:00; Stop 11/01/18 at 09:01 Pantoprazole Sodium (Protonix) 40 mg DAILY PO Last administered on 10/26/18at 09:11; Start 10/05/18 at 09:00 Patient Own Medication (Patient'S Own Med) 1 ea BID OU ; Start 10/15/18 at 21:00; Status UNV Patient Own Medication (Patient'S Own Med) Epinastine HCl 0.05% -1 drop BID OU Last administered on 10/26/18 09:11; Start 10/17/18 at 09:00 Patient Own Medication (Patient'S Own Med) Epinastine HCl 0.05% -1 drop BID OU ; Start 10/07/18 at 21:00; Stop 10/17/18 at 09:14; Status DC Potassium Chloride (Micro-K Extencaps) 40 meq DAILY PO Last administered on 10/25/18 09:29; Start 10/24/18 at 12:15; Stop 10/25/18 at 09:01; Status DC Rivaroxaban (Xarelto) 10 mg DAILY@1800 PO Last administered on 10/25/18at 17:31; Start 10/04/18 at 18:00; Stop 11/06/18 at 23:55 Senna/Docusate Sodium (Senokot S) 1 tab BID PO Last administered on 10/24/18at 08:57; Start 10/04/18 at 21:00 Sodium Biphosphate/ Sodium Phosphate (Fleet Enema) 1 ea DAILYPRN PRN [place] CONSTIPATION; Start 10/04/18 at 16:45 Thiamine HCl (Thiamine HCl) 100 mg DAILY PO Last administered on 10/26/18at 09:10; Start 10/05/18 at 09:00 Trazodone HCl (Desyrel) 25 mg Q6HP PRN PO AGITATION; Start 10/04/18 at 16:45; Stop 10/22/18 at 12:02; Status DC Trazodone HCl (Desyrel) 25 mg QHSP PRN PO INSOMNIA Last administered on 10/21/18 at 20:24; Start 10/04/18 at 16:45; Stop 10/22/18 at 12:02; Status DC Trimethoprim/ Sulfamethoxazole (Bactrim Ds, Septra Ds 160mg/ 800mg) 1 tab BID PO Last administered on 10/09/18at 20:47; Start 10/05/18 at 09:00; Stop 10/09/18 at 21:01; Status DC Zinc Oxide (Boudreauxs Butt Paste) apply to sacrum TID TOP Last administered on 10/26/18at 09:11; Start 10/05/18 at 09:00 LIZZETTE LOUIS MD Oct 26, 2018 12:50
--- NOTE | 2018-10-26 12:52 | IPNPDOC ---
PM&R Progress Note DATE OF SERVICE: Oct 26, 2018 Coping Machine Operator Progress Note DSubjective: Patient had loose stools again today, refusing to eat, but willing to participate in therapy. REVIEW OF SYSTEMS: The following is a completed review of systems and has been reviewed. PAIN: Patient self reports no pain CARDIOVASCULAR: denies chest pain PULMONARY: Negative. Denies shortness of breath GASTROINTESTINAL:no constipation or diarrhea GENITOURINARY: +UTI (resolved) MUSCULOSKELETAL: +right hip ORIF HEMATOLOGICAL: +blood loss anemia-stable SKIN: + right hip incision PSYCHIATRIC: +dementia All other review of systems found to be negative. PHYSICAL EXAMINATION: VITAL SIGNS: Please see below. GENERAL: Pleasant and cooperative. No acute distress. lethargic, pale HEENT: PERRL. Extraocular movements intact. Clear conjunctiva CARDIOVASCULAR: Regular rate and rhythm. +systolic murmurs, no rubs, or gallops. LUNGS: Clear to auscultation bilaterally. No wheezes. No rhonchi ABDOMEN: Soft, nontender, normoactive bowel sounds and non-distended NEUROLOGICAL:Not oriented to person, place, or time, able to follow 2-step commands inconsistently Cranial nerves II through XII grossly intact. Sensation grossly intact EXTREMITIES: 5\5 strength bilateral upper extremities. 5\5 strength right lower extremity, except limited hip flexion and knee extension due to pain (>4/5). 5/5 strength in left lower extremity. SKIN: right hip incision, mild edema and ecchymosis, no induration or erythema GOALS: ASSESSMENT: 87-year-old F with past medical history of dementia who presents status post fall with right hip ORIF. PLAN: 1. rehab: PT/OT, assess for DME needs, ambulating further with RW, she is SBA for all ADLs and ambulation 2. 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 Ortho: s/p ORIF 10-02-18, WBAT, ortho consult 4. HTN: continue home meds and adjust, medicine consult, recs appreciated 5. : +MRSA Ucx on prior admission, s/pBactrim x5 days, monitor PVRs- repeat UA positive for E coli s/p treat s/p 3 day course of Levaquin at 250mg , and another 3 day course at 750mg, however most recent Ucx negative -started prophylactic Tamiflu given recent syncopal episode and having been around family members recovering from the flu, however respiratory panel is negative-improving 6. Heme: blood loss anemia, continue iron and monitor s/p 2 units of prbcs-FOBT negative 10-23-18 7. ID: patient has appeared pale and lethargic since the weekend, no leukocytosis, mild cough, with epsiode of diarrhea today and complaining of upset stomach- continuesto improve today, negative C diff assay s/p IVF 7. DVT ppx: Xarelto, started Marinol for poor appetite, will encourage po intake, will give D5 NS x 1 L today 8. GI ppx: Protonix 9. Pain: Tylenol, avoid opioids, off gabapentin 11. DNR/DNI 12. Dispo, paperwork in process for [place], was progressing towards goals, aw aiting bed Allergies Coded Allergies: No Known Allergies (Unverified , 09/28/18) Vital Signs Vital Signs Date Time Temp Pulse Resp B/P (MAP) Pulse Ox O2 Delivery O2 Flow Rate FiO2 10/26/18 09:00 68 10/26/18 06:00 98.5 18 155/65 (95) 96 Room Air Laboratory Data CBC/BMP Laboratory Tests 10/26/18 06:20 Calcium Level 8.6 L Labs 24H Laboratory Tests 2 10/26/18 06:20: Anion Gap 7L, Glomerular Filtration Rate > 60.0, Blood Urea Nitrogen 8, Creatinine 0.40L, Sodium Level 135L, Potassium Level 3.9#, Chloride Level 102, Carbon Dioxide Level 26, Calcium Level 8.6L Microbiology Microbiology 10/24/18 Clostridium difficile (PCR) - Final, Complete 10/24/18 Stool Occult Blood (SHANELLE) - Final, Complete 10/23/18 Stool Occult Blood (SHANELLE) - Final, Complete 10/22/18 Respiratory Virus Panel (PCR) (SHANELLE) - Final, Complete 10/20/18 Urine Culture - Final, Complete Current Medications Current Medications Current Medications Acetaminophen (Tylenol Tab) 1,000 mg Q6HP PRN PO MILD PAIN (PS 1-8) Last administered on 10/25/18at 20:53; Start 10/04/18 at 16:45 Albuterol/ Ipratropium (Duoneb (Ipr 0.5mg/Alb 2.5mg)) 3 ml RTID NEB Last administered on 10/26/18 07:26; Start 10/22/18 at 19:15 Bisacodyl (Dulcolax Suppository) 10 mg DAILYPRN PRN [place] CONSTIPATION; Start 10/04/18 at 16:45 Carvedilol (COReg) 3.125 mg BID PO Last administered on 10/25/18 20:52; Start 10/04/18 at 21:00 Cefdinir (Omnicef) 300 mg BID PO ; Start 10/17/18 at 09:00; Stop 10/17/18 at 09:00; Status DC Donepezil HCl (AriCEPT) 5 mg DAILY PO Last administered on 10/17/18 08:29; Start 10/05/18 at 09:00; Stop 10/17/18 at 10:52; Status DC Donepezil HCl (AriCEPT) 10 mg DAILY PO Last administered on 10/26/18 09:10; Start 10/18/18 at 09:00 Dorzolamide/ Timolol (Cosopt Ocumeter Plus) 1 drop BID OU Last administered on 10/26/18 09:11; Start 10/04/18 at 21:00 Dronabinol (Marinol) 2.5 mg QHS PO Last administered on 10/25/18 20:51; Start 10/24/18 at 21:00 Ferrous Sulfate (Ferrous Sulfate) 325 mg BID PO Last administered on 10/26/18 09:10; Start 10/05/18 at 09:00 Fish Oil ([place]-3 (1000mg)) 1 cap BID PO Last administered on 10/26/18 09:10; Start 10/05/18 at 09:00 Fluoxetine HCl (PROzac) 20 mg DAILY PO Last administered on 10/17/18 08:29; Start 10/05/18 at 09:00; Stop 10/17/18 at 10:52; Status DC Fluoxetine HCl (PROzac) 30 mg DAILY PO Last administered on 10/26/18 09:10; Start 10/18/18 at 09:00 Gabapentin (Neurontin) 100 mg BID PO Last administered on 10/22/18 08:54; Start 10/04/18 at 21:00; Stop 10/22/18 at 10:39; Status DC Guaifenesin (Mucinex Tab Er) 600 mg BID PO Last administered on 10/22/18at 08:56; Start 10/17/18 at 09:00; Stop 10/22/18 at 19:16; Status DC Guaifenesin (Mucinex Tab Er) 600 mg TID PO Last administered on 10/26/18at 09:11; Start 10/22/18 at 21:00 Home Med (Med Rec Complete!) ASDIRECTED XX ; Start 10/04/18 at 20:00; Stop 10/04/18 at 20:00; Status DC Levofloxacin (Levaquin) 250 mg DAILY@06 PO Last administered on 10/19/18at 05:33; Start 10/17/18 at 06:00; Stop 10/19/18 at 06:01; Status DC Levofloxacin (Levaquin) 750 mg DAILY@06 PO Last administered on 10/22/18at 06:10; Start 10/20/18 at 17:00; Stop 10/22/18 at 10:32; Status DC Magnesium Hydroxide (Milk Of Magnesia) 30 ml DAILYPRN PRN PO CONSTIPATION; Start 10/04/18 at 16:45 Miscellaneous (Unresolved Clarification Entry) SEE LABEL COMMENTS UNRESOLVED XX ; Start 10/12/18 at 00:01; Stop 10/12/18 at 00:01; Status DC Miscellaneous (Unresolved Patient Own Med Order) SEE LABEL COMMENTS DAILY XX ; Start 10/04/18 at 09:00; Stop 10/11/18 at 09:42; Status DC Miscellaneous (Unresolved Patient Own Med Order) SEE LABEL COMMENTS DAILY XX Last administered on 10/12/18at 09:00; Start 10/11/18 at 09:00; Stop 10/17/18 at 08:33; Status DC Oseltamivir Phosphate (Tamiflu) 30 mg DAILY PO Last administered on 10/26/18at 09:11; Start 10/23/18 at 09:00; Stop 11/01/18 at 09:01 Pantoprazole Sodium (Protonix) 40 mg DAILY PO Last administered on 10/26/18at 09:11; Start 10/05/18 at 09:00 Patient Own Medication (Patient'S Own Med) 1 ea BID OU ; Start 10/15/18 at 21:00; Status UNV Patient Own Medication (Patient'S Own Med) Epinastine HCl 0.05% -1 drop BID OU Last administered on 10/26/18at 09:11; Start 10/17/18 at 09:00 Patient Own Medication (Patient'S Own Med) Epinastine HCl 0.05% -1 drop BID OU ; Start 10/07/18 at 21:00; Stop 10/17/18 at 09:14; Status DC Potassium Chloride (Micro-K Extencaps) 40 meq DAILY PO Last administered on 10/25/18at 09:29; Start 10/24/18 at 12:15; Stop 10/25/18 at 09:01; Status DC Rivaroxaban (Xarelto) 10 mg DAILY@1800 PO Last administered on 10/25/18at 17:31; Start 10/04/18 at 18:00; Stop 11/06/18 at 23:55 Senna/Docusate Sodium (Senokot S) 1 tab BID PO Last administered on 10/24/18at 08:57; Start 10/04/18 at 21:00 Sodium Biphosphate/ Sodium Phosphate (Fleet Enema) 1 ea DAILYPRN PRN [place] CONSTIPATION; Start 10/04/18 at 16:45 Thiamine HCl (Thiamine HCl) 100 mg DAILY PO Last administered on 10/26/18at 09:10; Start 10/05/18 at 09:00 Trazodone HCl (Desyrel) 25 mg Q6HP PRN PO AGITATION; Start 10/04/18 at 16:45; Stop 10/22/18 at 12:02; Status DC Trazodone HCl (Desyrel) 25 mg QHSP PRN PO INSOMNIA Last administered on 10/21/18at 20:24; Start 10/04/18 at 16:45; Stop 10/22/18 at 12:02; Status DC Trimethoprim/ Sulfamethoxazole (Bactrim Ds, Septra Ds 160mg/ 800mg) 1 tab BID PO Last administered on 10/09/18at 20:47; Start 10/05/18 at 09:00; Stop 10/09/18 at 21:01; Status DC Zinc Oxide (Boudreauxs Butt Paste) apply to sacrum TID TOP Last administered on 10/26/18at 09:11; Start 10/05/18 at 09:00 LIZZETTE LOUIS MD Oct 26, 2018 12:52
[2018-10-26] MEDS ORDERED: D5W/0.9% SODIUM CHLORIDE 1,000 ML IV ONE (13:00)
[2018-10-26 14:00] VITALS: BP 159/73
[2018-10-26] MEDS: RIVAROXABAN 10 MG TAB (XARELTO) PO SCH (17:26)
[2018-10-26 20:30] VITALS: BP_SYST 120; BP_SYST 164; BP_DIAS 68; BP_DIAS 82
[2018-10-26] MEDS: DRONABINOL 2.5 MG CAP (MARINOL) PO SCH (21:15)
[2018-10-27 06:00] VITALS: BP 144/70
[2018-10-27] MEDS: IPRATROPIUM 0.5MG/ALBUTEROL 2.5MG INH SOL UD 3ML (DUONEB)(J7620) NEB SCH ×3 (07:30→20:00)
[2018-10-27] MEDS: FLUoxetine 10 MG CAP PO SCH (08:24)
[2018-10-27] MEDS: DONEPEZIL 5 MG TAB PO SCH (08:24)
[2018-10-27] MEDS: guaiFENesin ER 600 MG TAB PO SCH ×3 (08:24→21:14)
[2018-10-27] MEDS: OSELTAMIVIR PHOSPHATE 30MG CAPSULE PO SCH (08:24)
[2018-10-27] MEDS: PANTOPRAZOLE 40MG TAB (PROTONIX) PO SCH (08:24)
[2018-10-27] MEDS: THIAMINE 100 MG TAB PO SCH (08:24)
[2018-10-27] MEDS: FERROUS SULFATE 325MG TAB PO SCH ×2 (08:24→21:10)
[2018-10-27] MEDS: OMEGA-3 1000MG CAPSULE PO SCH ×2 (08:24→21:14)
[2018-10-27] MEDS: SENOKOT S TAB PO SCH ×2 (08:24→21:10)
[2018-10-27] MEDS: COSOPT OCUMETER PLUS 10ML (DORZOLAMIDE/TIMOLOL) OU SCH ×2 (08:25→21:11)
[2018-10-27] MEDS: EPINASTINE 0.05% OU SCH ×2 (08:25→21:11)
[2018-10-27] MEDS: CARVedilol 3.125 MG TAB PO SCH ×2 (08:25→21:10)
[2018-10-27] MEDS: BOUDREAUX'S BUTT PASTE 4OZ TOP SCH ×3 (08:26→21:12)
[2018-10-27] MEDS: ACETAMINOPHEN 500 MG TAB PO PRN (12:21)
[2018-10-27 14:00] VITALS: BP 156/74
[2018-10-27] MEDS: RIVAROXABAN 10 MG TAB (XARELTO) PO SCH (18:00)
[2018-10-27 20:00] VITALS: BP 155/79
[2018-10-27] MEDS: DRONABINOL 2.5 MG CAP (MARINOL) PO SCH (21:10)
[2018-10-28 06:00] VITALS: BP 158/74
[2018-10-28] MEDS: IPRATROPIUM 0.5MG/ALBUTEROL 2.5MG INH SOL UD 3ML (DUONEB)(J7620) NEB SCH ×3 (07:21→19:43)
[2018-10-28] MEDS: guaiFENesin ER 600 MG TAB PO SCH ×3 (08:29→20:55)
[2018-10-28] MEDS: OMEGA-3 1000MG CAPSULE PO SCH ×2 (08:29→20:53)
[2018-10-28] MEDS: PANTOPRAZOLE 40MG TAB (PROTONIX) PO SCH (08:29)
[2018-10-28] MEDS: SENOKOT S TAB PO SCH ×2 (08:30→20:53)
[2018-10-28] MEDS: THIAMINE 100 MG TAB PO SCH (08:30)
[2018-10-28] MEDS: FLUoxetine 10 MG CAP PO SCH (08:30)
[2018-10-28] MEDS: DONEPEZIL 5 MG TAB PO SCH (08:30)
[2018-10-28] MEDS: ACETAMINOPHEN 500 MG TAB PO PRN (08:30)
[2018-10-28] MEDS: OSELTAMIVIR PHOSPHATE 30MG CAPSULE PO SCH (08:30)
[2018-10-28] MEDS: FERROUS SULFATE 325MG TAB PO SCH ×2 (08:30→20:52)
[2018-10-28] MEDS: EPINASTINE 0.05% OU SCH ×2 (08:31→20:58)
[2018-10-28] MEDS: CARVedilol 3.125 MG TAB PO SCH ×2 (08:31→20:58)
[2018-10-28] MEDS: COSOPT OCUMETER PLUS 10ML (DORZOLAMIDE/TIMOLOL) OU SCH ×2 (08:31→20:59)
[2018-10-28] MEDS: BOUDREAUX'S BUTT PASTE 4OZ TOP SCH ×3 (08:31→21:00)
[2018-10-28 14:00] VITALS: BP 109/72
[2018-10-28] MEDS: RIVAROXABAN 10 MG TAB (XARELTO) PO SCH (18:17)
[2018-10-28 20:00] VITALS: BP 132/63
[2018-10-28] MEDS: DRONABINOL 2.5 MG CAP (MARINOL) PO SCH (20:53)
[2018-10-29 06:00] VITALS: BP 151/74
[2018-10-29] MEDS ORDERED: XARE10TA PO (06:07)
[2018-10-29] MEDS: CARVedilol 3.125 MG TAB PO SCH ×2 (07:17→21:00)
[2018-10-29] MEDS: IPRATROPIUM 0.5MG/ALBUTEROL 2.5MG INH SOL UD 3ML (DUONEB)(J7620) NEB SCH ×3 (07:35→20:46)
[2018-10-29] MEDS: FERROUS SULFATE 325MG TAB PO SCH ×2 (08:58→21:33)
[2018-10-29] MEDS: OSELTAMIVIR PHOSPHATE 30MG CAPSULE PO SCH (08:59)
[2018-10-29] MEDS: FLUoxetine 10 MG CAP PO SCH (08:59)
[2018-10-29] MEDS: PANTOPRAZOLE 40MG TAB (PROTONIX) PO SCH (08:59)
[2018-10-29] MEDS: THIAMINE 100 MG TAB PO SCH (08:59)
[2018-10-29] MEDS: OMEGA-3 1000MG CAPSULE PO SCH ×2 (08:59→21:33)
[2018-10-29] MEDS: guaiFENesin ER 600 MG TAB PO SCH ×3 (08:59→21:34)
[2018-10-29] MEDS: DONEPEZIL 5 MG TAB PO SCH (08:59)
[2018-10-29] MEDS: BOUDREAUX'S BUTT PASTE 4OZ TOP SCH ×3 (09:00→21:35)
[2018-10-29] MEDS: EPINASTINE 0.05% OU SCH ×2 (09:00→21:35)
[2018-10-29] MEDS: COSOPT OCUMETER PLUS 10ML (DORZOLAMIDE/TIMOLOL) OU SCH ×2 (09:00→21:34)
[2018-10-29] MEDS: SENOKOT S TAB PO SCH ×2 (09:00→21:00)
[2018-10-29] MEDS: ACETAMINOPHEN 500 MG TAB PO PRN ×2 (13:38→21:33)
[2018-10-29 14:00] VITALS: BP 136/74
[2018-10-29] MEDS: RIVAROXABAN 10 MG TAB (XARELTO) PO SCH (17:02)
[2018-10-29 20:05] VITALS: BP 142/70
[2018-10-29] MEDS: DRONABINOL 2.5 MG CAP (MARINOL) PO SCH (21:33)
[2018-10-30 06:05] VITALS: BP 160/80
[2018-10-30] MEDS: IPRATROPIUM 0.5MG/ALBUTEROL 2.5MG INH SOL UD 3ML (DUONEB)(J7620) NEB SCH ×3 (07:31→20:54)
[2018-10-30] MEDS: CARVedilol 3.125 MG TAB PO SCH ×2 (09:00→21:35)
[2018-10-30] MEDS: BOUDREAUX'S BUTT PASTE 4OZ TOP SCH ×3 (09:00→21:36)
[2018-10-30] MEDS: SENOKOT S TAB PO SCH ×2 (09:07→21:35)
[2018-10-30] MEDS: PANTOPRAZOLE 40MG TAB (PROTONIX) PO SCH (09:07)
[2018-10-30] MEDS: OMEGA-3 1000MG CAPSULE PO SCH ×2 (09:07→21:34)
[2018-10-30] MEDS: FLUoxetine 10 MG CAP PO SCH (09:08)
[2018-10-30] MEDS: THIAMINE 100 MG TAB PO SCH (09:09)
[2018-10-30] MEDS: FERROUS SULFATE 325MG TAB PO SCH ×2 (09:09→21:34)
[2018-10-30] MEDS: COSOPT OCUMETER PLUS 10ML (DORZOLAMIDE/TIMOLOL) OU SCH ×2 (09:09→21:35)
[2018-10-30] MEDS: OSELTAMIVIR PHOSPHATE 30MG CAPSULE PO SCH (09:09)
[2018-10-30] MEDS: DONEPEZIL 5 MG TAB PO SCH (09:09)
[2018-10-30] MEDS: guaiFENesin ER 600 MG TAB PO SCH ×3 (09:09→21:34)
[2018-10-30] MEDS: EPINASTINE 0.05% OU SCH ×2 (09:10→21:35)
--- NOTE | 2018-10-30 12:11 | IPNPDOC ---
Date Seen The patient was seen on 10/30/18. Progress Note ATTENDING: Dr. Medardo Lund PCP: Dr Latoya Mendoza HPI: 87 year old female with chronic Dementia, who lives at home with her grandson and usually walks with a walker, unable to perform ADLs without assistance sustained a fall at home without prodromal symptoms. According to the grandson, pt has been in her usual state of health without fever, chills, diarrhea, headache, constipation, dysuria, urgency, frequency and often suffers from chronic back pain and vertigo. She was found on the floor covered in urine and may have been there since last night. Per daughter, no prior history of malignancy. Her fall was unwitnessed, and despite the patient saying that she did not hit her head, pt's daughter says, that the patient is an unreliable historian In the Emergency room, she was found to have a closed intertrochanteric fracture of the right hip. CT extremity 09/28/18: mixed lytic lesions from possible malignancy and osteoporosis. Orthopedic surgery, Dr. Stratton, has been consulted for management. S/P right hip biopsy 09/28/18 was negative for malignancy. S/p ORIF on 10/02/18. The pt was transferred to ARU, to Dr Thompson Escalona, 10/04/18. The pt provides very little history related to dementia. She is currently in bed and states she feels well. She reports no pain or concerns at this time. Family at bedside with no concerns. She denies any dizziness or lightheadedness. Pt does not c/o any fevers, chills, weakness, fatigue, Headache, Chest Pain, Shortness of breath, cough, palpitations, abdominal pain, N/V/D or changes in bowel or bladder habits. PMHx: Advanced dementia acute blood loss anemia Right thigh hematoma hypertension vertigo osteoporosis glaucoma hyperlipidemia Single lytic lesion of bone s/p biopsy no malignancy detected. Osteoporosis PSHX: Cataract surgery b/l, teeth extraction, tonsillectomy, adenoidectomy, comminuted intertrochanteric fracture of right femur s/p ORIF PE: GEN: 87yoF, appears stated age. Alert and responsive to question, pleasantly confused. HEENT: Normocephalic, atraumatic. Sclera are nonicteric. Conjunctiva without injection. Nose midline. No facial asymmetry. Moist mucous membranes. Neck supple, trachea midline. CHEST: Regular rate and rhythm, +S1, +S2 LUNGS: Clear to auscultation bilaterally. No wheezes, rales, or rhonchi. ABD: Round, soft, non-tender, non-distended. +Bowel sounds throughout. EXT: No lower extremity edema appreciated. SKIN: [place], dry, warm. No rashes. NEURO: No focal deficits appreciated. UC 10/20/18 neg Resp panel 10/22 neg. FOB 10/23/18 neg CTH Diffuse atrophy, small vessel changes, vascular calcification. No acute intracranial abnormality. Electronically Signed by Chidi Hernandez MD 09/28/2018 12:26 P A&P: 87 year old female with chronic Dementia, who lives at home with her grandson and usually walks with a walker, unable to perform ADLs without assistance sustained a fall at home without prodromal symptoms. According to the grandson, pt has been in her usual state of health without fever, chills, diarrhea, headache, constipation, dysuria, urgency, frequency and often suffers from chronic back pain and vertigo. She was found on the floor covered in urine and may have been there since last night. Per daughter, no prior history of malignancy. Her fall was unwitnessed, and despite the patient saying that she did not hit her head, pt's daughter says, that the patient is an unreliable historian In the Emergency room, she was found to have a closed intertrochanteric fracture of the right hip. CT extremity 09/28/18: mixed lytic lesions from possible malignancy and osteoporosis. Orthopedic surgery, Dr. Stratton, has been consulted for management. S/P right hip biopsy 09/28/18 was negative for malignancy. S/p ORIF on 10/02/18. The pt was transferred to ARU, to Dr Thompson Escalona, 10/04/18. Comminuted intertrochanteric fracture of the right femur secondary to a fall at home and longstanding history of osteoporosis and possible lytic lesions from unknown primary malignancy. s/p right hip biopsy 09/28/18 was negative for malignancy. S/p ORIF on 10/02/18 as per Orthopedic surgery. management as per Orthopedics. PT/OT/ST as per ARU. Pain control as per ARU. Bowel care as per ARU. DVT prophylaxis Xarelto as per Orthopedics. Right thigh Hematoma: secondary to right hip fracture s/p fall. s/p 3 unit rbc transfusion 09/29,10/07,10/08/18. Pt on Fe supplement. FOB 10/23/18 neg. Monitor trend. CBC pending. Acute blood loss anemia: secondary to right thigh hematoma and longstanding history of LGI bleed refusing colonoscopy. s/p 1 unit rbc transfusion 09/29/18. Per daughter, pt has refused colonoscopy. Hgb stable. FOB 10/23/18 neg. Bone lytic lesions: s/p right hip biopsy 09/28/18. neg biopsy for malignancy. Hypertension: controlled. Coreg 3.125mg BID with holding parameters Glaucoma: Continue home meds Hypercholesterolemia: not on meds Chronic Vertigo: pt has advanced dementia and could not provide history regarding her recent fall at home. Dtr states she uses meclizine as needed. Advanced Dementia: worsening according to the family. Has a grandson living with her, requires help with ADLs. Aricept/Prozac. UTI. E Coli UC 10/13/18. S /P Levaquin po. UC 10/20/18 neg. Monitor. Hypokalemia. Resolved s/p po supplement. BMP pending. MOLST scanned in chart. DNR. VS, I&O, 24H, Fishbone Vital Signs/I&O Vital Signs Date Time Temp Pulse Resp B/P (MAP) Pulse Ox O2 Delivery O2 Flow Rate FiO2 10/30/18 09:00 64 121/64 10/30/18 06:05 98.2 18 95 Room Air I&O- Last 24 Hours up to 6 AM 10/30/18 06:00 Intake Total 540 ml Balance 540 ml Laboratory Data Microbiology Microbiology 10/24/18 Clostridium difficile (PCR) - Final, Complete 10/24/18 Stool Occult Blood (SHANELLE) - Final, Complete 10/23/18 Stool Occult Blood (SHANELLE) - Final, Complete 10/22/18 Respiratory Virus Panel (PCR) (SHANELLE) - Final, Complete 10/20/18 Urine Culture - Final, Complete Cora Johnson Oct 30, 2018 12:11
[2018-10-30 12:31] LABS: BASO % 0.2 % (0.0-1.0); EOS # 0.1 10^3/uL (0.0-0.50); EOS % 0.6 % (0.0-3.0); HEMATOCRIT 33.5 % (36.0-47.0); HEMOGLOBIN 10.9 g/dl (12.0-15.5); LYMPH # 1.2 10^3/uL (1.5-4.5); LYMPH % 14.3 % (24.0-44.0); MEAN CORPUSCULAR HEMOGLOBIN 28.8 pg (27.0-33.0); MEAN CORPUSCULAR HGB CONC 32.5 g/dl (32.0-36.5); MEAN CORPUSCULAR VOLUME 88.4 fl (80.0-96.0); MONO # 0.8 10^3/uL (0.0-0.8); MONO % 9.3 % (0.0-5.0); NEUTROPHILS % 75.2 % (36.0-66.0); PLATELET COUNT, AUTOMATED 306 10^3/uL (150-450); RED BLOOD COUNT 3.79 10^6/uL (4.00-5.40)
--- NOTE | 2018-10-30 12:47 | IPNPDOC ---
PM&R Progress Note DATE OF SERVICE: Oct 30, 2018 [employer]sembler Progress Note Subjective: Patient's loose stools resolved, she was seen up and walking comfortably, with family present. Appetite still poor, but improving. REVIEW OF SYSTEMS: The following is a completed review of systems and has been reviewed. PAIN: Patient self reports no pain CARDIOVASCULAR: denies chest pain PULMONARY: Negative. Denies shortness of breath GASTROINTESTINAL:no constipation or diarrhea GENITOURINARY: +UTI (resolved) MUSCULOSKELETAL: +right hip ORIF HEMATOLOGICAL: +blood loss anemia-stable SKIN: + right hip incision PSYCHIATRIC: +dementia All other review of systems found to be negative. PHYSICAL EXAMINATION: VITAL SIGNS: Please see below. GENERAL: Pleasant and cooperative. No acute distress. lethargic, pale HEENT: PERRL. Extraocular movements intact. Clear conjunctiva CARDIOVASCULAR: Regular rate and rhythm. +systolic murmurs, no rubs, or gallops. LUNGS: Clear to auscultation bilaterally. No wheezes. No rhonchi ABDOMEN: Soft, nontender, normoactive bowel sounds and non-distended NEUROLOGICAL:Not oriented to person, place, or time, able to follow 2-step commands inconsistently Cranial nerves II through XII grossly intact. Sensation grossly intact EXTREMITIES: 5\5 strength bilateral upper extremities. 5\5 strength right lower extremity, except limited hip flexion and knee extension due to pain (>4/5). 5/5 strength in left lower extremity. SKIN: right hip incision, mild edema and ecchymosis, no induration or erythema GOALS: ASSESSMENT: 87-year-old F with past medical history of dementia who presents status post fall with right hip ORIF. PLAN: 1. rehab: PT/OT, assess for DME needs, ambulating further with RW, she is SBA for all ADLs and ambulation 2. Neuro: severe dementia has not been worked up per family- ordered TSH/FT4-WNL -MMA for B12 deficiency-wnl -continue Donepezil for cognition. 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 Ortho: s/p ORIF 10-02-18, WBAT, ortho consult 4. HTN: continue home meds and adjust, medicine consult, recs appreciated 5. : +MRSA Ucx on prior admission, s/pBactrim x5 days, monitor PVRs- repeat UA positive for E coli s/p treat s/p 3 day course of Levaquin at 250mg , and another 3 day course at 750mg, however most recent Ucx negative -started prophylactic Tamiflu given recent syncopal episode and having been around family members recovering from the flu, however respiratory panel is ne gative-improving 6. Heme: blood loss anemia, continue iron and monitor s/p 2 units of prbcs-FOBT negative 10-23-18 7. ID: patient has appeared pale and lethargic since the weekend, no leukocytosis, mild cough, with epsiode of diarrhea today and complaining of upset stomach- continuesto improve today, negative C diff assay s/p IVF 7. DVT ppx: Xarelto, started Marinol for poor appetite, will encourage po intake, gradually improving 8. GI ppx: Protonix 9. Pain: Tylenol, avoid opioids, off gabapentin 11. DNR/DNI 12. Dispo, paperwork in process for [place], progressing towards goals, awaiting bed Allergies Coded Allergies: No Known Allergies (Unverified , 09/28/18) Vital Signs Vital Signs Date Time Temp Pulse Resp B/P (MAP) Pulse Ox O2 Delivery O2 Flow Rate FiO2 10/30/18 09:00 64 121/64 10/30/18 06:05 98.2 18 95 Room Air Laboratory Data CBC/BMP Laboratory Tests 10/30/18 12:14 Red Blood Count 3.79 L, Mean Corpuscular Volume 88.4, Mean Corpuscular Hemoglobin 28.8, Mean Corpuscular Hemoglobin Concent 32.5, Red Cell Distribution Width 14.8 H, Neutrophils (%) (Auto) 75.2 H, Lymphocytes (%) (Auto) 14.3 L, Monocytes (%) (Auto) 9.3 H, Eosinophils (%) (Auto) 0.6, Basophils (%) (Auto) 0.2, Neutrophils # (Auto) 6.0, Lymphocytes # (Auto) 1.2 L, Monocytes # (Auto) 0.8, Eosinophils # (Auto) 0.1, Basophils # (Auto) 0.0 Labs 24H Laboratory Tests 2 10/30/18 12:14: Immature Granulocyte % (Auto) 0.4, White Blood Count 8.0, Red Blood Count 3.79L, Hemoglobin 10.9L, Hematocrit 33.5L, Mean Corpuscular Volume 88.4, Mean Corpusc ular Hemoglobin 28.8, Mean Corpuscular Hemoglobin Concent 32.5, Red Cell Distribution Width 14.8H, Platelet Count 306, Neutrophils (%) (Auto) 75.2H, Lymphocytes (%) (Auto) 14.3L, Monocytes (%) (Auto) 9.3H, Eosinophils (%) (Auto) 0.6, Basophils (%) (Auto) 0.2, Neutrophils # (Auto) 6.0, Lymphocytes # (Auto) 1.2L, Monocytes # (Auto) 0.8, Eosinophils # (Auto) 0.1, Basophils # (Auto) 0.0, Nucleated Red Blood Cells % (auto) 0.0 Microbiology Microbiology 10/24/18 Clostridium difficile (PCR) - Final, Complete 10/24/18 Stool Occult Blood (SHANELLE) - Final, Complete 10/23/18 Stool Occult Blood (SHANELLE) - Final, Complete 10/22/18 Respiratory Virus Panel (PCR) (SHANELLE) - Final, Complete 10/20/18 Urine Culture - Final, Complete Current Medications Current Medications Current Medications Acetaminophen (Tylenol Tab) 1,000 mg Q6HP PRN PO MILD PAIN (PS 1-8) Last administered on 10/29/18at 21:33; Start 10/04/18 at 16:45 Albuterol/ Ipratropium (Duoneb (Ipr 0.5mg/Alb 2.5mg)) 3 ml RTID NEB Last administered on 10/30/18at 07:31; Start 10/22/18 at 19:15 Bisacodyl (Dulcolax Suppository) 10 mg DAILYPRN PRN [place] CONSTIPATION; Start 10/04/18 at 16:45 Carvedilol (COReg) 3.125 mg BID PO Last administered on 10/28/18at 08:31; Start 10/04/18 at 21:00 Cefdinir (Omnicef) 300 mg BID PO ; Start 10/17/18 at 09:00; Stop 10/17/18 at 09:00; Status DC Donepezil HCl (AriCEPT) 5 mg DAILY PO Last administered on 10/17/18at 08:29; Start 10/05/18 at 09:00; Stop 10/17/18 at 10:52; Status DC Donepezil HCl (AriCEPT) 10 mg DAILY PO Last administered on 10/30/18 09:09; Start 10/18/18 at 09:00; Stop 10/30/18 at 12:10; Status DC Donepezil HCl (AriCEPT) 10 mg QHS PO ; Start 10/31/18 at 21:00 Dorzolamide/ Timolol (Cosopt Ocumeter Plus) 1 drop BID OU Last administered on 10/30/18 09:09; Start 10/04/18 at 21:00 Dronabinol (Marinol) 2.5 mg QHS PO Last administered on 10/29/18 21:33; Start 10/24/18 at 21:00 Ferrous Sulfate (Ferrous Sulfate) 325 mg BID PO Last administered on 10/30/18 09:09; Start 10/05/18 at 09:00 Fish Oil (Foster-3 (1000mg)) 1 cap BID PO Last administered on 10/30/18 09:07; Start 10/05/18 at 09:00 Fluoxetine HCl (PROzac) 20 mg DAILY PO Last administered on 10/17/18 08:29; Start 10/05/18 at 09:00; Stop 10/17/18 at 10:52; Status DC Fluoxetine HCl (PROzac) 30 mg DAILY PO Last administered on 10/30/18 09:08; Start 10/18/18 at 09:00 Gabapentin (Neurontin) 100 mg BID PO Last administered on 10/22/18 08:54; Start 10/04/18 at 21:00; Stop 10/22/18 at 10:39; Status DC Guaifenesin (Mucinex Tab Er) 600 mg BID PO Last administered on 10/22/18 08:56; Start 10/17/18 at 09:00; Stop 10/22/18 at 19:16; Status DC Guaifenesin (Mucinex Tab Er) 600 mg TID PO Last administered on 10/30/18 09:09; Start 10/22/18 at 21:00 Home Med (Med Rec Complete!) ASDIRECTED XX ; Start 10/04/18 at 20:00; Stop 10/04/18 at 20:00; Status DC Levofloxacin (Levaquin) 250 mg DAILY@06 PO Last administered on 10/19/18at 05:33; Start 10/17/18 at 06:00; Stop 10/19/18 at 06:01; Status DC Levofloxacin (Levaquin) 750 mg DAILY@06 PO Last administered on 10/22/18at 06:10; Start 10/20/18 at 17:00; Stop 10/22/18 at 10:32; Status DC Magnesium Hydroxide (Milk Of Magnesia) 30 ml DAILYPRN PRN PO CONSTIPATION; Start 10/04/18 at 16:45 Miscellaneous (Unresolved Clarification Entry) SEE LABEL COMMENTS DAILY XX ; Start 10/28/18 at 09:00; Stop 10/28/18 at 16:59; Status DC Miscellaneous (Unresolved Clarification Entry) SEE LABEL COMMENTS UNRESOLVED XX ; Start 10/12/18 at 00:01; Stop 10/12/18 at 00:01; Status DC Miscellaneous (Unresolved Patient Own Med Order) SEE LABEL COMMENTS DAILY XX ; Start 10/04/18 at 09:00; Stop 10/11/18 at 09:42; Status DC Miscellaneous (Unresolved Patient Own Med Order) SEE LABEL COMMENTS DAILY XX Last administered on 10/12/18at 09:00; Start 10/11/18 at 09:00; Stop 10/17/18 at 08:33; Status DC Oseltamivir Phosphate (Tamiflu) 30 mg DAILY PO Last administered on 10/30/18at 09:09; Start 10/23/18 at 09:00; Stop 11/01/18 at 09:01 Pantoprazole Sodium (Protonix) 40 mg DAILY PO Last administered on 10/30/18at 09:07; Start 10/05/18 at 09:00 Patient Own Medication (Patient'S Own Med) 1 ea BID OU ; Start 10/15/18 at 21:00; Status UNV Patient Own Medication (Patient'S Own Med) Epinastine HCl 0.05% -1 drop BID OU Last administered on 10/30/18at 09:10; Start 10/17/18 at 09:00 Patient Own Medication (Patient'S Own Med) Epinastine HCl 0.05% -1 drop BID OU ; Start 10/07/18 at 21:00; Stop 10/17/18 at 09:14; Status DC Potassium Chloride (Micro-K Extencaps) 40 meq DAILY PO Last administered on 10/25/18 09:29; Start 10/24/18 at 12:15; Stop 10/25/18 at 09:01; Status DC Rivaroxaban (Xarelto) 10 mg DAILY@1800 PO Last administered on 10/29/18 17:02; Start 10/04/18 at 18:00; Stop 11/06/18 at 23:55 Senna/Docusate Sodium (Senokot S) 1 tab BID PO Last administered on 10/30/18 09:07; Start 10/04/18 at 21:00 Sodium Biphosphate/ Sodium Phosphate (Fleet Enema) 1 ea DAILYPRN PRN [place] CONSTIPATION; Start 10/04/18 at 16:45 Thiamine HCl (Thiamine HCl) 100 mg DAILY PO Last administered on 10/30/18 09:09; Start 10/05/18 at 09:00 Trazodone HCl (Desyrel) 25 mg Q6HP PRN PO AGITATION; Start 10/04/18 at 16:45; Stop 10/22/18 at 12:02; Status DC Trazodone HCl (Desyrel) 25 mg QHSP PRN PO INSOMNIA Last administered on 10/21/18 20:24; Start 10/04/18 at 16:45; Stop 10/22/18 at 12:02; Status DC Trimethoprim/ Sulfamethoxazole (Bactrim Ds, Septra Ds 160mg/ 800mg) 1 tab BID PO Last administered on 10/09/18at 20:47; Start 10/05/18 at 09:00; Stop 10/09/18 at 21:01; Status DC Zinc Oxide (Boudreauxs Butt Paste) apply to sacrum TID TOP Last administered on 10/29/18 21:35; Start 10/05/18 at 09:00 LIZZETTE LOUIS MD Oct 30, 2018 12:47
[2018-10-30 12:56] LABS: BLOOD UREA NITROGEN 14 MG/DL (7-18); CARBON DIOXIDE LEVEL 29 MEQ/L (21-32); CHLORIDE LEVEL 97 MEQ/L (98-107); CREATININE FOR GFR 0.45 MG/DL (0.55-1.30); GLOMERULAR FILTRATION RATE > 60.0 (>32); GLUCOSE, FASTING 97 MG/DL (70-100); POTASSIUM SERUM 3.8 MEQ/L (3.5-5.1); SODIUM LEVEL 132 MEQ/L (136-145)
[2018-10-30 14:00] VITALS: BP 169/80
[2018-10-30] MEDS: RIVAROXABAN 10 MG TAB (XARELTO) PO SCH (17:27)
[2018-10-30 20:00] VITALS: BP 146/78
[2018-10-30] MEDS: DRONABINOL 2.5 MG CAP (MARINOL) PO SCH (21:35)
[2018-10-30] MEDS: ACETAMINOPHEN 500 MG TAB PO PRN (21:35)
[2018-10-31 06:00] VITALS: BP 151/81
[2018-10-31 07:03] LABS: BLOOD UREA NITROGEN 17 MG/DL (7-18); CALCIUM LEVEL 8.8 MG/DL (8.8-10.2); CARBON DIOXIDE LEVEL 29 MEQ/L (21-32); CHLORIDE LEVEL 99 MEQ/L (98-107); CREATININE FOR GFR 0.48 MG/DL (0.55-1.30); GLOMERULAR FILTRATION RATE > 60.0 (>32); GLUCOSE, FASTING 99 MG/DL (70-100); POTASSIUM SERUM 4.6 MEQ/L (3.5-5.1); SODIUM LEVEL 136 MEQ/L (136-145)
[2018-10-31] MEDS: amLODIPine 5 MG TAB PO SCH (08:11)
[2018-10-31] MEDS: THIAMINE 100 MG TAB PO SCH (08:11)
[2018-10-31] MEDS: PANTOPRAZOLE 40MG TAB (PROTONIX) PO SCH (08:11)
[2018-10-31] MEDS: CARVedilol 3.125 MG TAB PO SCH (08:11)
[2018-10-31] MEDS: OSELTAMIVIR PHOSPHATE 30MG CAPSULE PO SCH (08:11)
[2018-10-31] MEDS: EPINASTINE 0.05% OU SCH ×2 (08:12→21:00)
[2018-10-31] MEDS: FERROUS SULFATE 325MG TAB PO SCH ×2 (08:12→20:59)
[2018-10-31] MEDS: guaiFENesin ER 600 MG TAB PO SCH ×3 (08:12→20:59)
[2018-10-31] MEDS: COSOPT OCUMETER PLUS 10ML (DORZOLAMIDE/TIMOLOL) OU SCH ×2 (08:12→21:00)
[2018-10-31] MEDS: OMEGA-3 1000MG CAPSULE PO SCH ×2 (08:12→20:59)
[2018-10-31] MEDS: BOUDREAUX'S BUTT PASTE 4OZ TOP SCH ×3 (08:12→21:00)
[2018-10-31] MEDS: SENOKOT S TAB PO SCH ×2 (08:12→20:59)
[2018-10-31] MEDS: IPRATROPIUM 0.5MG/ALBUTEROL 2.5MG INH SOL UD 3ML (DUONEB)(J7620) NEB SCH ×3 (09:34→20:25)
--- NOTE | 2018-10-31 13:49 | NUR ---
Pt w/ mild oral phase dysphagia characterized by decreased mastication and poor bolus manipulation. Pt w/ behavioral feeding issues & decreased overall intake. Recommend level II mechanically altered (NDD) solids, regular thin liquids, regular popcorn OK, please have pt OOB and in chair as able for meals, staff assist to encourage PO intake, ensure supplements and calorie dense food options. Dysphgia tx. Addendum: 10/31/[address] [facility] Amended: Links added.
[2018-10-31 14:00] VITALS: BP 103/59
[2018-10-31] MEDS: ACETAMINOPHEN 500 MG TAB PO PRN ×2 (14:14→20:59)
[2018-10-31] MEDS: RIVAROXABAN 10 MG TAB (XARELTO) PO SCH (17:08)
--- NOTE | 2018-10-31 18:14 | IPNPDOC ---
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 She is less inclined to feed herself and has been scheduled to eat out of bed and with nursing. REVIEW OF SYSTEMS: The following is a completed review of systems and has been reviewed. PAIN: Patient self reports no pain CARDIOVASCULAR: denies chest pain PULMONARY: Negative. Denies shortness of breath GASTROINTESTINAL:no constipation or diarrhea GENITOURINARY: +UTI (resolved) MUSCULOSKELETAL: +right hip ORIF HEMATOLOGICAL: +blood loss anemia-stable SKIN: + right hip incision PSYCHIATRIC: +dementia All other review of systems found to be negative. PHYSICAL EXAMINATION: VITAL SIGNS: Please see below. GENERAL: Pleasant and cooperative. No acute distress. lethargic, pale HEENT: PERRL. Extraocular movements intact. Clear conjunctiva CARDIOVASCULAR: Regular rate and rhythm. +systolic murmurs, no rubs, or gallops. LUNGS: Clear to auscultation bilaterally. No wheezes. No rhonchi ABDOMEN: Soft, nontender, normoactive bowel sounds and non-distended NEUROLOGICAL:Not oriented to person, place, or time, able to follow 2-step commands inconsistently Cranial nerves II through XII grossly intact. Sensation grossly intact EXTREMITIES: 5\5 strength bilateral upper extremities. 5\5 strength right lower extremity, except limited hip flexion and knee extension due to pain (>4/5). 5/5 strength in left lower extremity. SKIN: right hip incision, mild edema and ecchymosis, no induration or erythema GOALS: ASSESSMENT: 87-year-old F with past medical history of dementia who presents [facility] post fall with right hip ORIF. PLAN: 1. rehab: PT/OT, assess for DME needs, ambulating further with RW, she is SBA for all ADLs and ambulation 2. Neuro: severe dementia has not been worked up per family- ordered TSH/FT4-WNL -MMA for B12 deficiency-wnl -continue Donepezil for cognition. 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 Ortho: s/p ORIF 10-02-18, WBAT, ortho consult 4. HTN: patient with low HRs and sBPs in 150s, will switch carvedilol 3.125 BID to metoprolol succinate 12.5mg daily and monitor, amlodipine added as well, medicine consult, recs appreciated 5. : +MRSA Ucx on prior admission, s/pBactrim x5 days, monitor PVRs- repeat UA positive for E coli s/p treat s/p 3 day course of Levaquin at 250mg , and another 3 day course at 750mg, however most recent Ucx negative -spoke with Dr. White's staff and scheduled appointment for pessary exchange for uterine prolapse on 11-14-18 6. Heme: blood loss anemia, continue iron and monitor s/p 2 units of prbcs-FOBT negative 10-23-18 7. ID: lethargy, nausea and loose stools resolved, appetite improved, C diff negative s/p IVF 7. DVT ppx: Xarelto, started Marinol for poor appetite, will encourage po intake, gradually improving however diet downgraded to level 2 -finishing up prophylactic Tamiflu given recent syncopal episode and having been around family members recovering from the flu, however respiratory panel is negative-improving 8. GI ppx: Protonix 9. Pain: Tylenol, avoid opioids, off gabapentin 11. DNR/DNI 12. Dispo, paperwork in process for [place], progressing towards goals, awaiting bed Allergies Coded Allergies: No Known Allergies (Unverified , 09/28/18) Vital Signs Vital Signs Date Time Temp Pulse Resp B/P (MAP) Pulse Ox O2 Delivery O2 Flow Rate FiO2 10/31/18 14:00 98.9 62 18 103/59 (74) 99 Room Air Laboratory Data CBC/BMP Laboratory Tests 10/31/18 06:13 Calcium Level 8.8 Labs 24H Laboratory Tests 2 10/31/18 06:13: Anion Gap 8, Glomerular Filtration Rate > 60.0, Blood Urea Nitrogen 17, Creatinine 0.48L, Sodium Level 136, Potassium Level 4.6#, Chloride Level 99, Carbon Dioxide Level 29, Calcium Level 8.8 Microbiology Microbiology 10/24/18 Clostridium difficile (PCR) - Final, Complete 10/24/18 Stool Occult Blood (SHANELLE) - Final, Complete 10/23/18 Stool Occult Blood (SHANELLE) - Final, Complete 10/22/18 Respiratory Virus Panel (PCR) (SHANELLE) - Final, Complete Current Medications Current Medications Current Medications Acetaminophen (Tylenol Tab) 1,000 mg Q6HP PRN PO MILD PAIN (PS 1-8) Last administered on 10/31/18 14:14; Start 10/04/18 at 16:45 Albuterol/ Ipratropium (Duoneb (Ipr 0.5mg/Alb 2.5mg)) 3 ml RTID NEB Last administered on 10/31/18 14:49; Start 10/22/18 at 19:15 Amlodipine Besylate (Norvasc) 5 mg DAILY PO Last administered on 10/31/18 08:11; Start 10/31/18 at 09:00 Bisacodyl (Dulcolax Suppository) 10 mg DAILYPRN PRN [place] CONSTIPATION; Start 10/04/18 at 16:45 Carvedilol (COReg) 3.125 mg BID PO Last administered on 10/31/18 08:11; Start 10/04/18 at 21:00 Cefdinir (Omnicef) 300 mg BID PO ; Start 10/17/18 at 09:00; Stop 10/17/18 at 09:00; Status DC Donepezil HCl (AriCEPT) 5 mg DAILY PO Last administered on 10/17/18 08:29; Start 10/05/18 at 09:00; Stop 10/17/18 at 10:52; Status DC Donepezil HCl (AriCEPT) 10 mg DAILY PO Last administered on 10/30/18 09:09; Start 10/18/18 at 09:00; Stop 10/30/18 at 12:10; Status DC Donepezil HCl (AriCEPT) 10 mg QHS PO ; Start 10/31/18 at 21:00 Dorzolamide/ Timolol (Cosopt Ocumeter Plus) 1 drop BID OU Last administered on 10/31/18 08:12; Start 10/04/18 at 21:00 Dronabinol (Marinol) 2.5 mg QHS PO Last administered on 10/30/18at 21:35; Start 10/24/18 at 21:00 Ferrous Sulfate (Ferrous Sulfate) 325 mg BID PO Last administered on 10/31/18at 08:12; Start 10/05/18 at 09:00 Fish Oil ([place]-3 (1000mg)) 1 cap BID PO Last administered on 10/31/18at 08:12; Start 10/05/18 at 09:00 Fluoxetine HCl (PROzac) 20 mg DAILY PO Last administered on 10/17/18at 08:29; Start 10/05/18 at 09:00; Stop 10/17/18 at 10:52; Status DC Fluoxetine HCl (PROzac) 20 mg QHS PO ; Start 10/31/18 at 21:00 Fluoxetine HCl (PROzac) 30 mg DAILY PO Last administered on 10/30/18at 09:08; Start 10/18/18 at 09:00; Stop 10/30/18 at 17:17; Status DC Gabapentin (Neurontin) 100 mg BID PO Last administered on 10/22/18at 08:54; Start 10/04/18 at 21:00; Stop 10/22/18 at 10:39; Status DC Guaifenesin (Mucinex Tab Er) 600 mg BID PO Last administered on 10/22/18at 08:56; Start 10/17/18 at 09:00; Stop 10/22/18 at 19:16; Status DC Guaifenesin (Mucinex Tab Er) 600 mg TID PO Last administered on 10/31/18at 17:08; Start 10/22/18 at 21:00 Home Med (Med Rec Complete!) ASDIRECTED XX ; Start 10/04/18 at 20:00; Stop 10/04/18 at 20:00; Status DC Levofloxacin (Levaquin) 250 mg DAILY@06 PO Last administered on 10/19/18at 05:33; Start 10/17/18 at 06:00; Stop 10/19/18 at 06:01; Status DC Levofloxacin (Levaquin) 750 mg DAILY@06 PO Last administered on 10/22/18at 06:10; Start 10/20/18 at 17:00; Stop 10/22/18 at 10:32; Status DC Magnesium Hydroxide (Milk Of Magnesia) 30 ml DAILYPRN PRN PO CONSTIPATION; Start 10/04/18 at 16:45 Miscellaneous (Unresolved Clarification Entry) SEE LABEL COMMENTS DAILY XX ; Start 10/28/18 at 09:00; Stop 10/28/18 at 16:59; Status DC Miscellaneous (Unresolved Clarification Entry) SEE LABEL COMMENTS UNRESOLVED XX ; Start 10/12/18 at 00:01; Stop 10/12/18 at 00:01; Status DC Miscellaneous (Unresolved Patient Own Med Order) SEE LABEL COMMENTS DAILY XX ; Start 10/04/18 at 09:00; Stop 10/11/18 at 09:42; Status DC Miscellaneous (Unresolved Patient Own Med Order) SEE LABEL COMMENTS DAILY XX Last administered on 10/12/18at 09:00; Start 10/11/18 at 09:00; Stop 10/17/18 at 08:33; Status DC Oseltamivir Phosphate (Tamiflu) 30 mg DAILY PO Last administered on 10/31/18 08:11; Start 10/23/18 at 09:00; Stop 11/01/18 at 09:01 Pantoprazole Sodium (Protonix) 40 mg DAILY PO Last administered on 10/31/18 08:11; Start 10/05/18 at 09:00 Patient Own Medication (Patient'S Own Med) 1 ea BID OU ; Start 10/15/18 at 21:00; Status UNV Patient Own Medication (Patient'S Own Med) Epinastine HCl 0.05% -1 drop BID OU Last administered on 10/31/18at 08:12; Start 10/17/18 at 09:00 Patient Own Medication (Patient'S Own Med) Epinastine HCl 0.05% -1 drop BID OU ; Start 10/07/18 at 21:00; Stop 10/17/18 at 09:14; Status DC Potassium Chloride (Micro-K Extencaps) 40 meq DAILY PO Last administered on 10/25/18at 09:29; Start 10/24/18 at 12:15; Stop 10/25/18 at 09:01; Status DC Rivaroxaban (Xarelto) 10 mg DAILY@1800 PO Last administered on 10/31/18 17:08; Start 10/04/18 at 18:00; Stop 11/06/18 at 23:55 Senna/Docusate Sodium (Senokot S) 1 tab BID PO Last administered on 10/30/18at 21:35; Start 10/04/18 at 21:00 Sodium Biphosphate/ Sodium Phosphate (Fleet Enema) 1 ea DAILYPRN PRN [place] CONSTIPATION; Start 10/04/18 at 16:45 Thiamine HCl (Thiamine HCl) 100 mg DAILY PO Last administered on 1/16/19at 08:11; Start 10/05/18 at 09:00 Trazodone HCl (Desyrel) 25 mg Q6HP PRN PO AGITATION; Start 10/04/18 at 16:45; Stop 10/22/18 at 12:02; Status DC Trazodone HCl (Desyrel) 25 mg QHSP PRN PO INSOMNIA Last administered on 10/21/18at 20:24; Start 10/04/18 at 16:45; Stop 10/22/18 at 12:02; Status DC Trimethoprim/ Sulfamethoxazole (Bactrim Ds, Septra Ds 160mg/ 800mg) 1 tab BID PO Last administered on 10/09/18at 20:47; Start 10/05/18 at 09:00; Stop 10/09/18 at 21:01; Status DC Zinc Oxide (Boudreauxs Butt Paste) apply to sacrum TID TOP Last administered on 10/31/18at 17:08; Start 10/05/18 at 09:00 LIZZETTE LOUIS MD Oct 31, 2018 18:14
[2018-10-31 20:16] VITALS: BP 161/84
[2018-10-31] MEDS: DONEPEZIL 5 MG TAB PO SCH (20:57)
[2018-10-31] MEDS: FLUoxetine 20 MG CAP PO SCH (20:59)
[2018-10-31] MEDS: DRONABINOL 2.5 MG CAP (MARINOL) PO SCH (20:59)
[2018-11-01 06:00] VITALS: BP 127/60
[2018-11-01] MEDS: IPRATROPIUM 0.5MG/ALBUTEROL 2.5MG INH SOL UD 3ML (DUONEB)(J7620) NEB SCH ×3 (08:00→19:28)
[2018-11-01] MEDS: amLODIPine 5 MG TAB PO SCH (09:00)
[2018-11-01] MEDS: SENOKOT S TAB PO SCH ×2 (09:00→21:00)
[2018-11-01] MEDS: PANTOPRAZOLE 40MG TAB (PROTONIX) PO SCH (09:00)
[2018-11-01] MEDS: BOUDREAUX'S BUTT PASTE 4OZ TOP SCH ×3 (09:00→21:04)
[2018-11-01] MEDS: METOPROLOL SUCC *XL* 12.5MG PER 1/2 TAB (TopROL *XL*) PO SCH (09:00)
[2018-11-01 09:24] VITALS: BP 117/58
[2018-11-01] MEDS: OMEGA-3 1000MG CAPSULE PO SCH ×2 (09:24→21:02)
[2018-11-01] MEDS: THIAMINE 100 MG TAB PO SCH (09:25)
[2018-11-01] MEDS: OSELTAMIVIR PHOSPHATE 30MG CAPSULE PO SCH (09:25)
[2018-11-01] MEDS: EPINASTINE 0.05% OU SCH ×2 (09:25→21:03)
[2018-11-01] MEDS: COSOPT OCUMETER PLUS 10ML (DORZOLAMIDE/TIMOLOL) OU SCH ×2 (09:25→21:03)
[2018-11-01] MEDS: guaiFENesin ER 600 MG TAB PO SCH ×3 (09:25→21:00)
[2018-11-01] MEDS: FERROUS SULFATE 325MG TAB PO SCH ×2 (09:25→21:02)
[2018-11-01 14:00] VITALS: BP 110/56
[2018-11-01] MEDS: RIVAROXABAN 10 MG TAB (XARELTO) PO SCH (17:12)
[2018-11-01 20:00] VITALS: BP 130/63
--- NOTE | 2018-11-01 21:01 | IPNPDOC ---
PM&R Progress Note DATE OF SERVICE: Nov 01, 2018 [employer] Progress Note Subjective: Patient eating better today, seen walking in therapy, engaging with other patients. REVIEW OF SYSTEMS: The following is a completed review of systems and has been reviewed. PAIN: Patient self reports no pain CARDIOVASCULAR: denies chest pain PULMONARY: Negative. Denies shortness of breath GASTROINTESTINAL:no constipation or diarrhea GENITOURINARY: +UTI (resolved) MUSCULOSKELETAL: +right hip ORIF HEMATOLOGICAL: +blood loss anemia-stable SKIN: + right hip incision PSYCHIATRIC: +dementia All other review of systems found to be negative. PHYSICAL EXAMINATION: VITAL SIGNS: Please see below. GENERAL: Pleasant and cooperative. No acute distress. lethargic, pale HEENT: PERRL. Extraocular movements intact. Clear conjunctiva CARDIOVASCULAR: Regular rate and rhythm. +systolic murmurs, no rubs, or gallops. LUNGS: Clear to auscultation bilaterally. No wheezes. No rhonchi ABDOMEN: Soft, nontender, normoactive bowel sounds and non-distended NEUROLOGICAL:Not oriented to person, place, or time, able to follow 2-step commands inconsistently Cranial nerves II through XII grossly intact. Sensation grossly intact EXTREMITIES: 5\5 strength bilateral upper extremities. 5\5 strength right lower extremity, except limited hip flexion and knee extension due to pain (>4/5). 5/5 strength in left lower extremity. SKIN: right hip incision, mild edema and ecchymosis, no induration or erythema GOALS: ASSESSMENT: 87-year-old F with past medical history of dementia who presents status post fall with right hip ORIF. PLAN: 1. rehab: PT/OT, assess for DME needs, ambulating further with RW, she is SBA for all ADLs and ambulation, needing extensive cueing for directions 2. Neuro: severe dementia has not been worked up per family- ordered TSH/FT4-WNL -MMA for B12 deficiency-wnl -continue Donepezil for cognition. 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 Ortho: s/p ORIF 10-02-18, WBAT, ortho consult 4. HTN: patient with low HRs and sBPs in 150s, will switch carvedilol 3.125 BID to metoprolol succinate 12.5mg daily and monitor, amlodipine added as well, medicine consult, recs appreciated 5. : +MRSA Ucx on prior admission, s/pBactrim x5 days, monitor PVRs- repeat UA positive for E coli s/p treat s/p 3 day course of Levaquin at 250mg , and another 3 day course at 750mg, however most recent Ucx negative -spoke with Dr. White's staff and scheduled appointment for pessary exchange for uterine prolapse on 11-14-18 6. Heme: blood loss anemia, continue iron and monitor s/p 2 units of prbcs-FOBT negative 10-23-18 7. ID: lethargy, nausea and loose stools resolved, appetite improved, C diff negative s/p IVF 7. DVT ppx: Xarelto, started Marinol for poor appetite, will encourage po intake, gradually improving however diet downgraded to level 2 -finishing up prophylactic Tamiflu given recent syncopal episode and having been around family members recovering from the flu, however respiratory panel is negative-improving 8. GI ppx: Protonix 9. Pain: Tylenol, avoid opioids, off gabapentin 11. DNR/DNI 12. Dispo, paperwork in process for [place], progressing towards goals, awaiting bed Allergies Coded Allergies: No Known Allergies (Unverified , 09/28/18) Vital Signs Vital Signs Date Time Temp Pulse Resp B/P (MAP) Pulse Ox O2 Delivery O2 Flow Rate FiO2 11/01/18 20:00 99.0 65 18 130/63 (85) 97 Room Air Microbiology Microbiology 10/24/18 Clostridium difficile (PCR) - Final, Complete 10/24/18 Stool Occult Blood (SHANELLE) - Final, Complete 10/23/18 Stool Occult Blood (SHANELLE) - Final, Complete 10/22/18 Respiratory Virus Panel (PCR) (SHANELLE) - Final, Complete Current Medications Current Medications Current Medications Acetaminophen (Tylenol Tab) 1,000 mg Q6HP PRN PO MILD PAIN (PS 1-8) Last administered on 10/31/18at 20:59; Start 10/04/18 at 16:45 Albuterol/ Ipratropium (Duoneb (Ipr 0.5mg/Alb 2.5mg)) 3 ml RTID NEB Last administered on 11/01/18at 19:28; Start 10/22/18 at 19:15 Amlodipine Besylate (Norvasc) 5 mg DAILY PO Last administered on 10/31/18 08:11; Start 10/31/18 at 09:00 Bisacodyl (Dulcolax Suppository) 10 mg DAILYPRN PRN MI CONSTIPATION; Start 10/04/18 at 16:45 Carvedilol (COReg) 3.125 mg BID PO Last administered on 10/31/18 08:11; Start 10/04/18 at 21:00; Stop 10/31/18 at 18:11; Status DC Cefdinir (Omnicef) 300 mg BID PO ; Start 10/17/18 at 09:00; Stop 10/17/18 at 09:00; Status DC Donepezil HCl (AriCEPT) 5 mg DAILY PO Last administered on 10/17/18 08:29; Start 10/05/18 at 09:00; Stop 10/17/18 at 10:52; Status DC Donepezil HCl (AriCEPT) 10 mg DAILY PO Last administered on 10/30/18 09:09; Start 10/18/18 at 09:00; Stop 10/30/18 at 12:10; Status DC Donepezil HCl (AriCEPT) 10 mg QHS PO Last administered on 10/31/18 20:57; Start 10/31/18 at 21:00 Dorzolamide/ Timolol (Cosopt Ocumeter Plus) 1 drop BID OU Last administered on 11/01/18 09:25; Start 10/04/18 at 21:00 Dronabinol (Marinol) 2.5 mg QHS PO Last administered on 10/31/18 20:59; Start 10/24/18 at 21:00 Ferrous Sulfate (Ferrous Sulfate) 325 mg BID PO Last administered on 11/01/18 09:25; Start 10/05/18 at 09:00 Fish Oil ([place]-3 (1000mg)) 1 cap BID PO Last administered on 11/01/18 09:24; Start 10/05/18 at 09:00 Fluoxetine HCl (PROzac) 20 mg DAILY PO Last administered on 10/17/18 08:29; Start 10/05/18 at 09:00; Stop 10/17/18 at 10:52; Status DC Fluoxetine HCl (PROzac) 20 mg QHS PO Last administered on 10/31/18at 20:59; Start 10/31/18 at 21:00 Fluoxetine HCl (PROzac) 30 mg DAILY PO Last administered on 10/30/18at 09:08; Start 10/18/18 at 09:00; Stop 10/30/18 at 17:17; Status DC Gabapentin (Neurontin) 100 mg BID PO Last administered on 10/22/18at 08:54; Start 10/04/18 at 21:00; Stop 10/22/18 at 10:39; Status DC Guaifenesin (Mucinex Tab Er) 600 mg BID PO Last administered on 10/22/18at 08:56; Start 10/17/18 at 09:00; Stop 10/22/18 at 19:16; Status DC Guaifenesin (Mucinex Tab Er) 600 mg TID PO Last administered on 11/01/18at 17:12; Start 10/22/18 at 21:00 Home Med (Med Rec Complete!) ASDIRECTED XX ; Start 10/04/18 at 20:00; Stop 10/04/18 at 20:00; Status DC Levofloxacin (Levaquin) 250 mg DAILY@06 PO Last administered on 10/19/18at 05:33; Start 10/17/18 at 06:00; Stop 10/19/18 at 06:01; Status DC Levofloxacin (Levaquin) 750 mg DAILY@06 PO Last administered on 10/22/18at 06:10; Start 10/20/18 at 17:00; Stop 10/22/18 at 10:32; Status DC Magnesium Hydroxide (Milk Of Magnesia) 30 ml DAILYPRN PRN PO CONSTIPATION; Start 10/04/18 at 16:45 Metoprolol Succinate (TopROL XL) 12.5 mg DAILY PO ; Start 11/01/18 at 09:00 Miscellaneous (Unresolved Clarification Entry) SEE LABEL COMMENTS DAILY XX ; Start 10/28/18 at 09:00; Stop 10/28/18 at 16:59; Status DC Miscellaneous (Unresolved Clarification Entry) SEE LABEL COMMENTS UNRESOLVED XX ; Start 10/12/18 at 00:01; Stop 10/12/18 at 00:01; Status DC Miscellaneous (Unresolved Patient Own Med Order) SEE LABEL COMMENTS DAILY XX ; Start 10/04/18 at 09:00; Stop 10/11/18 at 09:42; Status DC Miscellaneous (Unresolved Patient Own Med Order) SEE LABEL COMMENTS DAILY XX Last administered on 10/12/18at 09:00; Start 10/11/18 at 09:00; Stop 10/17/18 at 08:33; Status DC Oseltamivir Phosphate (Tamiflu) 30 mg DAILY PO Last administered on 11/01/18at 09:25; Start 10/23/18 at 09:00; Stop 11/01/18 at 09:01; Status DC Pantoprazole Sodium (Protonix) 40 mg DAILY PO Last administered on 11/01/18 09:00; Start 10/05/18 at 09:00 Patient Own Medication (Patient'S Own Med) 1 ea BID OU ; Start 10/15/18 at 21:00; Status UNV Patient Own Medication (Patient'S Own Med) Epinastine HCl 0.05% -1 drop BID OU Last administered on 11/01/18at 09:25; Start 10/17/18 at 09:00 Patient Own Medication (Patient'S Own Med) Epinastine HCl 0.05% -1 drop BID OU ; Start 10/07/18 at 21:00; Stop 10/17/18 at 09:14; Status DC Potassium Chloride (Micro-K Extencaps) 40 meq DAILY PO Last administered on 10/25/18 09:29; Start 10/24/18 at 12:15; Stop 10/25/18 at 09:01; Status DC Rivaroxaban (Xarelto) 10 mg DAILY@1800 PO Last administered on 11/01/18at 17:12; Start 10/04/18 at 18:00; Stop 11/06/18 at 23:55 Senna/Docusate Sodium (Senokot S) 1 tab BID PO Last administered on 10/30/18at 21:35; Start 10/04/18 at 21:00 Sodium Biphosphate/ Sodium Phosphate (Fleet Enema) 1 ea DAILYPRN PRN MI CONSTIPATION; Start 10/04/18 at 16:45 Thiamine HCl (Thiamine HCl) 100 mg DAILY PO Last administered on 11/01/18 09:25; Start 10/05/18 at 09:00 Trazodone HCl (Desyrel) 25 mg Q6HP PRN PO AGITATION; Start 10/04/18 at 16:45; Stop 10/22/18 at 12:02; Status DC Trazodone HCl (Desyrel) 25 mg QHSP PRN PO INSOMNIA Last administered on 10/21/18at 20:24; Start 10/04/18 at 16:45; Stop 10/22/18 at 12:02; Status DC Trimethoprim/ Sulfamethoxazole (Bactrim Ds, Septra Ds 160mg/ 800mg) 1 tab BID PO Last administered on 10/09/18at 20:47; Start 10/05/18 at 09:00; Stop 10/09/18 at 21:01; Status DC Zinc Oxide (Boudreauxs Butt Paste) apply to sacrum TID TOP Last administered on 11/01/18at 17:12; Start 10/05/18 at 09:00 LIZZETTE LOUIS MD Nov 01, 2018 21:01
[2018-11-01] MEDS: FLUoxetine 20 MG CAP PO SCH (21:02)
[2018-11-01] MEDS: DONEPEZIL 5 MG TAB PO SCH (21:02)
[2018-11-01] MEDS: DRONABINOL 2.5 MG CAP (MARINOL) PO SCH (21:02)
[2018-11-01] MEDS: ACETAMINOPHEN 500 MG TAB PO PRN (21:03)
[2018-11-02 06:17] VITALS: BP 136/72
[2018-11-02] MEDS: IPRATROPIUM 0.5MG/ALBUTEROL 2.5MG INH SOL UD 3ML (DUONEB)(J7620) NEB SCH (08:04)
[2018-11-02] MEDS: COSOPT OCUMETER PLUS 10ML (DORZOLAMIDE/TIMOLOL) OU SCH (09:00)
[2018-11-02] MEDS: BOUDREAUX'S BUTT PASTE 4OZ TOP SCH (09:00)
[2018-11-02] MEDS: METOPROLOL SUCC *XL* 12.5MG PER 1/2 TAB (TopROL *XL*) PO SCH (09:00)
[2018-11-02] MEDS: SENOKOT S TAB PO SCH (09:00)
[2018-11-02 09:13] VITALS: BP 136/72
[2018-11-02] MEDS: OMEGA-3 1000MG CAPSULE PO SCH (09:13)
[2018-11-02] MEDS: guaiFENesin ER 600 MG TAB PO SCH (09:13)
[2018-11-02] MEDS: FERROUS SULFATE 325MG TAB PO SCH (09:13)
[2018-11-02] MEDS: PANTOPRAZOLE 40MG TAB (PROTONIX) PO SCH (09:13)
[2018-11-02] MEDS: amLODIPine 5 MG TAB PO SCH (09:13)
[2018-11-02] MEDS: THIAMINE 100 MG TAB PO SCH (09:14)
[2018-11-02] MEDS: EPINASTINE 0.05% OU SCH (09:15)
[2018-11-02] MEDS ORDERED: FLUO20CA19 PO (10:47)
[2018-11-02] MEDS ORDERED: DRON2.5C11 PO (10:47)
[2018-11-02] MEDS ORDERED: ACET-683 PO (10:47)
[2018-11-02] MEDS ORDERED: FERR1TAB8 PO (10:47)
[2018-11-02] MEDS ORDERED: IPRA0.00 NEB (10:47)
[2018-11-02] MEDS ORDERED: PANT40TA3 PO (10:47)
[2018-11-02] MEDS ORDERED: FISH1000 PO (10:47)
[2018-11-02] MEDS ORDERED: Docusate Sod/Senna PO (10:47)
[2018-11-02] MEDS ORDERED: ARIC1TAB PO (10:47)
[2018-11-02] MEDS ORDERED: BISA10SU PR (10:47)
[2018-11-02] MEDS ORDERED: DORZ2SOL5 OU (10:47)
[2018-11-02] MEDS ORDERED: XARE10TA PO (10:47)
[2018-11-02] MEDS ORDERED: BOUDPST TOP (10:47)
[2018-11-02] MEDS ORDERED: MUCI600T37 PO (10:47)
[2018-11-02] MEDS ORDERED: THIA100TA PO (10:47)
[2018-11-02] MEDS ORDERED: AMLO5TAB6 PO (10:47)
[2018-11-02] MEDS ORDERED: METO1TAB32 PO (10:47)
== END 2018-11-02 12:45 | DRG 560 ==
LOC: EDBD 16:10 → EEVIPCON 16:10 → M PM&R 16:10
PROVIDERS: ADMIT Physical Medicine & Rehabilitation; ATTEND Physical Medicine & Rehabilitation
DX: S72.141D Displaced intertrochanteric fracture of right femur, subsequent encounter for closed fracture with routine healing (principal); D62 Acute posthemorrhagic anemia; N39.0 Urinary tract infection, site not specified; I10 Essential (primary) hypertension; F03.90 Unspecified dementia, unspecified severity, without behavioral disturbance, psychotic disturbance, mood disturbance, and anxiety; W18.30XD Fall on same level, unspecified, subsequent encounter; Y92.9 Unspecified place or not applicable; Z79.899 Other long term (current) drug therapy; M81.0 Age-related osteoporosis without current pathological fracture; Z66 Do not resuscitate; E78.5 Hyperlipidemia, unspecified; H40.9 Unspecified glaucoma; S70.11XD Contusion of right thigh, subsequent encounter; R42 Dizziness and giddiness; E53.8 Deficiency of other specified B group vitamins; B96.29 Other Escherichia coli [E. coli] as the cause of diseases classified elsewhere; E87.6 Hypokalemia

== ENCOUNTER → 2018-11-06 | Outpatient (REF) ==
[~2018-11-06] MED LIST changes: +ACET-683 PO; +AMLO5TAB6 PO; +ARIC1TAB PO; +BISA10SU PR; +BOUDPST TOP; +DRON2.5C11 PO; +FERR1TAB8 PO; +FISH1000 PO; +FLUO20CA19 PO; +IPRA0.00 NEB; +METO1TAB32 PO; +MUCI600T37 PO; +PANT40TA3 PO; +THIA100TA PO
[2018-11-06 09:09] LABS: HEMATOCRIT 36.1 % (36.0-47.0); HEMOGLOBIN 11.7 g/dl (12.0-15.5); MEAN CORPUSCULAR HEMOGLOBIN 28.3 pg (27.0-33.0); MEAN CORPUSCULAR HGB CONC 32.4 g/dl (32.0-36.5); MEAN CORPUSCULAR VOLUME 87.4 fl (80.0-96.0); PLATELET COUNT, AUTOMATED 372 10^3/uL (150-450); RED BLOOD COUNT 4.13 10^6/uL (4.00-5.40); WHITE BLOOD COUNT 6.6 10^3/uL (4.0-10.0)
[2018-11-06 09:47] LABS: BLOOD UREA NITROGEN 12 MG/DL (7-18); CALCIUM LEVEL 8.8 MG/DL (8.8-10.2); CARBON DIOXIDE LEVEL 27 MEQ/L (21-32); CHLORIDE LEVEL 99 MEQ/L (98-107); GLOMERULAR FILTRATION RATE > 60.0 (>32); GLUCOSE, FASTING 90 MG/DL (70-100); POTASSIUM SERUM 4.3 MEQ/L (3.5-5.1); SODIUM LEVEL 134 MEQ/L (136-145)
== END ==
PROVIDERS: ATTEND Internal Medicine
DX: I10 Essential (primary) hypertension (principal)

== ENCOUNTER → 2018-11-08 | Outpatient (REF) ==
[2018-11-08 13:41] LABS: HEMATOCRIT 39.5 % (36.0-47.0); HEMOGLOBIN 12.7 g/dl (12.0-15.5); MEAN CORPUSCULAR HEMOGLOBIN 28.6 pg (27.0-33.0); MEAN CORPUSCULAR HGB CONC 32.2 g/dl (32.0-36.5); PLATELET COUNT, AUTOMATED 381 10^3/uL (150-450); RED BLOOD COUNT 4.44 10^6/uL (4.00-5.40); WHITE BLOOD COUNT 7.1 10^3/uL (4.0-10.0)
[2018-11-08 15:13] LABS: ALBUMIN 3.2 GM/DL (3.2-5.2); ALT/SGPT 22 U/L (12-78); BILIRUBIN,TOTAL 0.6 MG/DL (0.2-1.0); BLOOD UREA NITROGEN 11 MG/DL (7-18); CARBON DIOXIDE LEVEL 24 MEQ/L (21-32); CHLORIDE LEVEL 100 MEQ/L (98-107); CREATININE FOR GFR 0.51 MG/DL (0.55-1.30); GLOMERULAR FILTRATION RATE > 60.0 (>32); GLUCOSE, FASTING 81 MG/DL (70-100); POTASSIUM SERUM 4.4 MEQ/L (3.5-5.1); SODIUM LEVEL 136 MEQ/L (136-145); THYROID STIMULATING HORMONE 0.806 uIU/ML (0.358-3.740)
== END ==
PROVIDERS: ATTEND Internal Medicine
DX: R63.4 Abnormal weight loss (principal)

== ENCOUNTER → 2018-11-13 | Outpatient (REF) ==
[2018-11-13 09:06] LABS: HEMATOCRIT 36.8 % (36.0-47.0); HEMOGLOBIN 11.7 g/dl (12.0-15.5); MEAN CORPUSCULAR HEMOGLOBIN 28.1 pg (27.0-33.0); MEAN CORPUSCULAR HGB CONC 31.8 g/dl (32.0-36.5); MEAN CORPUSCULAR VOLUME 88.2 fl (80.0-96.0); PLATELET COUNT, AUTOMATED 388 10^3/uL (150-450); RED BLOOD COUNT 4.17 10^6/uL (4.00-5.40); WHITE BLOOD COUNT 8.1 10^3/uL (4.0-10.0)
[2018-11-13 09:31] LABS: BLOOD UREA NITROGEN 15 MG/DL (7-18); CALCIUM LEVEL 9.1 MG/DL (8.8-10.2); CARBON DIOXIDE LEVEL 26 MEQ/L (21-32); CHLORIDE LEVEL 100 MEQ/L (98-107); CREATININE FOR GFR 0.55 MG/DL (0.55-1.30); GLOMERULAR FILTRATION RATE > 60.0 (>32); GLUCOSE, FASTING 94 MG/DL (70-100); POTASSIUM SERUM 4.3 MEQ/L (3.5-5.1); SODIUM LEVEL 135 MEQ/L (136-145)
== END ==
PROVIDERS: ATTEND Internal Medicine
DX: I10 Essential (primary) hypertension (principal)

== ENCOUNTER → 2018-11-20 | Outpatient (REF) | payer MEDICARE, BC ==
[~2018-11-20] MED LIST changes: +ACE65ERTAB PO; +BISA10SU4 PR; +DONETAB6 PO; +DORZ2SOL4 OU; +ENEMENE4 PR; +ENSULIQ64 PO; +FERR325T3 PO; +FISH7.5C PO; +FLUO20CA8 PO; +IPRA0.00 IN; +MECL-86 PO; +MEGE40SU5 PO; +MELA5TAB21 PO; +MILK120011 PO; +MIRA33504 PO; +MUCI600T31 PO; +OMEP40CA2 PO; +PERC5TAB12 PO; +SENN8.6T9 PO; +TIMO0.5S29 OU; +TOPR25TA13 PO; +VITA50TA47 PO
[2018-11-20 09:34] LABS: HEMATOCRIT 33.5 % (36.0-47.0); HEMOGLOBIN 10.8 g/dl (12.0-15.5); MEAN CORPUSCULAR HEMOGLOBIN 28.4 pg (27.0-33.0); MEAN CORPUSCULAR HGB CONC 32.2 g/dl (32.0-36.5); MEAN CORPUSCULAR VOLUME 88.2 fl (80.0-96.0); PLATELET COUNT, AUTOMATED 300 10^3/uL (150-450); WHITE BLOOD COUNT 6.4 10^3/uL (4.0-10.0)
[2018-11-20 09:58] LABS: BLOOD UREA NITROGEN 12 MG/DL (7-18); CALCIUM LEVEL 8.5 MG/DL (8.8-10.2); CARBON DIOXIDE LEVEL 25 MEQ/L (21-32); CHLORIDE LEVEL 104 MEQ/L (98-107); CREATININE FOR GFR 0.48 MG/DL (0.55-1.30); GLOMERULAR FILTRATION RATE > 60.0 (>32); GLUCOSE, FASTING 84 MG/DL (70-100); POTASSIUM SERUM 4.7 MEQ/L (3.5-5.1); SODIUM LEVEL 136 MEQ/L (136-145)
== END ==
PROVIDERS: ATTEND Physician Assistant
DX: I10 Essential (primary) hypertension (principal)

== ENCOUNTER 2018-11-30 01:47 | Inpatient (IN) | payer MEDICARE, BC ==
[~2018-11-30] VITALS: Ht 152.4 cm; Wt 48.7 kg
[~2018-11-30 01:47] MED LIST changes: -ACE65ERTAB PO; -BISA10SU4 PR; -DONETAB6 PO; -DORZ2SOL4 OU; -ENEMENE4 PR; -ENSULIQ64 PO; -FERR325T3 PO; -FISH7.5C PO; -FLUO20CA8 PO; -IPRA0.00 IN; -MECL-86 PO; -MEGE40SU5 PO; -MELA5TAB21 PO; -MILK120011 PO; -MIRA33504 PO; -MUCI600T31 PO; -OMEP40CA2 PO; -PERC5TAB12 PO; -SENN8.6T9 PO; -TIMO0.5S29 OU; -TOPR25TA13 PO; -VITA50TA47 PO
[2018-11-30] MEDS ORDERED: LIDOCAINE 2% 5ML JELLY UROJET TOP ONE (02:15)
[2018-11-30] MEDS ORDERED: fentaNYL 100 MCG/2 ML INJECTION (J3010) IV ONE (02:15)
[2018-11-30] MEDS ORDERED: ONDANSETRON 4MG/2ML VIAL (J2405) IV ONE (02:15)
[2018-11-30 03:05] LABS: BASO % 0.4 % (0.0-1.0); EOS # 0.1 10^3/uL (0.0-0.50); HEMATOCRIT 33.3 % (36.0-47.0); HEMOGLOBIN 10.8 g/dl (12.0-15.5); LYMPH # 1.3 10^3/uL (1.5-4.5); LYMPH % 16.5 % (24.0-44.0); MEAN CORPUSCULAR HEMOGLOBIN 28.8 pg (27.0-33.0); MEAN CORPUSCULAR HGB CONC 32.4 g/dl (32.0-36.5); MEAN CORPUSCULAR VOLUME 88.8 fl (80.0-96.0); MONO # 0.6 10^3/uL (0.0-0.8); NEUTROPHILS # 5.7 10^3/uL (1.8-7.7); NEUTROPHILS % 73.7 % (36.0-66.0); PLATELET COUNT, AUTOMATED 301 10^3/uL (150-450); RED BLOOD COUNT 3.75 10^6/uL (4.00-5.40); WHITE BLOOD COUNT 7.8 10^3/uL (4.0-10.0)
[2018-11-30 03:16] LABS: INR 0.97
[2018-11-30 03:17] LABS: PARTIAL THROMBOPLASTIN TIME 39.4 SECONDS (25.4-37.6)
--- NOTE | 2018-11-30 03:27 | ECGEPIP ---
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
[2018-11-30 03:31] LABS: BLOOD UREA NITROGEN 19 MG/DL (7-18); CALCIUM LEVEL 8.4 MG/DL (8.8-10.2); CARBON DIOXIDE LEVEL 24 MEQ/L (21-32); CHLORIDE LEVEL 104 MEQ/L (98-107); CK-MB VALUE MASS < 1.0 NG/ML (<3.6); CPK CREATINE PHOSPHOKINASE 48 U/L (26-192); CREATININE FOR GFR 0.52 MG/DL (0.55-1.30); GLOMERULAR FILTRATION RATE > 60.0 (>32); GLUCOSE, FASTING 120 MG/DL (70-100); MB/CK RELATIVE INDEX 2.08 (< OR =4); POTASSIUM SERUM 4.3 MEQ/L (3.5-5.1); SODIUM LEVEL 136 MEQ/L (136-145); TROPONIN I < 0.02 NG/ML (< 0.10)
--- NOTE | 2018-11-30 03:45 | REPVR ---
EXAM: CT Head Without Contrast EXAM DATE/TIME: 11/30/2018 2:11 AM CLINICAL HISTORY: 88 years old, female; Injury or trauma; Fall; Additional info: Unwitnessed fall, dementia TECHNIQUE: Axial computed tomography images of the head/brain without contrast. All CT scans at this facility use at least one of these dose optimization techniques: automated exposure control; mA and/or kV adjustment per patient size (includes targeted exams where dose is matched to clinical indication); or iterative reconstruction. COMPARISON: CT Head without contrast 09/28/2018 7:57 AM FINDINGS: Brain: There is no acute intracranial abnormality. Moderate prominence of ventricles and sulci representing volume loss. Moderate small vessel ischemic changes are seen. There is no mass, midline shift, or mass effect. Monge-white matter differentiation is preserved. There is no evidence of hemorrhage. There is no extra-axial fluid collection. Basal cisterns are patent. Ventricles: See Brain Finding. Bones/joints: Hyperdensity in the left extra-axial frontalis likely volume averaging from adjacent frontal bone secondary to motion however, in the setting of trauma, followup is recommended. Sinuses: Visualized sinuses are unremarkable. No acute sinusitis. Mastoid air cells: Visualized mastoid air cells are unremarkable. No mastoid effusion. Soft tissues: Unremarkable. IMPRESSION: 1. Moderate volume loss and small vessel ischemic changes. 2. Hyperdensity in the left extra-axial frontalis likely volume averaging from adjacent frontal bone secondary to motion however, in the setting of trauma, followup is recommended. Electronically signed by: Marnie Raymundo On 11/30/2018 03:45:04 AM
[2018-11-30] MEDS ORDERED: ACETAMINOPHEN TAB 650MG DOSE (2X325MG) PO PRN (05:00)
[2018-11-30] MEDS ORDERED: IPRATROPIUM 0.5MG/ALBUTEROL 2.5MG INH SOL UD 3ML (DUONEB)(J7620) NEB PRN (05:30)
[2018-11-30] MEDS ORDERED: VITA50TA47 PO (05:47)
[2018-11-30] MEDS ORDERED: DORZ2SOL4 OU (05:47)
[2018-11-30] MEDS ORDERED: ENEMENE4 PR (05:47)
[2018-11-30] MEDS ORDERED: DONETAB6 PO (05:47)
[2018-11-30] MEDS ORDERED: IPRA0.00 IN (05:47)
[2018-11-30] MEDS ORDERED: TOPR25TA13 PO (05:47)
[2018-11-30] MEDS ORDERED: FISH7.5C PO (05:47)
[2018-11-30] MEDS ORDERED: MIRA33504 PO (05:47)
[2018-11-30] MEDS ORDERED: SENN8.6T9 PO (05:47)
[2018-11-30] MEDS ORDERED: OMEP40CA2 PO (05:47)
[2018-11-30] MEDS ORDERED: AMLO5TAB6 PO (05:47)
[2018-11-30] MEDS ORDERED: MELA5TAB21 PO (05:47)
[2018-11-30] MEDS ORDERED: BISA10SU4 PR (05:47)
[2018-11-30] MEDS ORDERED: ACE65ERTAB PO (05:47)
[2018-11-30] MEDS ORDERED: FLUO20CA8 PO (05:47)
[2018-11-30] MEDS ORDERED: MEGE40SU5 PO (05:47)
[2018-11-30] MEDS ORDERED: EPIN1DRO OU (05:47)
[2018-11-30] MEDS ORDERED: MECL-86 PO (05:47)
[2018-11-30] MEDS ORDERED: FERR325T3 PO (05:47)
[2018-11-30] MEDS ORDERED: TIMO0.5S29 OU (05:47)
[2018-11-30] MEDS ORDERED: MUCI600T31 PO (05:47)
[2018-11-30] MEDS ORDERED: MILK120011 PO (05:47)
[2018-11-30] MEDS ORDERED: ENSULIQ64 PO (05:47)
[2018-11-30] MEDS ORDERED: BISACODYL 10 MG SUPP PR PRN (06:00)
[2018-11-30] MEDS ORDERED: MIRALAX *UNIT DOSE* 17GM PACKET PO PRN (06:00)
[2018-11-30] MEDS ORDERED: HEPARIN SOD (PORCINE) 5000 UNITS/ML VIAL SC SCH (06:00)
[2018-11-30] MEDS: THIAMINE 100 MG TAB PO SCH (07:27)
[2018-11-30] MEDS: SENOKOT S TAB PO SCH ×2 (07:27→21:23)
[2018-11-30] MEDS: MOM 30ML SUSPENSION UDC PO SCH (07:27)
[2018-11-30] MEDS: OMEPRAZOLE 20 MG CAP PO SCH (07:27)
[2018-11-30] MEDS: amLODIPine 5 MG TAB PO SCH (07:28)
[2018-11-30] MEDS: FERROUS SULFATE 325MG TAB PO SCH ×2 (07:28→21:24)
[2018-11-30] MEDS: PERCOCET 5MG/325MG TAB PO PRN (07:29)
--- NOTE | 2018-11-30 07:30 | REP ---
AP pelvis single view: There is an intertrochanteric fracture of the left hip. There is gamma nail fixation of the right hip. No other pelvic fractures are identified. There is a 7 mm density projected over the right iliac wing, unchanged. This could be a calcified pelvic lymph node, iliac wing, bone island or blastic metastasis. Left hip two views: There is an intertrochanteric fracture. No dislocation. No calcifications or foreign bodies. Electronically Signed by Usama Taylor MD 11/30/2018 07:21 A
[2018-11-30] MEDS: D5W/0.45% SODIUM CHLORIDE 1,000 ML IV SCH ×2 (07:34→21:24)
--- NOTE | 2018-11-30 07:34 | REP ---
Portable chest, 03:22 a.m., single AP view, the patient supine: Comparison is 10/19/2009. Lung richter are clear. There is chronic cardiomegaly, unchanged. There is a stable left upper lobe density, unchanged, likely parenchymal scarring. The amanda, mediastinum, skeletal structures are unremarkable. There are circumferential calcific atheroma in the aortic arch, unchanged. Impression: No acute cardiopulmonary findings. Chronic cardiomegaly. Electronically Signed by Usama Taylor MD 11/30/2018 07:25 A
[2018-11-30 08:22] VITALS: BP 152/71
[2018-11-30] MEDS: TIMOLOL MALEATE 0.5% OPHTH SOLN 5 ML OU SCH ×2 (09:00→22:25)
[2018-11-30] MEDS: OMEGA-3 1000MG CAPSULE PO SCH ×2 (09:00→22:24)
[2018-11-30] MEDS: DORZOLAMIDE 2% OPHTH SOLN 10 ML BTL OU SCH ×2 (09:00→22:25)
--- NOTE | 2018-11-30 09:44 | HPE ---
DATE OF ADMISSION: 11/30/2018 CHIEF COMPLAINT: Left hip pain. HISTORY OF PRESENT ILLNESS: The patient is an 88-year-old female from [facility] with past medical history of advanced dementia and hypertension as well as osteoporosis. She presents to the emergency room after being found on the floor complaining of right hip pain. The patient has profound dementia and she is an unreliable historian. She denies any other symptoms. Orthopedics was consulted in the emergency room who wants the patient to optimize her surgery. During my examination, again, patient had no acute complaints, however, she is a very unreliable historian. She denied any chest pain or abdominal pain. PAST MEDICAL HISTORY: See history of present illness (HPI). PAST SURGICAL HISTORY: She had a fall approximately a month and a half ago and had right hip surgery. SOCIAL HISTORY: She resides at [facility]. She has no history of alcohol, tobacco or illicit drug use as per documentation. I think she is at the [facility] for rehabilitation after her recent hip fracture. ALLERGIES: MORPHINE, reaction is unknown. FAMILY HISTORY: Noncontributory. REVIEW OF SYSTEMS: Completed to the best of my ability, which were negative except those listed in the history of present illness of left hip pain. VITALS ON ADMISSION: Temperature 98, pulse 64, respirations 20, blood pressure 117/97, satting at 100% on room air. PHYSICAL EXAMINATION: General: She appears in no distress. She is pleasantly demented. Head is normocephalic, atraumatic. Eyes: Extraocular movement are intact. Cardiovascular: Regular rate and rhythm. Normal S1 and S2. No murmurs, gallops or rub. Abdomen: Soft. Nontender. Nondistended. Positive bowel sounds. No rebound or guarding. Extremities: No pitting edema or calf tenderness. Skin appears to be intact. Neurological: She is alert and oriented times one. No focal deficits appreciated. LABS AND IMAGING COMPLETED IN THE EMERGENCY ROOM: White count 7, hemoglobin/hematocrit (H/H) of 10/33, platelet count 301. Coags within normal limits. Chemistries unremarkable. BUN and creatinine of 19 over 0.52. Troponins are negative. Hip x-ray shows left intertrochanteric fracture. Chest x-ray has no acute disease. CT of the head with moderate volume loss and small vessel ischemic disease, hyperdensity in the left extra-axial frontalis likely volume averaging from adjacent frontal bone secondary to motion artifact. However, in the setting of trauma, followup is recommended. HOME MEDICATIONS (as per chart): - Tylenol - DuoNeb - Norvasc - bisacodyl - donepezil - dronabinol - ferrous sulfate - fluoxetine - metoprolol - Protonix - Xarelto for deep vein thrombosis prophylaxis - thiamine - zinc oxide - eye drops ASSESSMENT AND PLAN: Left intracranial hip fracture status post mechanical fall. The patient is to be bed rest. Tylenol as needed pain. To be seen by orthopedics. Nothing by mouth for possible procedure in the a.m. IV fluids while nothing by mouth. Finger sticks every 8 hours. Bowel prep. For hypertension, continue antihypertensive. For advanced dementia with mood disorder, continue Aricept, fluoxetine. For recent surgery, on Xarelto for deep vein thrombosis prophylaxis. This will need to be held for now as the patient has an artifact versus hyperdensity, possible subdural on head CT. Will repeat head CT in the next 10 hours to further assess for questionable hyperdensity versus motion artifact on head CT. Again, will hold all anticoagulation for now. Will place sequential compression devices for deep vein thrombosis prophylaxis. Will repeat the CT noncontrast in 10 hours. The patient to be seen by orthopedics in the a.m. She is nothing by mouth. Revised cardiac index 0. The patient is at least intermediate risk for moderate risk procedure. Unable to assess the patient's exercise tolerance due to advanced dementia.
--- NOTE | 2018-11-30 10:11 | CR ---
DATE OF CONSULTATION: 11/30/2018 CHIEF COMPLAINT: Left hip pain and deformity. HISTORY OF PRESENT ILLNESS: This is an 88-year-old female. She fell at [place] yesterday. She had previously had a hip fracture in September, which ended up being treated with an intramedullary nail. She was just starting to do well and it was felt that her bed alarm could be discontinued. That was accomplished several days ago and unfortunately, last evening she fell in the middle of the night injuring the contralateral left hip. She was brought to the emergency room (ER), was evaluated by the ER personnel. Imaging studies reflecting a comminuted intertrochanteric fracture of the left hip. Medical history includes hypertension, dementia, right hip issues. Glaucoma. SOCIAL HISTORY: Lives at [facility]. Currently a non-smoker, non-drinker. FAMILY HISTORY: Not contributory. Her daughter was at bedside today. REVIEW OF SYSTEMS: This patient is confused. She is unable to cooperate with review of systems. CLINICAL EXAM: She is alert, confused, not in distress. No shortness of breath. No abdominal distension. Shortening of the left lower extremity compared to the right. No peripheral edema. Warm, well-perfused extremities. Palpable pulses. Manipulation on the left produced pain. No deformity noted on the right. HOME MEDICATIONS: Medications include: - epinephrine drops - atenolol drops - carvedilol - polyethylene glycol - Xarelto - LABS: Her hematocrit today is 33.3%. Creatinine is 0.52. Negative bacteriuria today on urinalysis. IMPRESSION: Comminuted intertrochanteric fracture of left hip. RECOMMENDATIONS: I spoke with the hospitalist today. They are planning on doing a CT scan to evaluate for potential intracranial bleed. If that ruled out, we may consider doing the hip fracture in the operating room today. I met with the patient's daughter and grandson and we reviewed consent document, which involved a ricardo discussion of pathology involved, the procedure proposed, alternatives including doing nothing, risks including but not limited to pain, failure, infection, bleeding, blood loss, limp, need for more surgery, and other issues. They agreed to proceed. They understand there is some risk that she will continue to fall. Coordinated care with the operating room for surgical scheduling as an add-on. I did convey to the family that it is likely I will not be available when the add-on is able to go, which may be tonight, that might be Dr. Jim Corrigan. For further details please refer to the medical record.
--- NOTE | 2018-11-30 11:22 | REP ---
CT Head without contrast HISTORY: Fall COMPARISON: 02:21 a .m. 11/30/2018 Areas of decreased attenuation are present in the periventricular and subcortical white matter. This represents small-vessel ischemic disease. There is no intraparenchymal hemorrhage, acute infarct, mass or midline shift. The ventricular system and cortical sulci as well as subarachnoid space in the posterior fossa are dilated consistent with moderate volume loss. There is no extra cerebral collection. There is no fracture. The visualized sinuses are clear. IMPRESSION: 1. Small vessel ischemic disease. 2. Moderate volume loss. Electronically Signed by Ronnell Allen MD 11/30/2018 11:14 A
--- NOTE | 2018-11-30 12:42 | IPNPDOC ---
Text Note Date of Service The patient was seen on 11/30/18. NOTE SUBJECTIVE: Patient is pleasantly demented, complains of left hip pain otherwise no complaints. Does try to get out of bed and needs to be reminded that her hip is broken and she cannot walk. PHYSICAL EXAMINATION: VITALS: As below General: She appears in no distress. She is pleasantly demented. HEENT: Head is normocephalic, atraumatic. Eyes: Extraocular movement are intact. Cardiovascular: Regular rate and rhythm. Normal S1 and S2. Systolic murmur heard through out the left chest Abdomen: Soft. Nontender. Nondistended. Positive bowel sounds. No rebound or guarding. Extremities: No pitting edema or calf tenderness. Skin appears to be intact. Neurological: She is alert and oriented times one. No focal deficits appreciated. Labs and Radiology: reviewed. Assessment Plan: The patient is an 88-year-old female from [facility] with past medical history of advanced dementia and hypertension as well as osteoporosis, recent right hip fracture in september 2018 s/p ORIF was in rehab then went to [place] on 11/21/18. She presents to the emergency room after being found on the floor complaining of left hip pain. The patient has profound dementia and she is an unreliable historian. In the ED she was found to have left hip fracture. Left intertrochanteric hip fracture on 11/30/18 planned for ORIF Repeat CT head negative for any bleed Patient medically optimized for the proposed procedure continue to hold anticoagulation till after surgery and cleared by [facility] pain control as per ortho. Comminuted intertrochanteric fracture of right femur s/p ORIF in Sep 2018 patient was recovering from this surgery and was on xarelto for DVT prophylaxis hold this. Advanced dementia continue donepezil, fluoxetine Hypertension continue metoprolol and amlodipine with hold parameters. Vertigo continue meclizine prn. Glaucoma continue eye drops. Single lytic lesion over the right iliac wing bone s/p biopsy in previous admission no malignancy detected. Osteoporosis VS,Fishbone, I+O VS, Fishbone, I+O Laboratory Tests 11/30/18 02:50 Red Blood Count 3.75 L, Mean Corpuscular Volume 88.8, Mean Corpuscular Hemoglobin 28.8, Mean Corpuscular Hemoglobin Concent 32.4, Red Cell Distribution Width 15.6 H, Neutrophils (%) (Auto) 73.7 H, Lymphocytes (%) (Auto) 16.5 L, Monocytes (%) (Auto) 8.0 H, Eosinophils (%) (Auto) 1.0, Basophils (%) (Auto) 0.4, Neutrophils # (Auto) 5.7, Lymphocytes # (Auto) 1.3 L, Monocytes # (Auto) 0.6, Eosinophils # (Auto) 0.1, Basophils # (Auto) 0.0, Calcium Level 8.4 L, Total Creatine Kinase 48 Vital Signs Date Time Temp Pulse Resp B/P (MAP) Pulse Ox O2 Delivery O2 Flow Rate FiO2 11/30/18 08:22 97.9 57 16 152/71 (98) 98 11/30/18 08:02 Room Air SUJIT JONES MD Nov 30, 2018 12:42
[2018-11-30] MEDS: MORPHINE 4 MG/ML 1ML VIAL/SYRINGE (J2270) IV PRN ×3 (13:47→23:22)
[2018-11-30 14:00] VITALS: BP 128/86
[2018-11-30] MEDS: FLUoxetine 20 MG CAP PO SCH (21:23)
[2018-11-30] MEDS: METOPROLOL SUCC *XL* 25MG TAB (TopROL *XL*) PO SCH (21:23)
[2018-11-30] MEDS: DONEPEZIL 5 MG TAB PO SCH (21:24)
[2018-11-30] MEDS: MEGESTROL SUSP 400 MG/10 ML UDC PO SCH (21:25)
[2018-11-30 22:00] VITALS: BP 120/70
[2018-12-01] VITALS (8 sets, daily range): BP systolic 118–134; BP diastolic 54–75
[2018-12-01] MEDS: MORPHINE 4 MG/ML 1ML VIAL/SYRINGE (J2270) IV PRN (02:02)
[2018-12-01] MEDS: PERCOCET 5MG/325MG TAB PO PRN ×3 (02:54→20:08)
[2018-12-01 06:25] LABS: HEMATOCRIT 31.1 % (36.0-47.0); HEMOGLOBIN 9.8 g/dl (12.0-15.5); MEAN CORPUSCULAR HEMOGLOBIN 28.4 pg (27.0-33.0); MEAN CORPUSCULAR HGB CONC 31.5 g/dl (32.0-36.5); MEAN CORPUSCULAR VOLUME 90.1 fl (80.0-96.0); PLATELET COUNT, AUTOMATED 275 10^3/uL (150-450); RED BLOOD COUNT 3.45 10^6/uL (4.00-5.40); WHITE BLOOD COUNT 9.7 10^3/uL (4.0-10.0)
[2018-12-01] MEDS: OMEPRAZOLE 20 MG CAP PO SCH (06:32)
[2018-12-01 06:47] LABS: BLOOD UREA NITROGEN 13 MG/DL (7-18); CALCIUM LEVEL 8.1 MG/DL (8.8-10.2); CARBON DIOXIDE LEVEL 23 MEQ/L (21-32); CHLORIDE LEVEL 102 MEQ/L (98-107); CREATININE FOR GFR 0.58 MG/DL (0.55-1.30); GLOMERULAR FILTRATION RATE > 60.0 (>32); GLUCOSE, FASTING 130 MG/DL (70-100); POTASSIUM SERUM 4.3 MEQ/L (3.5-5.1); SODIUM LEVEL 132 MEQ/L (136-145)
[2018-12-01] MEDS ORDERED: ceFAZolin 2 GM/D5W 50 ML IV BAG (J0690 PER 500MG) As Ordered ONE (08:23)
[2018-12-01] MEDS ORDERED: ceFAZolin 1GM INJ (J0690 PER 500MG) As Ordered ONE (08:24)
[2018-12-01] MEDS ORDERED: BUPIVACAINE HCL 0.5% 30 ML VIAL As Ordered ONE (08:27)
[2018-12-01] MEDS ORDERED: SEVOFLURANE INHAL SOLN 250 ML BTL As Ordered ONE (08:39)
[2018-12-01] MEDS ORDERED: KETAMINE HCL 200 MG/20 ML VIAL As Ordered ONE (08:39)
[2018-12-01] MEDS ORDERED: MIDAZOLAM INJ 2 MG/2 ML VIAL (J2250) As Ordered ONE (08:39)
[2018-12-01] MEDS ORDERED: PROPOFOL 200 MG/20 ML VIAL As Ordered ONE (08:58)
[2018-12-01] MEDS ORDERED: LIDOCAINE 2% INJ 100 MG/5 ML SDV (FOR ANES.) As Ordered ONE (08:58)
[2018-12-01] MEDS ORDERED: TRANEXAMIC ACID 100 MG/ML 10ML VIAL As Ordered ONE (10:06)
[2018-12-01] MEDS ORDERED: ePHEDrine SULFATE 25 MG/5 ML(5MG/ML) SYRINGE As Ordered ONE (10:19)
--- NOTE | 2018-12-01 10:29 | IPNPDOC ---
Text Note Date of Service The patient was seen on 12/01/18. NOTE SUBJECTIVE: Patient is pleasantly demented, complains of left hip pain otherwise no complaints. Went for surgery today. PHYSICAL EXAMINATION: VITALS: As below General: She appears in no distress. She is pleasantly demented. HEENT: Head is normocephalic, atraumatic. Eyes: Extraocular movement are intact. Cardiovascular: Regular rate and rhythm. Normal S1 and S2. Systolic murmur heard through out the left chest Abdomen: Soft. Nontender. Nondistended. Positive bowel sounds. No rebound or guarding. Extremities: No pitting edema or calf tenderness. Skin appears to be intact. Neurological: She is alert and oriented times one. No focal deficits appreciated. Labs and Radiology: reviewed. Assessment Plan: The patient is an 88-year-old female from [facility] with past medical history of advanced dementia and hypertension as well as osteoporosis, recent right hip fracture in september 2018 s/p ORIF was in rehab then went to ID on 11/21/18. She presents to the emergency room after being found on the floor complaining of left hip pain. The patient has profound dementia and she is an unreliable historian. In the ED she was found to have lef t hip fracture. Left intertrochanteric hip fracture on 11/30/18 planned for ORIF Repeat CT head negative for any bleed Patient medically optimized for the proposed procedure continue to hold anticoagulation till after surgery and cleared by [facility] pain control as per ortho. Comminuted intertrochanteric fracture of right femur s/p ORIF in Sep 2018 patient was recovering from this surgery and was on xarelto for DVT prophylaxis hold this. Advanced dementia continue donepezil, fluoxetine Hypertension continue metoprolol and amlodipine with hold parameters. Vertigo continue meclizine prn. Glaucoma continue eye drops. Single lytic lesion over the right iliac wing bone s/p biopsy in previous admission no malignancy detected. Osteoporosis VS,Fishbone, I+O VS, Fishbone, I+O Laboratory Tests 12/01/18 06:02 Red Blood Count 3.45 L, Mean Corpuscular Volume 90.1, Mean Corpuscular Hemoglobin 28.4, Mean Corpuscular Hemoglobin Concent 31.5 L, Red Cell Distribution Width 15.6 H, Calcium Level 8.1 L Vital Signs Date Time Temp Pulse Resp B/P (MAP) Pulse Ox O2 Delivery O2 Flow Rate FiO2 12/01/18 06:00 97.2 58 17 120/70 (87) 98 11/30/18 08:02 Room Air I&O- Last 24 Hours up to 6 AM 12/01/18 06:00 Intake Total 0 ml Output Total 525 ml Balance -525 ml SUJIT JONES MD Dec 01, 2018 10:29
[2018-12-01] MEDS ORDERED: LR 1,000 ML IV SCH ×2 (10:45→12:15)
[2018-12-01] MEDS ORDERED: NORCO, ANEXSIA 5/325MG TABLET (HYDROcodone/ACETAMINOPHEN) PO PRN ×2 (10:45→12:15)
[2018-12-01] MEDS ORDERED: ONDANSETRON 4MG/2ML VIAL (J2405) IV PRN ×3 (10:45→12:15)
[2018-12-01] MEDS ORDERED: fentaNYL 100 MCG/2 ML INJECTION (J3010) IV PRN ×2 (10:45→12:15)
[2018-12-01] MEDS ORDERED: ONDANSETRON 4 MG TAB (S0181) PO PRN (11:00)
[2018-12-01] MEDS ORDERED: FLEET ENEMA PR PRN (11:00)
--- NOTE | 2018-12-01 11:15 | REP ---
LEFT FEMUR C-ARM: 12/01/2018. TECHNIQUE: 13 images from C-arm fluoroscopy provided to Dr. Corrigan of the orthopedic division for [facility] in the OR. FINDINGS: Images show intertrochanteric fracture reduced with intramedullary lyssa placed and blade-paddle device through the intertrochanteric fracture into the femoral head and neck. Reduction of fragments is essentially anatomic. Three transverse screws fix the distal end of the intramedullary lyssa to the femoral shaft and metaphysis. FLUOROSCOPY TIME: 3 minutes 29 seconds. Electronically Signed by Hamlet Dolan MD 12/01/2018 07:40 P
--- NOTE | 2018-12-01 11:19 | RO ---
DATE OF PROCEDURE: 12/01/2018 PREOPERATIVE DIAGNOSIS: Left hip intertrochanteric fracture. POSTOPERATIVE DIAGNOSIS: Left hip intertrochanteric fracture. PLANNED PROCEDURE: Left hip open reduction internal fixation (IM nail). PROCEDURE PERFORMED: Left hip open reduction internal fixation (IM nail). SURGEON: Jey Corrigan MD CARBIDER: FARMWORKER ANIMAL: Dr. Dumont TYPE OF ANESTHETIC: Spinal. IMPLANTS USED: Synthes TFN-A 360 mm length x 11 mm diameter, 125 degree angle, plus 95 mm helical blade. OPERATIVE PREAMBLE: This 88-year-old female unfortunately sustained another fall [facility] bed [facility] the [facility]. She had recently had her right hip fixed as well by IM nail for a similar fracture. I met her daughter in holding. We discussed again about going forward with surgery. I had previously talked to Dr. Pollakc and signed a consent form. I updated this and made a small note in the chart with regards to the pros and cons, risks and benefits of surgery. OPERATIVE REPORT: Patient was brought to the operating theater. Spinal anesthesia was administered. 2 grams of IV Ancef was given. The patient was placed supine with the left leg in traction and the right leg in the well leg delarosa, flexed up out of the way. All bony prominences padded. The limb had been marked prior to the surgery. We confirmed the site and performed preoperative time out after the prep solution had dried thoroughly for 3 minutes. We used the shower curtain style drape, draped over the leg. Made a 2-inch incision centered over the lateral aspect of the proximal femur three fingerbreadths proximal to level of the greater trochanter. I carried this dissection down through skin and subcutaneous tissue. I introduced the 3.2 mm threaded tip Guidewire at the tip of the greater trochanter on the AP and lateral radiographs. I had performed a preoperative reduction maneuver with traction, internal rotation of the leg. This achieved appropriate reduction. I passed the Guidewire down in the appropriate angle down to the level of the lesser trochanter. Next, I used the entry reamer over top of the Guidewire. I then withdrew all this. I attempted to pass the ball-tip guidewire down the femoral shaft through the previously made hole at the greater trochanter. This proved difficult as it was exiting the fracture site. I made a small accessory incision where the planned helical blade would enter and then used a bone hook to try to stop this from going out. This proved difficult. As such, I repositioned the patient slightly on the operating table and was able to then pass the Guidewire down to the center of the femur on AP and lateral radiographs stopping at the superior pole of patella. I measured this to be 370 mm and as such we selected 360 mm long nail. I then inserted the centralizing sleeve and then reamed all the way up sequentially to a 12.5 mm diameter. I selected a 360 mm long, 11 mm in diameter, 125 degrees angle Synthes nail. This was attached guide and then inserted over the ball tip Guidewire. Ball tip Guidewire removed. Dropped down 125 degree guide placed in situ. Then the aiming sleeve inserted down to bone through the previously made incision. I then passed another 3.2 mm threaded tip Guidewire up into the center of the femoral head and neck on the AP and lateral radiographs. This measured approximately 102 mm and as such I took 7 mm off of this and reamed up to 95 mm and then passed a 95 mm long helical blade over top of this Guidewire. Screw was locked proximally. The drop down guide was removed. We ensured that the helical blade was in appropriate position on AP and lateral radiographs. Next, I turned my attention to the distal interlocks. Using good cutaneous technique and perfect comanche at the distal interlocks and lateral radiographs, I inserted two distal interlocking screws to the nail. There was one that was in the metaphyseal bone so it had soft bite and turned out to be about a millimeter or two to short, so as such I inserted a third distal interlock in the proximal hole. These screws turned out to be 52 mm long, which had to change out the distal one so that it was appropriate length 46 mm long in the next most distal and then 42 mm long in the most proximal distal interlocking hole. We thoroughly irrigated the wounds with normal saline. I dosed the patient with 2 grams of IV tranexamic acid for bleeding control. Subcutaneous tissue was closed with #2-0 Vicryl sutures in an interrupted fashion. The skin then closed with felix. The skin was cleaned with wet and dry dressing followed by application of Adaptic 4 x 8 gauze and ABD with cloth tape dressing. The guide had obviously been removed prior to closing the wounds and final pictures were taken at the hip and distally. The patient was taken out of the traction setup, transferred off the operating room table and taken to postanesthesia care unit (PACU) in stable condition. All sponge, needle, instrument counts were correct. Estimated blood loss 100 mL. PLAN: The patient is to be weightbearing as tolerated. See physical therapy/occupational therapy (PT/OT) while admitted to the hospital to ensure safety for mobilization. Rivaroxaban 10 mg p.o. once daily for the next 35 days for VTE prophylaxis. Pain control will be achieved. Discontinue the felix at 2 weeks postoperatively and follow-up with myself in 2-6 weeks time after surgery.
[2018-12-01] MEDS: NS 1,000 ML IV SCH ×2 (12:45→19:00)
[2018-12-01] MEDS: DORZOLAMIDE 2% OPHTH SOLN 10 ML BTL OU SCH ×2 (13:02→20:08)
[2018-12-01] MEDS: THIAMINE 100 MG TAB PO SCH (13:02)
[2018-12-01] MEDS: TIMOLOL MALEATE 0.5% OPHTH SOLN 5 ML OU SCH ×2 (13:02→20:08)
[2018-12-01] MEDS: MOM 30ML SUSPENSION UDC PO SCH (13:03)
[2018-12-01] MEDS: SENOKOT S TAB PO SCH ×2 (13:04→20:06)
[2018-12-01] MEDS: FERROUS SULFATE 325MG TAB PO SCH ×2 (13:04→20:06)
[2018-12-01] MEDS: OMEGA-3 1000MG CAPSULE PO SCH ×2 (13:04→20:06)
[2018-12-01] MEDS: amLODIPine 5 MG TAB PO SCH (13:06)
[2018-12-01] MEDS: D5W/0.45% SODIUM CHLORIDE 1,000 ML IV SCH (15:18)
[2018-12-01] MEDS ORDERED: RIVAROXABAN 10 MG TAB (XARELTO) PO SCH (18:00)
[2018-12-01] MEDS: FLUoxetine 20 MG CAP PO SCH (20:05)
[2018-12-01] MEDS: DONEPEZIL 5 MG TAB PO SCH (20:06)
[2018-12-01] MEDS: MEGESTROL SUSP 400 MG/10 ML UDC PO SCH (20:06)
[2018-12-01] MEDS: METOPROLOL SUCC *XL* 25MG TAB (TopROL *XL*) PO SCH (20:07)
[2018-12-02] MEDS: ACETAMINOPHEN TAB 650MG DOSE (2X325MG) PO PRN ×4 (01:37→22:16)
[2018-12-02 02:00] VITALS: BP 118/63
[2018-12-02] MEDS: OMEPRAZOLE 20 MG CAP PO SCH (05:17)
[2018-12-02] MEDS: PERCOCET 5MG/325MG TAB PO PRN (05:17)
[2018-12-02 06:00] VITALS: BP 111/55
[2018-12-02 07:28] LABS: HEMATOCRIT 24.8 % (36.0-47.0); MEAN CORPUSCULAR HEMOGLOBIN 29.3 pg (27.0-33.0); MEAN CORPUSCULAR HGB CONC 32.3 g/dl (32.0-36.5); MEAN CORPUSCULAR VOLUME 90.8 fl (80.0-96.0); PLATELET COUNT, AUTOMATED 226 10^3/uL (150-450); RED BLOOD COUNT 2.73 10^6/uL (4.00-5.40)
[2018-12-02 07:37] LABS: INR 1.13; PROTHROMBIN TIME 14.7 SECONDS (12.1-14.4)
[2018-12-02] MEDS ORDERED: PERC5TAB12 PO (07:42)
[2018-12-02] MEDS ORDERED: XARE10TA PO (07:42)
[2018-12-02 07:51] LABS: BLOOD UREA NITROGEN 14 MG/DL (7-18); CALCIUM LEVEL 7.8 MG/DL (8.8-10.2); CARBON DIOXIDE LEVEL 22 MEQ/L (21-32); CHLORIDE LEVEL 102 MEQ/L (98-107); CREATININE FOR GFR 0.48 MG/DL (0.55-1.30); GLOMERULAR FILTRATION RATE > 60.0 (>32); GLUCOSE, FASTING 155 MG/DL (70-100); POTASSIUM SERUM 3.5 MEQ/L (3.5-5.1); SODIUM LEVEL 132 MEQ/L (136-145)
[2018-12-02] MEDS: DORZOLAMIDE 2% OPHTH SOLN 10 ML BTL OU SCH ×2 (09:55→22:12)
[2018-12-02] MEDS: TIMOLOL MALEATE 0.5% OPHTH SOLN 5 ML OU SCH ×2 (09:55→22:12)
[2018-12-02] MEDS: SENOKOT S TAB PO SCH ×2 (09:56→22:09)
[2018-12-02] MEDS: THIAMINE 100 MG TAB PO SCH (09:56)
[2018-12-02] MEDS: MOM 30ML SUSPENSION UDC PO SCH (09:56)
[2018-12-02] MEDS: FERROUS SULFATE 325MG TAB PO SCH ×2 (09:56→22:10)
[2018-12-02] MEDS: OMEGA-3 1000MG CAPSULE PO SCH ×2 (09:56→22:10)
[2018-12-02] MEDS: amLODIPine 5 MG TAB PO SCH (10:01)
--- NOTE | 2018-12-02 10:11 | IPN ---
DATE OF SERVICE: 12/02/2018 CHIEF COMPLAINT: Postoperative day #1 left hip TFN-A. HISTORY OF PRESENT ILLNESS: This is an 88-year-old female seen today postoperative day #1 on the [facility] of [address] [place] [address]. She is a pleasantly confused. No concerns from her or the nurses. She had had another fall out of bed and, unfortunately, sustained a displaced left intertrochanteric hip fracture that I fixed yesterday. She had also had a history of a right intertrochanteric hip fracture fixed by long nail, as well. This was just a few months ago. PHYSICAL EXAMINATION: Vital signs: Not recorded this morning. She is alert but still presently confused. Dressings are in situ. No strikethrough on the dressings. Thigh compartments are soft. She is able to wiggle her toes and at least follow some basic commands. Her foot is warm and well-perfused. Blood work not back yet, as well. ASSESSMENT AND PLAN: We will mobilize this 88-year-old female who is now postoperative day #1 from left hip fracture, TFN-A. I did a long nail yesterday. I placed her on rivaroxaban for venous thromboembolism (VTE) prophylaxis. We will followup the blood work, as well, and ensure vital signs are stable throughout the day.
[2018-12-02 14:00] VITALS: BP 111/66
--- NOTE | 2018-12-02 15:22 | IPNPDOC ---
Text Note Date of Service The patient was seen on 12/02/18. NOTE SUBJECTIVE: Patient is pleasantly confused but cooperative. Remains awake most of the night with increased confusion. could not stand with PT. PHYSICAL EXAMINATION: VITALS: As below General: She appears in no distress. She is pleasantly demented. HEENT: Head is normocephalic, atraumatic. Eyes: Extraocular movement are intact. Cardiovascular: Regular rate and rhythm. Normal S1 and S2. Systolic murmur heard through out the left chest Abdomen: Soft. Nontender. Nondistended. Positive bowel sounds. No rebound or guarding. Extremities: No pitting edema or calf tenderness. Skin appears to be intact. Neurological: She is alert and oriented times one. No focal deficits appreciated. Labs and Radiology: reviewed. Assessment Plan: The patient is an 88-year-old female from [facility] with past medical history of advanced dementia and hypertension as well as osteoporosis, recent right hip fracture in september 2018 s/p ORIF was in rehab then went to [place] on 11/21/18. She presents to the emergency room after being found on the floor complaining of left hip pain. The patient has profound dementia and she is an unreliable historian. In the ED she was found to have left hip fracture. Left intertrochanteric hip fracture on 11/30/18 s/p ORIF on 12/01/18 pain control as per ortho. restarted xarelto Comminuted intertrochanteric fracture of right femur s/p ORIF in Sep 2018 patient was recovering from this surgery Advanced dementia continue donepezil, fluoxetine Hypertension continue metoprolol and amlodipine with hold parameters. Vertigo continue meclizine prn. Glaucoma continue eye drops. Single lytic lesion over the right iliac wing bone s/p biopsy in previous admission no malignancy detected. Osteoporosis VS,Fishbone, I+O VS, Fishbone, I+O Laboratory Tests 12/02/18 06:58 Red Blood Count 2.73 L, Mean Corpuscular Volume 90.8, Mean Corpuscular Hemoglobin 29.3, Mean Corpuscular Hemoglobin Concent 32.3, Red Cell Distribution Width 15.5 H, Calcium Level 7.8 L Vital Signs Date Time Temp Pulse Resp B/P (MAP) Pulse Ox O2 Delivery O2 Flow Rate FiO2 12/02/18 10:01 114/53 2/17/19 06:00 99.1 68 19 99 12/01/18 11:25 Room Air I&O- Last 24 Hours up to 6 AM 12/02/18 06:00 Intake Total 2505 ml Output Total 930 ml Balance 1575 ml SUJIT JONES MD Dec 02, 2018 15:22
[2018-12-02] MEDS ORDERED: diphenhydrAMINE 50 MG CAP PO PRN (15:30)
[2018-12-02] MEDS ORDERED: RIVAROXABAN 10 MG TAB (XARELTO) PO SCH (18:00)
[2018-12-02 22:00] VITALS: BP 111/54
[2018-12-02] MEDS: MEGESTROL SUSP 400 MG/10 ML UDC PO SCH (22:09)
[2018-12-02] MEDS: FLUoxetine 20 MG CAP PO SCH (22:10)
[2018-12-02] MEDS: DONEPEZIL 5 MG TAB PO SCH (22:11)
[2018-12-02] MEDS: METOPROLOL SUCC *XL* 25MG TAB (TopROL *XL*) PO SCH (22:11)
[2018-12-03] MEDS: ACETAMINOPHEN TAB 650MG DOSE (2X325MG) PO PRN ×2 (04:28→09:08)
[2018-12-03 06:00] VITALS: BP 120/59
[2018-12-03 06:44] LABS: HEMATOCRIT 23.7 % (36.0-47.0); HEMOGLOBIN 7.9 g/dl (12.0-15.5); MEAN CORPUSCULAR HEMOGLOBIN 29.2 pg (27.0-33.0); MEAN CORPUSCULAR HGB CONC 33.3 g/dl (32.0-36.5); MEAN CORPUSCULAR VOLUME 87.5 fl (80.0-96.0); PLATELET COUNT, AUTOMATED 289 10^3/uL (150-450); RED BLOOD COUNT 2.71 10^6/uL (4.00-5.40); WHITE BLOOD COUNT 11.7 10^3/uL (4.0-10.0)
[2018-12-03 07:03] LABS: BLOOD UREA NITROGEN 16 MG/DL (7-18); CALCIUM LEVEL 8.2 MG/DL (8.8-10.2); CARBON DIOXIDE LEVEL 23 MEQ/L (21-32); CHLORIDE LEVEL 102 MEQ/L (98-107); GLOMERULAR FILTRATION RATE > 60.0 (>32); GLUCOSE, FASTING 85 MG/DL (70-100); POTASSIUM SERUM 3.4 MEQ/L (3.5-5.1); SODIUM LEVEL 133 MEQ/L (136-145)
[2018-12-03] MEDS: OMEPRAZOLE 20 MG CAP PO SCH (07:05)
--- NOTE | 2018-12-03 08:18 | IPN ---
DATE: 12/03/2018 CHIEF COMPLAINT: Post-op day #2 left hip intramedullary (IM) nail. HISTORY OF PRESENT ILLNESS: This is an 88-year-old female seen today in the ambriz postoperative from her left hip IM nail for intratrochanteric hip fracture. I did a long nail. She is doing well. She is pleasantly confused. She seems to be at her baseline. No concerns from the nurses or from myself. PHYSICAL EXAMINATION: Vital signs: Temperature 99.0. Blood pressure 120/59, pulse rate 75, 99% on room air, 20 respiratory rate. She is pleasantly confused. She follows directions. She is able to wiggle her toes, dorsiflex and plantar flex her foot. The foot is warm and well perfused with good pedal pulses. The dressings are dry and thigh compartment soft. Laboratory examination revealed hemoglobin to be stable from yesterday, 7.9 from 8.0 yesterday. ASSESSMENT AND PLAN: This 88-year-old female with will be mobilized again today, weightbearing as tolerated. Deep venous thrombosis (DVT) prophylaxis with Xarelto 10 mg by mouth daily.
[2018-12-03] MEDS ORDERED: POTASSIUM CHLORIDE 10 MEQ SR TABLET PO SCH (09:00)
[2018-12-03] MEDS: MOM 30ML SUSPENSION UDC PO SCH (09:03)
[2018-12-03] MEDS: DORZOLAMIDE 2% OPHTH SOLN 10 ML BTL OU SCH (09:04)
[2018-12-03] MEDS: TIMOLOL MALEATE 0.5% OPHTH SOLN 5 ML OU SCH (09:05)
[2018-12-03 09:06] VITALS: BP 120/59
[2018-12-03] MEDS: OMEGA-3 1000MG CAPSULE PO SCH (09:06)
[2018-12-03] MEDS: amLODIPine 5 MG TAB PO SCH (09:06)
[2018-12-03] MEDS: FERROUS SULFATE 325MG TAB PO SCH (09:06)
[2018-12-03] MEDS: SENOKOT S TAB PO SCH (09:06)
[2018-12-03] MEDS: THIAMINE 100 MG TAB PO SCH (09:07)
--- NOTE | 2018-12-04 00:06 | DS.PDOC ---
Discharge Summary General Date of Admission Nov 30, 2018 at 04:37 Date of Discharge 12/03/18 Attending Physician: SUJIT JONES MD Specialist/Consultants Involve: ARNOLDO SANCHEZ MD Discharge Summary PROCEDURES PERFORMED DURING STAY: ORIF of Left hip DISCHARGE DIAGNOSES: Left hip fracture Advanced dementia Hypertension Vertigo Glaucoma Single lytic lesion on the right iliac wing no malignancy COMPLICATIONS/CHIEF COMPLAINT: Intertrochanteric Fracture. HISTORY OF PRESENT ILLNESS: See history and physical HOSPITAL COURSE: The patient is an 88-year-old female from [facility] with past medical history of advanced dementia and hypertension as well as osteoporosis, recent right hip fracture in september 2018 s/p ORIF was in rehab then went to [facility] on 11/21/18. She presents to the emergency room after being found on the floor complaining of left hip pain. The patient has profound dementia and she is an unreliable historian. In the ED she was found to have left hip fracture. Left intertrochanteric hip fracture on 11/30/18 s/p ORIF on 12/01/18 pain control as per ortho. restarted xarelto Comminuted intertrochanteric fracture of right femur s/p ORIF in Sep 2018 patient was recovering from this surgery Advanced dementia continue donepezil, fluoxetine Hypertension continue metoprolol and amlodipine with hold parameters. Vertigo continue meclizine prn. Glaucoma continue eye drops. Single lytic lesion over the right iliac wing bone s/p biopsy in previous admission no malignancy detected. Osteoporosis DISCHARGE MEDICATIONS: Please see below. ALLERGIES: Please see below. PHYSICAL EXAMINATION ON DISCHARGE: VITAL SIGNS: Please see below. GENERAL: She appears in no distress. She is pleasantly demented. HEENT: Head is normocephalic, atraumatic. EYES: Extraocular movement are intact. CARDIOVASCULAR: Regular rate and rhythm. Normal S1 and S2. Systolic murmur heard through out the left chest ABDOMEN: Soft. Nontender. Nondistended. Positive bowel sounds. No rebound or guarding. Extremities: No pitting edema or calf tenderness. Skin appears to be intact. Neurological: She is alert and oriented times one. No focal deficits appreciated. LABORATORY DATA: Please see below. ACTIVITY: [As tolerated]. DIET: As tolerated DISPOSITION: [facility]. DISCHARGE INSTRUCTIONS: 1.Follow up with ortho as directed DISCHARGE CONDITION: [Stable]. TIME SPENT ON DISCHARGE: Greater than 30 minutes. Vital Signs/I&Os Vital Signs Date Time Temp Pulse Resp B/P (MAP) Pulse Ox O2 Delivery O2 Flow Rate FiO2 12/03/18 09:06 75 120/59 12/03/18 06:00 99.0 20 99 12/01/18 11:25 Room Air I&O- Last 24 Hours up to 6 AM 12/03/18 06:00 Intake Total 480 ml Output Total 350 ml Balance 130 ml Laboratory Data Labs 24H Laboratory Tests 2 12/03/18 05:33: Nucleated Red Blood Cells % (auto) 0.0, Anion Gap 8, Glomerular Filtration Rate > 60.0, Blood Urea Nitrogen 16, Creatinine 0.50L, Sodium Level 133L, Potassium Level 3.4L, Chloride Level 102, Carbon Dioxide Level 23, Calcium Level 8.2L CBC/BMP Laboratory Tests 12/03/18 05:33 Red Blood Count 2.71 L, Mean Corpuscular Volume 87.5, Mean Corpuscular Hemoglobin 29.2, Mean Corpuscular Hemoglobin Concent 33.3, Red Cell Distribution Width 15.6 H, Calcium Level 8.2 L Discharge Medications Scheduled (Ensure Enlive) 1 Liq Liq, 1 LIQ PO BID, (Reported) (Dorzolamide HCl) 2 % Joelle, 1 DROP OU BID, (Reported) (Epinastine HCl) 0.05 % Brett, 1 DROP OU BID, (Reported) Acetaminophen (Acetaminophen ER) 650 Mg Tab, 650 MG PO Q4H, (Reported) Amlodipine Besylate (Amlodipine Besylate) 5 Mg Tab, 5 MG PO DAILY, (Reported) Docusate Sod/Senna (Docusate Sodium & Senna S 8.6-50 mg) 1 Tab Tab, 1 TAB PO BID, (Reported) Donepezil Hcl (Donepezil HCl) 10 Mg Tab, 10 MG PO QHS, (Reported) Ferrous Sulfate (Ferrous Sulfate) 325 Mg Tab, 325 MG PO BID, (Reported) Fluoxetine Hcl (Fluoxetine) 20 Mg Cap, 20 MG PO QHS, (Reported) Megestrol Acetate (Megestrol Acetate) 40 Mg/Ml Linda, 400 MG PO QHS, (Reported) Metoprolol Succinate (Toprol Xl) 25 Mg Tab, 12.5 MG PO QHS, (Reported) Milk Of Magnesia (Milk of Magnesia) 1,200 Mg/15 Ml Linda, 30 ML PO DAILY, (Reported) [place] 3 Polyunsat Fatty Acids (Fish Oil 1000 mg) 1 Cap Cap, 1 CAP PO BID, (Reported) Omeprazole (Omeprazole) 40 Mg Cap, 40 MG PO DAILY, (Reported) TAKES AT 0600 Rivaroxaban (Xarelto) 10 Mg Tab, 10 MG PO DAILY Thiamine HCl (Vitamin B-1) 50 Mg Tab, 100 MG PO DAILY, (Reported) Timolol Maleate (Timolol Maleate) 0.5 % Joelle, 1 DROP OU BID, (Reported) Scheduled PRN Albuterol/Ipratropium (Ipratropium [place]/Albut 0.5-2.5 (3) mg/3Ml) 1 Joelle Joelle, 1 INHALATION IN TID PRN for SHORTNESS OF BREATH, (Reported) Bisacodyl (Bisacodyl) 10 Mg Sup, 10 MG [place] DAILY PRN for CONSTIPATION, (Reported) Guaifenesin (Mucinex) 600 Mg Tab, 600 MG PO TID PRN for CONGESTION, (Reported) Meclizine HCl (Meclizine 25) 25 Mg Tab, 12.5 MG PO BID PRN for DIZZINESS, (Reported) Melatonin (Melatonin) 5 Mg Tab, 5 MG PO QHS PRN for INSOMNIA, (Reported) Oxycodone/Acetaminophen (Percocet 5-325 mg) 1 Tab Tab, 1 TAB PO Q4H PRN for PAIN Polyethylene Glycol (Miralax) 1 Pow Pow, 17 GM PO QHS PRN for CONSTIPATION, (Reported) Sodium Phosphate/Biphosphate (Enema 7-19 gm/118Ml) 1 Allyson Allyson, 1 [place] DAILY PRN for CONSTIPATION, (Reported) Allergies Coded Allergies: Morphine (Verified Adverse Reaction, Severe, hx of becoming hypotensive and unresponsive with 5mg IV dose, 11/15/18) SUJIT JONES MD Dec 04, 2018 00:06
== END 2018-12-03 12:15 | DRG 482 ==
LOC: EDBD 01:47 → EDSEX 01:47 → M ED 01:47 → M ED INP 04:37 → M MSPAV 08:07 → M MS5PR 12-01 11:38
PROVIDERS: ADMIT Internal Medicine; ATTEND Internal Medicine Nephrology
PROC: 0QS706Z Reposition Left Upper Femur with Intramedullary Internal Fixation Device, Open Approach (ICD-10-PCS; principal; 2018-12-01 08:00)
DX: S72.142A Displaced intertrochanteric fracture of left femur, initial encounter for closed fracture (principal); F03.90 Unspecified dementia, unspecified severity, without behavioral disturbance, psychotic disturbance, mood disturbance, and anxiety; I10 Essential (primary) hypertension; R42 Dizziness and giddiness; M89.8X8 Other specified disorders of bone, other site; H40.9 Unspecified glaucoma; M81.0 Age-related osteoporosis without current pathological fracture; Z88.5 Allergy status to narcotic agent; Z79.899 Other long term (current) drug therapy; W18.09XA Striking against other object with subsequent fall, initial encounter; Y92.129 Unspecified place in nursing home as the place of occurrence of the external cause

== ENCOUNTER → 2018-12-04 | Outpatient (REF) | payer MEDICARE, BC ==
[~2018-12-04] MED LIST changes: +ACE65ERTAB PO; +BISA10SU4 PR; +DONETAB6 PO; +DORZ2SOL4 OU; +ENEMENE4 PR; +ENSULIQ64 PO; +FERR325T3 PO; +FISH7.5C PO; +FLUO20CA8 PO; +IPRA0.00 IN; +MECL-86 PO; +MEGE40SU5 PO; +MELA5TAB21 PO; +MILK120011 PO; +MIRA33504 PO; +MUCI600T31 PO; +OMEP40CA2 PO; +PERC5TAB12 PO; +SENN8.6T9 PO; +TIMO0.5S29 OU; +TOPR25TA13 PO; +VITA50TA47 PO
== END ==
PROVIDERS: ATTEND Internal Medicine
DX: I10 Essential (primary) hypertension (principal)

== ENCOUNTER → 2018-12-09 | Outpatient (REF) | payer BC, MEDICARE ==
[2018-12-09 09:41] LABS: APPEARANCE, URINE CLEAR (CLEAR); BACTERIA, URINE AUTO NEGATIVE (NEGATIVE); BILIRUBIN, URINE AUTO NEGATIVE (NEGATIVE); BLOOD, URINE BLOOD NEGATIVE (NEGATIVE); COLOR, URINE YELLOW (YELLOW); GLUCOSE, URINE (UA) AUTO NEGATIVE (NEGATIVE); KETONE, URINE AUTO NEGATIVE (NEGATIVE); LEUKOCYTE ESTERASE, URINE AUTO NEGATIVE (NEGATIVE); NITRITE, URINE AUTO NEGATIVE (NEGATIVE); PROTEIN, URINE AUTO NEGATIVE (NEGATIVE); RBC, URINE AUTO 2 /HPF (0-3); SPECIFIC GRAVITY URINE AUTO 1.023 (1.002-1.035); SQUAMOUS EPITHELIAL CELL UR AU 2 /HPF (0-6); URIC ACID CRYSTALS MODERATE; WBC, URINE AUTO 4 /HPF (0-3)
== END ==
PROVIDERS: ATTEND Internal Medicine
DX: I10 Essential (primary) hypertension (principal); Z79.899 Other long term (current) drug therapy

== ENCOUNTER → 2018-12-09 | Outpatient (REF) | payer MEDICARE, BC | LOC: M LAB REF 09:13 | PROVIDERS: ATTEND Internal Medicine | DX: R30.0 Dysuria (principal); R35.0 Frequency of micturition ==

== ENCOUNTER → 2018-12-16 | Outpatient (REF) | payer MEDICARE, BC ==
[2018-12-16 12:57] LABS: APPEARANCE, URINE HAZY (CLEAR); BACTERIA, URINE AUTO NEGATIVE (NEGATIVE); BILIRUBIN, URINE AUTO NEGATIVE (NEGATIVE); BLOOD, URINE BLOOD NEGATIVE (NEGATIVE); CALCIUM OXALATE CRYSTALS SMALL; COLOR, URINE AMBER (YELLOW); GLUCOSE, URINE (UA) AUTO NEGATIVE (NEGATIVE); KETONE, URINE AUTO NEGATIVE (NEGATIVE); LEUKOCYTE ESTERASE, URINE AUTO TRACE (NEGATIVE); MUCUS, URINE SMALL (NEGATIVE); NITRITE, URINE AUTO NEGATIVE (NEGATIVE); PROTEIN, URINE AUTO NEGATIVE (NEGATIVE); RBC, URINE AUTO 2 /HPF (0-3); SPECIFIC GRAVITY URINE AUTO 1.028 (1.002-1.035); SQUAMOUS EPITHELIAL CELL UR AU 1 /HPF (0-6); WBC, URINE AUTO 7 /HPF (0-3)
== END ==
PROVIDERS: ATTEND Internal Medicine
DX: R35.0 Frequency of micturition (principal)

== ENCOUNTER → 2018-12-18 | Outpatient (REF) | payer BC, MEDICARE ==
[2018-12-18 10:05] LABS: HEMATOCRIT 30.5 % (36.0-47.0); HEMOGLOBIN 9.5 g/dl (12.0-15.5); MEAN CORPUSCULAR HEMOGLOBIN 28.7 pg (27.0-33.0); MEAN CORPUSCULAR HGB CONC 31.1 g/dl (32.0-36.5); MEAN CORPUSCULAR VOLUME 92.1 fl (80.0-96.0); PLATELET COUNT, AUTOMATED 553 10^3/uL (150-450); RED BLOOD COUNT 3.31 10^6/uL (4.00-5.40); WHITE BLOOD COUNT 5.7 10^3/uL (4.0-10.0)
[2018-12-18 11:21] LABS: BLOOD UREA NITROGEN 13 MG/DL (7-18); CALCIUM LEVEL 8.8 MG/DL (8.8-10.2); CARBON DIOXIDE LEVEL 22 MEQ/L (21-32); CHLORIDE LEVEL 104 MEQ/L (98-107); CREATININE FOR GFR 0.55 MG/DL (0.55-1.30); GLOMERULAR FILTRATION RATE > 60.0 (>32); GLUCOSE, FASTING 150 MG/DL (70-100); POTASSIUM SERUM 4.2 MEQ/L (3.5-5.1); SODIUM LEVEL 137 MEQ/L (136-145)
== END ==
PROVIDERS: ATTEND Internal Medicine
DX: I10 Essential (primary) hypertension (principal)

== ENCOUNTER → 2018-12-19 | Outpatient (REF) ==
[2018-12-19 11:32] LABS: APPEARANCE, URINE CLEAR (CLEAR); BACTERIA, URINE AUTO NEGATIVE (NEGATIVE); BILIRUBIN, URINE AUTO NEGATIVE (NEGATIVE); BLOOD, URINE BLOOD NEGATIVE (NEGATIVE); COLOR, URINE YELLOW (YELLOW); GLUCOSE, URINE (UA) AUTO NEGATIVE (NEGATIVE); KETONE, URINE AUTO NEGATIVE (NEGATIVE); LEUKOCYTE ESTERASE, URINE AUTO NEGATIVE (NEGATIVE); MUCUS, URINE SMALL (NEGATIVE); NITRITE, URINE AUTO NEGATIVE (NEGATIVE); PROTEIN, URINE AUTO NEGATIVE (NEGATIVE); RBC, URINE AUTO 0 /HPF (0-3); SPECIFIC GRAVITY URINE AUTO 1.014 (1.002-1.035); SQUAMOUS EPITHELIAL CELL UR AU 0 /HPF (0-6); UROBILINOGEN, URINE AUTO 0.2 mg/dL (0.0-2.0); WBC, URINE AUTO 1 /HPF (0-3)
== END ==
PROVIDERS: ATTEND Internal Medicine
DX: R35.0 Frequency of micturition (principal); R39.15 Urgency of urination

== ENCOUNTER → 2019-01-02 | Outpatient (REF) | payer MEDICARE, BC ==
[2019-01-02 09:11] LABS: HEMATOCRIT 35.3 % (36.0-47.0); MEAN CORPUSCULAR HEMOGLOBIN 29.4 pg (27.0-33.0); MEAN CORPUSCULAR HGB CONC 31.2 g/dl (32.0-36.5); MEAN CORPUSCULAR VOLUME 94.4 fl (80.0-96.0); PLATELET COUNT, AUTOMATED 314 10^3/uL (150-450); RED BLOOD COUNT 3.74 10^6/uL (4.00-5.40); WHITE BLOOD COUNT 6.4 10^3/uL (4.0-10.0)
[2019-01-02 09:33] LABS: BLOOD UREA NITROGEN 12 MG/DL (7-18); CALCIUM LEVEL 9.2 MG/DL (8.8-10.2); CARBON DIOXIDE LEVEL 22 MEQ/L (21-32); CHLORIDE LEVEL 107 MEQ/L (98-107); CREATININE FOR GFR 0.59 MG/DL (0.55-1.30); GLOMERULAR FILTRATION RATE > 60.0 (>32); GLUCOSE, FASTING 80 MG/DL (70-100); POTASSIUM SERUM 4.6 MEQ/L (3.5-5.1); SODIUM LEVEL 139 MEQ/L (136-145)
== END ==
PROVIDERS: ATTEND Internal Medicine
DX: R63.0 Anorexia (principal)

== ENCOUNTER → 2019-01-15 | Outpatient (REF) | payer MEDICARE, BC ==
[2019-01-15 12:05] LABS: HEMATOCRIT 33.4 % (36.0-47.0); HEMOGLOBIN 10.2 g/dl (12.0-15.5); MEAN CORPUSCULAR HEMOGLOBIN 28.8 pg (27.0-33.0); MEAN CORPUSCULAR HGB CONC 30.5 g/dl (32.0-36.5); MEAN CORPUSCULAR VOLUME 94.4 fl (80.0-96.0); PLATELET COUNT, AUTOMATED 358 10^3/uL (150-450); RED BLOOD COUNT 3.54 10^6/uL (4.00-5.40); WHITE BLOOD COUNT 7.9 10^3/uL (4.0-10.0)
[2019-01-15 12:10] LABS: BLOOD UREA NITROGEN 17 MG/DL (7-18); CALCIUM LEVEL 9.1 MG/DL (8.8-10.2); CARBON DIOXIDE LEVEL 24 MEQ/L (21-32); CHLORIDE LEVEL 106 MEQ/L (98-107); GLOMERULAR FILTRATION RATE > 60.0 (>32); GLUCOSE, FASTING 79 MG/DL (70-100); POTASSIUM SERUM 4.6 MEQ/L (3.5-5.1); SODIUM LEVEL 138 MEQ/L (136-145)
== END ==
PROVIDERS: ATTEND Internal Medicine
DX: D64.9 Anemia, unspecified (principal)

== ENCOUNTER → 2019-01-18 | Outpatient (REF) | payer MEDICARE, BC ==
[2019-01-18 12:19] LABS: HEMATOCRIT 35.1 % (36.0-47.0); HEMOGLOBIN 11.1 g/dl (12.0-15.5); MEAN CORPUSCULAR HEMOGLOBIN 29.4 pg (27.0-33.0); MEAN CORPUSCULAR HGB CONC 31.6 g/dl (32.0-36.5); MEAN CORPUSCULAR VOLUME 93.1 fl (80.0-96.0); PLATELET COUNT, AUTOMATED 350 10^3/uL (150-450); RED BLOOD COUNT 3.77 10^6/uL (4.00-5.40); WHITE BLOOD COUNT 9.8 10^3/uL (4.0-10.0)
[2019-01-18 12:31] LABS: ALBUMIN 3.1 GM/DL (3.2-5.2); ALT/SGPT 16 U/L (12-78); BILIRUBIN,TOTAL 0.3 MG/DL (0.2-1.0); BLOOD UREA NITROGEN 22 MG/DL (7-18); CALCIUM LEVEL 8.8 MG/DL (8.8-10.2); CARBON DIOXIDE LEVEL 25 MEQ/L (21-32); CHLORIDE LEVEL 106 MEQ/L (98-107); CREATININE FOR GFR 0.59 MG/DL (0.55-1.30); GLOMERULAR FILTRATION RATE > 60.0 (>32); GLUCOSE, FASTING 94 MG/DL (70-100); POTASSIUM SERUM 4.6 MEQ/L (3.5-5.1); SODIUM LEVEL 140 MEQ/L (136-145); TOTAL PROTEIN 6.4 GM/DL (6.4-8.2)
== END ==
PROVIDERS: ATTEND Physician Assistant
DX: R11.10 Vomiting, unspecified (principal)

== ENCOUNTER → 2019-01-18 | Outpatient (REF) | payer MEDICARE, BC | PROVIDERS: ATTEND Internal Medicine | DX: F03.91 Unspecified dementia, unspecified severity, with behavioral disturbance (principal) ==

== ENCOUNTER → 2019-02-06 | Outpatient (REF) | payer MEDICARE, BC ==
[~2019-02-06] MED LIST changes: -ASPI1TAB PO; +ASPI81TA26 PO; +SENN1TAB36 PO; -SENN8.6T9 PO; +TOPR25TA PO; -TOPR25TA13 PO
[2019-02-06 10:41] LABS: HEMATOCRIT 36.4 % (36.0-47.0); HEMOGLOBIN 11.6 g/dl (12.0-15.5); MEAN CORPUSCULAR HEMOGLOBIN 28.6 pg (27.0-33.0); MEAN CORPUSCULAR HGB CONC 31.9 g/dl (32.0-36.5); MEAN CORPUSCULAR VOLUME 89.7 fl (80.0-96.0); PLATELET COUNT, AUTOMATED 340 10^3/uL (150-450); RED BLOOD COUNT 4.06 10^6/uL (4.00-5.40); WHITE BLOOD COUNT 7.8 10^3/uL (4.0-10.0)
[2019-02-06 10:56] LABS: BLOOD UREA NITROGEN 18 MG/DL (7-18); CALCIUM LEVEL 8.9 MG/DL (8.8-10.2); CARBON DIOXIDE LEVEL 26 MEQ/L (21-32); CHLORIDE LEVEL 105 MEQ/L (98-107); CREATININE FOR GFR 0.65 MG/DL (0.55-1.30); GLOMERULAR FILTRATION RATE > 60.0 (>32); GLUCOSE, FASTING 121 MG/DL (70-100); POTASSIUM SERUM 4.2 MEQ/L (3.5-5.1); SODIUM LEVEL 139 MEQ/L (136-145)
== END ==
PROVIDERS: ATTEND Internal Medicine
DX: I10 Essential (primary) hypertension (principal)

== ENCOUNTER → 2019-04-16 | Outpatient (REF) | payer MEDICARE, BC ==
[2019-04-16 09:40] LABS: HEMOGLOBIN 12.1 g/dl (12.0-15.5); MEAN CORPUSCULAR HEMOGLOBIN 27.3 pg (27.0-33.0); MEAN CORPUSCULAR HGB CONC 31.8 g/dl (32.0-36.5); MEAN CORPUSCULAR VOLUME 85.8 fl (80.0-96.0); PLATELET COUNT, AUTOMATED 325 10^3/uL (150-450); RED BLOOD COUNT 4.43 10^6/uL (4.00-5.40); WHITE BLOOD COUNT 7.1 10^3/uL (4.0-10.0)
[2019-04-16 10:29] LABS: BLOOD UREA NITROGEN 12 MG/DL (7-18); CALCIUM LEVEL 9.1 MG/DL (8.8-10.2); CARBON DIOXIDE LEVEL 23 MEQ/L (21-32); CHLORIDE LEVEL 103 MEQ/L (98-107); CREATININE FOR GFR 0.78 MG/DL (0.55-1.30); GLOMERULAR FILTRATION RATE > 60.0 (>32); GLUCOSE, FASTING 133 MG/DL (70-100); POTASSIUM SERUM 4.3 MEQ/L (3.5-5.1); SODIUM LEVEL 138 MEQ/L (136-145)
== END ==
PROVIDERS: ATTEND Internal Medicine
DX: F03.90 Unspecified dementia, unspecified severity, without behavioral disturbance, psychotic disturbance, mood disturbance, and anxiety (principal)

== ENCOUNTER → 2019-08-02 | Outpatient (REF) | payer MEDICARE, BC ==
[~2019-08-02] MED LIST changes: -DIPH25CA PO; +DIPH25CA32 PO
[2019-08-02 11:52] LABS: HEMATOCRIT 42.2 % (36.0-47.0); HEMOGLOBIN 13.3 g/dl (12.0-15.5); MEAN CORPUSCULAR HEMOGLOBIN 28.9 pg (27.0-33.0); MEAN CORPUSCULAR HGB CONC 31.5 g/dl (32.0-36.5); MEAN CORPUSCULAR VOLUME 91.7 fl (80.0-96.0); PLATELET COUNT, AUTOMATED 265 10^3/uL (150-450); WHITE BLOOD COUNT 7.6 10^3/uL (4.0-10.0)
[2019-08-02 12:20] LABS: ALBUMIN 3.6 GM/DL (3.2-5.2); ALT/SGPT 18 U/L (12-78); BILIRUBIN,TOTAL 0.4 MG/DL (0.2-1.0); BLOOD UREA NITROGEN 16 MG/DL (7-18); CALCIUM LEVEL 9.6 MG/DL (8.8-10.2); CARBON DIOXIDE LEVEL 28 MEQ/L (21-32); CHLORIDE LEVEL 106 MEQ/L (98-107); CREATININE FOR GFR 0.78 MG/DL (0.55-1.30); GLOMERULAR FILTRATION RATE > 60.0 (>32); GLUCOSE, FASTING 134 MG/DL (70-100); POTASSIUM SERUM 4.3 MEQ/L (3.5-5.1); SODIUM LEVEL 140 MEQ/L (136-145); TOTAL PROTEIN 7.8 GM/DL (6.4-8.2)
== END ==
PROVIDERS: ATTEND Internal Medicine
DX: F03.90 Unspecified dementia, unspecified severity, without behavioral disturbance, psychotic disturbance, mood disturbance, and anxiety (principal); Z79.899 Other long term (current) drug therapy

== ENCOUNTER → 2019-08-06 | Outpatient (REF) ==
[~2019-08-06] MED LIST changes: -OMEP40CA2 PO; +OMEP40CA97 PO
[2019-08-06 10:21] LABS: HEMATOCRIT 40.8 % (36.0-47.0); HEMOGLOBIN 13.2 g/dl (12.0-15.5); MEAN CORPUSCULAR HEMOGLOBIN 28.8 pg (27.0-33.0); MEAN CORPUSCULAR HGB CONC 32.4 g/dl (32.0-36.5); MEAN CORPUSCULAR VOLUME 89.1 fl (80.0-96.0); PLATELET COUNT, AUTOMATED 294 10^3/uL (150-450); RED BLOOD COUNT 4.58 10^6/uL (4.00-5.40); WHITE BLOOD COUNT 5.7 10^3/uL (4.0-10.0)
[2019-08-06 11:04] LABS: ALBUMIN 3.7 GM/DL (3.2-5.2); ALT/SGPT 20 U/L (12-78); BILIRUBIN,TOTAL 0.5 MG/DL (0.2-1.0); BLOOD UREA NITROGEN 17 MG/DL (7-18); CALCIUM LEVEL 9.4 MG/DL (8.8-10.2); CARBON DIOXIDE LEVEL 27 MEQ/L (21-32); CHLORIDE LEVEL 105 MEQ/L (98-107); CREATININE FOR GFR 0.78 MG/DL (0.55-1.30); GLOMERULAR FILTRATION RATE > 60.0 (>32); GLUCOSE, FASTING 128 MG/DL (70-100); IRON (FE) 56 UG/DL (50-170); POTASSIUM SERUM 4.1 MEQ/L (3.5-5.1); SODIUM LEVEL 139 MEQ/L (136-145); TOTAL PROTEIN 7.4 GM/DL (6.4-8.2)
== END ==
PROVIDERS: ATTEND Nurse Practitioner Adult Health
DX: D64.9 Anemia, unspecified (principal)